=== PATIENT | female | born 1940 | race Caucasian/White ===

== ENCOUNTER → 2016-09-01 | Outpatient (CLI) | payer BC ==
[~2016-09-01] MED LIST: ASCA500 PO; ASPEC81 PO; BUPR-79 PO; CHOL1000 PO; CITA20TA4 PO; DRGTP75 TD; LEVO75TA PO; NRN600 PO; OMEG10007 PO; OXYB10TA13 PO; POTA-335 PO; PROBCAP2 PO; PROP80CA PO
[2016-09-01 10:04] LABS: BASO % 0.3 %; BASO ABS # 0.02 K/uL (0-0.2); COMPLETE YES; EOS % 2.7 %; HEMATOCRIT 41.5 % (37-47); IG% 0.1 %; LYMPH % 38.6 %; LYMPH ABS # 2.86 K/uL (1.2-3.4); MEAN CELL VOLUME 90.4 fL (80-100); MEAN CORPUSCULAR HEMOGLOBIN 29.2 pg (25-34); MEAN CORPUSCULAR HGB CONC 32.3 g/dl (32-36); MEAN PLATELET VOLUME 9.2 fL (7.4-10.4); MONO % 4.2 %; NEUT % 54.1 %; PLATELET COUNT 256 K/uL (130-400); RED BLOOD COUNT 4.59 M/uL (4.2-5.4)
[2016-09-01 10:39] LABS: ALT/SGPT 26 U/L (12-78); AST/SGOT 24 U/L (15-37); BLOOD UREA NITROGEN 8 mg/dl (7-18); BUN/CREATININE RATIO 9.5 (10-20); CALCIUM 8.9 mg/dl (8.5-10.1); CARBON DIOXIDE 35 mmol/L (21-32); CHLORIDE 105 mmol/L (98-107); CHOLESTEROL 228 mg/dl (0-200); CREATININE 0.82 mg/dl (0.60-1.20); GLUCOSE 98 mg/dl (70-99); POTASSIUM 4.2 mmol/L (3.5-5.1); SODIUM 143 mmol/L (136-145)
[2016-09-01 10:50] LABS: CHOLESTEROL/HDL RATIO 2.9; HDL CHOLESTEROL 78 mg/dl; LDL CHOLESTEROL CALCULATED 126 mg/dl; TRIGLYCERIDES 119 mg/dl (0-150); VERY LOW DENSITY LIPOPROT CALC 24 mg/dl
== END | disposition home or self-care (01) ==
LOC: C.LAB 09:17
DX: I10 Essential (primary) hypertension (principal); M19.90 Unspecified osteoarthritis, unspecified site; E03.9 Hypothyroidism, unspecified; Z13.220 Encounter for screening for lipoid disorders

== ENCOUNTER → 2017-01-03 | Outpatient (CLI) | payer BC ==
--- NOTE | 2017-01-03 15:13 | DIAGNOSTIC IMAGING REPORT ---
RIGHT HAND MIN 3 VIEWS ROUTINE CLINICAL HISTORY: Right hand pain status post trauma COMPARISON: None. DISCUSSION: The bones are markedly osteopenic. Arthritic changes are present with narrowing of the metacarpal phalangeal joints. There is benign-appearing sclerosis involving the distal phalanx of the fifth finger. Arthritic changes are present the level of the navicular trapezium articulation. No acute fractures are visualized. IMPRESSION: Osteopenia and arthritic change. No acute fractures identified. Electronically signed by: Merritt David M.D. 01/03/2017 3:12 PM Dictated Date/Time: 01/03/2017 3:10 PM
--- NOTE | 2017-01-03 15:14 | DIAGNOSTIC IMAGING REPORT ---
RIGHT ELBOW MIN 3 VIEWS ROUTINE CLINICAL HISTORY: Right elbow pain status post trauma COMPARISON: None. DISCUSSION: The fat pads are not displaced. No acute fractures or dislocations are visualized. IMPRESSION: No fractures identified. Electronically signed by: Merritt David M.D. 01/03/2017 3:13 PM Dictated Date/Time: 01/03/2017 3:12 PM
--- NOTE | 2017-01-03 15:14 | DIAGNOSTIC IMAGING REPORT ---
RIGHT SHOULDER MIN 2 VIEWS ROUTINE, RIGHT CLAVICLE HISTORY: 76 years-old Female acute right shoulder and clavicle pain status post fall. COMPARISON: Portable chest radiograph 02/20/2016. TECHNIQUE: 3 views of the right shoulder with 2 views of the right clavicle. 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 Prominent marginal spurring involves the inferomedial humeral head. There is no acute fracture or dislocation identified. Suture material is noted within the right upper lung. CLAVICLE: Moderate acromioclavicular osteoarthritis is noted with marginal spurring. The clavicle appears intact without acute fracture or dislocation. Negative for opaque foreign body. IMPRESSION: 1. No acute fracture or dislocation identified involving the right shoulder or clavicle. 2. 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 The above report was generated using voice recognition software. It may contain grammatical, syntax or spelling errors. Electronically signed by: Manan Orantes M.D. 01/03/2017 3:12 PM Dictated Date/Time: 01/03/2017 3:09 PM
--- NOTE | 2017-01-03 15:14 | DIAGNOSTIC IMAGING REPORT ---
LEFT KNEE 1 OR 2 VIEWS ROUTINE CLINICAL HISTORY: Left knee pain status post trauma COMPARISON: None. DISCUSSION: No fractures or dislocations are visualized. IMPRESSION: No fractures or dislocations identified. Electronically signed by: Merritt David M.D. 01/03/2017 3:13 PM Dictated Date/Time: 01/03/2017 3:13 PM
--- NOTE | 2017-01-03 15:19 | DIAGNOSTIC IMAGING REPORT ---
RIGHT FOREARM 2 VIEWS ROUTINE, RIGHT HUMERUS MIN 2 VIEWS ROUTINE, RIGHT WRIST MIN 3 VIEWS ROUTINE HISTORY: 76 years-old Female acute right upper extremity pain status post fall. COMPARISON: Right elbow radiographs of same day TECHNIQUE: 2 views of the right forearm, 2 views of the right humerus and 4 views of the right wrist. FINDINGS: HUMERUS: No acute fracture or dislocation. Degenerative changes about the shoulder redemonstrated. Negative for opaque foreign body. FOREARM: Bones are moderately demineralized. Degenerative changes are noted about the wrist and radiocarpal joint. Radius and ulna appear intact without acute fracture or dislocation. No elbow joint effusion identified. WRIST: Moderate bone demineralization noted. There is moderate radiocarpal, triscaphe and first carpometacarpal osteoarthritis. There is 3 mm positive ulnar variance. Distal radius and ulna appear intact. The scaphoid appears intact. IMPRESSION: 1. No acute fracture or dislocation identified involving the right humerus, forearm or wrist. 2. Moderate bone demineralization with multifocal degenerative changes. The above report was generated using voice recognition software. It may contain grammatical, syntax or spelling errors. Electronically signed by: Manan Orantes M.D. 01/03/2017 3:18 PM Dictated Date/Time: 01/03/2017 3:13 PM
--- NOTE | 2017-01-03 15:20 | DIAGNOSTIC IMAGING REPORT ---
LEFT TIBIA/FIBULA 2 VIEWS ROUTINE HISTORY: 76 years-old Female acute left leg pain status post fall. COMPARISON: Left knee radiographs of same day TECHNIQUE: Frontal and lateral views of the left tibia/fibula. FINDINGS: Mild medial lateral compartment osteoarthritis is noted. The bones are mildly demineralized. No acute fracture or dislocation. IMPRESSION: No acute fracture or dislocation. The above report was generated using voice recognition software. It may contain grammatical, syntax or spelling errors. Electronically signed by: Manan Orantes M.D. 01/03/2017 3:19 PM Dictated Date/Time: 01/03/2017 3:18 PM
== END | disposition home or self-care (01) ==
LOC: C.RAD 14:05
DX: M79.601 Pain in right arm (principal); M79.605 Pain in left leg; W19.XXXA Unspecified fall, initial encounter; M19.011 Primary osteoarthritis, right shoulder; M85.841 Other specified disorders of bone density and structure, right hand; M81.0 Age-related osteoporosis without current pathological fracture

== ENCOUNTER 2017-05-24 14:19 | Observation (INO) | payer BC ==
[~2017-05-24] VITALS: Ht 160 cm; Wt 80.0 kg
[2017-05-24 15:45] LABS: BASO % 0.3 %; BASO ABS # 0.02 K/uL (0-0.2); EOS % 1.8 %; EOS ABS # 0.13 K/uL (0-0.5); HEMATOCRIT 40.7 % (37-47); HEMOGLOBIN 13.8 g/dL (12.0-16.0); IG# 0.01 K/uL (0.00-0.02); LYMPH % 19.3 %; MEAN CELL VOLUME 90.2 fL (80-100); MEAN CORPUSCULAR HEMOGLOBIN 30.6 pg (25-34); MEAN CORPUSCULAR HGB CONC 33.9 g/dl (32-36); MEAN PLATELET VOLUME 9.5 fL (7.4-10.4); MONO % 6.9 %; NEUT % 71.6 %; PLATELET COUNT 219 K/uL (130-400); RED CELL DISTRIBUTION WIDTH SD 42.8 fL (36.4-46.3); WHITE BLOOD COUNT 7.26 K/uL (4.8-10.8)
[2017-05-24 16:03] LABS: ALBUMIN 3.6 gm/dl (3.4-5.0); CREATININE 0.9 mg/dl (0.60-1.20); POTASSIUM 4.4 mmol/L (3.5-5.1)
[2017-05-24] MEDS ORDERED: OXYB5TAB PO (16:13)
[2017-05-24] MEDS ORDERED: GABA1CAP5 PO (16:13)
[2017-05-24] MEDS ORDERED: PROP80TA2 PO (16:13)
[2017-05-24] MEDS ORDERED: PRLSR20 PO (16:13)
[2017-05-24] MEDS ORDERED: POTA20TA16 PO (16:13)
[2017-05-24] MEDS ORDERED: FENT75DI2 (16:13)
[2017-05-24] MEDS ORDERED: CITA20TA4 PO (16:13)
[2017-05-24] MEDS ORDERED: LEVO100T7 PO (16:13)
[2017-05-24] MEDS ORDERED: BUPR150T47 PO (16:13)
--- NOTE | 2017-05-24 16:53 | DIAGNOSTIC IMAGING REPORT ---
HEAD CT NONCONTRAST CT DOSE: 1231.54 mGy.cm HISTORY: lethargic. prior CVA TECHNIQUE: Multiaxial CT images of the head were performed without the use of intravenous contrast. Automated exposure control was utilized for this study. A dose lowering technique was utilized adhering to the principles of ALARA. Comparison: Head CT 03/01/2016. Findings: The paranasal sinuses and mastoid air cells are clear. The calvarium and skull base are intact. There is no mass, hematoma, midline shift, acute infarct. White matter hypodensity is nonspecific but suggestive of microvascular ischemic change. The ventricles and sulci demonstrate mild age-related involutional changes. Old left basal ganglia and external capsule infarct with compensatory dilatation of the left lateral ventricle. This remains unchanged. Impression: No significant change compared to the prior study. No acute intracranial abnormality. Electronically signed by: Brando Naylor M.D. 05/24/2017 4:52 PM Dictated Date/Time: 05/24/2017 4:49 PM
[2017-05-24] MEDS ORDERED: CEFTRIAXONE SOD INJ 1 GM ADDVIAL IV STA (17:02)
--- NOTE | 2017-05-24 17:06 | DIAGNOSTIC IMAGING REPORT ---
CT SCAN OF THE ABDOMEN AND PELVIS WITHOUT IV CONTRAST CLINICAL HISTORY: Left lower quadrant abdominal pain. COMPARISON STUDY: Abdominal CT dated 11/11/2015. TECHNIQUE: CT scan of the abdomen and pelvis is performed from the lung bases to the proximal femora. Images are reviewed in the axial, sagittal, and coronal planes. IV contrast was not administered for this examination as per the referring clinician. Note that the examination was performed in suboptimal fashion without oral and IV contrast. The examination is also degraded by streak artifact from the right arm which could not be elevated above the abdomen. A dose lowering technique was utilized adhering to the principles of ALARA. FINDINGS: Lung bases: The heart is normal in size and without pericardial effusion. The coronary arteries are densely calcified. A tiny fat-containing Bochdalek hernia is seen at the left lung base. The lung bases are otherwise clear. There is a small hiatal hernia. Liver: The unenhanced liver is normal in size, contour, and attenuation. There is no intrahepatic biliary ductal dilatation. Gallbladder: Unremarkable. Spleen: Normal in size and attenuation. Pancreas: The unenhanced pancreas is atrophic and grossly unremarkable. Adrenal glands: Unremarkable. Kidneys: The unenhanced kidneys are atrophic and without hydronephrosis. There are no renal calculi identified. There is no evidence of contour deforming renal mass lesion. Abdominal vasculature: The abdominal aorta is normal in course and caliber noting moderate atherosclerotic calcification. Bowel: There are scattered colonic diverticula without CT evidence of acute diverticulitis. Mild to moderate colonic fecal retention is observed. No bowel obstruction is identified. The appendix is not identified. Peritoneum: There is no intraperitoneal free air or abdominal ascites. Lymphadenopathy: None. Pelvic viscera: The bladder, uterus, and adnexa are normal as visualized. There are small bilateral small fat-containing inguinal hernias. Skeletal structures: The skeletal structures are osteopenic. There is moderate lumbosacral spondylosis. There are healed right-sided rib fractures. No lytic or blastic lesions are seen. IMPRESSION: 1. Suboptimal examination without oral and IV contrast. 2. There are no acute infectious or inflammatory findings in the abdomen or pelvis. Electronically signed by: Andreas Bush M.D. 05/24/2017 5:05 PM Dictated Date/Time: 05/24/2017 5:00 PM
[2017-05-24] MEDS ORDERED: ACETAMINOPHEN 325 MG TAB PO PRN (19:30)
--- NOTE | 2017-05-24 19:32 | History and Physical ---
History & Physical Date & Time of Service: May 24, 2017 at 19:07 Chief Complaint: Abominal Pain Primary Care Physician: Sher Chu Jr,D.O. History of Present Illness Source: patient Ms. Harris presents today for change in mental status per her . She is at baseline non verbal and non ambulatory, able to be pivoted from wheelchair to chair or bed due to stroke 16 years ago. 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 She is able to communicate via head nods normally however she has been staring off into space and not responding to her . Upon presentation to the ED she was found to have bacteria and leukocytes in her urine and was febrile. Her denies any blood in her urine but does say she was indicating lower abdominal pain. 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 Social History Smoking Status: Never Smoker Drug Use: none Marital Status: Housing status: lives with family Occupational Status: retired Immunizations History of Influenza Vaccine: Yes Influenza Vaccine Date: Feb 12, 2011 History of Tetanus Vaccine?: Unknown History of Pneumococcal: Yes Pneumococcal Date: Feb 12, 2010 History of Hepatitis B Vaccine: No Multi-Drug Resistant Organisms History of MDRO: No Allergies Coded Allergies: Penicillins (Verified Allergy, Intermediate, HIVES, 05/24/17) Sulfa Antibiotics (Verified Adverse Reaction, Unknown, MOUTH ULCERS, ) Home Medications Scheduled Citalopram Hydrobromide (Citalopram Hydrobromide), 1 TAB PO DAILY Fentanyl (Fentanyl), q72hrs Gabapentin (Neurontin), 600 MG PO TID Levothyroxine Sodium (Levothyroxine Sodium), 1 TAB PO DAILY Omeprazole (Prilosec), 20 MG PO BID Oxybutynin Chloride (Oxybutynin Chloride Er), 10 MG PO BID Potassium Ext Rel (Klor-Con), 20 MEQ PO DAILY Propranolol (Inderal), 80 MG PO BID Miscellaneous Medications Bupropion (Zyban), 150 MG PO Physical Exam Vital Signs Date Time Temp Pulse Resp B/P (MAP) Pulse Ox O2 Delivery O2 Flow Rate FiO2 05/24/17 17:56 73 16 144/85 95 Room Air 05/24/17 17:30 70 16 144/81 100 Room Air 05/24/17 16:53 67 144/81 94 Room Air 05/24/17 14:33 71 05/24/17 14:30 38.5 64 16 132/67 92 Room Air General: no distress Eyes: normal inspection, eyes non reactive to light bilaterally Respiratory: chest non tender, clear to auscultation, normal breath sounds, no respiratory distress, no accessory muscle use Cardiac: regular rate and rhythm, no rub or gallop, no murmur, no edema, no jvd GI/: active bowel sounds, no abd pain or tenderness, soft, non distended Extremities: unable to test due to patient baseline Neuro/Psych: non verbal, unable to follow commands Skin: normal color, dry Diagnostics Laboratory Results Results Past 24 Hours Test 05/24/17 14:40 05/24/17 15:25 Range/Units Urine Color YELLOW Urine Appearance CLOUDY CLEAR Urine pH 7.5 4.5-7.5 Urine Specific [place] 1.012 1.000-1.030 Urine Protein NEG NEG Urine Glucose (UA) NEG NEG Urine Ketones NEG NEG Urine Occult Blood NEG NEG Urine Nitrite NEG NEG Urine Bilirubin NEG NEG Urine Urobilinogen NEG NEG Urine Leukocyte Esterase LARGE NEG Urine WBC (Auto) 5-10 0-5 /hpf Urine RBC (Auto) 0-4 0-4 /hpf Urine Hyaline Casts (Auto) 0 0-5 /lpf Urine Epithelial Cells (Auto) 5-10 0-5 /lpf Urine Bacteria (Auto) 4+ NEG Urine Yeast (Auto) NONE PRSENT White Blood Count 7.26 4.8-10.8 K/uL Red Blood Count 4.51 4.2-5.4 M/uL Hemoglobin 13.8 12.0-16.0 g/dL Hematocrit 40.7 37-47 % Mean Corpuscular Volume 90.2 80-100 fL Mean Corpuscular Hemoglobin 30.6 25-34 pg Mean Corpuscular Hemoglobin Concent 33.9 32-36 g/dl Platelet Count 219 130-400 K/uL Mean Platelet Volume 9.5 7.4-10.4 fL Neutrophils (%) (Auto) 71.6 % Lymphocytes (%) (Auto) 19.3 % Monocytes (%) (Auto) 6.9 % Eosinophils (%) (Auto) 1.8 % Basophils (%) (Auto) 0.3 % Neutrophils # (Auto) 5.20 1.4-6.5 K/uL Lymphocytes # (Auto) 1.40 1.2-3.4 K/uL Monocytes # (Auto) 0.50 0.11-0.59 K/uL Eosinophils # (Auto) 0.13 0-0.5 K/uL Basophils # (Auto) 0.02 0-0.2 K/uL RDW Standard Deviation 42.8 36.4-46.3 fL RDW Coefficient of Variation 13.0 11.5-14.5 % Immature Granulocyte % (Auto) 0.1 % Immature Granulocyte # (Auto) 0.01 0.00-0.02 K/uL Sodium Level 136 136-145 mmol/L Potassium Level 4.4 3.5-5.1 mmol/L Chloride Level 99 98-107 mmol/L Carbon Dioxide Level 33 21-32 mmol/L Anion Gap 4.0 3-11 mmol/L Blood Urea Nitrogen 7 7-18 mg/dl Creatinine 0.90 0.60-1.20 mg/dl Est Creatinine Clear Calc Drug Dose 53.2 ml/min Estimated GFR () 72.0 Estimated GFR (Non- 62.1 BUN/Creatinine Ratio 7.4 10-20 Random Glucose 90 70-99 mg/dl Calcium Level 9.0 8.5-10.1 mg/dl Total Bilirubin 0.5 0.2-1 mg/dl Direct Bilirubin 0.1 0-0.2 mg/dl Aspartate Amino Transf (AST/SGOT) 19 15-37 U/L Alanine Aminotransferase (ALT/SGPT) 21 12-78 U/L Alkaline Phosphatase 91 45-117 U/L Total Protein 7.0 6.4-8.2 gm/dl Albumin 3.6 3.4-5.0 gm/dl Lipase 68 73-393 U/L Microbiology Results 05/24/17 Urine Culture, Received Pending Diagnostic Radiology CT SCAN OF THE ABDOMEN AND PELVIS WITHOUT IV CONTRAST CLINICAL HISTORY: Left lower quadrant abdominal pain. COMPARISON STUDY: Abdominal CT dated 11/11/2015. TECHNIQUE: CT scan of the abdomen and pelvis is performed from the lung bases to the proximal femora. Images are reviewed in the axial, sagittal, and coronal planes. IV contrast was not administered for this examination as per the referring clinician. Note that the examination was performed in suboptimal fashion without oral and IV contrast. The examination is also degraded by streak artifact from the right arm which could not be elevated above the abdomen. A dose lowering technique was utilized adhering to the principles of ALARA. FINDINGS: Lung bases: The heart is normal in size and without pericardial effusion. The coronary arteries are densely calcified. A tiny fat-containing Bochdalek hernia is seen at the left lung base. The lung bases are otherwise clear. There is a small hiatal hernia. Liver: The unenhanced liver is normal in size, contour, and attenuation. There is no intrahepatic biliary ductal dilatation. Gallbladder: Unremarkable. Spleen: Normal in size and attenuation. Pancreas: The unenhanced pancreas is atrophic and grossly unremarkable. Adrenal glands: Unremarkable. Kidneys: The unenhanced kidneys are atrophic and without hydronephrosis. There are no renal calculi identified. There is no evidence of contour deforming renal mass lesion. Abdominal vasculature: The abdominal aorta is normal in course and caliber noting moderate atherosclerotic calcification. Bowel: There are scattered colonic diverticula without CT evidence of acute diverticulitis. Mild to moderate colonic fecal retention is observed. No bowel obstruction is identified. The appendix is not identified. Peritoneum: There is no intraperitoneal free air or abdominal ascites. Lymphadenopathy: None. Pelvic viscera: The bladder, uterus, and adnexa are normal as visualized. There are small bilateral small fat-containing inguinal hernias. Skeletal structures: The skeletal structures are osteopenic. There is moderate lumbosacral spondylosis. There are healed right-sided rib fractures. No lytic or blastic lesions are seen. IMPRESSION: 1. Suboptimal examination without oral and IV contrast. 2. There are no acute infectious or inflammatory findings in the abdomen or pelvis. HEAD CT NONCONTRAST CT DOSE: 1231.54 mGy.cm HISTORY: lethargic. prior CVA TECHNIQUE: Multiaxial CT images of the head were performed without the use of intravenous contrast. Automated exposure control was utilized for this study. A dose lowering technique was utilized adhering to the principles of ALARA. Comparison: Head CT 03/01/2016. Findings: The paranasal sinuses and mastoid air cells are clear. The calvarium and skull base are intact. There is no mass, hematoma, midline shift, acute infarct. White matter hypodensity is nonspecific but suggestive of microvascular ischemic change. The ventricles and sulci demonstrate mild age-related involutional changes. Old left basal ganglia and external capsule infarct with compensatory dilatation of the left lateral ventricle. This remains unchanged. Impression: No significant change compared to the prior study. No acute intracranial abnormality. EKG Poor data quality, interpretation may be adversely affected Normal sinus rhythm Right bundle branch block Abnormal ECG When compared with ECG of 03-MAR-2016 06:35, No significant change was found Confirmed by Luis Antonio Douglas ([id number]) on 05/24/2017 5:04:31 PM Impression Assessment and Plan Mrs. Harris is a 76 year old woman here for AMS secondary to UTI AMS secondary to UTI - admit med/surg obs - UC pending - Rocephin daily - Patient's reports patient cannot tolerate physical therapy so I won't order it - CT head negative for acute process - CT abd negative for acute process History of depression/fibromyalgia - continue home doses bupropion, citalopram, gabapentin, fentanyl patch Hypothyroidism - continue levothyroxine Hx CVA - turn and reposition q2h Advanced Directives Existing Advance Directive: Yes Existing Living Will: Yes Existing Power of Executive Vice President And Chief Financial Officer: No ( and son) Resuscitation Status FULL RESUSCITATION
[2017-05-24] MEDS ORDERED: IV FLUIDS COMPLETED PRN (20:30)
[2017-05-24] MEDS: GABAPENTIN 600 MG TAB PO SCH (22:05)
[2017-05-24] MEDS: PROPRANOLOL HCL 80 MG TAB PO SCH (22:05)
[2017-05-24] MEDS: PANTOprazole SOD 40 MG TAB PO SCH (22:05)
[2017-05-24] MEDS: OXYBUTYNIN CHLORIDE 5 MG TABCR PO SCH (22:06)
[2017-05-24 22:17] VITALS: O2SAT 94; Ht 160 cm; Wt 80.0 kg
--- NOTE | 2017-05-24 22:34 | EMERGENCY ROOM VISIT NOTE ---
History Report prepared by Sharri: Reggie Santos Under the Supervision of: Dr. Waldemar Vargas M.D. 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 The patient is a 76 year old female who presents to the Emergency Room with concerns of worsening lethargy that the patient's noticed this morning, several hours prior to arrival. The patient's states that he noticed the patient was very lethargic this morning while at breakfast. He claims that she is aphasic at baseline, but it is worse today. He also notes that her urine has been cloudy with a very strong odor for the past three days. Her right side was also effected from the stroke. She has chronic fibromyalgia and it is not unusual for her to be very tender to palpation globally. 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 Social History Smoking Status: Former Smoker Alcohol Use: none Drug Use: none Marital Status: Housing Status: lives with family Occupation Status: retired Current/Historical Medications Scheduled Citalopram Hydrobromide (Citalopram Hydrobromide), 1 TAB PO DAILY Fentanyl (Fentanyl), q72hrs Gabapentin (Neurontin), 600 MG PO TID Levothyroxine Sodium (Levothyroxine Sodium), 1 TAB PO DAILY Omeprazole (Prilosec), 20 MG PO BID Oxybutynin Chloride (Oxybutynin Chloride Er), 10 MG PO BID Potassium Ext Rel (Klor-Con), 20 MEQ PO DAILY Propranolol (Inderal), 80 MG PO BID Miscellaneous Medications Bupropion (Zyban), 150 MG PO Allergies Coded Allergies: Penicillins (Verified Allergy, Intermediate, HIVES, 05/24/17) Sulfa Antibiotics (Verified Adverse Reaction, Unknown, MOUTH ULCERS, ) Physical Exam Vital Signs Date Time Temp Pulse Resp B/P (MAP) Pulse Ox O2 Delivery O2 Flow Rate FiO2 05/24/17 19:02 73 18 119/77 92 Room Air 05/24/17 17:56 73 16 144/85 95 Room Air 05/24/17 17:30 70 16 144/81 100 Room Air 05/24/17 16:53 67 144/81 94 Room Air 05/24/17 14:33 71 05/24/17 14:30 38.5 64 16 132/67 92 Room Air Physical Exam GENERAL: Awake, alert, well-appearing, in no distress HENT: Normocephalic, atraumatic. Oropharynx unremarkable. EYES: Normal conjunctiva. Sclera non-icteric. NECK: Supple. No nuchal rigidity. FROM. No JVD. RESPIRATORY: Clear to auscultation. CARDIAC: There is some diffuse tenderness over the chest. Regular rate, normal rhythm. Extremities warm and well perfused. Pulses equal. ABDOMEN: Soft, non-distended. There is LLQ tenderness to palpation. No rebound or guarding. No masses. RECTAL: Deferred. MUSCULOSKELETAL: Chest examination reveals no tenderness. The back is symmetrical on inspection without obvious abnormality. There is no CVA tenderness to palpation. No joint edema. LOWER EXTREMITIES: Calves are equal size bilaterally and non-tender. No edema. No discoloration. NEURO: Normal sensorium. No sensory or motor deficits noted. SKIN: No rash or jaundice noted. Medical Decision & Procedures ER Provider Diagnostic Interpretation: Radiology results as stated below per my review and radiologist interpretation: CT SCAN OF THE ABDOMEN AND PELVIS WITHOUT IV CONTRAST CLINICAL HISTORY: Left lower quadrant abdominal pain. COMPARISON STUDY: Abdominal CT dated 11/11/2015. TECHNIQUE: CT scan of the abdomen and pelvis is performed from the lung bases to the proximal femora. Images are reviewed in the axial, sagittal, and coronal planes. IV contrast was not administered for this examination as per the referring clinician. Note that the examination was performed in suboptimal fashion without oral and IV contrast. The examination is also degraded by streak artifact from the right arm which could not be elevated above the abdomen. A dose lowering technique was utilized adhering to the principles of ALARA. FINDINGS: Lung bases: The heart is normal in size and without pericardial effusion. The coronary arteries are densely calcified. A tiny fat-containing Bochdalek hernia is seen at the left lung base. The lung bases are otherwise clear. There is a small hiatal hernia. Liver: The unenhanced liver is normal in size, contour, and attenuation. There is no intrahepatic biliary ductal dilatation. Gallbladder: Unremarkable. Spleen: Normal in size and attenuation. Pancreas: The unenhanced pancreas is atrophic and grossly unremarkable. Adrenal glands: Unremarkable. Kidneys: The unenhanced kidneys are atrophic and without hydronephrosis. There are no renal calculi identified. There is no evidence of contour deforming renal mass lesion. Abdominal vasculature: The abdominal aorta is normal in course and caliber noting moderate atherosclerotic calcification. Bowel: There are scattered colonic diverticula without CT evidence of acute diverticulitis. Mild to moderate colonic fecal retention is observed. No bowel obstruction is identified. The appendix is not identified. Peritoneum: There is no intraperitoneal free air or abdominal ascites. Lymphadenopathy: None. Pelvic viscera: The bladder, uterus, and adnexa are normal as visualized. There are small bilateral small fat-containing inguinal hernias. Skeletal structures: The skeletal structures are osteopenic. There is moderate lumbosacral spondylosis. There are healed right-sided rib fractures. No lytic or blastic lesions are seen. IMPRESSION: 1. Suboptimal examination without oral and IV contrast. 2. There are no acute infectious or inflammatory findings in the abdomen or pelvis. Electronically signed by: Andreas Bush M.D. 05/24/2017 5:05 PM Dictated Date/Time: 05/24/2017 5:[address] NON[address]AST CT DOSE: 1231.54 mGy.cm HISTORY: lethargic. prior CVA TECHNIQUE: Multiaxial CT images of the head were performed without the use of intravenous contrast. Automated exposure control was utilized for this study. A dose lowering technique was utilized adhering to the principles of ALARA. Comparison: Head CT 03/01/2016. Findings: The paranasal sinuses and mastoid air cells are clear. The calvarium and skull base are intact. There is no mass, hematoma, midline shift, acute infarct. White matter hypodensity is nonspecific but suggestive of microvascular ischemic change. The ventricles and sulci demonstrate mild age-related involutional changes. Old left basal ganglia and external capsule infarct with compensatory dilatation of the left lateral ventricle. This remains unchanged. Impression: No significant change compared to the prior study. No acute intracranial abnormality. Electronically signed by: Brando Naylor M.D. 05/24/2017 4:52 PM Dictated Date/Time: 05/24/2017 4:49 PM Laboratory Results 05/24/17 15:25 Red Blood Count 4.51, Mean Corpuscular Volume 90.2, Mean Corpuscular Hemoglobin 30.6, Mean Corpuscular Hemoglobin Concent 33.9, Mean Platelet Volume 9.5, Neutrophils (%) (Auto) 71.6, Lymphocytes (%) (Auto) 19.3, Monocytes (%) (Auto) 6.9, Eosinophils (%) (Auto) 1.8, Basophils (%) (Auto) 0.3, Neutrophils # (Auto) 5.20, Lymphocytes # (Auto) 1.40, Monocytes # (Auto) 0.50, Eosinophils # (Auto) 0.13, Basophils # (Auto) 0.02 05/24/17 15:25 Test 05/24/17 14:40 05/24/17 15:25 Urine Color YELLOW Urine Appearance CLOUDY (CLEAR) Urine pH 7.5 (4.5-7.5) Urine Specific [place] 1.012 (1.000-1.030) Urine Protein NEG (NEG) Urine Glucose (UA) NEG (NEG) Urine Ketones NEG (NEG) Urine Occult Blood NEG (NEG) Urine Nitrite NEG (NEG) Urine Bilirubin NEG (NEG) Urine Urobilinogen NEG (NEG) Urine Leukocyte Esterase LARGE (NEG) Urine WBC (Auto) 5-10 /hpf (0-5) Urine RBC (Auto) 0-4 /hpf (0-4) Urine Hyaline Casts (Auto) 0 /lpf (0-5) Urine Epithelial Cells (Auto) 5-10 /lpf (0-5) Urine Bacteria (Auto) 4+ (NEG) Urine Yeast (Auto) (NONE PRSENT) White Blood Count 7.26 K/uL (4.8-10.8) Red Blood Count 4.51 M/uL (4.2-5.4) Hemoglobin 13.8 g/dL (12.0-16.0) Hematocrit 40.7 % (37-47) Mean Corpuscular Volume 90.2 fL (80-100) Mean Corpuscular Hemoglobin 30.6 pg (25-34) Mean Corpuscular Hemoglobin Concent 33.9 g/dl (32-36) Platelet Count 219 K/uL (130-400) Mean Platelet Volume 9.5 fL (7.4-10.4) Neutrophils (%) (Auto) 71.6 % Lymphocytes (%) (Auto) 19.3 % Monocytes (%) (Auto) 6.9 % Eosinophils (%) (Auto) 1.8 % Basophils (%) (Auto) 0.3 % Neutrophils # (Auto) 5.20 K/uL (1.4-6.5) Lymphocytes # (Auto) 1.40 K/uL (1.2-3.4) Monocytes # (Auto) 0.50 K/uL (0.11-0.59) Eosinophils # (Auto) 0.13 K/uL (0-0.5) Basophils # (Auto) 0.02 K/uL (0-0.2) RDW Standard Deviation 42.8 fL (36.4-46.3) RDW Coefficient of Variation 13.0 % (11.5-14.5) Immature Granulocyte % (Auto) 0.1 % Immature Granulocyte # (Auto) 0.01 K/uL (0.00-0.02) Anion Gap 4.0 mmol/L (3-11) Est Creatinine Clear Calc Drug Dose 53.2 ml/min Estimated GFR () 72.0 Estimated GFR (Non- 62.1 BUN/Creatinine Ratio 7.4 (10-20) Calcium Level 9.0 mg/dl (8.5-10.1) Total Bilirubin 0.5 mg/dl (0.2-1) Direct Bilirubin 0.1 mg/dl (0-0.2) Aspartate Amino Transf (AST/SGOT) 19 U/L (15-37) Alanine Aminotransferase (ALT/SGPT) 21 U/L (12-78) Alkaline Phosphatase 91 U/L (45-117) Total Protein 7.0 gm/dl (6.4-8.2) Albumin 3.6 gm/dl (3.4-5.0) Lipase 68 U/L (73-393) Laboratory results reviewed by me Medications Administered Medications (Trade) Dose Ordered Sig/[place] Route Start Time Stop Time Status Last Admin Dose Admin Ceftriaxone Sodium (Rocephin Inj) 1 gm NOW STAT IV 05/24/17 17:02 05/24/17 17:03 DC 05/24/17 17:29 1 GM ECG Indication: abdominal pain, other (Lethargy) Rate (beats per minute): 76 Rhythm: normal sinus Findings: RBBB, no acute ischemic change, no ectopy Change: Patient's electrocardiogram per my interpretation. ED Course 1448: The patient was evaluated in room C11. A complete history and physical exam was performed. 1655: I checked on the patient at this time. She is doing okay. 1701: Ordered Rocephin 1 gm IV. 1808: I reevaluated the patient. she is stable. 1834: I discussed the case with Dr. Gus GARCIA Hospitalist. He will evaluate the patient for further treatment. Medical Decision Prior records/ancillary studies reviewed and summarized above. Nursing notes reviewed and agree them. Additional history obtained from patient who is primary caregiver. The patient's history was concerning for weakness and urinary symptoms. Differential diagnosis: Etiologies such as metabolic, infection, hypo/hyperglycemia, electrolyte abnormalities, cardiac sources, intracerebral event, toxicologic, neurologic, as well as others were entertained. Physical examination: As above. ER treatment provided: IV Lock IV Rocephin On reassessment the patient felt better. Diagnostics interpretation by me: ECG: As above The labs revealed an unremarkable CBC and chemistry panel. Urinalysis very concerning for infection. Imaging studies: CT scans as above. Consultation: A consultation was placed with the hospitalist. The case was discussed and diagnostics were reviewed. The patient was evaluated in the ER for further treatment. Consults Time Called: 1829 Consulting Physician: Dr. Gus GARCIA Hospitalist Returned Call: 1834 I discussed the case with Dr. Gus GARCIA Hospitalist. He will evaluate the patient for further treatment. Impression Primary Impression: UTI (urinary tract infection) Additional Impression: Weakness Scribe Attestation The scribe's documentation has been prepared under my direction and personally reviewed by me in its entirety. I confirm that the note above accurately reflects all work, treatment, procedures, and medical decision making performed by me. Departure Information Dispostion Being Evaluated By Hospitalist Referrals Sher Chu Jr,D.O. (PCP) Patient Instructions My [facility] Problem Qualifiers
[2017-05-24 23:58] VITALS: BP 122/67; PULSE 65; TEMP 36.8; O2SAT 91
[2017-05-25] MEDS: CHECK FENTANYL PATCH PLACEMENT SCH ×3 (00:15→15:06)
[2017-05-25] MEDS: LEVOTHYROXINE 100 MCG TAB PO SCH (06:35)
[2017-05-25 08:00] VITALS: O2SAT 94
[2017-05-25] MEDS ORDERED: POTASSIUM CHLORIDE 20 MEQ TABCR PO SCH (08:00)
[2017-05-25 08:05] VITALS: BP 113/74; PULSE 59; TEMP 37.5; O2SAT 91
[2017-05-25] MEDS: PROPRANOLOL HCL 80 MG TAB PO SCH ×2 (08:18→22:13)
[2017-05-25] MEDS: GABAPENTIN 600 MG TAB PO SCH ×3 (08:18→21:14)
[2017-05-25] MEDS: OXYBUTYNIN CHLORIDE 5 MG TABCR PO SCH ×2 (08:18→22:10)
[2017-05-25] MEDS: BuPROPion SR 150 MG TABCR PO SCH (08:19)
[2017-05-25] MEDS: CITALOPRAM 20 MG TAB PO SCH (08:19)
[2017-05-25] MEDS: PANTOprazole SOD 40 MG TAB PO SCH ×2 (08:19→21:13)
[2017-05-25 09:00] LABS: HEMATOCRIT 36.3 % (37-47); HEMOGLOBIN 12.3 g/dL (12.0-16.0); MEAN CELL VOLUME 88.5 fL (80-100); MEAN CORPUSCULAR HGB CONC 33.9 g/dl (32-36); MEAN PLATELET VOLUME 9.5 fL (7.4-10.4); PLATELET COUNT 200 K/uL (130-400); RED CELL DISTRIBUTION WIDTH CV 12.9 % (11.5-14.5); RED CELL DISTRIBUTION WIDTH SD 41.7 fL (36.4-46.3); WHITE BLOOD COUNT 4.58 K/uL (4.8-10.8)
[2017-05-25 09:32] LABS: CALCIUM 8.5 mg/dl (8.5-10.1); CREATININE 0.62 mg/dl (0.60-1.20); POTASSIUM 3.4 mmol/L (3.5-5.1)
[2017-05-25] MEDS ORDERED: POTASSIUM CHLORIDE 10 MEQ TABCR PO ONE (10:00)
[2017-05-25] MEDS: POTASSIUM CHLORIDE 20 MEQ/15 ML UDC PO SCH (10:30)
[2017-05-25 14:37] VITALS: BP 87/59; PULSE 58; TEMP 36.8; O2SAT 92
--- NOTE | 2017-05-25 16:41 | Hospitalist Progress Note ---
Hospitalist Progress Note Date of Service May 25, 2017. Subjective Pt evaluation today including: conversation w/ patient, physical exam, chart review, lab review, review of inpatient medication list Voiding: no voiding problems Ms. Harris is improved today, able to verbalize a bit. No fevers overnight. VSS ROS Constitutional: no chills, aches, sweats or fever Respiratory: no sob,cough, sputum, or wheezing Cardiac: no chest pain, palpitations, edema, orthopnea or lightheadedness GI: no abdominal pain, nausea, vomiting, diarrhea or constipation : no dysuria or hesitancy Extremities: no joint pain or weakness Skin: no rash All other systems reviewed and negative Medications Medications Administered Medications (Trade) Dose Ordered Sig/[place] Route Start Time Stop Time Status Last Admin Dose Admin Ceftriaxone Sodium (Rocephin Inj) 1 gm NOW STAT IV 05/24/17 17:02 05/24/17 17:03 DC 05/24/17 17:29 1 GM Bupropion HCl (Wellbutrin-Sr Tab) 150 mg DAILY PO 05/25/17 08:00 06/24/17 08:59 05/25/17 08:19 150 MG Citalopram Hydrobromide (celeXA TAB) 20 mg DAILY PO 05/25/17 08:00 06/24/17 08:59 05/25/17 08:19 20 MG Gabapentin (Neurontin Tab) 600 mg TID PO 05/24/17 20:55 06/23/17 20:59 05/25/17 13:51 600 MG Levothyroxine Sodium (Synthroid Tab) 100 mcg DAILYBB PO 05/25/17 06:30 06/24/17 06:29 05/25/17 06:35 100 MCG Oxybutynin Chloride (Ditropan-Xl Tab) 10 mg BID PO 05/24/17 20:55 06/23/17 20:59 05/25/17 08:18 10 MG Potassium Chloride (Klor-Con Tab) 20 meq DAILY PO 05/25/17 08:00 05/25/17 10:16 DC 05/25/17 08:19 20 MEQ Propranolol HCl (Inderal Tab) 80 mg BID PO 05/24/17 20:55 06/23/17 20:59 05/25/17 08:18 80 MG Pantoprazole Sodium (Protonix Tab) 40 mg BID PO 05/24/17 20:55 06/23/17 20:59 05/25/17 08:19 40 MG Acetaminophen (Tylenol Tab) 650 mg Q4H PRN PO 05/24/17 19:30 06/23/17 19:29 05/25/17 06:36 650 MG Miscellaneous Information (Check Fentanyl Patch Placement) 1 ea QS N/A 05/25/17 00:00 06/24/17 00:00 05/25/17 15:06 1 EA Objective Vital Signs Date Time Temp Pulse Resp B/P (MAP) Pulse Ox O2 Delivery O2 Flow Rate FiO2 05/25/17 14:37 36.8 58 18 87/59 (68) 92 05/25/17 08:05 37.5 59 20 113/74 (87) 91 05/25/17 08:00 94 Room Air 05/25/17 00:30 Room Air 05/24/17 23:58 36.8 65 20 122/67 (85) 91 Room Air 05/24/17 22:17 94 Room Air 05/24/17 20:36 37.1 74 20 135/86 94 05/24/17 19:02 73 18 119/77 92 Room Air 05/24/17 17:56 73 16 144/85 95 Room Air 05/24/17 17:30 70 16 144/81 100 Room Air 05/24/17 16:53 67 144/81 94 Room Air Physical Exam Notes: General: no distress Eyes: normal inspection, PERLL Respiratory: chest non tender, clear to auscultation, normal breath sounds, no respiratory distress, no accessory muscle use Cardiac: regular rate and rhythm, no rub or gallop, no murmur, no edema, no jvd GI/: active bowel sounds, no abd pain or tenderness, soft, non distended Extremities: normal range of motion, normal strength, non tender Neuro/Psych: alert, unable to assess orientation due to limited verbalization baseline Skin: normal color, dry Laboratory Results Last 24 Hours Test 05/25/17 08:15 White Blood Count 4.58 K/uL Red Blood Count 4.10 M/uL Hemoglobin 12.3 g/dL Hematocrit 36.3 % Mean Corpuscular Volume 88.5 fL Mean Corpuscular Hemoglobin 30.0 pg Mean Corpuscular Hemoglobin Concent 33.9 g/dl RDW Standard Deviation 41.7 fL RDW Coefficient of Variation 12.9 % Platelet Count 200 K/uL Mean Platelet Volume 9.5 fL Sodium Level 136 mmol/L Potassium Level 3.4 mmol/L Chloride Level 100 mmol/L Carbon Dioxide Level 27 mmol/L Anion Gap 8.0 mmol/L Blood Urea Nitrogen 7 mg/dl Creatinine 0.62 mg/dl Est Creatinine Clear Calc Drug Dose 77.3 ml/min Estimated GFR () 101.5 Estimated GFR (Non- 87.6 BUN/Creatinine Ratio 10.9 Random Glucose 96 mg/dl Calcium Level 8.5 mg/dl Assessment and Plan Mrs. Harris is a 76 year old woman here for AMS secondary to UTI AMS secondary to UTI - admit med/surg obs - UC pending - uc pinpoint growth, reincubating - Rocephin daily - Patient's reports patient cannot tolerate physical therapy so not ordered - CT head negative for acute process - CT abd negative for acute process History of depression/fibromyalgia - continue home doses bupropion, citalopram, gabapentin, fentanyl patch Hypothyroidism - continue levothyroxine Hx CVA - turn and reposition q2h DVT proph - heparin subq
[2017-05-25] MEDS ORDERED: CEFTRIAXONE SOD INJ 1 GM in DEXTROSE 5% ADD-VANTAGE 50ML 50 ML IV SCH (17:00)
[2017-05-25 17:43] LABS: PTT PATIENT 27.5 SECONDS (21.0-31.0)
[2017-05-25 22:10] VITALS: BP 131/84; PULSE 77
[2017-05-25] MEDS: HEPARIN SOD 5000 UNIT/0.5 ML CARP SQ SCH (22:15)
[2017-05-26] MEDS: LEVOTHYROXINE 100 MCG TAB PO SCH (06:43)
[2017-05-26 07:17] VITALS: BP 127/79; PULSE 59; TEMP 37; O2SAT 91
[2017-05-26] MEDS: CHECK FENTANYL PATCH PLACEMENT SCH ×2 (07:43)
[2017-05-26] MEDS: POTASSIUM CHLORIDE 20 MEQ/15 ML UDC PO SCH (07:44)
[2017-05-26] MEDS: PANTOprazole SOD 40 MG TAB PO SCH (07:44)
[2017-05-26] MEDS: OXYBUTYNIN CHLORIDE 5 MG TABCR PO SCH (07:45)
[2017-05-26] MEDS: PROPRANOLOL HCL 80 MG TAB PO SCH (07:46)
[2017-05-26 07:56] LABS: HEMATOCRIT 37.6 % (37-47); HEMOGLOBIN 12.8 g/dL (12.0-16.0); MEAN CELL VOLUME 89.5 fL (80-100); MEAN CORPUSCULAR HEMOGLOBIN 30.5 pg (25-34); MEAN PLATELET VOLUME 9.3 fL (7.4-10.4); PLATELET COUNT 184 K/uL (130-400); RED CELL DISTRIBUTION WIDTH CV 13.1 % (11.5-14.5); RED CELL DISTRIBUTION WIDTH SD 43.1 fL (36.4-46.3); WHITE BLOOD COUNT 5.25 K/uL (4.8-10.8)
[2017-05-26 08:05] VITALS: O2SAT 91
[2017-05-26 08:23] LABS: CALCIUM 8.6 mg/dl (8.5-10.1); CREATININE 0.69 mg/dl (0.60-1.20); POTASSIUM 3.8 mmol/L (3.5-5.1)
[2017-05-26] MEDS ORDERED: CEPH500C2 PO (08:27)
--- NOTE | 2017-05-26 08:30 | Discharge Instructions ---
Discharge Instructions Date of Service May 26, 2017. Admission Reason for Admission: Altered Mental Status, Uti Discharge Discharge Diagnosis / Problem: Altered Mental Status, Uti Discharge Goals Goal(s): Decrease discomfort, Improve function, Increase independence, Improve disease control, Improve nutritional status, Learn about illness, Diagnostic testing, Therapeutic intervention, Prevent Disease Progression, Specific goals Activity Recommendations Activity Limitations: resume your previous activity . Instructions / Follow-Up Instructions / Follow-Up you have mental status changes like secondary to UTI have been treated Rocephin daily , will discharge you home with Keflex orally for 5 days please call to Dr. Teresa's office to get final urine culture sensitivity report to make sure Keflex is right antibiotics - you need to follow up with your primary care physician in 1 week, - take medication as instructed, never overdose or any misuse, or take with alcohol, because misuse of medicine may cause organ damage or , call your primary care physician if have questions of medicaitons. - call your primary care physician OR go to local emergency room if has any fever/chill, chest pain, shortness of breathing, nausea/vomiting/abdominal pain , facial droop/slurry speech/local weakness, or if has any questions. - fall precaution - diet as instructed Current Hospital Diet Patient's current hospital diet: Regular Diet Discharge Diet Recommended Diet: Regular Diet, AHA Diet (Heart Healthy) Pending Studies Studies pending at discharge: yes List of pending studies: final urine culture results Medical Emergencies . Who to Call and When: Medical Emergencies: If at any time you feel your situation is an emergency, please call 911 immediately. . Non-Emergent Contact Non-Emergency issues call your: Primary Care Provider Call Non-Emergent contact if: you have a fever . . "Provider Documentation" section prepared by Alf Donahue. . VTE Core Measure Inpt VTE Proph given/why not?: Unfractionated heparin SQ
[2017-05-26] MEDS: HEPARIN SOD 5000 UNIT/0.5 ML CARP SQ SCH (09:00)
[2017-05-26] MEDS: CITALOPRAM 20 MG TAB PO SCH (09:16)
[2017-05-26] MEDS: BuPROPion SR 150 MG TABCR PO SCH (09:17)
[2017-05-26] MEDS: GABAPENTIN 600 MG TAB PO SCH (09:17)
--- NOTE | 2017-05-26 09:20 | Discharge Summary ---
Discharge Summary Date of Service May 26, 2017. Discharge Summary Admission Date: May 24, 2017 at 19:25 Discharge Date: May 26, 2017 Discharge Disposition: Home Principal Diagnosis: UTI Problems/Secondary Diagnoses: AMS secondary to UTI History of depression/fibromyalgia Hypothyroidism Hx CVA with right side paralyzed, Immunizations: Have You Had Influenza Vaccine: Yes Influenza Vaccine Date: Feb 12, 2011 History of Tetanus Vaccine?: Unknown History of Pneumococcal: Yes Pneumococcal Date: Feb 12, 2010 History of Hepatitis B Vaccine: No Procedures: no Consultations: no Medication Reconciliation New Medications: Cephalexin Monohydrate (Keflex) 500 Mg Cap 500 MG PO QID for 5 Days, CAP Continued Medications: Bupropion (Zyban) 150 Mg Tabcr 150 MG PO, TAB Citalopram Hydrobromide (Citalopram Hydrobromide) 20 Mg Tab 1 TAB PO DAILY for 30 Days, #30 TAB 5 Refills Fentanyl (Fentanyl) 75 Mcg/Hr Dis q72hrs Gabapentin (Neurontin) 400 Mg Cap 600 MG PO TID, CAP Levothyroxine Sodium (Levothyroxine Sodium) 100 Mcg Tab 1 TAB PO DAILY for 30 Days, #30 TAB 5 Refills Omeprazole (Prilosec) 20 Mg Capcr 20 MG PO BID, CAP Oxybutynin Chloride (Oxybutynin Chloride Er) 5 Mg Tab 10 MG PO BID for 30 Days, #120 TAB 5 Refills Potassium Ext Rel (Klor-Con) 20 Meq Tabcr 20 MEQ PO DAILY, TAB Propranolol (Inderal) 80 Mg Tab 80 MG PO BID, TAB Discharge Exam Has been report significant better this morning, even better Yesterday, Patient is a pleasant awake and alert, somehow cooperate in the conversation, no complaint Review of Systems: Constitutional: + problem reported (otherwise limited because patient baseline nonverbal), No chills, No sweats Integumentary: + problem reported (no open wound) Physical Exam: General Appearance: WD/WN, no apparent distress Eyes: normal inspection, PERRL ENT: normal ENT inspection, hearing grossly normal Neck: supple, no adenopathy Respiratory/Chest: chest non-tender, no respiratory distress, no accessory muscle use, + decreased breath sounds Cardiovascular: regular rate, rhythm, no edema, no gallop, no JVD, no murmur , normal peripheral pulses Abdomen / GI: normal bowel sounds, non tender, soft, no organomegaly Extremities: normal inspection, no calf tenderness, normal capillary refill , no pedal edema, normal range of motion Neurologic/Psychiatric: + pertinent finding (right arm paralyzed muscle strength 0 out of 5, which is not new, right lower extremity is able to moving toes) Hospital Course 76 year old woman here for AMS secondary to UTI AMS secondary to UTI, continue significant improving UTI , has been treated by Rocephin , UC pending - uc pinpoint growth, reincubating , continue Rocephin daily , CT head negative for acute process, CT abd negative for acute process History of depression/fibromyalgia Hypothyroidism Hx CVA with right side paralyzed, in baseline, no open wound in the body , turn and reposition q2h Above condition stable continue current care DVT proph - heparin subq, have been treated Rocephin daily , will discharge home with Keflex orally for 5 days more Has a device to call to Dr. Teresa's office on Sunday to get final urine culture sensitivity report, to make sure Keflex is right antibiotics Discussed with about the risk of cross reactions because patient is allergic to penicillin, and Keflex may have 5% cross reaction risk when on Keflex, understands and agreed to taking the risks Instructions / Follow-Up you have mental status changes like secondary to UTI have been treated Rocephin daily , will discharge you home with Keflex orally for 5 days please call to Dr. Teresa's office to get final urine culture sensitivity report to make sure Keflex is right antibiotics - you need to follow up with your primary care physician in 1 week, - take medication as instructed, never overdose or any misuse, or take with alcohol, because misuse of medicine may cause organ damage or , call your primary care physician if have questions of medicaitons. - call your primary care physician OR go to local emergency room if has any fever/chill, chest pain, shortness of breathing, nausea/vomiting/abdominal pain , facial droop/slurry speech/local weakness, or if has any questions. - fall precaution - diet as instructed Total Time Spent: Less than 30 minutes This includes examination of the patient, discharge planning, medication reconciliation, and communication with other providers. Discharge Instructions Please refer to the electronic Patient Visit Report (Discharge Instructions) for additional information. Additional Copies To Sher Chu Jr,JuliocesarO.
[2017-05-26 09:26] VITALS: BP 127/79; PULSE 59; TEMP 37; O2SAT 91
[2017-05-27] MEDS ORDERED: FENTANYL PATCH REMOVE & WASTE SCH (08:59)
[2017-05-27] MEDS ORDERED: FENTANYL 75 MCG/HR TDSY TD SCH (09:00)
== END 2017-05-26 10:00 | disposition home or self-care (01) ==
LOC: EDBD 14:19 → C.EDC 14:20 → C.MS4W 19:25 → ENRESERV 19:51
PROVIDERS: ADMIT Internal Medicine; ATTEND Hospitalist
DX: N39.0 Urinary tract infection, site not specified (principal); R41.82 Altered mental status, unspecified; F32.9 Major depressive disorder, single episode, unspecified; M79.7 Fibromyalgia; E03.9 Hypothyroidism, unspecified; Z86.73 Personal history of transient ischemic attack (TIA), and cerebral infarction without residual deficits; Z79.899 Other long term (current) drug therapy; Z88.0 Allergy status to penicillin; Z88.2 Allergy status to sulfonamides

== ENCOUNTER 2017-06-07 10:24 | Inpatient (IN) | payer BC, OTHER ==
[~2017-06-07] VITALS: Ht 160 cm; Wt 68.5 kg
[~2017-06-07 10:24] MED LIST changes: -ASCA500 PO; -ASPEC81 PO; -BUPR-79 PO; +BUPR150T47 PO; -CHOL1000 PO; -DRGTP75 TD; +FENT75DI2 TOP; +GABA1CAP5 PO; +LEVO100T7 PO; -LEVO75TA PO; -NRN600 PO; -OMEG10007 PO; -OXYB10TA13 PO; +OXYB5TAB PO; -POTA-335 PO; +POTA20TA16 PO; +PRLSR20 PO; -PROBCAP2 PO; -PROP80CA PO; +PROP80TA2 PO
[2017-06-07] MEDS ORDERED: SODIUM CHLORIDE 0.9% 1000ML 1,000 ML IV STA (11:10)
[2017-06-07 11:19] LABS: BASO % 0.2 %; BASO ABS # 0.02 K/uL (0-0.2); EOS % 0.9 %; HEMATOCRIT 42.1 % (37-47); HEMOGLOBIN 14.5 g/dL (12.0-16.0); IG# 0.02 K/uL (0.00-0.02); LYMPH % 20.1 %; LYMPH ABS # 2.14 K/uL (1.2-3.4); MEAN CELL VOLUME 87.9 fL (80-100); MEAN CORPUSCULAR HEMOGLOBIN 30.3 pg (25-34); MEAN CORPUSCULAR HGB CONC 34.4 g/dl (32-36); MEAN PLATELET VOLUME 9.4 fL (7.4-10.4); MONO % 5.2 %; MONO ABS # 0.55 K/uL (0.11-0.59); NEUT % 73.4 %; NEUT ABS # 7.81 K/uL (1.4-6.5); PLATELET COUNT 375 K/uL (130-400); RED CELL DISTRIBUTION WIDTH CV 13.1 % (11.5-14.5); RED CELL DISTRIBUTION WIDTH SD 41.8 fL (36.4-46.3); WHITE BLOOD COUNT 10.64 K/uL (4.8-10.8)
[2017-06-07 11:26] LABS: PTT PATIENT 23.7 SECONDS (21.0-31.0)
[2017-06-07 11:27] LABS: ALBUMIN 3.5 gm/dl (3.4-5.0); ALT/SGPT 22 U/L (12-78); AST/SGOT 18 U/L (15-37); BLOOD UREA NITROGEN 7 mg/dl (7-18); CARBON DIOXIDE 27 mmol/L (21-32); CREATININE 0.81 mg/dl (0.60-1.20); GLUCOSE 134 mg/dl (70-99); LIPASE 107 U/L (73-393); POTASSIUM 3.9 mmol/L (3.5-5.1); SODIUM 134 mmol/L (136-145)
--- NOTE | 2017-06-07 11:38 | DIAGNOSTIC IMAGING REPORT ---
CHEST ONE VIEW PORTABLE CLINICAL HISTORY: Weakness COMPARISON STUDY: 03/01/2016 FINDINGS: The cardiac and mediastinal contours are normal. There is no evidence of focal pulmonary consolidation. There is no evidence of failure. No pleural effusions are visualized.[ IMPRESSION: No active disease in the chest. Electronically signed by: Merritt David M.D. 06/07/2017 11:37 AM Dictated Date/Time: 06/07/2017 11:37 AM
[2017-06-07 11:39] LABS: ALKALINE PHOSPHATASE 78 U/L (45-117); TOTAL PROTEIN 6.7 gm/dl (6.4-8.2)
[2017-06-07] MEDS ORDERED: ACETAMINOPHEN 500 MG TAB PO STA (11:53)
--- NOTE | 2017-06-07 12:21 | DIAGNOSTIC IMAGING REPORT ---
CT SCAN OF THE BRAIN WITHOUT IV CONTRAST CLINICAL HISTORY: Change in mental status. COMPARISON STUDY: CT of the brain dated 05/24/2017. TECHNIQUE: Unenhanced axial CT scan of the brain is performed from the vertex to the skull base. A dose lowering technique was utilized adhering to the principles of ALARA. CT DOSE: 614.27 mGy.cm FINDINGS: Brain parenchyma: There are age-related involutional changes noting advanced confluent subcortical and periventricular microangiopathic change. Chronic lacunar infarcts identified in the left basal ganglia and the left caudate head. There is Wallerian degeneration seen within the left aspect of the poonam. There is no hemorrhage, mass effect, or evidence of acute territorial ischemia by CT criteria. Bryant-white matter is preserved. No extra-axial fluid collection is seen. Ventricles, sulci, cisterns: Prominent secondary to involutional change. Intracranial vasculature: There is atherosclerotic calcification of the cavernous carotid and vertebral arteries. Calvarium: Unremarkable. Sinuses and mastoids: The visualized paranasal sinuses are clear. The mastoid air cells are well pneumatized. Orbits: The bony orbits are grossly intact. IMPRESSION: Senescent changes as above with no hemorrhage, mass effect, or evidence of acute territorial ischemia by CT criteria. There has been no significant change from 05/24/2017. Electronically signed by: Andreas Bush M.D. 06/07/2017 12:20 PM Dictated Date/Time: 06/07/2017 12:18 PM
--- NOTE | 2017-06-07 12:27 | DIAGNOSTIC IMAGING REPORT ---
CT SCAN OF THE ABDOMEN AND PELVIS WITHOUT IV CONTRAST CLINICAL HISTORY: Change in mental status. Left lower quadrant abdominal pain. COMPARISON STUDY: Abdominal CT dated 05/24/2017. TECHNIQUE: CT scan of the abdomen and pelvis is performed from the lung bases to the proximal femora. Images are reviewed in the axial, sagittal, and coronal planes. IV contrast was not administered for this examination as per the referring clinician. Note that the examination was performed in suboptimal fashion without oral and IV contrast. The examination is also degraded by streak artifact from the arms which could not be elevated above the abdomen as well as motion artifact. A dose lowering technique was utilized adhering to the principles of ALARA. FINDINGS: Lung bases: The heart is top normal in size and without pericardial effusion. The coronary arteries are densely calcified. A tiny fat-containing Bochdalek hernia is seen at the left lung base. The lung bases are otherwise clear noting dependent atelectasis. There is a small hiatal hernia. Liver: The unenhanced liver is normal in size, contour, and attenuation. There is no intrahepatic biliary ductal dilatation. Gallbladder: Unremarkable. Spleen: Normal in size and attenuation. Pancreas: The unenhanced pancreas is atrophic and grossly unremarkable. Adrenal glands: Unremarkable. Kidneys: The unenhanced kidneys are atrophic and without hydronephrosis. There is mild. The left renal collecting system. There are no renal calculi identified. There is no evidence of contour deforming renal mass lesion. Abdominal vasculature: The abdominal aorta is normal in course and caliber noting moderate atherosclerotic calcification. Bowel: There are scattered colonic diverticula without CT evidence of acute diverticulitis. There is moderate colonic fecal retention.. No bowel obstruction is identified. The appendix is not identified. Peritoneum: There is no intraperitoneal free air or abdominal ascites. Lymphadenopathy: None. Pelvic viscera: The bladder, uterus, and adnexa are normal as visualized. There are small bilateral small fat-containing inguinal hernias. Skeletal structures: The skeletal structures are osteopenic. There is moderate lumbosacral spondylosis. There are healed right-sided rib fractures. No lytic or blastic lesions are seen. IMPRESSION: 1. Suboptimal examination without oral and IV contrast. The examination is also degraded by streak and motion artifact. 2. No acute infectious or inflammatory findings are identified in the abdomen or pelvis and there has been no significant change from 05/24/2017. 3. Moderate colonic fecal retention. Electronically signed by: Andreas Bush M.D. 06/07/2017 12:26 PM Dictated Date/Time: 06/07/2017 12:20 PM
[2017-06-07 12:35] LABS: INFLUENZA B ANTIGEN Neg for Influ B (NEG)
[2017-06-07] MEDS ORDERED: CEPH500C2 PO (12:40)
[2017-06-07] MEDS ORDERED: IBUP-1459 PO (12:41)
[2017-06-07] MEDS ORDERED: CEFTRIAXONE SOD INJ 1 GM ADDVIAL IV STA (13:33)
[2017-06-07] MEDS ORDERED: ONDANSETRON INJ 2 MG/ML 2 ML VIAL IV PRN (15:00)
[2017-06-07] MEDS ORDERED: IBUPROFEN 200 MG TAB PO PRN (15:00)
[2017-06-07] MEDS ORDERED: ALUMINUM/MAGNESIUM/SIMETH (MAALOX MAX) 30 ML UDC PO PRN (15:00)
[2017-06-07] MEDS ORDERED: HydrALAZINE HCL 20 MG/ML VIAL IV. PRN (15:00)
[2017-06-07] MEDS ORDERED: MAGNESIUM HYDROXIDE SUSP 30 ML UDC PO PRN (15:00)
[2017-06-07] MEDS ORDERED: MoRPHine SULFATE 2 MG/ML CARP IV PRN (15:00)
[2017-06-07] MEDS: POLYETHYLENE (MIRALAX) 17 GM PACK PO SCH (15:00)
[2017-06-07] MEDS ORDERED: NITROGLYCERIN 0.4 MG SL PER TAB CHARGE SL PRN (15:00)
--- NOTE | 2017-06-07 15:26 | History and Physical ---
History & Physical Date & Time of Service: Jun 07, 2017 at 15:09 Chief Complaint: AMS Primary Care Physician: Sher Chu Jr,D.O. History of Present Illness Source: patient, family, clinic records, hospital records Patient is a 75 y/o female, with PMHx of CVA, HTN, fibromyalgia, depression, hypothyroidism, and GERD, who presented to the ED because of lethargy. History came for daughter/father due to patient being nonverbal at baseline. Patient was recently admitted to [facility] 05/24-05/26 due to similar symptoms caused by UTI. She was discharged on Keflex- completed entire course with no interruptions. On 06/01 she started to experience malodorous urine and lethargy. Patient called PCP who called in another script for Keflex- started on 06/02. Yesterday, she was extremely lethargic and slept all day, which is unlikely for her. decided to bring her to ED today because of continued lethargy and malodorous urine. In ED, UA negative, CXR/head CT/abdominal CT unremarkable, influenza negative, CBC and PRP unremarkable. She did have a temperature of 38.2 in ED and treated w/ Tylenol. She has a 4 episodes of diarrhea since Sunday. ROS cannot be completed due to patient being nonverbal. Past Medical/Surgical History Medical Problems: CVA fibromyalgia depression hypothyroidism GERD HTN Family History Patient reports no known family medical history. Social History Smoking Status: Former Smoker Drug Use: none Marital Status: Housing status: lives with family Occupational Status: retired Immunizations History of Influenza Vaccine: Yes Influenza Vaccine Date: Feb 12, 2011 History of Tetanus Vaccine?: Unknown History of Pneumococcal: Yes Pneumococcal Date: Feb 12, 2010 History of Hepatitis B Vaccine: No Multi-Drug Resistant Organisms History of MDRO: No Allergies Coded Allergies: Penicillins (Verified Allergy, Intermediate, HIVES, 06/07/17) Sulfa Antibiotics (Verified Adverse Reaction, Unknown, MOUTH ULCERS, ) Home Medications Scheduled Bupropion (Zyban), 150 MG PO QAM Cephalexin Monohydrate (Keflex), 500 MG PO QID Citalopram Hydrobromide (Citalopram Hydrobromide), 1 TAB PO QAM Fentanyl (Fentanyl), 75 MCG TOP q72hrs Gabapentin (Neurontin), 600 MG PO TID Levothyroxine Sodium (Levothyroxine Sodium), 1 TAB PO QAM Omeprazole (Prilosec), 20 MG PO BID Oxybutynin Chloride (Oxybutynin Chloride Er), 10 MG PO BID Potassium Ext Rel (Klor-Con), 20 MEQ PO BID Propranolol (Inderal), 80 MG PO BID Scheduled PRN Ibuprofen (Motrin), 400 MG PO UD PRN for Pain Physical Exam Vital Signs Date Time Temp Pulse Resp B/P (MAP) Pulse Ox O2 Delivery O2 Flow Rate FiO2 06/07/17 13:25 37.4 53 17 169/70 96 Room Air 06/07/17 12:25 54 18 190/87 95 Room Air 06/07/17 12:23 56 06/07/17 11:31 97 Room Air 06/07/17 10:27 38.2 64 17 186/89 96 Room Air General Appearance: no apparent distress Head: normocephalic, atraumatic Eyes: PERRL ENT: hearing grossly normal Neck: supple Respiratory/Chest: lungs clear, no respiratory distress, no accessory muscle use Cardiovascular: regular rate, rhythm Abdomen/GI: normal bowel sounds, non tender, soft Extremities/Musculoskelatal: no calf tenderness, no pedal edema Neurologic/Psych: alert Skin: normal color, warm/dry, no rash Diagnostics Laboratory Results Results Past 24 Hours Test 06/07/17 10:40 06/07/17 11:10 06/07/17 12:00 Range/Units White Blood Count 10.64 4.8-10.8 K/uL Red Blood Count 4.79 4.2-5.4 M/uL Hemoglobin 14.5 12.0-16.0 g/dL Hematocrit 42.1 37-47 % Mean Corpuscular Volume 87.9 80-100 fL Mean Corpuscular Hemoglobin 30.3 25-34 pg Mean Corpuscular Hemoglobin Concent 34.4 32-36 g/dl Platelet Count 375 130-400 K/uL Mean Platelet Volume 9.4 7.4-10.4 fL Neutrophils (%) (Auto) 73.4 % Lymphocytes (%) (Auto) 20.1 % Monocytes (%) (Auto) 5.2 % Eosinophils (%) (Auto) 0.9 % Basophils (%) (Auto) 0.2 % Neutrophils # (Auto) 7.81 1.4-6.5 K/uL Lymphocytes # (Auto) 2.14 1.2-3.4 K/uL Monocytes # (Auto) 0.55 0.11-0.59 K/uL Eosinophils # (Auto) 0.10 0-0.5 K/uL Basophils # (Auto) 0.02 0-0.2 K/uL RDW Standard Deviation 41.8 36.4-46.3 fL RDW Coefficient of Variation 13.1 11.5-14.5 % Immature Granulocyte % (Auto) 0.2 % Immature Granulocyte # (Auto) 0.02 0.00-0.02 K/uL Prothrombin Time 10.1 9.0-12.0 SECONDS Prothromb Time International Ratio 1.0 0.9-1.1 Activated Partial Thromboplast Time 23.7 21.0-31.0 SECONDS Partial Thromboplastin Ratio 0.9 Sodium Level 134 136-145 mmol/L Potassium Level 3.9 3.5-5.1 mmol/L Chloride Level 101 98-107 mmol/L Carbon Dioxide Level 27 21-32 mmol/L Anion Gap 6.0 3-11 mmol/L Blood Urea Nitrogen 7 7-18 mg/dl Creatinine 0.81 0.60-1.20 mg/dl Est Creatinine Clear Calc Drug Dose 56.4 ml/min Estimated GFR () 81.8 Estimated GFR (Non- 70.5 BUN/Creatinine Ratio 8.6 10-20 Random Glucose 134 70-99 mg/dl Calcium Level 9.0 8.5-10.1 mg/dl Magnesium Level 1.9 1.8-2.4 mg/dl Total Bilirubin 0.4 0.2-1 mg/dl Direct Bilirubin < 0.1 0-0.2 mg/dl Aspartate Amino Transf (AST/SGOT) 18 15-37 U/L Alanine Aminotransferase (ALT/SGPT) 22 12-78 U/L Alkaline Phosphatase 78 45-117 U/L Troponin I < 0.015 0-0.045 ng/ml Total Protein 6.7 6.4-8.2 gm/dl Albumin 3.5 3.4-5.0 gm/dl Lipase 107 73-393 U/L Thyroid Stimulating Hormone (TSH) 2.090 0.300-4.500 uIu/ml Urine Color YELLOW Urine Appearance CLEAR CLEAR Urine pH 6.0 4.5-7.5 Urine Specific [place] 1.012 1.000-1.030 Urine Protein NEG NEG Urine Glucose (UA) NEG NEG Urine Ketones NEG NEG Urine Occult Blood NEG NEG Urine Nitrite NEG NEG Urine Bilirubin NEG NEG Urine Urobilinogen NEG NEG Urine Leukocyte Esterase NEG NEG Urine WBC (Auto) 0 0-5 /hpf Urine RBC (Auto) 0-4 0-4 /hpf Urine Hyaline Casts (Auto) 1-5 0-5 /lpf Urine Epithelial Cells (Auto) 10-20 0-5 /lpf Urine Bacteria (Auto) NEG NEG Influenza Type A Antigen Neg for Influ A NEG Influenza Type B Antigen Neg for Influ B NEG Microbiology Results 06/07/17 Blood Culture, Received Pending 06/07/17 Blood Culture, Received Pending Diagnostic Radiology CT SCAN OF THE ABDOMEN AND PELVIS WITHOUT IV CONTRAST CLINICAL HISTORY: Change in mental status. Left lower quadrant abdominal pain. COMPARISON STUDY: Abdominal CT dated 05/24/2017. TECHNIQUE: CT scan of the abdomen and pelvis is performed from the lung bases to the proximal femora. Images are reviewed in the axial, sagittal, and coronal planes. IV contrast was not administered for this examination as per the referring clinician. Note that the examination was performed in suboptimal fashion without oral and IV contrast. The examination is also degraded by streak artifact from the arms which could not be elevated above the abdomen as well as motion artifact. A dose lowering technique was utilized adhering to the principles of ALARA. FINDINGS: Lung bases: The heart is top normal in size and without pericardial effusion. The coronary arteries are densely calcified. A tiny fat-containing Bochdalek hernia is seen at the left lung base. The lung bases are otherwise clear noting dependent atelectasis. There is a small hiatal hernia. Liver: The unenhanced liver is normal in size, contour, and attenuation. There is no intrahepatic biliary ductal dilatation. Gallbladder: Unremarkable. Spleen: Normal in size and attenuation. Pancreas: The unenhanced pancreas is atrophic and grossly unremarkable. Adrenal glands: Unremarkable. Kidneys: The unenhanced kidneys are atrophic and without hydronephrosis. There is mild. The left renal collecting system. There are no renal calculi identified. There is no evidence of contour deforming renal mass lesion. Abdominal vasculature: The abdominal aorta is normal in course and caliber noting moderate atherosclerotic calcification. Bowel: There are scattered colonic diverticula without CT evidence of acute diverticulitis. There is moderate colonic fecal retention.. No bowel obstruction is identified. The appendix is not identified. Peritoneum: There is no intraperitoneal free air or abdominal ascites. Lymphadenopathy: None. Pelvic viscera: The bladder, uterus, and adnexa are normal as visualized. There are small bilateral small fat-containing inguinal hernias. Skeletal structures: The skeletal structures are osteopenic. There is moderate lumbosacral spondylosis. There are healed right-sided rib fractures. No lytic or blastic lesions are seen. IMPRESSION: 1. Suboptimal examination without oral and IV contrast. The examination is also degraded by streak and motion artifact. 2. No acute infectious or inflammatory findings are identified in the abdomen or pelvis and there has been no significant change from 05/24/2017. 3. Moderate colonic fecal retention. Electronically signed by: Andreas Bush M.D. 06/07/2017 12:26 PM Dictated Date/Time: 06/07/2017 12:20 PM The status of this report is Signed. Draft = Not yet reviewed or approved by Radiologist. Signed = Reviewed and approved by Radiologist. CT SCAN OF THE BRAIN WITHOUT IV CONTRAST CLINICAL HISTORY: Change in mental status. COMPARISON STUDY: CT of the brain dated 05/24/2017. TECHNIQUE: Unenhanced axial CT scan of the brain is performed from the vertex to the skull base. A dose lowering technique was utilized adhering to the principles of ALARA. CT DOSE: 614.27 mGy.cm FINDINGS: Brain parenchyma: There are age-related involutional changes noting advanced confluent subcortical and periventricular microangiopathic change. Chronic lacunar infarcts identified in the left basal ganglia and the left caudate head. There is Wallerian degeneration seen within the left aspect of the poonam. There is no hemorrhage, mass effect, or evidence of acute territorial ischemia by CT criteria. Bryant-white matter is preserved. No extra-axial fluid collection is seen. Ventricles, sulci, cisterns: Prominent secondary to involutional change. Intracranial vasculature: There is atherosclerotic calcification of the cavernous carotid and vertebral arteries. Calvarium: Unremarkable. Sinuses and mastoids: The visualized paranasal sinuses are clear. The mastoid air cells are well pneumatized. Orbits: The bony orbits are grossly intact. IMPRESSION: Senescent changes as above with no hemorrhage, mass effect, or evidence of acute territorial ischemia by CT criteria. There has been no significant change from 05/24/2017. Electronically signed by: Andreas Bush M.D. 06/07/2017 12:20 PM Dictated Date/Time: 06/07/2017 12:18 PM The status of this report is Signed. Draft = Not yet reviewed or approved by Radiologist. Signed = Reviewed and approved by Radiologist. CHEST ONE VIEW PORTABLE CLINICAL HISTORY: Weakness COMPARISON STUDY: 03/01/2016 FINDINGS: The cardiac and mediastinal contours are normal. There is no evidence of focal pulmonary consolidation. There is no evidence of failure. No pleural effusions are visualized.[ IMPRESSION: No active disease in the chest. Electronically signed by: Merritt David M.D. 06/07/2017 11:37 AM Dictated Date/Time: 06/07/2017 11:37 AM The status of this report is Signed. Draft = Not yet reviewed or approved by Radiologist. Signed = Reviewed and approved by Radiologist. EKG MCKENZIE DU ID:[id number] 07-JUN-2017 11:24:31 [facility] Sinus bradycardia Right bundle branch block Abnormal ECG When compared with ECG of 24-MAY-2017 14:43, No significant change was found 25mm/s 10mm/mV 150Hz 8.0 SP2 12SL 241 DORON: 3 Referred by: ED Unconfirmed Vent. rate 56 BPM CO interval 176 ms QRS duration 130 ms QT/QTc 454/438 ms P-R-T axes 65 54 55 1940 (76 yr) Female 77in 1lb Room:[facility] Loc:15 Account Resolution Analyst:Jose E Teague Test ind: Impression Assessment and Plan Patient is a 75 y/o female, with PMHx of CVA, HTN, fibromyalgia, depression, hypothyroidism, and GERD, who presented to the ED because of lethargy. Fever of unknown source, altered mental status: - Admit to tele for cardiac monitoring - Trend cardiac enzymes - UA negative- continue course of Keflex, resume tomorrow as received IV Rocephin x1 dose in ED - BCx pending - Influenza swab negative; PCR pending - Head CT and CXR unremarkable; abdominal CT unremarkable- did have moderated fecal retention, MiraLAX daily - Check bilateral venous Dopplers- nonambulatory, refused DVT prophylaxis last admission - Tylenol PRN for pain/fever h/o CVA- nonverbal, nonambulatory: Aspiration/fall precautions HTN: - Continue Propranolol - IV Hydralazine PRN Fibromyalgia, depression: Continue Bupropion, Citalopram, Gabapentin, Fentanyl patch Hypothyroidism: Continue Synthroid GERD: Protonix daily DVT prophylaxis: Heparin SQ BID Code status: LEVEL I, FULL Dispo: From home, lives w/ - CM consulted Level of Care Telemetry Resuscitation Status FULL RESUSCITATION VTE Prophylaxis VTE Risk Assessment Done? Y/N: Yes Risk Level: Moderate Given or contraindicated: Unfractionated heparin SQ, T.E.D. Stockings, SCD's Note Attending Admission Note & Attestation: Pt seen/examined, chart reviewed, care plan d/w ANGEL Frey. I agree w/ the claros components of her admission documentation. 76yo female with expressive aphasia due to prior stroke, recent hospital stay for strep UTI, and HTN presenting from home with lethargy and altered MS. Found to have low-grade fever of 38.2 in the ER. Family had shown concerns about ongoing UTI despite recent adequate Rx. PMH, PSH, allergies, meds, sochx, famhx, ros - reviewed Tm 38.2, other VSS gen - expressive aphasia, nontoxic, follows commands mouth - MM slightly dry heart - RRR, s1, s2 lungs - scant end-exp wheeze, otherwise good airation abd - soft, mildly distended, BS+, NT ext - no edema neuro - right sided hemiparesis A/P: 1. fever, lethargy, altered MS - 2nd to flu A infection. Rapid flu test was false negative; PCR was ultimately POSITIVE for Flu A. Tamiflu x 5 days. Droplet precautions. Supportive care. PT, OT evals. 2. metabolic encephalopathy 2nd to flu A infection - Rx the flu. 3. ?UTI - u/a not suspicious for such; culture pending. Received rocephin in ER but would not continue such since the source for her fever is likely the flu. if culture negative stop all antibiotics. 4. hypothyroidism - TSH is nl. 5. urinary retention - after arriving to medical floor patient hadn't voided; bladder scan for 1 liter; park placed; suspect 2nd to altered MS. family updated Michael TEJEDA MD
[2017-06-07 15:45] VITALS: BMI 26.1
--- NOTE | 2017-06-07 16:36 | DIAGNOSTIC IMAGING REPORT ---
BILATERAL LOWER EXTREMITY VENOUS DOPPLER HISTORY: Bilateral leg pain. non-ambulatory, fever COMPARISON STUDY: None. FINDINGS: There is normal compressibility, flow, and augmentation within the bilateral lower extremity deep venous systems. IMPRESSION: No DVT within the right or left lower extremity. Electronically signed by: Brando Naylor M.D. 06/07/2017 4:35 PM Dictated Date/Time: 06/07/2017 4:33 PM
[2017-06-07] MEDS: ACETAMINOPHEN 325 MG TAB PO PRN (17:02)
[2017-06-07 17:20] VITALS: BP 161/94; PULSE 52; TEMP 37.1; Ht 160 cm; Wt 68.5 kg
--- NOTE | 2017-06-07 18:08 | EMERGENCY ROOM VISIT NOTE ---
History Report prepared by Sharri: Jose Alfredo March Under the Supervision of: Dr. Waldemar Vargas M.D. First contact with patient: 11:10 Chief Complaint: ABDOMINAL PAIN Stated Complaint: AMS Nursing Triage Summary: Pt d/c from [facility] on 05/26/17 with UTI. Prescribed Keflex. Pt not improving. History of stroke. Right side affected. States she does have abd pain. reports she gets frequent UTIs but this one is different due to vomiting. History of Present Illness The patient is a 76 year old female who presents to the Emergency Room with complaints of altered mental status that began today. This HPI is limited secondary to the patient's altered mental status. She has a past medical history of a UTI causing altered mental status that occurred two weeks ago. The patient's family believe that her current symptoms are nearly the same as the past episode associated with her UTI. Two days ago, they noticed that the patient's urine became cloudy and malodorous. She also had an episode of diarrhea at that time. She then began to get increasing weak and was recorded to have a fever. She is also having some dry heaving whenever she attempts to eat food and is having some LLQ abdominal pain which is the only difference between this episode and two weeks ago. She is still on Keflex. Pt denies LOC, headache, chills, diaphoresis, visual changes, neck pain, chest pain, breathing difficulties, nausea,back pain, melena, hematochezia, numbness, lymphadenopathy , rash, or other complaints. Source of History: patient, family History Limited By: AMS Onset: yesterday Position: other (Global) Symptom Intensity: moderate Quality: other (AMS) Timing: constant Associated Symptoms: + fevers, + abdominal pain, + diarrhea, + urinary symptoms (cloudy and malodorous) Review of Systems ROS is limited secondary to the patient's AMS. 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 Social History Smoking Status: Former Smoker Alcohol Use: none Drug Use: none Marital Status: Housing Status: lives with family Occupation Status: retired Current/Historical Medications Scheduled Bupropion (Zyban), 150 MG PO QAM Cephalexin Monohydrate (Keflex), 500 MG PO QID Citalopram Hydrobromide (Citalopram Hydrobromide), 1 TAB PO QAM Fentanyl (Fentanyl), 75 MCG TOP q72hrs Gabapentin (Neurontin), 600 MG PO TID Levothyroxine Sodium (Levothyroxine Sodium), 1 TAB PO QAM Omeprazole (Prilosec), 20 MG PO BID Oxybutynin Chloride (Oxybutynin Chloride Er), 10 MG PO BID Potassium Ext Rel (Klor-Con), 20 MEQ PO BID Propranolol (Inderal), 80 MG PO BID Scheduled PRN Ibuprofen (Motrin), 400 MG PO UD PRN for Pain Allergies Coded Allergies: Penicillins (Verified Allergy, Intermediate, HIVES, 06/07/17) Sulfa Antibiotics (Verified Adverse Reaction, Unknown, MOUTH ULCERS, ) Physical Exam Vital Signs Date Time Temp Pulse Resp B/P (MAP) Pulse Ox O2 Delivery O2 Flow Rate FiO2 06/07/17 13:25 37.4 53 17 169/70 96 Room Air 06/07/17 12:25 54 18 190/87 95 Room Air 06/07/17 12:23 56 06/07/17 11:31 97 Room Air 06/07/17 10:27 38.2 64 17 186/89 96 Room Air Physical Exam GENERAL: Awake, alert, well-appearing, in no distress HENT: Normocephalic, atraumatic. Oropharynx unremarkable. EYES: Normal conjunctiva. Sclera non-icteric. NECK: Supple. No nuchal rigidity. FROM. No JVD. RESPIRATORY: Clear to auscultation. CARDIAC: Regular rate, normal rhythm. Extremities warm and well perfused. Pulses equal. ABDOMEN: Soft, non-distended. LLQ tenderness to palpation. No rebound or guarding. No masses. RECTAL: Deferred. MUSCULOSKELETAL: Chest examination reveals no tenderness. The back is symmetrical on inspection without obvious abnormality. There is bilateral CVA tenderness to palpation. No joint edema. LOWER EXTREMITIES: Calves are equal size bilaterally and non-tender. No edema. No discoloration. NEURO: Altered sensorium. Slurred speech. No sensory or motor deficits noted. SKIN: No rash or jaundice noted. Medical Decision & Procedures ER Provider Diagnostic Interpretation: Radiology results as stated below per my review and radiologist interpretation: CHEST ONE VIEW PORTABLE CLINICAL HISTORY: Weakness COMPARISON STUDY: 03/01/2016 FINDINGS: The cardiac and mediastinal contours are normal. There is no evidence of focal pulmonary consolidation. There is no evidence of failure. No pleural effusions are visualized.[ IMPRESSION: No active disease in the chest. Electronically signed by: Merritt David M.D. 06/07/2017 11:37 AM Dictated Date/Time: 06/07/2017 11:[address] SCAN OF THE BRAIN WITHOUT IV CONTRAST CLINICAL HISTORY: Change in mental status. COMPARISON STUDY: CT of the brain dated 05/24/2017. TECHNIQUE: Unenhanced axial CT scan of the brain is performed from the vertex to the skull base. A dose lowering technique was utilized adhering to the principles of ALARA. CT DOSE: 614.27 mGy.cm FINDINGS: Brain parenchyma: There are age-related involutional changes noting advanced confluent subcortical and periventricular microangiopathic change. Chronic lacunar infarcts identified in the left basal ganglia and the left caudate head. There is Wallerian degeneration seen within the left aspect of the poonam. There is no hemorrhage, mass effect, or evidence of acute territorial ischemia by CT criteria. Bryant-white matter is preserved. No extra-axial fluid collection is seen. Ventricles, sulci, cisterns: Prominent secondary to involutional change. Intracranial vasculature: There is atherosclerotic calcification of the cavernous carotid and vertebral arteries. Calvarium: Unremarkable. Sinuses and mastoids: The visualized paranasal sinuses are clear. The mastoid air cells are well pneumatized. Orbits: The bony orbits are grossly intact. IMPRESSION: Senescent changes as above with no hemorrhage, mass effect, or evidence of acute territorial ischemia by CT criteria. There has been no significant change from 05/24/2017. Electronically signed by: Andreas Bush M.D. 06/07/2017 12:20 PM Dictated Date/Time: 06/07/2017 12:[address] SCAN OF THE ABDOMEN AND PELVIS WITHOUT IV CONTRAST CLINICAL HISTORY: Change in mental status. Left lower quadrant abdominal pain. COMPARISON STUDY: Abdominal CT dated 05/24/2017. TECHNIQUE: CT scan of the abdomen and pelvis is performed from the lung bases to the proximal femora. Images are reviewed in the axial, sagittal, and coronal planes. IV contrast was not administered for this examination as per the referring clinician. Note that the examination was performed in suboptimal fashion without oral and IV contrast. The examination is also degraded by streak artifact from the arms which could not be elevated above the abdomen as well as motion artifact. A dose lowering technique was utilized adhering to the principles of ALARA. FINDINGS: Lung bases: The heart is top normal in size and without pericardial effusion. The coronary arteries are densely calcified. A tiny fat-containing Bochdalek hernia is seen at the left lung base. The lung bases are otherwise clear noting dependent atelectasis. There is a small hiatal hernia. Liver: The unenhanced liver is normal in size, contour, and attenuation. There is no intrahepatic biliary ductal dilatation. Gallbladder: Unremarkable. Spleen: Normal in size and attenuation. Pancreas: The unenhanced pancreas is atrophic and grossly unremarkable. Adrenal glands: Unremarkable. Kidneys: The unenhanced kidneys are atrophic and without hydronephrosis. There is mild. The left renal collecting system. There are no renal calculi identified. There is no evidence of contour deforming renal mass lesion. Abdominal vasculature: The abdominal aorta is normal in course and caliber noting moderate atherosclerotic calcification. Bowel: There are scattered colonic diverticula without CT evidence of acute diverticulitis. There is moderate colonic fecal retention.. No bowel obstruction is identified. The appendix is not identified. Peritoneum: There is no intraperitoneal free air or abdominal ascites. Lymphadenopathy: None. Pelvic viscera: The bladder, uterus, and adnexa are normal as visualized. There are small bilateral small fat-containing inguinal hernias. Skeletal structures: The skeletal structures are osteopenic. There is moderate lumbosacral spondylosis. There are healed right-sided rib fractures. No lytic or blastic lesions are seen. IMPRESSION: 1. Suboptimal examination without oral and IV contrast. The examination is also degraded by streak and motion artifact. 2. No acute infectious or inflammatory findings are identified in the abdomen or pelvis and there has been no significant change from 05/24/2017. 3. Moderate colonic fecal retention. Electronically signed by: Andreas Bush M.D. 06/07/2017 12:26 PM Dictated Date/Time: 06/07/2017 12:20 PM Laboratory Results 06/07/17 10:40 Red Blood Count 4.79, Mean Corpuscular Volume 87.9, Mean Corpuscular Hemoglobin 30.3, Mean Corpuscular Hemoglobin Concent 34.4, Mean Platelet Volume 9.4, Neutrophils (%) (Auto) 73.4, Lymphocytes (%) (Auto) 20.1, Monocytes (%) (Auto) 5.2, Eosinophils (%) (Auto) 0.9, Basophils (%) (Auto) 0.2, Neutrophils # (Auto) 7.81, Lymphocytes # (Auto) 2.14, Monocytes # (Auto) 0.55, Eosinophils # (Auto) 0.10, Basophils # (Auto) 0.02 06/07/17 10:40 Test 06/07/17 10:40 06/07/17 11:10 06/07/17 12:00 White Blood Count 10.64 K/uL (4.8-10.8) Red Blood Count 4.79 M/uL (4.2-5.4) Hemoglobin 14.5 g/dL (12.0-16.0) Hematocrit 42.1 % (37-47) Mean Corpuscular Volume 87.9 fL (80-100) Mean Corpuscular Hemoglobin 30.3 pg (25-34) Mean Corpuscular Hemoglobin Concent 34.4 g/dl (32-36) Platelet Count 375 K/uL (130-400) Mean Platelet Volume 9.4 fL (7.4-10.4) Neutrophils (%) (Auto) 73.4 % Lymphocytes (%) (Auto) 20.1 % Monocytes (%) (Auto) 5.2 % Eosinophils (%) (Auto) 0.9 % Basophils (%) (Auto) 0.2 % Neutrophils # (Auto) 7.81 K/uL (1.4-6.5) Lymphocytes # (Auto) 2.14 K/uL (1.2-3.4) Monocytes # (Auto) 0.55 K/uL (0.11-0.59) Eosinophils # (Auto) 0.10 K/uL (0-0.5) Basophils # (Auto) 0.02 K/uL (0-0.2) RDW Standard Deviation 41.8 fL (36.4-46.3) RDW Coefficient of Variation 13.1 % (11.5-14.5) Immature Granulocyte % (Auto) 0.2 % Immature Granulocyte # (Auto) 0.02 K/uL (0.00-0.02) Prothrombin Time 10.1 SECONDS (9.0-12.0) Prothromb Time International Ratio 1.0 (0.9-1.1) Activated Partial Thromboplast Time 23.7 SECONDS (21.0-31.0) Partial Thromboplastin Ratio 0.9 Anion Gap 6.0 mmol/L (3-11) Est Creatinine Clear Calc Drug Dose 56.4 ml/min Estimated GFR () 81.8 Estimated GFR (Non- 70.5 BUN/Creatinine Ratio 8.6 (10-20) Calcium Level 9.0 mg/dl (8.5-10.1) Magnesium Level 1.9 mg/dl (1.8-2.4) Total Bilirubin 0.4 mg/dl (0.2-1) Direct Bilirubin < 0.1 mg/dl (0-0.2) Aspartate Amino Transf (AST/SGOT) 18 U/L (15-37) Alanine Aminotransferase (ALT/SGPT) 22 U/L (12-78) Alkaline Phosphatase 78 U/L (45-117) Troponin I < 0.015 ng/ml (0-0.045) Total Protein 6.7 gm/dl (6.4-8.2) Albumin 3.5 gm/dl (3.4-5.0) Lipase 107 U/L (73-393) Thyroid Stimulating Hormone (TSH) 2.090 uIu/ml (0.300-4.500) Urine Color YELLOW Urine Appearance CLEAR (CLEAR) Urine pH 6.0 (4.5-7.5) Urine Specific [place] 1.012 (1.000-1.030) Urine Protein NEG (NEG) Urine Glucose (UA) NEG (NEG) Urine Ketones NEG (NEG) Urine Occult Blood NEG (NEG) Urine Nitrite NEG (NEG) Urine Bilirubin NEG (NEG) Urine Urobilinogen NEG (NEG) Urine Leukocyte Esterase NEG (NEG) Urine WBC (Auto) 0 /hpf (0-5) Urine RBC (Auto) 0-4 /hpf (0-4) Urine Hyaline Casts (Auto) 1-5 /lpf (0-5) Urine Epithelial Cells (Auto) 10-20 /lpf (0-5) Urine Bacteria (Auto) NEG (NEG) Influenza Type A Antigen Neg for Influ A (NEG) Influenza Type B Antigen Neg for Influ B (NEG) Laboratory results reviewed by me Medications Administered Medications (Trade) Dose Ordered Sig/Florence Route Start Time Stop Time Status Last Admin Dose Admin Sodium Chloride 1,000 ml @ 125 mls/hr Q8H STAT IV 06/07/17 11:10 06/07/17 17:27 DC 06/07/17 12:18 125 MLS/HR Acetaminophen (Tylenol Tab) 1,000 mg NOW STAT PO 06/07/17 11:53 06/07/17 11:54 DC 06/07/17 12:21 1,000 MG Ceftriaxone Sodium (Rocephin Inj) 1 gm NOW STAT IV 06/07/17 13:33 06/07/17 13:35 DC 06/07/17 13:48 1 GM Acetaminophen (Tylenol Tab) 650 mg Q4H PRN PO 06/07/17 15:00 07/07/17 14:59 06/07/17 17:02 650 MG ED Course 1110: The patient was evaluated in room A11B. A complete history and physical exam was performed. Ordered Sodium Chloride 1000 ml @ 125 mls/hr IV 1153: Ordered Tylenol Tab 1000 mg PO Medical Decision Prior records/ancillary studies reviewed and summarized above. Nursing notes reviewed and agree them. Additional history obtained from family.. The patient's history was concerning for altered mental status. Differential diagnosis: Etiologies such as infection, hypoglycemia, electrolyte abnormalities, cardiac sources, intracerebral event, toxicologic, neurologic, as well as others were entertained. Physical examination: As above. The patient was febrile. ER treatment provided: IV Lock Normal saline hydration Tylenol On reassessment the patient felt better. Dose of IV Rocephin pending urine and blood culture Diagnostics interpretation by me: ECG: Normal] The labs revealed unremarkable CBC and chemistry panel. Cath urinalysis specimen was negative. Flu testing negative. Imaging studies: Chest, head and abdominal CTs as above. The patient has a fever. She is altered. This simona happened before with her urinary infections although it is not clear on urinalysis today. The did note cloudy urine yesterday. Urine culture is pending. Her cannot take care of her gave her at home due to her weakness. Consultation: A consultation was placed with the hospitalist. The case was discussed and diagnostics were reviewed. The patient was evaluated in the ER for further treatment. Medication Reconcilliation Current Medication List: was personally reviewed by me Blood Pressure Screening Patient's blood pressure: Elevated blood pressure Impression Primary Impression: Fever Additional Impression: Altered mental status Scribe Attestation The scribe's documentation has been prepared under my direction and personally reviewed by me in its entirety. I confirm that the note above accurately reflects all work, treatment, procedures, and medical decision making performed by me. Departure Information Dispostion Being Evaluated By Hospitalist Referrals Sher Chu Jr,D.O. (PCP) Patient Instructions My [facility] Problem Qualifiers
[2017-06-07 18:55] VITALS: BP 174/93; PULSE 59; TEMP 37.1; O2SAT 96
[2017-06-07 19:38] LABS: CKMB 1.4 ng/ml (0.5-3.6)
[2017-06-07 20:03] LABS: INFLUENZA B PCR Neg for Influ B (NEG)
[2017-06-07 20:05] LABS: INFLUENZA A PCR POS for Influ A (NEG)
[2017-06-07] MEDS ORDERED: FENTANYL PATCH REMOVE & WASTE SCH (20:59)
[2017-06-07] MEDS ORDERED: FENTANYL 75 MCG/HR TDSY TD SCH ×2 (21:00)
[2017-06-07] MEDS: HEPARIN SOD 5000 UNIT/0.5 ML CARP SQ SCH (21:54)
[2017-06-07] MEDS: GABAPENTIN 600 MG TAB PO SCH (21:56)
[2017-06-07] MEDS: PROPRANOLOL HCL 80 MG TAB PO SCH (21:56)
[2017-06-07] MEDS: OXYBUTYNIN CHLORIDE 5 MG TABCR PO SCH (21:56)
[2017-06-07] MEDS: OSELTAMIVIR PHOSPHATE 75 MG CAP PO SCH (21:56)
[2017-06-07] MEDS: POTASSIUM CHLORIDE 20 MEQ TABCR PO SCH (21:57)
[2017-06-07 23:54] VITALS: BP 137/82; PULSE 54; TEMP 36.4; O2SAT 98
[2017-06-08] MEDS: CHECK FENTANYL PATCH PLACEMENT SCH ×4 (00:01→23:29)
[2017-06-08 03:12] LABS: CALCIUM 8.5 mg/dl (8.5-10.1); CKMB 0.9 ng/ml (0.5-3.6); CREATININE 0.84 mg/dl (0.60-1.20); POTASSIUM 4.6 mmol/L (3.5-5.1)
[2017-06-08 03:47] VITALS: BP 131/83; PULSE 53; TEMP 36.8; O2SAT 98
[2017-06-08] MEDS: LEVOTHYROXINE 100 MCG TAB PO SCH (06:48)
--- NOTE | 2017-06-08 07:10 | Family Medicine Progress Note ---
Progress Note Date of Service Jun 08, 2017. Subjective Pt evaluation today including: conversation w/ patient, physical exam, chart review, lab review History obtained from ; He reports that the patient is less agitated and generally seems to be doing better. She ate her entire breakfast. He does report that she was currently taking a course of Keflex for UTI prior to admission. Additional Comments: unable to obtain ROS due to patients expressive aphasia Medications Current Inpatient Medications Medications (Trade) Dose Ordered Sig/Florence Route Start Time Stop Time Status Last Admin Dose Admin Heparin Sodium (Porcine) (Heparin Sq 5000 Unit/0.5ml) 5,000 unit Q12 SQ 06/07/17 21:00 07/07/17 20:59 06/08/17 09:41 5,000 UNIT Acetaminophen (Tylenol Tab) 650 mg Q4H PRN PO 06/07/17 15:00 07/07/17 14:59 06/07/17 17:02 650 MG Al Hydrox/Mg Hydrox/Simethicone (Maalox Max Susp) 15 ml Q4H PRN PO 06/07/17 15:00 07/07/17 14:59 Magnesium Hydroxide (Milk Of Magnesia Susp) 30 ml Q12H PRN PO 06/07/17 15:00 07/07/17 14:59 Ondansetron HCl (Zofran Inj) 4 mg Q6H PRN IV 06/07/17 15:00 07/07/17 14:59 Nitroglycerin (Nitrostat Tab) 0.4 mg UD PRN SL 06/07/17 15:00 07/07/17 14:59 Morphine Sulfate (MoRPHine SULFATE INJ) 2 mg Q30M PRN IV 06/07/17 15:00 06/21/17 14:59 Polyethylene (Miralax Powder Packet) 17 gm DAILY PO 06/07/17 15:00 07/07/17 14:59 Hydralazine HCl (HydrALAZINE INJ) 10 mg Q6H PRN IV. 06/07/17 15:00 07/07/17 14:59 Bupropion HCl (Wellbutrin-Sr Tab) 150 mg QAM PO 06/08/17 09:00 07/08/17 08:59 06/08/17 09:35 150 MG Cephalexin Monohydrate (Keflex Cap) 500 mg QID PO 06/08/17 09:00 06/12/17 08:59 06/08/17 14:11 500 MG Citalopram Hydrobromide (celeXA TAB) 20 mg QAM PO 06/08/17 09:00 07/08/17 08:59 06/08/17 09:36 20 MG Gabapentin (Neurontin Tab) 600 mg TID PO 06/07/17 21:00 07/07/17 20:59 06/08/17 14:11 600 MG Ibuprofen (Advil Tab) 400 mg DAILY PRN PO 06/07/17 15:00 07/07/17 14:59 Levothyroxine Sodium (Synthroid Tab) 100 mcg DAILYBB PO 06/08/17 06:00 07/08/17 06:59 06/08/17 06:48 100 MCG Oxybutynin Chloride (Ditropan-Xl Tab) 10 mg BID PO 06/07/17 21:00 07/07/17 20:59 06/08/17 09:36 10 MG Potassium Chloride (Klor-Con Tab) 20 meq BID PO 06/07/17 21:00 07/07/17 20:59 06/08/17 09:36 20 MEQ Propranolol HCl (Inderal Tab) 80 mg BID PO 06/07/17 21:00 07/07/17 20:59 06/07/17 21:56 80 MG Pantoprazole Sodium (Protonix Tab) 40 mg QAM PO 06/08/17 09:00 07/07/17 09:01 06/08/17 09:36 40 MG Miscellaneous (Fentanyl Patch Remove & Waste) 1 ea Q3D@2059 N/A 06/07/17 20:59 07/07/17 20:58 06/07/17 21:53 1 EA Miscellaneous Information (Check Fentanyl Patch Placement) 1 ea QS N/A 06/08/17 00:00 07/08/17 00:00 06/08/17 16:04 1 EA Fentanyl (Duragesic Patch) 75 mcg Q3D@2100 TD 06/07/17 21:00 06/21/17 20:59 06/07/17 21:56 75 MCG Oseltamivir Phosphate (Tamiflu Cap) 75 mg BID PO 06/07/17 21:00 06/12/17 20:59 06/08/17 09:36 75 MG Objective Vital Signs Date Time Temp Pulse Resp B/P (MAP) Pulse Ox O2 Delivery O2 Flow Rate FiO2 06/08/17 16:00 Room Air 06/08/17 15:44 36.7 55 18 113/78 (90) 95 Room Air 06/08/17 12:00 Room Air 06/08/17 11:32 36.8 61 18 118/68 (85) 96 06/08/17 08:00 Room Air 06/08/17 07:40 36.8 50 20 128/74 (92) 96 06/08/17 04:00 Nasal Cannula 2.0 06/08/17 03:47 36.8 53 19 131/83 (99) 98 Nasal Cannula 1.0 06/08/17 00:00 Nasal Cannula 2.0 06/07/17 23:54 36.4 54 18 137/82 (100) 98 Nasal Cannula 2.0 06/07/17 18:55 37.1 59 19 174/93 (120) 96 Room Air Physical Exam General Appearance: WD/WN, no apparent distress Respiratory/Chest: chest non-tender, lungs clear, normal breath sounds, + decreased breath sounds Cardiovascular: regular rate, rhythm, no edema, no murmur Abdomen: normal bowel sounds, non tender, soft Neurologic/Psychiatric: alert, normal mood/affect, oriented x 3 Skin: normal color, warm/dry, no rash Laboratory Results 06/08/17 02:27 Test 06/07/17 18:30 06/07/17 18:35 06/08/17 02:27 06/08/17 16:17 Influenza Type A (RT-PCR) POS for Influ A (NEG) Influenza Type B (RT-PCR) Neg for Influ B (NEG) Urine Color YELLOW Urine Appearance CLEAR (CLEAR) Urine pH 6.5 (4.5-7.5) Urine Specific [place] 1.011 (1.000-1.030) Urine Protein NEG (NEG) Urine Glucose (UA) NEG (NEG) Urine Ketones NEG (NEG) Urine Occult Blood NEG (NEG) Urine Nitrite NEG (NEG) Urine Bilirubin NEG (NEG) Urine Urobilinogen NEG (NEG) Urine Leukocyte Esterase TRACE (NEG) Urine WBC (Auto) 1-5 /hpf (0-5) Urine RBC (Auto) 0-4 /hpf (0-4) Urine Hyaline Casts (Auto) 0 /lpf (0-5) Urine Epithelial Cells (Auto) 5-10 /lpf (0-5) Urine Bacteria (Auto) NEG (NEG) Anion Gap 4.0 mmol/L (3-11) Est Creatinine Clear Calc Drug Dose 54.0 ml/min Estimated GFR () 78.2 Estimated GFR (Non- 67.5 BUN/Creatinine Ratio 10.1 (10-20) Calcium Level 8.5 mg/dl (8.5-10.1) Creatine Kinase MB 0.9 ng/ml (0.5-3.6) Creatine Kinase MB Ratio (0-3.0) Troponin I < 0.015 ng/ml (0-0.045) Bedside Glucose 156 mg/dl (70-90) Assessment and Plan 76 yo female PMH of CVA with secondary expressive aphasia comes in after concerns for increased agitation, weakness and fever. Patient tested positive for the flu and Tamiflu ppx was initiated. 2/2--Patient appears to be generally well. On attending rounds, the patient was alert and sitting in her chair. reports finishing her breakfast. The plan today is to DC the park catheter and to see if she can void on her own. Will continue previous course of Keflex. Fever 2/2 Influenza -Tamiflu 75mg BID -BCx pending -Influenza positive via PCR -Head CT, CXR, abdominal CT unremarkable -Doppler negative for DVT -Tylenol PRN for pain/fever UTI -UA negative -Received 1 gram Rocephin in the ED -continue Keflex 500 mg QID h/o CVA -Aspiration/fall precautions HTN -Continue Propranolol -IV Hydralazine PRN Fibromyalgia, depression -Bupropion, Citalopram, Gabapentin, Fentanyl patch Hypothyroidism -Synthroid GERD -Protonix daily DVT prophylaxis -Heparin SQ BID Code status: LEVEL I, FULL Resident Physician Supervision Note: I was present with Dr. Nicole during the history and exam. I discussed the case with the resident and agree with the findings and plan as documented in the note. Any exceptions or clarifications are listed here: Per the , who is the primary caregiver, the patient is nearing her baseline. Recommend decreasing Keflex to 500 mg BID. Documented By: Fortino Sol
[2017-06-08 07:40] VITALS: BP 128/74; PULSE 50; TEMP 36.8; O2SAT 96
[2017-06-08] MEDS: POLYETHYLENE (MIRALAX) 17 GM PACK PO SCH (09:00)
[2017-06-08] MEDS: PROPRANOLOL HCL 80 MG TAB PO SCH ×2 (09:00→20:52)
[2017-06-08] MEDS: CEPHALEXIN MONOHYDRATE 500 MG CAP PO SCH ×3 (09:35→20:39)
[2017-06-08] MEDS: GABAPENTIN 600 MG TAB PO SCH ×3 (09:35→20:39)
[2017-06-08] MEDS: BuPROPion SR 150 MG TABCR PO SCH (09:35)
[2017-06-08] MEDS: POTASSIUM CHLORIDE 20 MEQ TABCR PO SCH ×2 (09:36→20:39)
[2017-06-08] MEDS: OSELTAMIVIR PHOSPHATE 75 MG CAP PO SCH ×2 (09:36→20:39)
[2017-06-08] MEDS: CITALOPRAM 20 MG TAB PO SCH (09:36)
[2017-06-08] MEDS: PANTOprazole SOD 40 MG TAB PO SCH (09:36)
[2017-06-08] MEDS: OXYBUTYNIN CHLORIDE 5 MG TABCR PO SCH ×2 (09:36→20:36)
[2017-06-08] MEDS: HEPARIN SOD 5000 UNIT/0.5 ML CARP SQ SCH ×2 (09:41→20:40)
[2017-06-08 11:32] VITALS: BP 118/68; PULSE 61; TEMP 36.8; O2SAT 96
[2017-06-08 15:44] VITALS: BP 113/78; PULSE 55; TEMP 36.7; O2SAT 95
[2017-06-08] MEDS: SODIUM CHLORIDE 0.9% 1000ML 1,000 ML IV SCH (19:44)
[2017-06-08 19:51] VITALS: BP 110/75; PULSE 54; TEMP 36.8; O2SAT 95
[2017-06-09] VITALS (10 sets, daily range): BP systolic 106–140; BP diastolic 63–77; PULSE 56–65; TEMP 36.7–37.1; O2SAT 93–96
[2017-06-09] MEDS: SODIUM CHLORIDE 0.9% 1000ML 1,000 ML IV SCH ×3 (03:55→21:56)
[2017-06-09] MEDS: LEVOTHYROXINE 100 MCG TAB PO SCH (05:28)
[2017-06-09 06:47] LABS: HEMATOCRIT 37.1 % (37-47); HEMOGLOBIN 12.6 g/dL (12.0-16.0); MEAN CORPUSCULAR HEMOGLOBIN 30.2 pg (25-34); MEAN PLATELET VOLUME 9.3 fL (7.4-10.4); PLATELET COUNT 326 K/uL (130-400); RED CELL DISTRIBUTION WIDTH CV 13.4 % (11.5-14.5); RED CELL DISTRIBUTION WIDTH SD 43.9 fL (36.4-46.3); WHITE BLOOD COUNT 10.19 K/uL (4.8-10.8)
[2017-06-09 07:19] LABS: CALCIUM 8.7 mg/dl (8.5-10.1); CREATININE 0.75 mg/dl (0.60-1.20)
[2017-06-09] MEDS: CHECK FENTANYL PATCH PLACEMENT SCH ×2 (08:00→16:16)
[2017-06-09] MEDS: CITALOPRAM 20 MG TAB PO SCH (08:31)
[2017-06-09] MEDS: BuPROPion SR 150 MG TABCR PO SCH (08:31)
[2017-06-09] MEDS: ACETAMINOPHEN 325 MG TAB PO PRN (08:31)
[2017-06-09] MEDS: OXYBUTYNIN CHLORIDE 5 MG TABCR PO SCH ×2 (08:32→20:35)
[2017-06-09] MEDS: GABAPENTIN 600 MG TAB PO SCH ×3 (08:32→20:34)
[2017-06-09] MEDS: OSELTAMIVIR PHOSPHATE 75 MG CAP PO SCH ×2 (08:32→20:34)
[2017-06-09] MEDS: PROPRANOLOL HCL 80 MG TAB PO SCH ×2 (08:32→20:27)
[2017-06-09] MEDS: PANTOprazole SOD 40 MG TAB PO SCH (08:32)
[2017-06-09] MEDS: CEPHALEXIN MONOHYDRATE 500 MG CAP PO SCH ×2 (08:33→20:34)
[2017-06-09] MEDS: POTASSIUM CHLORIDE 20 MEQ TABCR PO SCH ×2 (08:33→20:34)
[2017-06-09] MEDS: HEPARIN SOD 5000 UNIT/0.5 ML CARP SQ SCH ×2 (08:42→20:34)
[2017-06-09] MEDS: POLYETHYLENE (MIRALAX) 17 GM PACK PO SCH (08:43)
--- NOTE | 2017-06-09 19:14 | Family Medicine Progress Note ---
Progress Note Date of Service Jun 09, 2017. Subjective Pt evaluation today including: conversation w/ patient, physical exam, chart review, lab review, review of inpatient medication list Pain: no pain reported PO Intake: tolerating well Voiding: voiding difficulty Per , patient grossly back to her normal baseline Constitutional: + weakness Abdomen: + constipation Female : + problem reported (urinary retention) Neurologic: + weakness All Other Systems: Reviewed and Negative Medications Current Inpatient Medications Medications (Trade) Dose Ordered Sig/[place] Route Start Time Stop Time Status Last Admin Dose Admin Heparin Sodium (Porcine) (Heparin Sq 5000 Unit/0.5ml) 5,000 unit Q12 SQ 06/07/17 21:00 07/07/17 20:59 06/09/17 08:42 5,000 UNIT Acetaminophen (Tylenol Tab) 650 mg Q4H PRN PO 06/07/17 15:00 07/07/17 14:59 06/09/17 08:31 650 MG Al Hydrox/Mg Hydrox/Simethicone (Maalox Max Susp) 15 ml Q4H PRN PO 06/07/17 15:00 07/07/17 14:59 Magnesium Hydroxide (Milk Of Magnesia Susp) 30 ml Q12H PRN PO 06/07/17 15:00 07/07/17 14:59 06/09/17 08:43 30 ML Ondansetron HCl (Zofran Inj) 4 mg Q6H PRN IV 06/07/17 15:00 07/07/17 14:59 Nitroglycerin (Nitrostat Tab) 0.4 mg UD PRN SL 06/07/17 15:00 07/07/17 14:59 Morphine Sulfate (MoRPHine SULFATE INJ) 2 mg Q30M PRN IV 06/07/17 15:00 06/21/17 14:59 Polyethylene (Miralax Powder Packet) 17 gm DAILY PO 06/07/17 15:00 07/07/17 14:59 06/09/17 08:43 17 GM Hydralazine HCl (HydrALAZINE INJ) 10 mg Q6H PRN IV. 06/07/17 15:00 07/07/17 14:59 Bupropion HCl (Wellbutrin-Sr Tab) 150 mg QAM PO 06/08/17 09:00 07/08/17 08:59 2/3/18 08:31 150 MG Citalopram Hydrobromide (celeXA TAB) 20 mg QAM PO 06/08/17 09:00 07/08/17 08:59 06/09/17 08:31 20 MG Gabapentin (Neurontin Tab) 600 mg TID PO 06/07/17 21:00 07/07/17 20:59 06/09/17 14:02 600 MG Ibuprofen (Advil Tab) 400 mg DAILY PRN PO 06/07/17 15:00 07/07/17 14:59 Levothyroxine Sodium (Synthroid Tab) 100 mcg DAILYBB PO 06/08/17 06:00 07/08/17 06:59 06/09/17 05:28 100 MCG Oxybutynin Chloride (Ditropan-Xl Tab) 10 mg BID PO 06/07/17 21:00 07/07/17 20:59 06/09/17 08:32 10 MG Potassium Chloride (Klor-Con Tab) 20 meq BID PO 06/07/17 21:00 07/07/17 20:59 06/09/17 08:33 20 MEQ Propranolol HCl (Inderal Tab) 80 mg BID PO 06/07/17 21:00 07/07/17 20:59 06/09/17 08:32 80 MG Pantoprazole Sodium (Protonix Tab) 40 mg QAM PO 06/08/17 09:00 07/07/17 09:01 06/09/17 08:32 40 MG Miscellaneous (Fentanyl Patch Remove & Waste) 1 ea Q3D@2059 N/A 06/07/17 20:59 07/07/17 20:58 06/07/17 21:53 1 EA Miscellaneous Information (Check Fentanyl Patch Placement) 1 ea QS N/A 06/08/17 00:00 07/08/17 00:00 06/09/17 16:16 1 EA Fentanyl (Duragesic Patch) 75 mcg Q3D@2100 TD 06/07/17 21:00 06/21/17 20:59 06/07/17 21:56 75 MCG Oseltamivir Phosphate (Tamiflu Cap) 75 mg BID PO 06/07/17 21:00 06/12/17 20:59 06/09/17 08:32 75 MG Cephalexin Monohydrate (Keflex Cap) 500 mg BID PO 06/08/17 21:00 06/12/17 08:59 06/09/17 08:33 500 MG Sodium Chloride 1,000 ml @ 110 mls/hr Q9H6M IV 06/08/17 19:30 07/08/17 19:29 06/09/17 14:02 110 MLS/HR Objective Vital Signs Date Time Temp Pulse Resp B/P (MAP) Pulse Ox O2 Delivery O2 Flow Rate FiO2 06/09/17 19:11 36.8 60 18 123/73 (90) 94 Room Air 06/09/17 16:37 36.7 59 18 110/63 (79) 96 06/09/17 16:00 96 Room Air 06/09/17 12:00 95 Room Air 06/09/17 11:38 36.8 56 16 106/68 (81) 93 Room Air 06/09/17 08:00 96 Room Air 06/09/17 07:57 37.1 65 16 134/69 (90) 96 06/09/17 04:00 Room Air 06/09/17 03:41 37.0 64 16 129/77 (94) 95 Room Air 06/09/17 00:02 36.9 62 16 128/76 (93) 95 06/08/17 23:59 Room Air 06/08/17 20:00 Room Air 06/08/17 19:51 36.8 54 20 110/75 (87) 95 Physical Exam General Appearance: WD/WN, no apparent distress Eyes: normal inspection, PERRL, EOMI ENT: normal ENT inspection, hearing grossly normal Neck: supple, no adenopathy, no carotid bruits, trachea midline Respiratory/Chest: chest non-tender, lungs clear, no respiratory distress, no accessory muscle use, + decreased breath sounds Cardiovascular: regular rate, rhythm, no edema, no gallop, no JVD, no murmur Abdomen: normal bowel sounds, non tender, soft, no organomegaly Extremities: non-tender, normal inspection, no pedal edema, no calf tenderness Neurologic/Psychiatric: alert, + aphasia (expressive) Skin: warm/dry, no rash Laboratory Results Last Resulted 06/09/17 05:42 Last Resulted 06/09/17 05:42 Assessment and Plan 76 yo female PMH of CVA with secondary expressive aphasia comes in after concerns for increased agitation, weakness and fever. Patient tested positive for the flu and Tamiflu was initiated. 2/--Patient appears to be generally well. On attending rounds, the patient was alert and sitting in her chair. reports finishing her breakfast. The plan today is to DC the park catheter and to see if she can void on her own. Will continue previous course of Keflex. 06/09--Patient continues to improve. Issues for patient today include urinary retention, for which a park was inserted overnight, and constipation (no BM for 5 days). MOM and miralax given today, Park DCd with voiding trials. Patient finally voided of her own volition this evening. Fever 2/ Influenza -Tamiflu 75mg BID -BCx pending -Influenza positive via PCR -Head CT, CXR, abdominal CT unremarkable -Doppler negative for DVT -Tylenol PRN for pain/fever UTI -UA negative -Received 1 gram Rocephin in the ED -continue Keflex 500 mg BID x 7 days total h/o CVA -Aspiration/fall precautions HTN -Continue Propranolol -IV Hydralazine PRN Fibromyalgia, depression -Bupropion, Citalopram, Gabapentin, Fentanyl patch Hypothyroidism -Synthroid GERD -Protonix daily DVT prophylaxis -Heparin SQ BID Code status: LEVEL I, FULL Dispo: likely home tomorrow Resident Physician Supervision Note: I was present with the resident during the history and exam. I discussed the case with the resident and agree with the findings and plan as documented in the note. Improved from a respiratory standpoint but difficulty voiding at present. PLAN 1) remove park and repeat void trial. 2) Timed voiding, bladder scan if no result, straigh cath PRN but no park today or tonight. 3) If she voids, should be clear for discharge. 4) Complete course of Tamiflu 5) Keflex for seven days total antibiotics for suspect UTI (was partially treated upon admission). Documented By: Fortino Sol Resident Tracking Resident Involvement: Resident Care Provided Care Provided: Adult Hospital Medicine
[2017-06-10] MEDS: CHECK FENTANYL PATCH PLACEMENT SCH ×2 (00:12→08:10)
[2017-06-10 04:11] VITALS: BP 142/83; PULSE 55; TEMP 36.9; O2SAT 97
[2017-06-10] MEDS: LEVOTHYROXINE 100 MCG TAB PO SCH (05:33)
[2017-06-10 05:51] LABS: HEMOGLOBIN 12.1 g/dL (12.0-16.0); MEAN CELL VOLUME 89.5 fL (80-100); MEAN CORPUSCULAR HEMOGLOBIN 30.9 pg (25-34); MEAN CORPUSCULAR HGB CONC 34.6 g/dl (32-36); MEAN PLATELET VOLUME 9.1 fL (7.4-10.4); PLATELET COUNT 294 K/uL (130-400); RED CELL DISTRIBUTION WIDTH CV 13.6 % (11.5-14.5); RED CELL DISTRIBUTION WIDTH SD 44.4 fL (36.4-46.3); WHITE BLOOD COUNT 8.56 K/uL (4.8-10.8)
[2017-06-10 06:28] LABS: CALCIUM 8.3 mg/dl (8.5-10.1); CREATININE 0.75 mg/dl (0.60-1.20); POTASSIUM 4.4 mmol/L (3.5-5.1)
[2017-06-10 08:00] VITALS: BP 141/69; PULSE 50; TEMP 36.8; O2SAT 95; O2SAT 96
[2017-06-10] MEDS: SODIUM CHLORIDE 0.9% 1000ML 1,000 ML IV SCH (08:10)
[2017-06-10] MEDS: GABAPENTIN 600 MG TAB PO SCH (08:10)
[2017-06-10] MEDS: POTASSIUM CHLORIDE 20 MEQ TABCR PO SCH (08:11)
[2017-06-10] MEDS: PANTOprazole SOD 40 MG TAB PO SCH (08:11)
[2017-06-10] MEDS: BuPROPion SR 150 MG TABCR PO SCH (08:11)
[2017-06-10] MEDS: CITALOPRAM 20 MG TAB PO SCH (08:11)
[2017-06-10] MEDS: OXYBUTYNIN CHLORIDE 5 MG TABCR PO SCH (08:11)
[2017-06-10] MEDS: OSELTAMIVIR PHOSPHATE 75 MG CAP PO SCH (08:12)
[2017-06-10] MEDS: CEPHALEXIN MONOHYDRATE 500 MG CAP PO SCH (08:12)
[2017-06-10] MEDS: PROPRANOLOL HCL 80 MG TAB PO SCH (08:12)
[2017-06-10] MEDS: HEPARIN SOD 5000 UNIT/0.5 ML CARP SQ SCH (08:13)
[2017-06-10] MEDS: POLYETHYLENE (MIRALAX) 17 GM PACK PO SCH (08:18)
[2017-06-10] MEDS: ACETAMINOPHEN 325 MG TAB PO PRN (08:19)
[2017-06-10] MEDS ORDERED: KFL500 PO (09:29)
[2017-06-10] MEDS ORDERED: TMF75 PO (09:29)
[2017-06-10] MEDS ORDERED: OSELTAMIVIR PHOSPHATE 75 MG CAP PO SCH (09:30)
[2017-06-10] MEDS ORDERED: CEPHALEXIN MONOHYDRATE 500 MG CAP PO SCH (09:45)
--- NOTE | 2017-06-10 10:06 | Discharge Instructions ---
Discharge Instructions Date of Service Jun 10, 2017. Admission Reason for Admission: Altered Mental Status Discharge Discharge Diagnosis / Problem: Influenza A, UTI Discharge Goals Goal(s): Decrease discomfort, Improve disease control, Therapeutic intervention Activity Recommendations Activity Limitations: per Instructions/Follow-up section . Instructions / Follow-Up Instructions / Follow-Up During this admission you were evaluated for increased agitation, weakness, and fever. You were tested and found positive for influenza A, for which you were given tamiflu. Please take a total of 4 more tablets of tamiflu. One will be given to you for this evening until you can go to your pharmacy tomorrow morning and slate picker the remaining pills. (take one tonight, one Sunday AM and PM and one on Sunday AM). There was also a concern for urinary tract infection, since you had been treated for one recently. You will need to take 3 more days of keflex, twice daily. One tablet will be given to you for this evening until you can slate picker the remaining meds tomorrow from your pharmacy. Continue your home medications as previously prescribed. It would not be uncommon to have some urinary incontinence for the next few days. One method to help with this is to take scheduled bathroom breaks every 3- 4 hours, or sooner if there is incontinence in between bathroom breaks. Please follow up with your primary care physician in the next week to discuss this visit. If the urinary incontinence persists, please discuss this with your physician. Current Hospital Diet Patient's current hospital diet: AHA Diet (Heart Healthy) Discharge Diet Recommended Diet: AHA Diet (Heart Healthy) Pending Studies Studies pending at discharge: no Medical Emergencies . Who to Call and When: Medical Emergencies: If at any time you feel your situation is an emergency, please call 911 immediately. . Non-Emergent Contact Non-Emergency issues call your: Primary Care Provider . . "Provider Documentation" section prepared by Gabrielle Durant. . VTE Core Measure Inpt VTE Proph given/why not?: Unfractionated heparin TAQUERIA, Jesus Alberto Cuevas, SCD 's
[2017-06-10 10:42] VITALS: BP 141/69; PULSE 50; TEMP 36.8; O2SAT 96
[2017-06-10 11:33] VITALS: BP 138/82; PULSE 56; TEMP 37; O2SAT 95
--- NOTE | 2017-06-10 18:07 | Discharge Summary ---
Discharge Summary Date of Service Jun 10, 2017. Discharge Summary Admission Date: Jun 07, 2017 at 15:09 Discharge Date: Jun 10, 2017 Discharge Disposition: Home Principal Diagnosis: Influenza A Problems/Secondary Diagnoses: recent UTI h/o CVA HTN Fibromyalgia, depression Hypothyroidism GERD Immunizations: Have You Had Influenza Vaccine: Yes Influenza Vaccine Date: Feb 12, 2011 History of Tetanus Vaccine?: Unknown History of Pneumococcal: Yes Pneumococcal Date: Feb 12, 2010 History of Hepatitis B Vaccine: No Medication Reconciliation New Medications: Cephalexin Monohydrate (Cephalexin) 500 Mg Cap 500 MG PO BID for 3 Days, #6 CAP Oseltamivir Phosphate (Tamiflu) 75 Mg Cap 75 MG PO BID for 2 Days, #3 CAP Continued Medications: Bupropion (Zyban) 150 Mg Tabcr 150 MG PO QAM Citalopram Hydrobromide (Citalopram Hydrobromide) 20 Mg Tab 1 TAB PO QAM Fentanyl (Fentanyl) 75 Mcg/Hr Dis 75 MCG TOP q72hrs Gabapentin (Neurontin) 400 Mg Cap 600 MG PO TID Ibuprofen (Motrin) 400 Mg Tab 400 MG PO UD PRN for Pain Levothyroxine Sodium (Levothyroxine Sodium) 100 Mcg Tab 1 TAB PO QAM Omeprazole (Prilosec) 20 Mg Capcr 20 MG PO BID Oxybutynin Chloride (Oxybutynin Chloride Er) 5 Mg Tab 10 MG PO BID Potassium Ext Rel (Klor-Con) 20 Meq Tabcr 20 MEQ PO BID Propranolol (Inderal) 80 Mg Tab 80 MG PO BID Discontinued Medications: Cephalexin Monohydrate (Keflex) 500 Mg Cap 500 MG PO QID Discharge Exam ROS Constitutional: + weakness Abdomen: + constipation Female : + problem reported (urinary retention) Neurologic: + weakness All Other Systems: Reviewed and Negative PE General Appearance: WD/WN, no apparent distress Eyes: normal inspection, PERRL, EOMI ENT: normal ENT inspection, hearing grossly normal Neck: supple, no adenopathy, no carotid bruits, trachea midline Respiratory/Chest: chest non-tender, lungs clear, no respiratory distress, no accessory muscle use, + decreased breath sounds Cardiovascular: regular rate, rhythm, no edema, no gallop, no JVD, no murmur Abdomen: normal bowel sounds, non tender, soft, no organomegaly Extremities: non-tender, normal inspection, no pedal edema, no calf tenderness Neurologic/Psychiatric: alert, + aphasia (expressive) Skin: warm/dry, no rash Hospital Course 76 yo female PMH of CVA with secondary expressive aphasia presented after concerns for increased agitation, weakness and fever. Patient tested positive for the flu and Tamiflu was initiated. 2/2--Patient appeared to be generally well. On attending rounds, the patient was alert and sitting in her chair. reports finishing her breakfast. The plan today is to DC the park catheter and to see if she can void on her own. Will continue previous course of Keflex. 2/3--Patient continues to improve. Issues for patient today include urinary retention, for which a park was inserted overnight, and constipation (no BM for 5 days). MOM and miralax given today, Park DCd with voiding trials. Patient finally voided of her own volition this evening. Discussed this may be from a bit of "lazy bladder" from park, and expect this to improve. Fever 2/2 Influenza -Tamiflu 75mg BID, patient has 2 days remaining -BCx pending, NGTD -Head CT, CXR, abdominal CT unremarkable -Doppler negative for DVT Recent UTI -UA negative, although was on an antibiotic at presentation (from PCP). -Received 1 gram Rocephin in the ED -continue Keflex 500 mg BID x 7 days total, Will finish on 06/12. HTN -Continue Propranolol Fibromyalgia, depression -Bupropion, Citalopram, Gabapentin, Fentanyl patch Hypothyroidism -Synthroid GERD -home regimen Resident Physician Supervision Note: I interviewed and examined the patient. Discussed with the resident and agree with findings and plan as documented in the note. Documented By: Fortino Sol Total Time Spent: Less than 30 minutes This includes examination of the patient, discharge planning, medication reconciliation, and communication with other providers. Discharge Instructions Please refer to the electronic Patient Visit Report (Discharge Instructions) for additional information. Additional Copies To Sher Chu Jr,JuliocesarO. Resident Tracking Resident Involvement: Resident Care Provided Care Provided: Adult Hospital Medicine
== END 2017-06-10 12:20 | disposition home or self-care (01) | DRG 152 ==
LOC: EDBD 10:24 → C.EDA 10:26 → C.2T 15:09 → ENRESERV 15:45 → C.2T 20:18
PROVIDERS: ADMIT Internal Medicine; ATTEND Family Medicine
DX: J11.1 Influenza due to unidentified influenza virus with other respiratory manifestations (principal); G93.41 Metabolic encephalopathy; Z86.73 Personal history of transient ischemic attack (TIA), and cerebral infarction without residual deficits; I10 Essential (primary) hypertension; M79.7 Fibromyalgia; E03.9 Hypothyroidism, unspecified; K21.9 Gastro-esophageal reflux disease without esophagitis; R33.9 Retention of urine, unspecified

== ENCOUNTER 2019-01-22 22:14 | Inpatient (IN) ==
[2019-01-22] MEDS ORDERED: DIAZEPAM 5 MG/ML INJ 10ML VIAL IV STA (22:33)
[2019-01-22] MEDS ORDERED: GLUCAGON 1 MG in SYRINGE 0 ML IV STA (22:33)
[2019-01-22] MEDS ORDERED: METOCLOPRAMIDE HCL INJ 5 MG/ML 2 ML VIAL IV STA (22:33)
[2019-01-22] MEDS ORDERED: SODIUM CHLORIDE 0.9% 500 ML IV SCH (22:45)
[2019-01-23] MEDS ORDERED: LORazepam 2 MG/ML VIAL (IM USE) IM STA ×2 (00:07→00:58)
[2019-01-23] MEDS ORDERED: HALOPERIDOL LACTATE 5 MG/ML 1 ML VIAL IM STA (00:07)
[2019-01-23] MEDS ORDERED: BENZTROPINE MESYLATE 1 MG/ML 2 ML AMP IM STA (01:25)
[2019-01-23] MEDS ORDERED: fentaNYL 75 MCG/HR TDSY TD STA (01:50)
[2019-01-23] MEDS ORDERED: RAPID SEQUENCE INDUCTION BAG ONE (03:16)
[2019-01-23] MEDS ORDERED: KETAMINE HCL INJ 50 MG/ML 10 ML VIAL IV STA (03:18)
[2019-01-23] MEDS ORDERED: SUCCINYLCHOLINE CHLORIDE 20 MG/ML 10 ML VIAL IV STA (03:18)
[2019-01-23] MEDS ORDERED: VECURONIUM BROMIDE 10 MG VIAL IV STA (03:18)
[2019-01-23] MEDS ORDERED: propofoL 1,000 MG/100 ML VIAL IV SCH (03:30)
[2019-01-23] MEDS ORDERED: PROPOFOL IV EMULSION 10 MG/ML 100 ML VIAL IV ONE (03:33)
[2019-01-23] MEDS ORDERED: GLUCAGON FOR INJ 1 MG VIAL ONE (03:47)
[2019-01-23] MEDS ORDERED: METOCLOPRAMIDE HCL INJ 5 MG/ML 2 ML VIAL ONE (03:47)
[2019-01-23] MEDS: NITROGLYCERIN 2% OINTMENT 30GM TUBE EXT SCH ×3 (03:54→14:09)
[2019-01-23] MEDS ORDERED: DIAZEPAM 5 MG/ML INJ 10ML VIAL ONE (03:55)
[2019-01-23 04:16] LABS: Basophils # (auto) 0.03 K/uL (0-0.2); Basophils % (auto) 0.4 %; Eosinophils # (auto) 0.06 K/uL (0-0.5); Eosinophils % (auto) 0.7 %; Hematocrit (blood only) 39.6 % (37-47); Hemoglobin 13.4 g/dL (12.0-16.0); Immature Granulocytes # (auto) 0.02 K/uL (0.00-0.02); Immature Granulocytes % (auto) 0.2 %; Lymphocytes # (auto) 1.72 K/uL (1.2-3.4); Lymphocytes % (auto) 20.4 %; Mean Corpuscular Hemoglobin 29.1 pg (25-34); Mean Corpuscular Hgb Conc 33.8 g/dL (32-36); Mean Corpuscular Volume 86.1 fL (80-100); Mean Platelet Volume 9.8 fL (7.4-10.4); Monocytes # (auto) 0.52 K/uL (0.11-0.59); Monocytes % (auto) 6.2 %; Neutrophils # (auto) 6.09 K/uL (1.4-6.5); Neutrophils % (auto) 72.1 %; Platelet Count 258 K/uL (130-400); RDW Standard Deviation 43.5 fL (36.4-46.3); White Blood Count 8.44 K/uL (4.8-10.8)
[2019-01-23] MEDS ORDERED: IOVERSOL 100ml IV PRN (04:25)
[2019-01-23 04:37] LABS: Appearance Urine Clear (Clear); Bacteria Urine Automated Negative (Negative); Bilirubin Urine Negative (Negative); Blood Urine Negative (Negative); Color Urine Yellow; Glucose Urine UA Negative (Negative); Ketones Urine 1+ (Negative); Leukocyte Esterase Urine Trace (Negative); Nitrite Urine Negative (Negative); Protein Urine Negative (Negative); RBC Urine Automated 0-4 /hpf (0-4); Specific Gravity Urine 1.011 (1.000-1.030); Urobilinogen Urine Negative (Negative)
[2019-01-23 04:40] LABS: Alanine Aminotransferase 19 U/L (12-78); Albumin Level 2.9 gm/dl (3.4-5.0); Aspartate Aminotransferase 27 U/L (15-37); BUN Creatinine Ratio 6.5 (10-20); Blood Urea Nitrogen 5 mg/dl (7-18); Calcium 8.7 mg/dl (8.5-10.1); Carbon Dioxide 26 mmol/L (21-32); Chloride 105 mmol/L (98-107); Est GFR (Non-African American) 80.2; Glucose 160 mg/dl (70-99); Potassium 3.4 mmol/L (3.5-5.1); Sodium 141 mmol/L (136-145)
[2019-01-23 04:51] LABS: Alkaline Phosphatase 80 U/L (45-117); Bilirubin,Total 0.5 mg/dl (0.2-1); Globulin 2.9 gm/dl (2.5-4.0); Thyroid Stimulating Hormone 0.113 uIu/ml (0.300-4.500); Total Protein 5.8 gm/dl (6.4-8.2)
[2019-01-23 05:03] LABS: T4 Free Thyroxine 2.01 ng/dl (0.8-1.6)
[2019-01-23] MEDS: propofoL 1,000 MG/100 ML VIAL IV SCH ×3 (05:10→21:41)
--- NOTE | 2019-01-23 05:11 | History & Physical Report ---
Date of Service January 23, 2019 Assessment & Plan (1) Admitted to intensive care unit: Patient is being admitted to the ICU, intubated in the ED for airway protection, due to airway obstruction secondary to food bolus. Hospital Secretary Dr. Bradshaw and team has been consulted. Continue ventilator current settings. Serial ABGs ordered. Propofol for sedation. Present on Admission?: Yes (2) Airway obstruction due to foreign body: Patient had a similar occurrence of food bolus on May 13, 2018, that required endoscopic removal. GI has been consulted. 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 Monitor for signs of infection. Present on Admission?: Yes (5) Depression: On bupropion 150 mg every morning, and citalopram 20 mg p.o. every morning in the outpatient setting Present on Admission?: Yes (6) Peptic ulcer: On famotidine 20 mg IV every 12 hours Present on Admission?: Yes (7) Hypothyroidism (acquired): On levothyroxine 100 m[address] every morning. Place on 50 mcg IV daily Present on Admission?: Yes (8) GERD (gastroesophageal reflux disease): On omeprazole [address] twice daily. Place on famotidine 20 mg IV every 12 hours. NSS + KCl 20 mEq at 100 mils per hour. Present on Admission?: Yes (9) Peripheral neuropathy: Hold off on gabapentin 600 mg p.o. 3 times daily Present on Admission?: Yes (10) Chronic pain syndrome: Continue fentanyl patch 75 mcg changing every 72 hours. Monitor for its effect on blood pressure Present on Admission?: Yes (11) Bladder spasms: Continue Almanzar catheter. Oral medications will be held including oxybutynin chloride 10 mg p.o. twice daily Present on Admission?: Yes (12) History of stroke with residual deficit: Patient with residual expressive language disorder and swallowing dysfunction Present on Admission?: Yes History of Present Illness Chief Complaint: The patient presented to the emergency department in acute respiratory distress that began prior to arrival Primary Care Provider: Sher Chu Jr, DO The patient is a 78-year-old female with past medical history including Arnold's granulomatosis, peptic ulcer disease, expressive language disorder, swallowing dysfunction and previous stroke, who presented to the emergency department with acute shortness of breath. ED staff felt that she may have a food bolus stuck, and decided to intubate the patient for airway protection. My examination, the patient was intubated and on propofol drip for sedation. Allergies Allergy/AdvReac Type Severity Reaction Status Date / Time Penicillins Allergy Intermediate HIVES Verified 01/23/19 00:46 Sulfa (Sulfonamide AdvReac Intermediate MOUTH Verified 01/23/19 00:46 Antibiotics) ULCERS Home Medications Home Medications Medication Instructions Recorded Confirmed Type aspirin [Aspir-Low] 81 mg PO HS 01/17/18 01/23/19 History bupropion HCl 150 mg PO QAM 01/17/18 01/23/19 History citalopram 20 mg PO QAM 01/17/18 01/23/19 History fentanyl 75 mcg TRANSDERMAL Q72H 01/17/18 01/23/19 History gabapentin 600 mg PO TID 01/17/18 01/23/19 History levothyroxine 100 mcg PO QAM 01/17/18 01/23/19 History omeprazole 20 mg PO BID 01/17/18 01/23/19 History propranolol 80 mg PO DAILY 01/17/18 01/23/19 History oxybutynin chloride 10 mg PO BID 10/05/18 01/23/19 History potassium chloride 20 meq PO BID 10/05/18 01/23/19 History Past Med/Surg History Social History Preferred Language: Polish Communication Ability: Impaired Creative Project Manager Required: No Beliefs That Will Affect Care: None marital status: Current Living Situation: Spouse Feels Safe at Home: Yes Smoking Status: Never smoker Hx Alcohol Use: No Hx Substance Use: No Review of Systems Review of Systems: Unobtainable due to endotracheal tube Physical Exam Physical Exam: the patient is intubated, sedated, normocephalic and atraumatic, lying in bed on the ventilator. HEENT--PERRL, EOMI, mucous membranes and oropharynx dry. Neck--No JVD. No bruits. Thyroid normal, trachea midline, no adenopathy. Heart--normal S1 and S2. No murmurs, rubs or gallops. Lungs--few coarse breath sounds Abdomen--decreased bowel sounds and soft. Mildly distended. Extremities--no cyanosis or clubbing. trace edema. There are good distal pulses b/l. Dermatologic--normal skin turgor, normal color, no abnormal lymph nodes, no rash. Neurologic--deferred Rheumatologic--deferred Psychiatric--deferred Results & Data Vital Signs (Past 12 Hours) Vital Signs Temp Pulse Pulse Resp BP BP Pulse Ox 01/23/19 04:56 86 12 100 01/23/19 04:52 86 172/134 H 100 01/23/19 04:50 85 181/108 H 100 01/23/19 04:24 83 154/104 H 100 01/23/19 04:21 80 100 01/23/19 04:20 75 100 01/23/19 04:10 75 121/70 99 01/23/19 04:00 78 106/79 99 01/23/19 03:50 77 101/72 99 01/23/19 03:42 80 12 99 01/23/19 03:40 83 126/85 99 01/23/19 03:38 87 127/83 99 01/23/19 03:30 85 98 01/23/19 03:20 87 96 01/23/19 03:10 101 H 97 01/23/19 03:00 82 96 01/23/19 02:50 98 H 98 01/23/19 02:40 94 H 93 01/23/19 02:36 93 H 97 01/23/19 02:34 92 H 130/95 95 01/23/19 02:20 85 20 97 01/23/19 02:15 91 H 16 154/97 H 96 01/23/19 02:10 83 14 96 01/23/19 02:00 95 H 17 98 01/23/19 01:50 93 H 21 97 01/23/19 01:40 79 15 97 01/23/19 01:32 77 16 154/97 H 97 01/23/19 01:30 74 18 96 01/23/19 01:20 80 21 97 01/23/19 01:10 75 20 100 01/23/19 01:01 73 14 177/96 H 99 01/23/19 01:00 67 18 96 01/23/19 00:50 72 15 97 01/23/19 00:40 73 16 98 01/23/19 00:31 72 19 167/104 H 99 01/23/19 00:30 70 18 99 01/23/19 00:26 99.1 F 71 16 171/109 H 96 01/23/19 00:24 72 11 L 171/109 H 99 01/23/19 00:20 68 14 01/23/19 00:10 69 14 01/23/19 00:00 72 20 98 01/22/19 23:50 69 14 01/22/19 23:40 61 21 96 01/22/19 23:30 67 16 97 01/22/19 23:20 65 17 97 01/22/19 23:10 66 15 98 01/22/19 23:00 67 18 97 01/22/19 22:58 67 14 97 01/22/19 22:51 67 16 96 01/22/19 22:17 99.9 F H 72 20 144/94 H 96 Laboratory Results Laboratory Results WBC 8.44 K/uL (4.8-10.8) 01/23/19 04:05 RBC 4.60 M/uL (4.2-5.4) 01/23/19 04:05 Hgb 13.4 g/dL (12.0-16.0) 01/23/19 04:05 Hct 39.6 % (37-47) 01/23/19 04:05 MCV 86.1 fL (80-100) 01/23/19 04:05 MCH 29.1 pg (25-34) 01/23/19 04:05 MCHC 33.8 g/dL (32-36) 01/23/19 04:05 RDW Std Deviation 43.5 fL (36.4-46.3) 01/23/19 04:05 RDW Coeff of Stella 14.0 % (11.5-14.5) 01/23/19 04:05 Plt Count 258 K/uL (130-400) 01/23/19 04:05 MPV 9.8 fL (7.4-10.4) 01/23/19 04:05 Immature Gran % (Auto) 0.2 % 01/23/19 04:05 Neut % (Auto) 72.1 % 01/23/19 04:05 Lymph % (Auto) 20.4 % 01/23/19 04:05 [place] % (Auto) 6.2 % 01/23/19 04:05 Eos % (Auto) 0.7 % 01/23/19 04:05 Baso % (Auto) 0.4 % 01/23/19 04:05 Immature Gran # (Auto) 0.02 K/uL (0.00-0.02) 01/23/19 04:05 Neut # (Auto) 6.09 K/uL (1.4-6.5) 01/23/19 04:05 Lymph # (Auto) 1.72 K/uL (1.2-3.4) 01/23/19 04:05 [place] # (Auto) 0.52 K/uL (0.11-0.59) 01/23/19 04:05 Eos # (Auto) 0.06 K/uL (0-0.5) 01/23/19 04:05 Baso # (Auto) 0.03 K/uL (0-0.2) 01/23/19 04:05 Sodium 141 mmol/L (136-145) 01/23/19 04:05 Potassium 3.4 mmol/L (3.5-5.1) L 01/23/19 04:05 Chloride 105 mmol/L (98-107) 01/23/19 04:05 Carbon Dioxide 26 mmol/L (21-32) 01/23/19 04:05 Anion Gap 10.0 (3-11) 01/23/19 04:05 BUN 5 mg/dl (7-18) L 01/23/19 04:05 Creatinine 0.72 mg/dl (0.6-1.2) 01/23/19 04:05 Est Cr Clr Drug Dosing Not Reportable 01/23/19 04:05 Est GFR ( Amer) 93.0 01/23/19 04:05 Est GFR (Non-Af Amer) 80.2 01/23/19 04:05 BUN/Creatinine Ratio 6.5 (10-20) L 01/23/19 04:05 Glucose 160 mg/dl (70-99) H 01/23/19 04:05 Calcium 8.7 mg/dl (8.5-10.1) 01/23/19 04:05 Total Bilirubin 0.5 mg/dl (0.2-1) 01/23/19 04:05 AST 27 U/L (15-37) 01/23/19 04:05 ALT 19 U/L (12-78) 01/23/19 04:05 Alkaline Phosphatase 80 U/L (45-117) 01/23/19 04:05 Total Protein 5.8 gm/dl (6.4-8.2) L 01/23/19 04:05 Albumin 2.9 gm/dl (3.4-5.0) L 01/23/19 04:05 Globulin 2.9 gm/dl (2.5-4.0) 01/23/19 04:05 Albumin/Globulin Ratio 1.0 (0.9-2) 01/23/19 04:05 TSH 0.113 uIu/ml (0.300-4.500) L 01/23/19 04:05 Free T4 2.01 ng/dl (0.8-1.6) H 01/23/19 04:05 Urine Color Yellow 01/23/19 04:25 Urine Appearance Clear (Clear) 01/23/19 04:25 Urine pH 8.0 (4.5-7.5) H 01/23/19 04:25 Ur Specific [place] 1.011 (1.000-1.030) 01/23/19 04:25 Urine Protein Negative (Negative) 01/23/19 04:25 Urine Glucose (UA) Negative (Negative) 01/23/19 04:25 Urine Ketones 1+ (Negative) H 01/23/19 04:25 Urine Blood Negative (Negative) 01/23/19 04:25 Urine Nitrite Negative (Negative) 01/23/19 04:25 Urine Bilirubin Negative (Negative) 01/23/19 04:25 Urine Urobilinogen Negative (Negative) 01/23/19 04:25 Ur Leukocyte Esterase Trace (Negative) H 01/23/19 04:25 Urine WBC (Auto) 5-10 /hpf (0-5) H 01/23/19 04:25 Urine RBC (Auto) 0-4 /hpf (0-4) 01/23/19 04:25 U Hyaline Cast (Auto) 1-5 /lpf (0-5) 01/23/19 04:25 U Epithel Cells (Auto) 10-20 /lpf (0-5) H 01/23/19 04:25 Urine Bacteria (Auto) Negative (Negative) 09/19/19 04:25 Code Status & VTE Plan Code Status full code VTE Prophylaxis Plan VTE Prophylaxis will be ordered: Yes Critical Care Time Critical Care Time: Yes Total Critical Care Time: 40 Total critical care time was 40 minutes PG Care Time/CCT Total # of Minutes Spent Total Time Spent with Patient: Total time spent is greater than 50% in coordination of care (as documented) at patient's floor/unit and/or counseling patient: Critical Care Time: Yes Total Critical Care Time: 40
[2019-01-23] MEDS ORDERED: ICU PROTOCOL FOR HYPERGLYCEMIA PRN (05:28)
[2019-01-23] MEDS ORDERED: ALBUT/IPRATROP 3MG/0.5MG NEB 3 ML VIAL INH PRN (05:28)
[2019-01-23] MEDS ORDERED: HydrALAZINE HCL 20 MG/ML VIAL IV ONE (05:31)
[2019-01-23] MEDS ORDERED: MAGNESIUM SULFATE / D5W 1 GM/100 ML BAG IV ONE (05:34)
--- NOTE | 2019-01-23 05:39 | Critical Care Consultation ---
Date of Consultation January 23, 2019 Assessment & Plan (1) Admitted to intensive care unit: Reason Critically Ill: 78-year-old female with past medical history CVA and food bolus, presented to the emergency department with shortness of breath and was found to have recurrent food bolus. Neuro - [facility] ICU: Unable to assess Sedation: Propofol History of strokecontinue aspirin when appropriate Cardiac - Normal sinus rhythm and hemodynamically stable without need for vasopressors at this time. Respiratory - Respiratory insufficiencypatient required ventilation after experiencing shortness of breath -Was intubated in the emergency department to secure her airway after suspected food bolus -AC VC 12/500/5/40 percent, ETT 7.0, ABG pending, will wean vent as needed -No evidence of aspiration observed on CT or chest x-ray imaging -Need continuous oxygen monitoring GI - Esophageal motility disorderpatient reportedly is on strict diet and force by a caregiver who was recently hospitalized, she has history of developing food bolus -CT chest confirmed that the patient had dilated esophagus that was completely full of recent digestive food -GI consulted for esophageal evacuation of food bolus, will follow up recommendations -N.p.o. for now RENAL/LYTES - Creatinine stable, monitor with routine BMPs Replete electrolytes as indicated - Foleystrict I's and O's ENDO - Hypothyroidismcontinue Synthroid No history diabetes, ICU hyperglycemic protocol HEME - H&H stable, monitor with routine CBCs ID - No indication for infectious process at this time LINES/IV ACCESS - CVL, Almanzar, ETT DVT PROPHYLAXIS - SCDs I have personally spent 40 minutes of critical care time in the direct management of this patient. This is a life/limb threatening event. This includes time spent evaluating patient, direct bedside care, chart review, placing orders, interpretation of diagnostic studies, discussion with consultants, patient, and family members, as well as other required patient management activities. This time is exclusive of all separately billable procedures, and teaching time and separate from and in addition to any other critical care service time. Thank you for allowing us to participate in the care of this patient. Please refer to my attending physician's documentation for any further recommendations. (2) History of stroke with residual deficit: (3) GERD (gastroesophageal reflux disease): (4) Airway obstruction due to foreign body: History of Present Illness Attending Physician: Samy Boone MD History of Present Illness Patient is a 78-year-old female with past medical history of Arnold's granulomatosis, peptic ulcer disease, CVA with residual expressive aphasia and swallowing dysfunction who presented to the emergency department for shortness of breath. She has had a history of food bolus and her who is her primary caregiver was recently admitted to the hospital. ED physician felt that recurrent food bolus may be the case. She was intubated in the ED to secure her airway. She was taken for a CT of the chest which confirmed that her esophagus was entire full of recently digested food. Dr. Alves was contacted by the emergency department and plan to evacuate esophagus today. She remains hemodynamically stable, is sedated with propofol. Will remain in ICU for now for ventilator management. Allergies Allergy/AdvReac Type Severity Reaction Status Date / Time Penicillins Allergy Intermediate HIVES Verified 01/23/19 00:46 Sulfa (Sulfonamide AdvReac Intermediate MOUTH Verified 01/23/19 00:46 Antibiotics) ULCERS Home Medications Home Medications Medication Instructions Recorded Confirmed Type aspirin [Aspir-Low] 81 mg PO HS 01/17/18 01/23/19 History bupropion HCl 150 mg PO QAM 01/17/18 01/23/19 History citalopram 20 mg PO QAM 01/17/18 01/23/19 History fentanyl 75 mcg TRANSDERMAL Q72H 01/17/18 01/23/19 History gabapentin 600 mg PO TID 01/17/18 01/23/19 History levothyroxine 100 mcg PO QAM 01/17/18 01/23/19 History omeprazole 20 mg PO BID 01/17/18 01/23/19 History propranolol 80 mg PO DAILY 01/17/18 01/23/19 History oxybutynin chloride 10 mg PO BID 10/05/18 01/23/19 History potassium chloride 20 meq PO BID 10/05/18 01/23/19 History Patient History Social History Preferred Language: Japanese Communication Ability: Effective 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: No Beliefs That Will Affect Care: None marital status: Current Living Situation: Spouse Feels Safe at Home: Yes Smoking Status: Never smoker Second Hand Exposure: No ; Hx Alcohol Use: No Hx Substance Use: No Review of Systems Review of Systems: Unobtainable due to cognitive status, Unobtainable due to endotracheal tube and Unobtainable due to reduced consciousness Physical Exam Eyes: PERRL, conjunctivae normal, anicteric sclerae ENMT: external ear and nose normal, oropharynx normal Neck: trachea midline, no thyromegaly Respiratory: normal respiratory effort, lungs clear to auscultation Intubated Cardiovascular: RRR, no murmur, no edema Heart Sounds: normal S1 and normal S2 Vessels: no JVD Extremities: no edema Gastrointestinal (Abdomen): normal bowel sounds, soft, nontender, no hepatosplenomegaly Neurologic: Exam limited due to sedation and endotracheal tube, cough gag and corneals intact Psychiatric: Unable to assess Results & Data Vital Signs (Past 12 Hours) Vital Signs Temp Pulse Pulse Resp BP BP Pulse Ox 01/23/19 04:56 86 12 100 01/23/19 04:52 86 172/134 H 100 01/23/19 04:50 85 181/108 H 100 01/23/19 04:24 83 154/104 H 100 01/23/19 04:21 80 100 01/23/19 04:20 75 100 01/23/19 04:10 75 121/70 99 01/23/19 04:00 78 106/79 99 01/23/19 03:50 77 101/72 99 01/23/19 03:42 80 12 99 01/23/19 03:40 83 126/85 99 01/23/19 03:38 87 127/83 99 01/23/19 03:30 85 98 01/23/19 03:20 87 96 01/23/19 03:10 101 H 97 01/23/19 03:00 82 96 01/23/19 02:50 98 H 98 01/23/19 02:40 94 H 93 01/23/19 02:36 93 H 97 01/23/19 02:34 92 H 130/95 95 01/23/19 02:20 85 20 97 01/23/19 02:15 91 H 16 154/97 H 96 01/23/19 02:10 83 14 96 01/23/19 02:00 95 H 17 98 01/23/19 01:50 93 H 21 97 01/23/19 01:40 79 15 97 01/23/19 01:32 77 16 154/97 H 97 01/23/19 01:30 74 18 96 01/23/19 01:20 80 21 97 01/23/19 01:10 75 20 100 01/23/19 01:01 73 14 177/96 H 99 01/23/19 01:00 67 18 96 01/23/19 00:50 72 15 97 01/23/19 00:40 73 16 98 01/23/19 00:31 72 19 167/104 H 99 01/23/19 00:30 70 18 99 01/23/19 00:26 37.3 C 71 16 171/109 H 96 01/23/19 00:24 72 11 L 171/109 H 99 01/23/19 00:20 68 14 01/23/19 00:10 69 14 01/23/19 00:00 72 20 98 01/22/19 23:50 69 14 01/22/19 23:40 61 21 96 01/22/19 23:30 67 16 97 01/22/19 23:20 65 17 97 01/22/19 23:10 66 15 98 01/22/19 23:00 67 18 97 01/22/19 22:58 67 14 97 01/22/19 22:51 67 16 96 01/22/19 22:17 37.7 C H 72 20 144/94 H 96 Laboratory Results Laboratory Results - last 24 hr 01/23/19 01/23/19 01/23/19 04:05 04:05 04:25 WBC 8.44 RBC 4.60 Hgb 13.4 Hct 39.6 MCV 86.1 MCH 29.1 MCHC 33.8 RDW Std Deviation 43.5 RDW Coeff of Stella 14.0 Plt Count 258 MPV 9.8 Immature Gran % (Auto) 0.2 Neut % (Auto) 72.1 Lymph % (Auto) 20.4 [place] % (Auto) 6.2 Eos % (Auto) 0.7 Baso % (Auto) 0.4 Immature Gran # (Auto) 0.02 Neut # (Auto) 6.09 Lymph # (Auto) 1.72 [place] # (Auto) 0.52 Eos # (Auto) 0.06 Baso # (Auto) 0.03 Sodium 141 Potassium 3.4 L Chloride 105 Carbon Dioxide 26 Anion Gap 10.0 BUN 5 L Creatinine 0.72 Est Cr Clr Drug Dosing Not Reportable Est GFR ( Amer) 93.0 Est GFR (Non-Af Amer) 80.2 BUN/Creatinine Ratio 6.5 L Glucose 160 H POC Glucose Calcium 8.7 Total Bilirubin 0.5 AST 27 ALT 19 Alkaline Phosphatase 80 Total Protein 5.8 L Albumin 2.9 L Globulin 2.9 Albumin/Globulin Ratio 1.0 TSH 0.113 L Free T4 2.01 H Urine Color Yellow Urine Appearance Clear Urine pH 8.0 H Ur Specific Martha 1.011 Urine Protein Negative Urine Glucose (UA) Negative Urine Ketones 1+ H Urine Blood Negative Urine Nitrite Negative Urine Bilirubin Negative Urine Urobilinogen Negative Ur Leukocyte Esterase Trace H Urine WBC (Auto) 5-10 H Urine RBC (Auto) 0-4 U Hyaline Cast (Auto) 1-5 U Epithel Cells (Auto) 10-20 H Urine Bacteria (Auto) Negative Nasal Screen MRSA (PCR) 01/23/19 01/23/19 05:20 05:33 WBC RBC Hgb Hct MCV MCH MCHC RDW Std Deviation RDW Coeff of Stella Plt Count MPV Immature Gran % (Auto) Neut % (Auto) Lymph % (Auto) [place] % (Auto) Eos % (Auto) Baso % (Auto) Immature Gran # (Auto) Neut # (Auto) Lymph # (Auto) [place] # (Auto) Eos # (Auto) Baso # (Auto) Sodium Potassium Chloride Carbon Dioxide Anion Gap BUN Creatinine Est Cr Clr Drug Dosing Est GFR ( Amer) Est GFR (Non-Af Amer) BUN/Creatinine Ratio Glucose POC Glucose 160 H Calcium Total Bilirubin AST ALT Alkaline Phosphatase Total Protein Albumin Globulin Albumin/Globulin Ratio TSH Free T4 Urine Color Urine Appearance Urine pH Ur Specific Martha Urine Protein Urine Glucose (UA) Urine Ketones Urine Blood Urine Nitrite Urine Bilirubin Urine Urobilinogen Ur Leukocyte Esterase Urine WBC (Auto) Urine RBC (Auto) U Hyaline Cast (Auto) U Epithel Cells (Auto) Urine Bacteria (Auto) Nasal Screen MRSA (PCR) Pending Medications Administered Home Medications aspirin [Aspir-Low] 81 mg PO HS 01/17/18 [History Confirmed 01/23/19] bupropion HCl 150 mg PO QAM 01/17/18 [History Confirmed 01/23/19] citalopram 20 mg PO QAM 01/17/18 [History Confirmed 01/23/19] fentanyl 75 mcg TRANSDERMAL Q72H 01/17/18 [History Confirmed 01/23/19] gabapentin 600 mg PO TID 01/17/18 [History Confirmed 01/23/19] levothyroxine 100 mcg PO QAM 01/17/18 [History Confirmed 01/23/19] omeprazole 20 mg PO BID 01/17/18 [History Confirmed 01/23/19] propranolol 80 mg PO DAILY 01/17/18 [History Confirmed 01/23/19] oxybutynin chloride 10 mg PO BID 10/05/18 [History Confirmed 01/23/19] potassium chloride 20 meq PO BID 10/05/18 [History Confirmed 01/23/19] Active Medications Albuterol (Duoneb) 3 ml INH Q4H PRN PRN Reason: Dyspnea Stop: 02/22/19 05:27 Heparin Sodium (Beef Lung) (Heparin Sod 10 Unit/Ml Flush) 5 ml FLUSH PRN PRN PRN Reason: Flush Stop: 02/22/19 04:14 Heparin Sodium (Porcine) (Heparin Sodium (Porcine)) 5,000 units SQ Q12 F[facility]RICIO Stop: 02/22/19 08:59 Famotidine 20 mg/ Syringe 5 mls @ 2.5 mls/min IV Q12H [facility]RICIO Stop: 02/22/19 05:59 Last Admin: 01/23/19 05:44 Dose: 2.5 mls/min Documented by: Propofol (Diprivan) 1,000 mg in 100 mls @ 0 mls/hr IV .Q0M FABRICIO; Protocol Stop: 01/26/19 05:27 Levothyroxine Sodium 50 mcg/ (Syringe) 2.5 mls @ 2 mls/min IV DAILY@0900 [facility] [place] Stop: 02/22/19 08:59 Potassium Chloride (K Honorio / Wtr) 20 meq in 100 mls @ 50 mls/hr IV Q2H [facility]RICIO Stop: 01/23/19 09:33 Last Admin: 01/23/19 05:41 Dose: 50 mls/hr Documented by: Magnesium Sulfate/Dextrose (Magnesium Sulfate / D5w) 1 gm in 100 mls @ 100 mls/hr IV ONE ONE Stop: 01/23/19 06:33 Last Admin: 01/23/19 05:41 Dose: 100 mls/hr Documented by: Potassium Chloride/Sodium Chloride (Normal Saline W/20 Meq Kcl) 20 meq in 1,000 mls @ 100 mls/hr IV .Q10H [facility] [place] Stop: 02/22/19 05:44 Ioversol (Optiray 320 100ml) 100 ml IV ONCE PRN PRN Reason: Interaction Checking Stop: 01/27/19 04:24 Last Admin: 01/23/19 04:25 Dose: 92 ml Documented by: Miscellaneous (Fentanyl Patch Check Placement) 1 ea N/A QS [facility] [place] Stop: 02/22/19 07:59 Miscellaneous (Fentanyl Patch Remove & Waste) 1 ea N/A Q3D [facility] Stop: 02/25/19 01:49 Last Admin: 01/23/19 02:20 Dose: 1 ea Documented by: Miscellaneous (Icu Protocol For Hyperglycemia) 1 ea N/A PRN PRN; Protocol PRN Reason: Hyperglycemia Protocol Stop: 01/25/19 05:27 Nitroglycerin (Nitro-Bid 2%) 1 inch EXT Q6H [facility] [place] Stop: 02/21/19 22:44 Last Admin: 01/23/19 05:36 Dose: Not Given Documented by: PG Care Time/CCT Total # of Minutes Spent Total Time Spent with Patient: Total time spent is greater than 50% in coordination of care (as documented) at patient's floor/unit and/or counseling patient: Critical Care Time: Yes Total Critical Care Time: 40
[2019-01-23] MEDS: POTASSIUM CHLORIDE / WTR 20 MEQ/100 ML PLCT IV SCH ×2 (05:41→07:54)
[2019-01-23] MEDS: FAMOTIDINE 20 MG in SYRINGE 3 ML IV SCH ×2 (05:44→18:28)
[2019-01-23] MEDS: NSS + 20MEQ KCL 20 MEQ/1,000 ML BAG IV SCH ×2 (06:07→15:57)
--- NOTE | 2019-01-23 06:31 | CT Scan Report ---
CT abd pelvis IV con only CT DOSE: HISTORY: Pain Pt c/o esophagus TECHNIQUE: Multiaxial CT images of the abdomen and pelvis were performed following the use of intrave nous contrast. A dose lowering technique was utilized adhering to the principles of ALARA. COMPARISON STUDY: 12/05/2018 FINDINGS: Debris within the distal esophagus. Possible luminal narrowing at the gastroesophageal junc tion. Liver spleen and pancreas are unremarkable. Kidneys enhance uniformly. Nonobstructive bowel pattern. Almanzar catheter within the bladder. No free fluid within the pelvic cul-de-sac. IMPRESSION: 1. Debris filled esophagus with potential narrowing of the gastroesophageal junction. 2. Study is otherwise unremarkable. The above report was generated using voice recognition software. It may contain grammatical, syntax or spelling errors. Electronically signed by: Parish Hernández M.D. 01/23/2019 6:30 AM
[2019-01-23 06:39] LABS: iSTAT Allen Test Pass; iSTAT Art Bld Gas pCO2 Correct 29 mmHg (35-46); iSTAT Arterial Blood Gas HCO3 21 meg/L (19-24); iSTAT Arterial Blood Gas pCO2 29 mmHg (35-46); iSTAT Arterial Blood Gas pH 7.46 (7.35-7.45); iSTAT Arterial Blood Gas pO2 100 mmHg (80-95); iSTAT Arterial Blood Gas pO2 C 101; iSTAT Carbon Dioxide 22 mEq/l (24-31); iSTAT FiO2 40 %; iSTAT Site L Radial
--- NOTE | 2019-01-23 06:39 | XRay Report ---
XR chest 1V portable CLINICAL HISTORY: weakness COMPARISON STUDY: 10/05/2018 FINDINGS: The cardiac and mediastinal contours are normal. There is no evidence of focal pulmonary co nsolidation. There is no evidence of failure. No pleural effusions are visualized.[There is minor lef t basilar atelectasis/scarring IMPRESSION: No active disease in the chest. Electronically signed by: Merritt David M.D. 01/23/2019 6:37 AM
--- NOTE | 2019-01-23 06:41 | XRay Report ---
XR chest 1V portable CLINICAL HISTORY: Respiratory failure COMPARISON STUDY: 01/22/2019 FINDINGS: There is an endotracheal tube 3.6 cm above the moi. The patient appears mildly hyperinfl ated. There is no failure. There is no focal pulmonary consolidation. There is minimal left basilar a telectasis/scarring.[ IMPRESSION: Interval placement of an endotracheal tube 36 mm above the moi. No evidence of focal p ulmonary consolidation. Electronically signed by: Merritt David M.D. 01/23/2019 6:40 AM
--- NOTE | 2019-01-23 07:12 | CT Scan Report ---
CT chest w con CLINICAL HISTORY: 78 years-old Female presenting with suspect impacted food esophagus. TECHNIQUE: Multidetector CT imaging of the chest was performed after the administration of intravenou s contrast. IV contrast: 92 mL of Optiray 320. One or more dose lowering techniques were used consist ent with the principles of ALARA (as low as reasonably achievable), including automatic exposure cont rol, mA or kV adjustment to individual patient size, and/or use of iterative reconstruction. COMPARISON: 12/05/2018. CT DOSE (mGy.cm): The estimated cumulative dose is 750.75 mGy.cm. FINDINGS: Composite Laminator topogram: Unremarkable. Soft tissues: Thyroid only partially visualized. No axillary, supraclavicular, mediastinal, or hilar lymphadenopathy. Atherosclerosis of the aorta. Normal heart size. Coronary artery calcification. No p ericardial or pleural effusion. The esophagus is moderately dilated throughout with ingested solid ma terial resulting in multifocal sites of distention. Mild mucosal hyperemia. No foreign esophageal wall discontinuity. No pneumomediastinum or paraesophageal inflammatory change. Lungs and airways: No pneumothorax. Endotracheal tube terminates in the mid to lower thoracic trachea . Central airways patent. Pulmonary arteries are not significantly enlarged relative to adjacent bron chi. No interlobular septal thickening. Minimal dependent changes likely atelectasis. Suture margin f rom prior wedge resection noted in the posterior segment of the right upper lobe. Mild mosaic attenua tion. Musculoskeletal: Degenerative changes of the spine and glenohumeral joints. Few old rib fractures not ed. IMPRESSION: 1. Moderately distended esophagus with multifocal sites of impacted ingested material. Resultant muc osal inflammatory change without evidence of perforation. Disimpaction recommended. 2. Appropriately positioned endotracheal tube. 3. No evidence of aspiration. 4. Minimal bibasilar atelectasis. Electronically signed by: Ac Bowser M.D. 01/23/2019 7:10 AM
[2019-01-23] MEDS: HEPARIN SOD 5,000 UNIT/0.5 ML VIAL SQ SCH ×2 (08:00→21:41)
[2019-01-23] MEDS: CHECK FENTANYL PATCH PLACEMENT SCH ×2 (08:01→16:02)
--- NOTE | 2019-01-23 08:11 | Gastrointestinal Consultation ---
Date of Consultation January 23, 2019 Assessment & Plan (1) Food impaction of esophagus: Plan for EGD today in the ICU. Verbal consent obtained from her son Brandt Grimaldo but formal consent will be obtained prior to endoscopy by Dr. Tirso Durand DO. Present on Admission?: Yes Supervising Physician Co-Signing Physician Notes I saw and evaluated the patient. She had a stroke many years ago and has had several food impactions in the past. She presented early this morning with distress and had intubation performed in the emergency room earlier this morning. Physical examination Intubated No crepitus noted Impression: Patient with suspected food impaction likely related to her prior neurologic history. We have obtained consent for an upper endoscopy from the patient's family who is here with her father today. We have discussed the risks of the procedure to include bleeding, infection, perforation and need for follow-up examinations. History of Present Illness Reason for Consultation: Food Bolus Requesting Physician: RENEE Ng ([facility] Backend Java Developer) Attending Physician: Timi Mijares MD History of Present Illness Ms. Rosa Grimaldo is a 78 yr old female pt of Dr. Chu with a hx of Arnold's granulomatosis, PUD, CVA (17 yrs ago), frequent UTIs, dysphagia and expressive language disorder. her son tells me that he was trying to feed her supper last evening when he suspected esophageal food bolus because she was coughing and regurgitating foamy liquid after trying to small amts of peas and other food. Because she has a hx of food bolus he suspected a recurance of this problem. He explains that she does not have good judgement on how to eat and needs close supervision. She had been left with care givers earlier that day because her who typically cares for her was admitted for CP. She was brought to the ED by her son last evening for SOB and difficulty swallowing. In the ED, she was intubated for airway protection. She is currently in the ICU, ventilated, sedated. GI is consulted for food bolus. She is known to our group as she underwent EGD by Dr. Weaver in May 2018 for food bolus during which a large amt of food was removed. . On arrival, CT with a debris filled esophagus with potential narrowing of the gastroesophageal junction. CBC,CMP with k 3.4, and BS 160, otherwise no significant abnormalities. She is seen and examined in the ED where she remains ventilated and sedated. VS are normal. She appears comfortable. Allergies Allergy/AdvReac Type Severity Reaction Status Date / Time Penicillins Allergy Intermediate HIVES Verified 01/23/19 00:46 Sulfa (Sulfonamide AdvReac Intermediate MOUTH Verified 01/23/19 00:46 Antibiotics) ULCERS Home Medications Home Medications Medication Instructions Recorded Confirmed Type aspirin [Aspir-Low] 81 mg PO HS 01/17/18 01/23/19 History bupropion HCl 150 mg PO QAM 01/17/18 01/23/19 History citalopram 20 mg PO QAM 01/17/18 01/23/19 History fentanyl 75 mcg TRANSDERMAL Q72H 01/17/18 01/23/19 History gabapentin 600 mg PO TID 01/17/18 01/23/19 History levothyroxine 100 mcg PO QAM 01/17/18 01/23/19 History omeprazole 20 mg PO BID 01/17/18 01/23/19 History propranolol 80 mg PO DAILY 01/17/18 01/23/19 History oxybutynin chloride 10 mg PO BID 10/05/18 01/23/19 History potassium chloride 20 meq PO BID 10/05/18 01/23/19 History Patient History Social History Preferred Language: Paraguayan Communication Ability: Effective Globe Changer Required: No Beliefs That Will Affect Care: None marital status: Current Living Situation: Spouse Feels Safe at Home: Yes Smoking Status: Never smoker Second Hand Exposure: No ; Hx Alcohol Use: No Hx Substance Use: No Review of Systems Review of Systems: Pt unable to provide ROS. Family reports: Frequent UTIs, recent yeast vaginitis. Prior to yesterday evening no recent difficulty swallowing. Physical Exam Constitutional: WD/WN, vitals as above appropriate weight Eyes: PERRL, conjunctivae normal, anicteric sclerae ENMT: intubated, no external ear nose or mouth abnormalities Neck: trachea midline, no thyromegaly Respiratory: Decreased sounds at the bases, no adventatious sounds. Cardiovascular: RRR, no murmur, no edema Gastrointestinal (Abdomen): normal bowel sounds, soft, nontender, no hepatosplenomegaly Skin: no rashes, warm and dry Neurologic: sedated, unable to assess strengths ect Psychiatric: sedated, unable to assess Lymphatic: no cervical or axillary lymphadenopathy Results & Data Vital Signs (Past 12 Hours) Vital Signs Temp Pulse Pulse Pulse Resp BP BP 01/23/19 06:31 15 01/23/19 06:01 80 93/66 L 01/23/19 05:41 86 15 01/23/19 05:32 80 160/98 H 01/23/19 05:19 37.1 C 88 180/109 H 01/23/19 05:10 37.1 C 83 12 180/109 H 01/23/19 05:01 87 178/102 H 01/23/19 05:00 86 01/23/19 04:56 86 12 01/23/19 04:52 86 172/134 H 01/23/19 04:50 85 181/108 H 01/23/19 04:24 83 154/104 H 01/23/19 04:21 80 01/23/19 04:20 75 01/23/19 04:10 75 121/70 01/23/19 04:00 78 106/79 01/23/19 03:50 77 101/72 01/23/19 03:42 80 12 01/23/19 03:40 83 126/85 01/23/19 03:38 87 127/83 01/23/19 03:30 85 01/23/19 03:20 87 01/23/19 03:10 101 H 01/23/19 03:00 82 01/23/19 02:50 98 H 01/23/19 02:40 94 H 01/23/19 02:36 93 H 01/23/19 02:34 92 H 130/95 01/23/19 02:20 85 20 01/23/19 02:15 91 H 16 154/97 H 01/23/19 02:10 83 14 01/23/19 02:00 95 H 17 01/23/19 01:50 93 H 21 01/23/19 01:40 79 15 01/23/19 01:32 77 16 154/97 H 01/23/19 01:30 74 18 01/23/19 01:20 80 21 01/23/19 01:10 75 20 01/23/19 01:01 73 14 177/96 H 01/23/19 01:00 67 18 01/23/19 00:50 72 15 01/23/19 00:40 73 16 01/23/19 00:31 72 19 167/104 H 01/23/19 00:30 70 18 01/23/19 00:26 37.3 C 71 16 171/109 H 01/23/19 00:24 72 11 L 171/109 H 01/23/19 00:20 68 14 01/23/19 00:10 69 14 01/23/19 00:00 72 20 01/22/19 23:50 69 14 01/22/19 23:40 61 21 01/22/19 23:30 67 16 01/22/19 23:20 65 17 01/22/19 23:10 66 15 01/22/19 23:00 67 18 01/22/19 22:58 67 14 01/22/19 22:51 67 16 01/22/19 22:17 37.7 C H 72 20 144/94 H Pulse Ox 01/23/19 06:31 100 01/23/19 06:01 100 01/23/19 05:41 100 01/23/19 05:32 100 01/23/19 05:19 100 01/23/19 05:10 95 01/23/19 05:01 100 01/23/19 05:00 100 01/23/19 04:56 100 01/23/19 04:52 100 01/23/19 04:50 100 01/23/19 04:24 100 01/23/19 04:21 100 01/23/19 04:20 100 01/23/19 04:10 99 01/23/19 04:00 99 01/23/19 03:50 99 01/23/19 03:42 99 01/23/19 03:40 99 01/23/19 03:38 99 01/23/19 03:30 98 01/23/19 03:20 96 01/23/19 03:10 97 01/23/19 03:00 96 01/23/19 02:50 98 01/23/19 02:40 93 01/23/19 02:36 97 01/23/19 02:34 95 01/23/19 02:20 97 01/23/19 02:15 96 01/23/19 02:10 96 01/23/19 02:00 98 01/23/19 01:50 97 01/23/19 01:40 97 01/23/19 01:32 97 01/23/19 01:30 96 01/23/19 01:20 97 01/23/19 01:10 100 01/23/19 01:01 99 01/23/19 01:00 96 01/23/19 00:50 97 01/23/19 00:40 98 01/23/19 00:31 99 01/23/19 00:30 99 01/23/19 00:26 96 01/23/19 00:24 99 01/23/19 00:20 01/23/19 00:10 01/23/19 00:00 98 01/22/19 23:50 01/22/19 23:40 96 01/22/19 23:30 97 01/22/19 23:20 97 01/22/19 23:10 98 01/22/19 23:00 97 01/22/19 22:58 97 01/22/19 22:51 96 01/22/19 22:17 96 Laboratory Results CBC,CMP with k 3.4, and BS 160, otherwise no significant abnormalities. Diagnostic Findings CT abd/pelvis with IV, no oral on 01/22/19: 1. Debris filled esophagus with potential narrowing of the gastroesophageal junction. 2. Study is otherwise unremarkable.
[2019-01-23] MEDS: LEVOTHYROXINE SODIUM 50 MCG in SYRINGE 0 ML IV SCH ×2 (09:48→13:54)
--- NOTE | 2019-01-23 13:03 | Communication Note ---
Date of Service: January 23, 2019 Patient underwent upper endoscopy this morning in the ICU. She was sedated with propofol via the ICU service. She was also intubated early this morning prior to our evaluation. Findings Large amount of food debris in the patient's esophagus. This was removed with numerous passes taking over 1 hour to complete. Recommendations Pathology consultation Omeprazole or Protonix 40 mg/day Full liquid diet Upper endoscopy for esophageal dilation in 2 to 4 weeks Please call with any questions or concerns, GI to sign off
--- NOTE | 2019-01-23 13:09 | GI REPORT ---
Patient Name: Rosa Grimaldo Procedure Date: 01/23/2019 11:53 AM Date of : 1940 Admit Type: Inpatient Age: 78 Gender: Female Attending MD: Tirso Durand DO Procedure: Upper GI endoscopy Providers: Tirso Durand DO Referring MD: Sher Hurd Indications: Foreign body in the esophagus Medicines: General Anesthesia (ICU service) Complications: No immediate complications. Estimated blood loss: Minimal. Estimated Blood Loss: Estimated blood loss was minimal. Procedure: Pre-Anesthesia Assessment: - Prior to the procedure, a History and Physical was performed, and patient medications, allergies and sensitivities were reviewed. The patient's tolerance of previous anesthesia was reviewed. - The patient is unable to give consent secondary to the patient's altered mental status. The alternatives, risks and benefits of the procedure were discussed at length with the patient's son. The patient's proxy verbalized understanding of the risks as well as the alternatives and wished to proceed with the procedure. - Pre-procedure physical examination revealed no contraindications to sedation. - ASA Grade Assessment: IV - A patient with severe systemic disease that is a constant threat to life. - After reviewing the risks and benefits, the patient was deemed in satisfactory condition to undergo the procedure. - The anesthesia plan was to use general anesthesia. - Immediately prior to administration of medications, the patient was re-assessed for adequacy to receive sedatives. - The heart rate, respiratory rate, oxygen saturations, blood pressure, adequacy of pulmonary ventilation, and response to care were monitored throughout the procedure. - The physical status of the patient was re-assessed after the procedure. After obtaining informed consent, the endoscope was passed under direct vision. Throughout the procedure, the patient's blood pressure, pulse, and oxygen saturations were monitored continuously. The Endoscope was introduced through the mouth, and advanced to the third part of duodenum. The upper GI endoscopy was unusually difficult due to presence of food. Successful completion of the procedure was aided by performing the maneuvers documented (below) in this report. The patient tolerated the procedure well. Findings: Food was found in the entire esophagus. There was a solid column of food extending from just below the cricopharyngeus to the gastroesophageal junction.. Removal of food was accomplished with a combination of breath nets and suction using a over the scope. This required numerous intubations esophagus lasting over 1 hour to remove the boluses completely. The entire examined stomach was normal. The examined duodenum was normal. Impression: - Food in the esophagus. Removal was successful. - Normal stomach. - Normal examined duodenum. Recommendation: - Full liquid diet. - Use Prilosec (omeprazole) 40 mg PO daily. - Repeat upper endoscopy for empiric dilation in 2 weeks. -Consider a speech pathology consultation -Please call with any questions or concerns during the remainder of the hospital admission Tirso Durand D.O. Tirso Durand, 01/23/2019 1:08:24 PM This report has been signed electronically. Note Initiated On: 01/23/2019 11:53 AM Number of Addenda: 0 I attest to the content of the Intraoperative Record and orders documented therein, exceptions below {[id number]}
[2019-01-23] MEDS ORDERED: PROPOFOL IV EMULSION 10 MG/ML 20 ML VIAL IV STA (13:58)
[2019-01-23] MEDS ORDERED: MIDAZOLAM HCL 5 MG/ML VIAL IV ONE (15:49)
[2019-01-23] MEDS ORDERED: fentaNYL citrate 100 MCG/2 ML VIAL IV ONE (15:49)
[2019-01-23] MEDS ORDERED: KETAMINE HCL INJ 50 MG/ML 10 ML VIAL IV ONE (15:49)
[2019-01-23] MEDS ORDERED: VECURONIUM BROMIDE 10 MG VIAL IV ONE (15:49)
[2019-01-23] MEDS ORDERED: SUCCINYLCHOLINE CHLORIDE 20 MG/ML 10 ML VIAL IV ONE (15:49)
--- NOTE | 2019-01-23 17:57 | Emergency Department Note ---
Entered by Priya Lloyd acting as a scribe for History of Present Illness General Chief complaint: Food Bolus Stated complaint: FOOD BOLUS Time Seen by Provider: 01/22/19 22:25 Source: family History of Present Illness Provider complaint: food bolus Onset (ago): hour(s) 9 Location: mouth (esophagus) Radiation: non-radiation Pain Consistency: + other (episode) Associated symptoms: + other (vomiting up saliva, tightness in neck and upper chest, tortuous esophagus, ate food that was outside her normal diet plan) The patient is a 78 year old female who presents to the ED with complaints of an episode of a food bolus that occurred 9 hours ago. Per daughter, the patient has tortuous esophagus and an unfamiliar caregiver gave the patient food at lunch time that was outside of her normal diet plan. Per daughter, the patient has been vomiting up saliva intermittently ever since. The patient notes that she has tightness in her neck and upper chest but the pain is non-radiating. Home Medications Home Medications Medication Instructions Recorded Confirmed Type aspirin [Aspir-Low] 81 mg PO HS 01/17/18 01/23/19 History bupropion HCl 150 mg PO QAM 01/17/18 01/23/19 History citalopram 20 mg PO QAM 01/17/18 01/23/19 History fentanyl 75 mcg TRANSDERMAL Q72H 01/17/18 01/23/19 History gabapentin 600 mg PO TID 01/17/18 01/23/19 History levothyroxine 100 mcg PO QAM 01/17/18 01/23/19 History omeprazole 20 mg PO BID 01/17/18 01/23/19 History propranolol 80 mg PO DAILY 01/17/18 01/23/19 History oxybutynin chloride 10 mg PO BID 10/05/18 01/23/19 History potassium chloride 20 meq PO BID 10/05/18 01/23/19 History Allergies Allergy/AdvReac Type Severity Reaction Status Date / Time Penicillins Allergy Intermediate HIVES Verified 01/23/19 00:46 Sulfa (Sulfonamide AdvReac Intermediate MOUTH Verified 01/23/19 00:46 Antibiotics) ULCERS Past Med/Surg History Social History Preferred Language: Polish Communication Ability: Effective Delicatessen Slicer Required: No Beliefs That Will Affect Care: None marital status: Current Living Situation: Spouse Feels Safe at Home: Yes Smoking Status: Never smoker Second Hand Exposure: No ; Hx Alcohol Use: No Hx Substance Use: No Review of Systems See HPI for pertinent positives & negatives. and A total of 10 systems reviewed and were otherwise negative Physical Exam Vital Signs Vital Signs - 24 hr 01/22/19 22:17 01/22/19 22:51 01/22/19 22:58 Temperature 37.7 C H Temperature Source Oral Sepsis Recent Fever Within 48 Hours No Sepsis New/Unexplained Change in Mental Status No Sepsis Action Taken by Nursing No Action Required End-Tidal CO2 Pulse Rate 72 67 67 Pulse Rate [Right Radial] Pulse Rate from SpO2 Sensor 68 Respiratory Rate 20 16 14 Respiratory Effort / Characteristics Non-Labored Spontaneous Respiratory Depth Normal Blood Pressure 144/94 H Blood Pressure [Right Arm] Blood Pressure Mean 110 Blood Pressure Mean [Right Arm] Blood Pressure Position Sitting Pulse Oximetry 96 96 97 Oxygen Delivery Method Room Air Room Air Fraction of Inspired Oxygen 01/22/19 23:00 01/22/19 23:10 01/22/19 23:20 Temperature Temperature Source Sepsis Recent Fever Within 48 Hours Sepsis New/Unexplained Change in Mental Status Sepsis Action Taken by Nursing End-Tidal CO2 Pulse Rate 67 66 65 Pulse Rate [Right Radial] Pulse Rate from SpO2 Sensor 68 66 65 Respiratory Rate 18 15 17 Respiratory Effort / Characteristics Respiratory Depth Blood Pressure Blood Pressure [Right Arm] Blood Pressure Mean Blood Pressure Mean [Right Arm] Blood Pressure Position Pulse Oximetry 97 98 97 Oxygen Delivery Method Fraction of Inspired Oxygen 01/22/19 23:30 01/22/19 23:40 01/22/19 23:50 Temperature Temperature Source Sepsis Recent Fever Within 48 Hours Sepsis New/Unexplained Change in Mental Status Sepsis Action Taken by Nursing End-Tidal CO2 Pulse Rate 67 61 69 Pulse Rate [Right Radial] Pulse Rate from SpO2 Sensor 67 62 Respiratory Rate 16 21 14 Respiratory Effort / Characteristics Respiratory Depth Blood Pressure Blood Pressure [Right Arm] Blood Pressure Mean Blood Pressure Mean [Right Arm] Blood Pressure Position Pulse Oximetry 97 96 Oxygen Delivery Method Fraction of Inspired Oxygen 01/23/19 00:00 01/23/19 00:10 01/23/19 00:20 Temperature Temperature Source Sepsis Recent Fever Within 48 Hours Sepsis New/Unexplained Change in Mental Status Sepsis Action Taken by Nursing End-Tidal CO2 Pulse Rate 72 69 68 Pulse Rate [Right Radial] Pulse Rate from SpO2 Sensor 72 Respiratory Rate 20 14 14 Respiratory Effort / Characteristics Respiratory Depth Blood Pressure Blood Pressure [Right Arm] Blood Pressure Mean Blood Pressure Mean [Right Arm] Blood Pressure Position Pulse Oximetry 98 Oxygen Delivery Method Fraction of Inspired Oxygen 01/23/19 00:24 01/23/19 00:26 01/23/19 00:30 Temperature 37.3 C Temperature Source Oral Sepsis Recent Fever Within 48 Hours Sepsis New/Unexplained Change in Mental Status Sepsis Action Taken by Nursing End-Tidal CO2 Pulse Rate 72 70 Pulse Rate [Right Radial] 71 Pulse Rate from SpO2 Sensor 70 71 Respiratory Rate 11 L 16 18 Respiratory Effort / Characteristics Non-Labored Spontaneous Respiratory Depth Normal Blood Pressure 171/109 H Blood Pressure [Right Arm] 171/109 H Blood Pressure Mean 129 Blood Pressure Mean [Right Arm] 129 Blood Pressure Position Pulse Oximetry 99 96 99 Oxygen Delivery Method Room Air Fraction of Inspired Oxygen 01/23/19 00:31 01/23/19 00:40 01/23/19 00:50 Temperature Temperature Source Sepsis Recent Fever Within 48 Hours Sepsis New/Unexplained Change in Mental Status Sepsis Action Taken by Nursing End-Tidal CO2 Pulse Rate 72 73 72 Pulse Rate [Right Radial] Pulse Rate from SpO2 Sensor 72 74 74 Respiratory Rate 19 16 15 Respiratory Effort / Characteristics Respiratory Depth Blood Pressure 167/104 H Blood Pressure [Right Arm] Blood Pressure Mean 125 Blood Pressure Mean [Right Arm] Blood Pressure Position Pulse Oximetry 99 98 97 Oxygen Delivery Method Fraction of Inspired Oxygen 01/23/19 01:00 01/23/19 01:01 01/23/19 01:10 Temperature Temperature Source Sepsis Recent Fever Within 48 Hours Sepsis New/Unexplained Change in Mental Status Sepsis Action Taken by Nursing End-Tidal CO2 Pulse Rate 67 73 75 Pulse Rate [Right Radial] Pulse Rate from SpO2 Sensor 68 73 75 Respiratory Rate 18 14 20 Respiratory Effort / Characteristics Respiratory Depth Blood Pressure 177/96 H Blood Pressure [Right Arm] Blood Pressure Mean 123 Blood Pressure Mean [Right Arm] Blood Pressure Position Pulse Oximetry 96 99 100 Oxygen Delivery Method Fraction of Inspired Oxygen 01/23/19 01:20 01/23/19 01:30 01/23/19 01:32 Temperature Temperature Source Sepsis Recent Fever Within 48 Hours Sepsis New/Unexplained Change in Mental Status Sepsis Action Taken by Nursing End-Tidal CO2 Pulse Rate 80 74 77 Pulse Rate [Right Radial] Pulse Rate from SpO2 Sensor 80 77 77 Respiratory Rate 21 18 16 Respiratory Effort / Characteristics Respiratory Depth Blood Pressure 154/97 H Blood Pressure [Right Arm] Blood Pressure Mean 116 Blood Pressure Mean [Right Arm] Blood Pressure Position Pulse Oximetry 97 96 97 Oxygen Delivery Method Fraction of Inspired Oxygen 01/23/19 01:40 01/23/19 01:50 01/23/19 02:00 Temperature Temperature Source Sepsis Recent Fever Within 48 Hours Sepsis New/Unexplained Change in Mental Status Sepsis Action Taken by Nursing End-Tidal CO2 Pulse Rate 79 93 H 95 H Pulse Rate [Right Radial] Pulse Rate from SpO2 Sensor 81 94 H 93 H Respiratory Rate 15 21 17 Respiratory Effort / Characteristics Respiratory Depth Blood Pressure Blood Pressure [Right Arm] Blood Pressure Mean Blood Pressure Mean [Right Arm] Blood Pressure Position Pulse Oximetry 97 97 98 Oxygen Delivery Method Fraction of Inspired Oxygen 01/23/19 02:10 01/23/19 02:15 01/23/19 02:20 Temperature Temperature Source Sepsis Recent Fever Within 48 Hours Sepsis New/Unexplained Change in Mental Status Sepsis Action Taken by Nursing End-Tidal CO2 Pulse Rate 83 85 Pulse Rate [Right Radial] 91 H Pulse Rate from SpO2 Sensor 87 86 Respiratory Rate 14 16 20 Respiratory Effort / Characteristics Non-Labored Spontaneous Respiratory Depth Normal Blood Pressure Blood Pressure [Right Arm] 154/97 H Blood Pressure Mean Blood Pressure Mean [Right Arm] 116 Blood Pressure Position Pulse Oximetry 96 96 97 Oxygen Delivery Method Room Air Fraction of Inspired Oxygen 01/23/19 02:34 01/23/19 02:36 01/23/19 02:40 Temperature Temperature Source Sepsis Recent Fever Within 48 Hours Sepsis New/Unexplained Change in Mental Status Sepsis Action Taken by Nursing End-Tidal CO2 Pulse Rate 92 H 93 H 94 H Pulse Rate [Right Radial] Pulse Rate from SpO2 Sensor 91 H 92 H 96 H Respiratory Rate Respiratory Effort / Characteristics Respiratory Depth Blood Pressure 130/95 Blood Pressure [Right Arm] Blood Pressure Mean 106 Blood Pressure Mean [Right Arm] Blood Pressure Position Pulse Oximetry 95 97 93 Oxygen Delivery Method Fraction of Inspired Oxygen 01/23/19 02:50 01/23/19 03:00 01/23/19 03:10 Temperature Temperature Source Sepsis Recent Fever Within 48 Hours Sepsis New/Unexplained Change in Mental Status Sepsis Action Taken by Nursing End-Tidal CO2 Pulse Rate 98 H 82 101 H Pulse Rate [Right Radial] Pulse Rate from SpO2 Sensor 95 H 83 99 H Respiratory Rate Respiratory Effort / Characteristics Respiratory Depth Blood Pressure Blood Pressure [Right Arm] Blood Pressure Mean Blood Pressure Mean [Right Arm] Blood Pressure Position Pulse Oximetry 98 96 97 Oxygen Delivery Method Fraction of Inspired Oxygen 01/23/19 03:20 01/23/19 03:30 01/23/19 03:38 Temperature Temperature Source Sepsis Recent Fever Within 48 Hours Sepsis New/Unexplained Change in Mental Status Sepsis Action Taken by Nursing End-Tidal CO2 Pulse Rate 87 85 87 Pulse Rate [Right Radial] Pulse Rate from SpO2 Sensor 87 85 87 Respiratory Rate Respiratory Effort / Characteristics Respiratory Depth Blood Pressure 127/83 Blood Pressure [Right Arm] Blood Pressure Mean 97 Blood Pressure Mean [Right Arm] Blood Pressure Position Pulse Oximetry 96 98 99 Oxygen Delivery Method Fraction of Inspired Oxygen 01/23/19 03:40 01/23/19 03:42 01/23/19 03:50 Temperature Temperature Source Sepsis Recent Fever Within 48 Hours Sepsis New/Unexplained Change in Mental Status Sepsis Action Taken by Nursing End-Tidal CO2 27 28 27 Pulse Rate 83 80 77 Pulse Rate [Right Radial] Pulse Rate from SpO2 Sensor 83 76 Respiratory Rate 12 Respiratory Effort / Characteristics Respiratory Depth Blood Pressure 126/85 101/72 Blood Pressure [Right Arm] Blood Pressure Mean 98 81 Blood Pressure Mean [Right Arm] Blood Pressure Position Pulse Oximetry 99 99 99 Oxygen Delivery Method Fraction of Inspired Oxygen 50 01/23/19 04:00 01/23/19 04:10 01/23/19 04:20 Temperature Temperature Source Sepsis Recent Fever Within 48 Hours Sepsis New/Unexplained Change in Mental Status Sepsis Action Taken by Nursing End-Tidal CO2 27 26 25 Pulse Rate 78 75 75 Pulse Rate [Right Radial] Pulse Rate from SpO2 Sensor 78 75 76 Respiratory Rate Respiratory Effort / Characteristics Respiratory Depth Blood Pressure 106/79 121/70 Blood Pressure [Right Arm] Blood Pressure Mean 88 87 Blood Pressure Mean [Right Arm] Blood Pressure Position Pulse Oximetry 99 99 100 Oxygen Delivery Method Fraction of Inspired Oxygen 01/23/19 04:21 01/23/19 04:24 Temperature Temperature Source Sepsis Recent Fever Within 48 Hours Sepsis New/Unexplained Change in Mental Status Sepsis Action Taken by Nursing End-Tidal CO2 26 26 Pulse Rate 80 83 Pulse Rate [Right Radial] Pulse Rate from SpO2 Sensor 79 83 Respiratory Rate Respiratory Effort / Characteristics Respiratory Depth Blood Pressure 154/104 H Blood Pressure [Right Arm] Blood Pressure Mean 120 120 Blood Pressure Mean [Right Arm] Blood Pressure Position Pulse Oximetry 100 100 Oxygen Delivery Method Fraction of Inspired Oxygen GENERAL: Patient is a confused female HEAD: Normocephalic atraumatic EYES: Ocular movements intact pupils equal and react to light OROPHARYNX mucous membranes are moist no exudates present no erythema or edema present, swallowing own saliva This is nECK: Supple no nuchal rigidity CHEST: Good equal expansion LUNGS: Clear and equal to auscultation CARDIAC: Normal S1 and S2 ABDOMEN: Soft nontender no guarding BACK: No CVA tenderness EXTREMITIES: No pain upon palpation normal muscle strength in all groups no clubbing cyanosis or edema NEURO: Patient is not following commands is answering questions appropriately. Alert and oriented x3 Cranial Nerves 2-12 grossly intact Procedures Central Line Placement Right Femoral: Time Out Performed: Yes Patient Placed on Monitor/Pulse Ox: Yes MD Prep: mask, gown and gloves Central Line Prep: Chlorhexidine scrub and sterile drapes applied Local Anesthetic: lidocaine 1% Amount of anesthesia used (mL): 4 Ultrasound Used for Placement: Yes Central Line Lumen Inserted: triple Post Procedure: sutured in place, good blood return, all ports aspirated, flushed, capped and sterile dressing applied Patient Tolerated Procedure: well and no complications Complications: none Intubation Time out performed: Yes sedative: Ketamine Mg Given: 30 paralytic: Succinylcholine Mg Given: 200 Laryngoscope: fiber optic video scope ET Tube Size: 7 ET Tube Uncuffed: No Tube Secured Depth (cm): 22 Tube Secured Location: lips Tube Placement Confirmation: visualized tube passing through cords, equal breath sounds bilaterally, no breath sounds over epigastrium and confirmation by capnometry Patient Tolerated Procedure: well and no complications Intubation Complications: none Course 2030: Past medical records reviewed. The patient was evaluated in room B3. A complete history and physical exam was performed. 2345: I updated the patient and her family on the test results. Administered Medications Heparin Sodium (Porcine) (Heparin Sodium (Porcine)) 5,000 units SQ Q12 [facility]RICIO Stop: 02/22/19 08:59 Last Admin: 01/23/19 08:00 Dose: 5,000 units Documented by: [id number] Cosigned by: [id number] Famotidine 20 mg/ Syringe 5 mls @ 2.5 mls/min IV Q12H F[facility]RICIO Stop: 02/22/19 05:59 Last Admin: 01/23/19 05:44 Dose: 2.5 mls/min Documented by: [id number] Propofol (Diprivan) 1,000 mg in 100 mls @ 9.6 mls/hr IV .[id number] FABRICIO; Protocol Stop: 01/26/19 05:27 Last Titration: 01/23/19 12:55 Dose: 25 mcg/kg/min, 9.6 mls/hr Documented by: [id number] Titration: 01/23/19 11:55 Dose: 35 mcg/kg/min, 13.4 mls/hr Documented by: [id number] Titration: 01/23/19 11:45 Dose: 30 mcg/kg/min, 11.5 mls/hr Documented by: [id number] Titration: 01/23/19 09:49 Dose: 20 mcg/kg/min, 7.7 mls/hr Documented by: [id number] Cosigned by: [id number] Admin: 01/23/19 09:49 Dose: 20 mcg/kg/min, 7.7 mls/hr Documented by: [id number] Cosigned by: [id number] Titration: 01/23/19 09:00 Dose: 20 mcg/kg/min, 7.7 mls/hr Documented by: [id number] Titration: 01/23/19 05:25 Dose: 25 mcg/kg/min, 9.6 mls/hr Documented by: [id number] Titration: 01/23/19 05:20 Dose: 20 mcg/kg/min, 7.7 mls/hr Documented by: [id number] Titration: 01/23/19 05:15 Dose: 15 mcg/kg/min, 5.8 mls/hr Documented by: [id number] Admin: 01/23/19 05:10 Dose: 10 mcg/kg/min, 3.8 mls/hr Documented by: [id number] Cosigned by: [id number] Levothyroxine Sodium 50 mcg/ (Syringe) 2.5 mls @ 2 mls/min IV DAILY@0900 [facility]RICIO Stop: 02/22/19 08:59 Last Admin: 01/23/19 13:54 Dose: Not Given Documented by: [id number] Potassium Chloride/Sodium Chloride (Normal Saline W/20 Meq Kcl) 20 meq in 1,000 mls @ 100 mls/hr IV .Q10H F[facility]RICIO Stop: 02/22/19 05:44 Last Admin: 01/23/19 15:57 Dose: 100 mls/hr Documented by: [id number] Infusion: 01/23/19 15:57 Dose: 100 mls/hr Documented by: [id number] Admin: 01/23/19 06:07 Dose: 100 mls/hr Documented by: [id number] Ioversol (Optiray 320 100ml) 100 ml IV ONCE PRN PRN Reason: Interaction Checking Stop: 01/27/19 04:24 Last Admin: 01/23/19 04:25 Dose: 92 ml Documented by: [id number] Miscellaneous (Fentanyl Patch Check Placement) 1 ea N/A QS [facility] Stop: 02/22/19 07:59 Last Admin: 01/23/19 16:02 Dose: 1 ea Documented by: [id number] Admin: 01/23/19 08:01 Dose: 1 ea Documented by: [id number] Miscellaneous (Fentanyl Patch Remove & Waste) 1 ea N/A Q3D [facility] Stop: 02/25/19 01:49 Last Admin: 01/23/19 02:20 Dose: 1 ea Documented by: [id number] Cosigned by: [id number] Discontinued Medications Benztropine Mesylate (Cogentin) 2 mg IM NOW STA Stop: 01/23/19 01:26 Last Admin: 01/23/19 01:33 Dose: 2 mg Documented by: [id number] Diazepam (Valium) 2.5 mg IV NOW STA Stop: 01/22/19 22:34 Last Admin: 01/23/19 03:57 Dose: 2.5 mg Documented by: [id number] Diazepam (Valium) Confirm Administered Dose 5 mg .ROUTE .STK-MED ONE Stop: 01/23/19 03:56 Last Admin: 01/23/19 04:00 Dose: Not Given Documented by: [id number] Fentanyl (Duragesic) 75 mcg TD NOW STA Stop: 01/23/19 01:51 Last Admin: 01/23/19 02:13 Dose: 75 mcg Documented by: [id number] Glucagon (Glucagen) Confirm Administered Dose 1 mg .ROUTE .STK-MED ONE Stop: 01/23/19 03:48 Last Admin: 01/23/19 04:00 Dose: Not Given Documented by: [id number] Haloperidol Lactate (Haldol) 5 mg IM NOW STA Stop: 01/23/19 00:08 Last Admin: 01/23/19 00:12 Dose: 5 mg Documented by: [id number] Heparin Sodium (Beef Lung) (Heparin Sod 10 Unit/Ml Flush) Confirm Administered Dose 10 ml FLUSH .STK-MED ONE Stop: 01/23/19 04:11 Last Admin: 01/23/19 04:33 Dose: 10 ml Documented by: [id number] Hydralazine HCl (Hydralazine Hcl) 5 mg IV NOW ONE Stop: 01/23/19 05:32 Last Admin: 01/23/19 05:42 Dose: 5 mg Documented by: [id number] Glucagon 1 mg/ Syringe 1 mls @ 1 mls/min IV NOW STA Stop: 01/22/19 22:34 Last Admin: 01/23/19 03:53 Dose: 1 mls/min Documented by: [id number] Sodium Chloride (Nss) 500 mls @ 999 mls/hr IV .Q31M FABRICIO Stop: 01/22/19 23:15 Last Infusion: 01/23/19 06:14 Dose: 0 mls/hr Documented by: [id number] Admin: 01/23/19 03:45 Dose: 999 mls/hr Documented by: [id number] Potassium Chloride (K Honorio / Wtr) 20 meq in 100 mls @ 50 mls/hr IV Q2H FABRICIO Stop: 01/23/19 09:33 Last Infusion: 01/23/19 10:22 Dose: 0 mls/hr Documented by: [id number] Admin: 01/23/19 07:54 Dose: 50 mls/hr Documented by: [id number] Infusion: 01/23/19 07:41 Dose: 50 mls/hr Documented by: [id number] Admin: 01/23/19 05:41 Dose: 50 mls/hr Documented by: [id number] Magnesium Sulfate/Dextrose (Magnesium Sulfate / D5w) 1 gm in 100 mls @ 100 mls/hr IV ONE ONE Stop: 01/23/19 06:33 Last Infusion: 01/23/19 06:44 Dose: 0 mls/hr Documented by: [id number] Admin: 01/23/19 05:41 Dose: 100 mls/hr Documented by: [id number] Ketamine HCl (Ketalar Steri-Vial) 25 mg IV NOW STA Stop: 01/23/19 03:19 Last Admin: 01/23/19 03:59 Dose: Not Given Documented by: [id number] Lorazepam (Ativan) 2 mg IM NOW STA Stop: 01/23/19 00:08 Last Admin: 01/23/19 00:12 Dose: 2 mg Documented by: [id number] Lorazepam (Ativan) 2 mg IM NOW STA Stop: 01/23/19 00:59 Last Admin: 01/23/19 01:01 Dose: 2 mg Documented by: [id number] Metoclopramide HCl (Reglan) 10 mg IV NOW STA Stop: 01/22/19 22:34 Last Admin: 01/23/19 03:54 Dose: 10 mg Documented by: [id number] Metoclopramide HCl (Reglan) Confirm Administered Dose 10 mg .ROUTE .STK-MED ONE Stop: 01/23/19 03:48 Last Admin: 01/23/19 04:00 Dose: Not Given Documented by: [id number] Miscellaneous () Confirm Administered Dose 1 ea .ROUTE .STK-MED ONE Stop: 01/23/19 03:17 Last Admin: 01/23/19 03:45 Dose: 1 ea Documented by: [id number] Nitroglycerin (Nitro-Bid 2%) 1 inch EXT Q6H [facility]RICIO Stop: 02/21/19 22:44 Last Admin: 01/23/19 14:09 Dose: Not Given Documented by: [id number] Admin: 01/23/19 05:36 Dose: Not Given Documented by: [id number] Admin: 01/23/19 03:54 Dose: 1 inch Documented by: [id number] Propofol (Diprivan) Confirm Administered Dose 1,000 mg IV .STK-MED ONE Stop: 01/23/19 03:34 Last Admin: 01/23/19 04:00 Dose: 1,000 mg Documented by: [id number] Cosigned by: [id number] Propofol (Diprivan) 40 mg IV NOW STA Stop: 01/23/19 13:59 Last Admin: 01/23/19 12:05 Dose: 40 mg Documented by: [id number] Cosigned by: [id number] Succinylcholine Chloride (Quelicin) 200 mg IV NOW STA Stop: 01/23/19 03:19 Last Admin: 01/23/19 03:59 Dose: Not Given Documented by: [id number] Vecuronium Hayden (Norcuron) 10 mg IV NOW STA Stop: 01/23/19 03:19 Last Admin: 01/23/19 03:59 Dose: Not Given Documented by: [id number] Medical Decision Making Differential Diagnosis Differential diagnosis: Etiologies such as biliary colic, cholecystitis, hepatitis, perihepatitis, pancreatitis, cardiac disease, pancreatitis, gastritis, peptic ulcer disease, appendicitis, ovarian cyst, ovarian torsion, ectopic , pelvic inflammatory disease, cystitis, diverticulitis, mesenteric ischemia, inflamm atory bowel disease, ileus, bowel obstruction, aortic pathology, shingles, as well as others were considered. Medical Records Attestation: I reviewed the patient's medical records. Home Medications Current Medication List: was personally reviewed by me Laboratory Data Result diagrams: 01/23/19 04:05 01/23/19 04:05 Lab Results 01/23/19 01/23/19 01/23/19 Range/Units 04:05 04:05 04:25 WBC 8.44 (4.8-10.8) K/uL RBC 4.60 (4.2-5.4) M/uL Hgb 13.4 (12.0-16.0) g/dL Hct 39.6 (37-47) % MCV 86.1 (80-100) fL MCH 29.1 (25-34) pg MCHC 33.8 (32-36) g/dL RDW Std Deviation 43.5 (36.4-46.3) fL RDW Coeff of Stella 14.0 (11.5-14.5) % Plt Count 258 (130-400) K/uL MPV 9.8 (7.4-10.4) fL Immature Gran % (Auto) 0.2 % Neut % (Auto) 72.1 % Lymph % (Auto) 20.4 % [place] % (Auto) 6.2 % Eos % (Auto) 0.7 % Baso % (Auto) 0.4 % Immature Gran # (Auto) 0.02 (0.00-0.02) K/uL Neut # (Auto) 6.09 (1.4-6.5) K/uL Lymph # (Auto) 1.72 (1.2-3.4) K/uL [place] # (Auto) 0.52 (0.11-0.59) K/uL Eos # (Auto) 0.06 (0-0.5) K/uL Baso # (Auto) 0.03 (0-0.2) K/uL Sodium 141 (136-145) mmol/L Potassium 3.4 L (3.5-5.1) mmol/L Chloride 105 (98-107) mmol/L Carbon Dioxide 26 (21-32) mmol/L Anion Gap 10.0 (3-11) BUN 5 L (7-18) mg/dl Creatinine 0.72 (0.6-1.2) mg/dl Est Cr Clr Drug Dosing Not Reportable Est GFR ( Amer) 93.0 Est GFR (Non-Af Amer) 80.2 BUN/Creatinine Ratio 6.5 L (10-20) Glucose 160 H (70-99) mg/dl Calcium 8.7 (8.5-10.1) mg/dl Total Bilirubin 0.5 (0.2-1) mg/dl AST 27 (15-37) U/L ALT 19 (12-78) U/L Alkaline Phosphatase 80 (45-117) U/L Total Protein 5.8 L (6.4-8.2) gm/dl Albumin 2.9 L (3.4-5.0) gm/dl Globulin 2.9 (2.5-4.0) gm/dl Albumin/Globulin Ratio 1.0 (0.9-2) TSH 0.113 L (0.300-4.500) uIu/ml Free T4 2.01 H (0.8-1.6) ng/dl Urine Color Yellow Urine Appearance Clear (Clear) Urine pH 8.0 H (4.5-7.5) Ur Specific [place] 1.011 (1.000-1.030) Urine Protein Negative (Negative) Urine Glucose (UA) Negative (Negative) Urine Ketones 1+ H (Negative) Urine Blood Negative (Negative) Urine Nitrite Negative (Negative) Urine Bilirubin Negative (Negative) Urine Urobilinogen Negative (Negative) Ur Leukocyte Esterase Trace H (Negative) Urine WBC (Auto) 5-10 H (0-5) /hpf Urine RBC (Auto) 0-4 (0-4) /hpf U Hyaline Cast (Auto) 1-5 (0-5) /lpf U Epithel Cells (Auto) 10-20 H (0-5) /lpf Urine Bacteria (Auto) Negative (Negative) Imaging Data Radiologist's Impression: CT chest w con CLINICAL HISTORY: 78 years-old Female presenting with suspect impacted food esophagus. TECHNIQUE: Multidetector CT imaging of the chest was performed after the administration of intravenous contrast. IV contrast: 92 mL of Optiray 320. One or more dose lowering techniques were used consistent with the principles of ALARA (as low as reasonably achievable), including automatic exposure control, mA or kV adjustment to individual patient size, and/or use of iterative reconstruction. COMPARISON: 12/05/2018. CT DOSE (mGy.cm): The estimated cumulative dose is 750.75 mGy.cm. FINDINGS: [employer] topogram: Unremarkable. Soft tissues: Thyroid only partially visualized. No axillary, supraclavicular, mediastinal, or hilar lymphadenopathy. Atherosclerosis of the aorta. Normal heart size. Coronary artery calcification. No pericardial or pleural effusion. The esophagus is moderately dilated throughout with ingested solid material resulting in multifocal sites of distention. Mild mucosal hyperemia. No foreign esophageal wall discontinuity. No pneumomediastinum or paraesophageal inflammatory change. Lungs and airways: No pneumothorax. Endotracheal tube terminates in the mid to lower thoracic trachea. Central airways patent. Pulmonary arteries are not significantly enlarged relative to adjacent bronchi. No interlobular septal thickening. Minimal dependent changes likely atelectasis. Suture margin from prior wedge resection noted in the posterior segment of the right upper lobe. Mild mosaic attenuation. Musculoskeletal: Degenerative changes of the spine and glenohumeral joints. Few old rib fractures noted. [place], [place] [phone] XRay Report Patient: MCKENZIE DU EAdmit Date: 01/23/19 MR#: [id number]: [address] [facility] Acct ID:[id number]: Date: [address] [place] [address] Zip: [place] [address] Age: 78Location: 1E Sex: F Room/Bed: [facility] Att Phy: Samy Boone M.D.Diagnosis: FOOD BOLUS, INTUBATED Za Phy: Sher Chu Jr, DOService Date: 01/23/19 Fam Phy:Interpreting Phy: Merritt David MD Admit Phy: Samy Boone M.D. Ordering Phy: Иван Quintana MD cc: ~ XR chest 1V portable CLINICAL HISTORY: Respiratory failure COMPARISON STUDY: 01/22/2019 FINDINGS: There is an endotracheal tube 3.6 cm above the moi. The patient appears mildly hyperinflated. There is no failure. There is no focal pulmonary consolidation. There is minimal left basilar atelectasis/scarring.[ IMPRESSION: Interval placement of an endotracheal tube 36 mm above the moi. No evidence of focal pulmonary consolidation. [facility], [place] [phone] XRay Report Patient: MCKENZIE DU EAdmit Date: 01/23/19 MR#: [id number]: [address] Acct ID:[id number]: Date: [address] [place] [address] Zip: [place] [address] Age: 78Location: 1E Sex: F Room/Bed: [facility] Att Phy: Samy Boone M.D.Diagnosis: FOOD BOLUS, INTUBATED Za Phy: Sher Chu Jr, DOService Date: 01/22/19 Fam Phy:Interpreting Phy: Merritt David MD Admit Phy: Samy Boone M.D. Ordering Phy: Иван Quintana MD cc: ~ XR chest 1V portable CLINICAL HISTORY: weakness COMPARISON STUDY: 10/05/2018 FINDINGS: The cardiac and mediastinal contours are normal. There is no evidence of focal pulmonary consolidation. There is no evidence of failure. No pleural effusions are visualized.[There is minor left basilar atelectasis/scarring IMPRESSION: No active disease in the chest. Electronically signed by: Merritt David M.D. 01/23/2019 6:37 AM Dictated: 01/23/19636 Transcribed: 01/23/19636 IMPRESSION: 1. Moderately distended esophagus with multifocal sites of impacted ingested material. Resultant mucosal inflammatory change without evidence of perforation. Disimpaction recommended. 2. Appropriately positioned endotracheal tube. 3. No evidence of aspiration. 4. Minimal bibasilar atelectasis. Electronically signed by: Ac Bowser M.D. 01/23/2019 7:10 AM Dictated: 01/23/19630 Transcribed: 01/23/19630 [facility], [place] [phone] CT Scan Report Patient: MCKENZIE DU EAdmit Date: 01/23/19 MR#: [id number]: [address] Acct ID:[id number]: Date: [address] Zip: [place] [address] Age: 78Location: 1E Sex: F Room/Bed: [facility] Att Phy: Samy Boone M.D.Diagnosis: FOOD BOLUS, INTUBATED Za Phy: Sher Chu Jr, DOService Date: 01/22/19 Fam Phy:Interpreting Phy: Parish Hernández MD Admit Phy: Samy Boone M.D. Ordering Phy: Иван Quintana MD cc: ~ CT abd pelvis IV con only CT DOSE: HISTORY: Pain Pt c/o esophagus TECHNIQUE: Multiaxial CT images of the abdomen and pelvis were performed following the use of intravenous contrast. A dose lowering technique was utilized adhering to the principles of ALARA. COMPARISON STUDY: 12/05/2018 FINDINGS: Debris within the distal esophagus. Possible luminal narrowing at the gastroesophageal junction. Liver spleen and pancreas are unremarkable. Kidneys enhance uniformly. Nonobstructive bowel pattern. Almanzar catheter within the bladder. No free fluid within the pelvic cul-de-sac. IMPRESSION: 1. Debris filled esophagus with potential narrowing of the gastroesophageal junction. 2. Study is otherwise unremarkable. The above report was generated using voice recognition software. It may contain grammatical, syntax or spelling errors. Electronically signed by: Parish Hernández M.D. 01/23/2019 6:30 AM Dictated: 01/23/19625 Transcribed: 01/23/19625 ECG Data Attestation: I personally reviewed and interpreted this ECG as follows: Indication: other (food bolus) Rate (beats per minute): 66 Rhythm: normal sinus Findings: + RBBB; no ST depression and no ST elevation Blood Pressure Blood Pressure Findings: Elevated blood pressure MDM Narrative This is a 78-year-old female who presents emergency department confused. The patient was left in a different guardian and is believe that she ate improper food today. Family is concerned because the patient is unable to swallow water. An extensive amount of time was spent trying to get an IV in place. The family is asking if the patient be sedated therefore she was given 5 of Haldol as well as 2 of Ativan. The patient then became agitated I was concerned she was having a Haldol paradoxical reaction therefore she was given 2 mg of Cogentin. Due to the heavy amount of sedation the patient was given the emergency department I strongly recommended to the patient based on the nature of the complaint that the patient be intubated. I met extensively with the family to discuss this with him. Family did consent to intubation. Intubation was performed as above. After intubation a central line was placed due to the fact that we were unable to place peripheral lines. She was discussed with both the ICU as well as the hospitalist who agreed to admit the patient. Patient and family were in agreement with the treatment plan. Impression & Plan Food impaction of esophagus Critical Care Time Prolonged Care Time Prolonged Care Time: Yes Total Prolonged Care Time: 180 I have personally spent greater than 180 minutes of critical care time in the direct management of this patient. This includes bedside care, interpretation of diagnostic studies, and testing, discussion with consultants, patient, and family members, and other required patient management activities. This 180 minutes is in excess of all separately billable procedures. Discharge Plan Visit Data *Final* Discharge Date/Time: 01/23/19 05:01 Chief Complaint: Food Bolus Stated Complaint: FOOD BOLUS ED Provider: Иван Quintana Discharge Problem: Food impaction of esophagus Patient Disposition: Admitted As Inpatient Discharge Instructions Interventions: ED Discharge Assessment Last Done: 01/23/19 05:01 The scribe's documentation has been prepared under my direction and personally reviewed by me in its entirety. I confirm that the note above accurately reflects all work, treatment, procedures, and medical decision making performed by me.
[2019-01-23] MEDS: ACETAMINOPHEN 1,000 MG/100 ML VIAL IV PRN (18:27)
[2019-01-24] MEDS: CHECK FENTANYL PATCH PLACEMENT SCH ×4 (00:15→23:04)
[2019-01-24] MEDS: NSS + 20MEQ KCL 20 MEQ/1,000 ML BAG IV SCH (02:20)
[2019-01-24 04:32] LABS: Basophils # (auto) 0.01 K/uL (0-0.2); Basophils % (auto) 0.1 %; Eosinophils # (auto) 0.05 K/uL (0-0.5); Eosinophils % (auto) 0.5 %; Hematocrit (blood only) 37.2 % (37-47); Hemoglobin 12.6 g/dL (12.0-16.0); Immature Granulocytes # (auto) 0.02 K/uL (0.00-0.02); Immature Granulocytes % (auto) 0.2 %; Lymphocytes # (auto) 2.29 K/uL (1.2-3.4); Lymphocytes % (auto) 22.4 %; Mean Corpuscular Hemoglobin 28.9 pg (25-34); Mean Corpuscular Hgb Conc 33.9 g/dL (32-36); Mean Corpuscular Volume 85.3 fL (80-100); Monocytes % (auto) 8.8 %; Neutrophils # (auto) 6.94 K/uL (1.4-6.5); Platelet Count 225 K/uL (130-400); RDW Coefficient of Variation 14.4 % (11.5-14.5); RDW Standard Deviation 44.4 fL (36.4-46.3); Red Blood Count 4.36 M/uL (4.2-5.4); White Blood Count 10.21 K/uL (4.8-10.8)
[2019-01-24 04:41] LABS: Partial Thromboplastin Ratio 1.1; Prothrombin Time 10.4 Seconds (9.0-12.0)
[2019-01-24 04:51] LABS: Albumin Level 2.4 gm/dl (3.4-5.0); BUN Creatinine Ratio 6.2 (10-20); Calcium 7.4 mg/dl (8.5-10.1); Creatinine Clr Calc Pharmacy 65.6 ml/min; Est GFR (African American) 100.6; Est GFR (Non-African American) 86.8; Magnesium 1.8 mg/dl (1.8-2.4); Potassium 3.3 mmol/L (3.5-5.1)
[2019-01-24 04:55] LABS: Bilirubin Direct 0.1 mg/dl (0-0.2); Bilirubin,Total 0.4 mg/dl (0.2-1); Phosphorus 2.2 mg/dl (2.5-4.9); Total Protein 5.2 gm/dl (6.4-8.2)
[2019-01-24] MEDS ORDERED: POTASSIUM PHOS 3 MMOL/1 ML INFUSION IV STA (05:11)
[2019-01-24] MEDS: POTASSIUM CHLORIDE / WTR 20 MEQ/100 ML PLCT IV SCH ×2 (05:29→07:46)
[2019-01-24] MEDS ORDERED: POTASSIUM PHOSPHATE 15 MMOL in SODIUM CHLORIDE 0.9% 250 ML IV ONE (05:30)
[2019-01-24] MEDS: FAMOTIDINE 20 MG in SYRINGE 3 ML IV SCH ×2 (05:32→17:52)
[2019-01-24 06:44] LABS: Base Excess ABG -1.6 mEq/L (-9-1.8); HCO3 ABG 20 mmol/L (19-24); Oxygen Saturation ABG 97.7 % (90-95); PCO2 ABG 27 mmHg (35-46); PO2 ABG 93 mm/Hg (80-95); pH ABG 7.49 (7.35-7.45)
[2019-01-24 06:52] LABS: Allen Test POS (Pos)
--- NOTE | 2019-01-24 07:30 | Critical Care Progress Note ---
Date of Service January 24, 2019 Assessment & Plan (1) Food impaction of esophagus: (2) History of stroke with residual deficit: (3) Acute respiratory failure: (4) Admitted to intensive care unit: Reason Critically Ill: 78-year-old female with past medical history CVA and food bolus, presented to the emergency department with shortness of breath and was found to have recurrent food bolus. Neuro - [facility] ICU: Unable to assess expressive aphasia History of strokecontinue aspirin when appropriate Cardiac - Normal sinus rhythm and hemodynamically stable Respiratory - Patient extubated this morning at 7:32 has been maintaining her airway and saturating well on room air no further concerns at present GI - Esophageal motility disorderpatient reportedly is on strict diet and force by a caregiver who was recently hospitalized, she has history of developing food bolus. CT chest confirmed that the patient had dilated esophagus that was completely full of recent digestive food. GI consulted for esophageal evacuation of food bolus, patient underwent an EGD on 01/23 lasting over an hour in which suction and other techniques were required to remove food throughout her entire esophagus. Patient tolerated the procedure well. -Gastroenterology consulted following orders -N.p.o. 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 Given that she has multiple sources for a potential infection we will treat empirically. -Blood cultures obtained -Follow-up procalcitonin -CXR this morning negative -Empiric vancomycin and cefepime narrow pending culture results LINES/IV ACCESS - Endurance catheter 22-gauge DVT PROPHYLAXIS - Heparin Thank you for allowing us to participate in the care of this patient. Please refer to my attending physician's documentation for any further recommendations. Supervising Physician Co-Signing Physician Notes Dr. Saini was the resident-physician during care of patient. I separately evaluated patient for clraos portions of the history and the exam. I was present during the critical portion of medical decision making, and I discussed the case with the resident. I generally agree with the findings and plan except for any additions/exceptions noted. Patient self extubated today while undergoing spontaneous breathing trial. She is doing well post extubation. She is smiling. She does mumble some words but says she denies any shortness of breath. We will go ahead and order for speech therapy consult. She has been spiking low-grade fevers and we will start her on vancomycin and cefepime. Urinalysis reviewed which was negative. Blood cultures have been ordered. Procalcitonin ordered. Repeat chest x-ray is negative. Will attempt to place peripheral IVs and remove the central line. She is stable to transfer to the floor. Subjective Patient extubated this morning at approximately 7:32 AM. Patient is doing well since extubation is saturating well on room air, maintaining patient has baseline expressive aphasia unable to communicate mainly moans and groans. When asked if she is feeling better she gave a positive indication. Yesterday patient underwent an EGD to remove the food bolus stuck in her throat patient tolerated this procedure well. Patient will need a video speech and swallow study prior to resumption of diet. Patient has been making urine, stooling, sleeping, no acute concerns at present. Stable for transfer out of the ICU Physical Exam Physical Exam: General: Laying in bed peacefully in no acute distress HEENT: Normocephalic atraumatic Neck: Normal to visual inspection, no longer intubated Cardiac: Regular rate and rhythm, I did not appreciate any murmurs rubs S2, negative JVD, negative calf tenderness Respiratory: Clear to auscultation bilaterally, maintaining airway status post extubation GI: Bowel sounds present, nontender to palpation MSK: Moves extremities on the left, little to no movement in the right exam extremities from a prior stroke Skin: No concerns Neuro: Alert, not oriented, expressive aphasia Psych: Uncooperative Results & Data Vital Signs (Past 12 Hours) Vital Signs Temp Pulse Resp BP Pulse Ox 01/24/19 06:03 14 01/24/19 06:00 93 H 148/100 H 100 01/24/19 05:00 88 118/94 100 01/24/19 04:01 37.2 C 88 109/72 99 01/24/19 03:00 89 114/93 100 01/24/19 02:27 18 01/24/19 02:01 86 130/75 100 01/24/19 01:00 85 111/64 99 01/24/19 00:00 37.6 C H 83 115/69 100 01/23/19 23:55 83 15 100 01/23/19 23:00 85 103/68 99 01/23/19 22:01 88 98 01/23/19 22:00 37.3 C 88 98/59 L 98 01/23/19 21:30 89 98 01/23/19 21:01 88 99 01/23/19 21:00 88 99/51 L 98 01/23/19 20:30 90 99 01/23/19 20:00 91 H 89/49 L 99 01/23/19 19:30 91 H 99 Laboratory Results 01/24/19 01/24/19 01/24/19 Range/Units 09:48 06:35 06:33 WBC (4.8-10.8) K/uL RBC (4.2-5.4) M/uL Hgb (12.0-16.0) g/dL Hct (37-47) % MCV (80-100) fL MCH (25-34) pg MCHC (32-36) g/dL RDW Std Deviation (36.4-46.3) fL RDW Coeff of Stella (11.5-14.5) % Plt Count (130-400) K/uL MPV (7.4-10.4) fL Immature Gran % (Auto) % Neut % (Auto) % Lymph % (Auto) % Gregory % (Auto) % Eos % (Auto) % Baso % (Auto) % Immature Gran # (Auto) (0.00-0.02) K/uL Neut # (Auto) (1.4-6.5) K/uL Lymph # (Auto) (1.2-3.4) K/uL Gregory # (Auto) (0.11-0.59) K/uL Eos # (Auto) (0-0.5) K/uL Baso # (Auto) (0-0.2) K/uL PT (9.0-12.0) Seconds INR (0.9-1.1) APTT (21.0-31.0) Seconds PTT Ratio ABG pH 7.49 H (7.35-7.45) ABG pCO2 27 L (35-46) mmHg ABG pO2 93 (80-95) mm/Hg ABG HCO3 20 (19-24) mmol/L ABG O2 Saturation 97.7 H (90-95) % ABG Base Excess -1.6 (-9-1.8) mEq/L Dk Test POS (Pos) Barometric Pressure 738.6 mm/Hg Oxygen Given 35% Sodium (136-145) mmol/L Potassium (3.5-5.1) mmol/L Chloride (98-107) mmol/L Carbon Dioxide (21-32) mmol/L Anion Gap (3-11) BUN (7-18) mg/dl Creatinine (0.6-1.2) mg/dl Est Cr Clr Drug Dosing ml/min Est GFR ( Amer) Est GFR (Non-Af Amer) BUN/Creatinine Ratio (10-20) Glucose (70-99) mg/dl POC Glucose 94 (70-99) Calcium (8.5-10.1) mg/dl Phosphorus (2.5-4.9) mg/dl Magnesium (1.8-2.4) mg/dl Total Bilirubin (0.2-1) mg/dl Direct Bilirubin (0-0.2) mg/dl AST (15-37) U/L ALT (12-78) U/L Alkaline Phosphatase (45-117) U/L Total Protein (6.4-8.2) gm/dl Albumin (3.4-5.0) gm/dl Lipase (73-393) U/L Procalcitonin Pending 01/24/19 01/24/19 01/24/19 Range/Units 04:14 04:14 04:14 WBC 10.21 (4.8-10.8) K/uL RBC 4.36 (4.2-5.4) M/uL Hgb 12.6 (12.0-16.0) g/dL Hct 37.2 (37-47) % MCV 85.3 (80-100) fL MCH 28.9 (25-34) pg MCHC 33.9 (32-36) g/dL RDW Std Deviation 44.4 (36.4-46.3) fL RDW Coeff of Stella 14.4 (11.5-14.5) % Plt Count 225 (130-400) K/uL MPV 10.0 (7.4-10.4) fL Immature Gran % (Auto) 0.2 % Neut % (Auto) 68.0 % Lymph % (Auto) 22.4 % Gregory % (Auto) 8.8 % Eos % (Auto) 0.5 % Baso % (Auto) 0.1 % Immature Gran # (Auto) 0.02 (0.00-0.02) K/uL Neut # (Auto) 6.94 H (1.4-6.5) K/uL Lymph # (Auto) 2.29 (1.2-3.4) K/uL Gregory # (Auto) 0.90 H (0.11-0.59) K/uL Eos # (Auto) 0.05 (0-0.5) K/uL Baso # (Auto) 0.01 (0-0.2) K/uL PT 10.4 (9.0-12.0) Seconds INR 1.0 (0.9-1.1) APTT 31.0 (21.0-31.0) Seconds PTT Ratio 1.1 ABG pH (7.35-7.45) ABG pCO2 (35-46) mmHg ABG pO2 (80-95) mm/Hg ABG HCO3 (19-24) mmol/L ABG O2 Saturation (90-95) % ABG Base Excess (-9-1.8) mEq/L Dk Test (Pos) Barometric Pressure mm/Hg Oxygen Given Sodium 140 (136-145) mmol/L Potassium 3.3 L (3.5-5.1) mmol/L Chloride 111 H (98-107) mmol/L Carbon Dioxide 25 (21-32) mmol/L Anion Gap 4.0 (3-11) BUN 4 L (7-18) mg/dl Creatinine 0.61 (0.6-1.2) mg/dl Est Cr Clr Drug Dosing 65.6 ml/min Est GFR ( Amer) 100.6 Est GFR (Non-Af Amer) 86.8 BUN/Creatinine Ratio 6.2 L (10-20) Glucose 99 (70-99) mg/dl POC Glucose (70-99) Calcium 7.4 L (8.5-10.1) mg/dl Phosphorus 2.2 L (2.5-4.9) mg/dl Magnesium 1.8 (1.8-2.4) mg/dl Total Bilirubin 0.4 (0.2-1) mg/dl Direct Bilirubin 0.1 (0-0.2) mg/dl AST 27 (15-37) U/L ALT 18 (12-78) U/L Alkaline Phosphatase 68 (45-117) U/L Total Protein 5.2 L (6.4-8.2) gm/dl Albumin 2.4 L (3.4-5.0) gm/dl Lipase 61 L (73-393) U/L Procalcitonin 01/24/19 01/23/19 01/23/19 Range/Units 01:02 20:23 13:10 WBC (4.8-10.8) K/uL RBC (4.2-5.4) M/uL Hgb (12.0-16.0) g/dL Hct (37-47) % MCV (80-100) fL MCH (25-34) pg MCHC (32-36) g/dL RDW Std Deviation (36.4-46.3) fL RDW Coeff of Stella (11.5-14.5) % Plt Count (130-400) K/uL MPV (7.4-10.4) fL Immature Gran % (Auto) % Neut % (Auto) % Lymph % (Auto) % Gregory % (Auto) % Eos % (Auto) % Baso % (Auto) % Immature Gran # (Auto) (0.00-0.02) K/uL Neut # (Auto) (1.4-6.5) K/uL Lymph # (Auto) (1.2-3.4) K/uL Gregory # (Auto) (0.11-0.59) K/uL Eos # (Auto) (0-0.5) K/uL Baso # (Auto) (0-0.2) K/uL PT (9.0-12.0) Seconds INR (0.9-1.1) APTT (21.0-31.0) Seconds PTT Ratio ABG pH (7.35-7.45) ABG pCO2 (35-46) mmHg ABG pO2 (80-95) mm/Hg ABG HCO3 (19-24) mmol/L ABG O2 Saturation (90-95) % ABG Base Excess (-9-1.8) mEq/L Dk Test (Pos) Barometric Pressure mm/Hg Oxygen Given Sodium (136-145) mmol/L Potassium (3.5-5.1) mmol/L Chloride (98-107) mmol/L Carbon Dioxide (21-32) mmol/L Anion Gap (3-11) BUN (7-18) mg/dl Creatinine (0.6-1.2) mg/dl Est Cr Clr Drug Dosing ml/min Est GFR ( Amer) Est GFR (Non-Af Amer) BUN/Creatinine Ratio (10-20) Glucose (70-99) mg/dl POC Glucose 95 98 114 H (70-99) Calcium (8.5-10.1) mg/dl Phosphorus (2.5-4.9) mg/dl Magnesium (1.8-2.4) mg/dl Total Bilirubin (0.2-1) mg/dl Direct Bilirubin (0-0.2) mg/dl AST (15-37) U/L ALT (12-78) U/L Alkaline Phosphatase (45-117) U/L Total Protein (6.4-8.2) gm/dl Albumin (3.4-5.0) gm/dl Lipase (73-393) U/L Procalcitonin Medications Administered Current Inpatient Medications Albuterol (Duoneb) 3 ml INH Q4H PRN PRN Reason: Dyspnea Stop: 02/22/19 05:27 Fentanyl (Duragesic) 75 mcg TD Q3D@[facility] Stop: 02/09/19 01:59 Heparin Sodium (Beef Lung) (Heparin Sod 10 Unit/Ml Flush) 5 ml FLUSH PRN PRN PRN Reason: Flush Stop: 02/22/19 04:14 Heparin Sodium (Porcine) (Heparin Sodium (Porcine)) 5,000 units SQ Q12 [facility] Stop: 02/22/19 08:59 Last Admin: 01/24/19 07:48 Dose: 5,000 units Documented by: Famotidine 20 mg/ Syringe 5 mls @ 2.5 mls/min IV Q12H [facility] Stop: 02/22/19 05:59 Last Admin: 01/24/19 05:32 Dose: 2.5 mls/min Documented by: Levothyroxine Sodium 50 mcg/ (Syringe) 2.5 mls @ 2 mls/min IV DAILY@0900 [facility] Stop: 02/22/19 08:59 Last Admin: 01/23/19 13:54 Dose: Not Given Documented by: Acetaminophen (Ofirmev) 1,000 mg in 100 mls @ 400 mls/hr IV Q8H PRN PRN Reason: Fever Stop: 02/22/19 16:48 Last Infusion: 01/23/19 18:45 Dose: Infused Documented by: Cefepime HCl 2,000 mg/ Syringe 20 mls @ 5.5 mls/min IV Q12H [facility]; Protocol Stop: 01/26/19 09:59 Last Admin: 01/24/19 09:47 Dose: 5.5 mls/min Documented by: Vancomycin HCl 1,000 mg/ (Sodium Chloride) 270 mls @ 125 mls/hr IV Q16H [facility]; Protocol Stop: 01/27/19 01:59 Lactated Ringer's (Lr) 1,000 mls @ 80 mls/hr IV .[id number] [facility] Stop: 02/23/19 09:29 Last Admin: 01/24/19 09:58 Dose: 80 mls/hr Documented by: Vancomycin HCl 1,500 mg/ (Sodium Chloride) 530 mls @ 200 mls/hr IV ONE ONE Stop: 01/24/19 12:08 Last Admin: 01/24/19 09:47 Dose: 200 mls/hr Documented by: Ioversol (Optiray 320 100ml) 100 ml IV ONCE PRN PRN Reason: Interaction Checking Stop: 01/27/19 04:24 Last Admin: 01/23/19 04:25 Dose: 92 ml Documented by: Miscellaneous (Fentanyl Patch Check Placement) 1 ea N/A QS [facility] Stop: 02/22/19 07:59 Last Admin: 01/24/19 07:51 Dose: 1 ea Documented by: Miscellaneous (Fentanyl Patch Remove & Waste) 1 ea N/A Q3D [facility] Stop: 02/25/19 01:49 Last Admin: 01/23/19 02:20 Dose: 1 ea Documented by: Miscellaneous (Icu Protocol For Hyperglycemia) 1 ea N/A PRN PRN; Protocol PRN Reason: Hyperglycemia Protocol Stop: 01/25/19 05:27 Miscellaneous Information (Consult) 1 ea N/A UD PRN PRN Reason: Consult Stop: 02/23/19 09:17 PG Care Time/CCT Total # of Minutes Spent Total Time Spent with Patient: Total time spent is greater than 50% in coordination of care (as documented) at patient's floor/unit and/or counseling patient: Critical Care Time: No Resident Activity Tracking Resident Involvement: Resident Care Provided Care Provided: Adult Hospital Medicine (ICU: Food bolus, intubated,) (1) Food impaction of esophagus Encounter type: initial encounter Qualified Code(s): T18.128A - Food in esophagus causing other injury, initial encounter
[2019-01-24] MEDS: propofoL 1,000 MG/100 ML VIAL IV SCH (07:47)
[2019-01-24] MEDS: HEPARIN SOD 5,000 UNIT/0.5 ML VIAL SQ SCH ×2 (07:48→20:03)
--- NOTE | 2019-01-24 07:49 | XRay Report ---
XR chest 1V portable CLINICAL HISTORY: f/u dyspnea COMPARISON STUDY: 01/23/2019 FINDINGS: Interval extubation. The lungs remain clear. Considerable degenerative change of the should ers. IMPRESSION: 1. Interval extubation. 2. The lungs remain clear. The above report was generated using voice recognition software. It may contain grammatical, syntax or spelling errors. Electronically signed by: Parish Hernández M.D. 01/24/2019 7:48 AM
[2019-01-24] MEDS ORDERED: VANCOMYCIN CONSULT ACTIVE PRN (09:18)
--- NOTE | 2019-01-24 09:22 | Hospitalist Progress Note ---
Date of Service January 24, 2019 Assessment & Plan (1) Fever: x2 fevers. Started on empiric antibiotics by ICU. Blood and urine cultures taken. No aspiration pneumonia on CT or CXR today despite vomiting with large food bolus. reports recurrent UTIs (causes her to act differently). We will continue empiric antibiotics for 48 hours pending negative blood and urine cultures. (2) Tachycardia: Suspect due to holding propranolol vs. infection. Will start on metoprolol IV overnight to replace propranolol dosing. (3) Airway obstruction due to foreign body: Similar occurrence of food bolus on May 13, 2018, that required endoscopic removal. This occasion due to non compliance with pureed diet as looked after by someone unfamiliar with dietary requirements Appreciate GI management of food bolus with EGD. Tolerating clear liquid diet and will be advanced to full liquid (4) Peptic ulcer: Home med omeprazole 20mg BID. Switch IV Pepcid to lansoprazole PO so can be given as part of liquid diet (5) GERD (gastroesophageal reflux disease): As above (6) Hypophosphatemia: K Phos 15 mmol replacement Repeat in AM (7) Hypokalemia: IV 20 meq K Cl IV ordered by ICU Will repeat in AM (8) Hypothyroidism (acquired): TSH appears to be trending down and free T4 up suggesting overtreatment; therefore will reduce dose of levothyroxine. Home dose levothyroxine 100 mcg p.o. every morning. Switch to IV 25mcg while here. Consider small reduction on discharge. (9) Depression: Will restart home medications. Switch buproprion XL to IR BID so it can be crushed. Restart citalopram in AM as long as no QTc prolongation on EKG. (10) Bladder spasms: Hold oxybutynin until more awake. Ok to restart overnight if having a lot of issues with bladder spasms. (11) Chronic pain syndrome: Fibromyalgia, prior CVA, peripheral neuropathy Continue fentanyl patch 75 mcg/hr changing every 72 hours. Restart gabapentin in liquid form 600 mg TID IV acetaminophen PRN preferential, IV toradol if pain still uncontrolled. Low dose opiates if (12) History of stroke with residual deficit: Right sided weakness, dysphagia, dysphasia at baseline. 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 Monitor for signs of infection. 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 Her was in hospital and she was looked after by her [id number] who is not aware of her strict diet restrictions and reportedly she had a hot dog. However she also has a corn and peas in her esophagus which her admits to feeding her without crushing. Patient was seen at multiple points throughout the day. She was extubated in the morning and has become increasingly agitated and awake throughout the day. She did manage a clear liquid diet by the end of the day. Family reports she reacts agitated like this when she is in pain, she has not had gabapentin since being admitted which she takes for fibromyalgia. Patient is nonverbal with right-sided weakness due to previous stroke at baseline. Discussed care with speech and language therapy and decided to start on a clear liquid diet. Recommended imaging only after second endoscopy with empiric dilatation in 2 weeks. She will be kept on a liquid diet until then. We will restart medications as able. Discussed care with and family and all questions answered. Review of Systems Review of Systems: Unobtainable due to cognitive status Physical Exam Constitutional: + ill appearing, + in distress (mildly agitated) and + malnourished Eyes: no corneal abnormality ENMT: Ears: no external ear abnormality Nose: no external nose abnormality Mouth: + dry oral mucous membranes Neck: trachea midline Respiratory: normal respiratory effort; no respiratory distress, no labored breathing and does not use accessory muscles Auscultation: lungs clear to auscultation bilaterally (Poor inspiratory efforts); no crackles and no wheezes Cardiovascular: RRR, no murmur, no edema Heart Sounds: normal S1 and normal S2 Vessels: no JVD Extremities: no edema Gastrointestinal (Abdomen): normal bowel sounds, soft, nontender, no hepatosplenomegaly Skin: no rashes, warm and dry Neurologic: + focal motor deficit (Right-sided upper and lower extremity no movement compared to left side) Speech / Cognition: + abnormal speech (Making sounds but no comprehensible words) Motor/Sensory: no tremor Psychiatric: Orientation: alert; + not oriented x 3 Lymphatic: no cervical or axillary lymphadenopathy Results & Data Vital Signs (Past 12 Hours) Vital Signs Temp Pulse Resp BP Pulse Ox 01/24/19 08:30 99.1 F 01/24/19 08:01 100.6 F H 97 H 141/58 H 96 01/24/19 07:01 93 H 158/115 H 100 01/24/19 06:11 96 H 157/96 H 100 01/24/19 06:03 14 01/24/19 06:00 93 H 148/100 H 100 01/24/19 05:00 88 118/94 100 01/24/19 04:01 99.0 F 88 109/72 99 01/24/19 03:00 89 114/93 100 01/24/19 02:27 18 01/24/19 02:01 86 130/75 100 01/24/19 01:00 85 111/64 99 01/24/19 00:00 99.7 F H 83 115/69 100 01/23/19 23:55 83 15 100 01/23/19 23:00 85 103/68 99 01/23/19 22:01 88 98 01/23/19 22:00 99.1 F 88 98/59 L 98 01/23/19 21:30 89 98 PG Care Time/CCT Total # of Minutes Spent Total Time Spent with Patient: Total time spent is greater than 50% in coordination of care (as documented) at patient's floor/unit and/or counseling patient: (1) Fever Fever type: unspecified Qualified Code(s): R50.9 - Fever, unspecified : Food impaction of esophagus Qualifiers: Encounter type: initial encounter Qualified Code(s): T18.128A - Food in esophagus causing other injury, initial encounter
[2019-01-24] MEDS ORDERED: VANCOMYCIN HCL 1,500 MG in SODIUM CHLORIDE 0.9% 500 ML IV ONE (09:30)
[2019-01-24] MEDS: CEFEPIME 2,000 MG in SYRINGE 7.5 ML IV SCH ×2 (09:47→21:30)
[2019-01-24] MEDS: LACTATED RINGER'S 1,000 ML IV SCH ×2 (09:58→21:30)
--- NOTE | 2019-01-24 10:16 | Gastroenterology Progress Note ---
Date of Service January 24, 2019 Assessment & Plan (1) Food impaction of esophagus: Underwent EGD yesterday with removal of food from entire esophagus. Present on Admission?: Yes (2) Dysphagia as late effect of cerebrovascular accident (CVA): 1. Should have speech path eval, possible video swallow do determine if pt can safely swallow foods and liquids. (Speech path eval order is in place). 2. Pantoprazole 40mg daily (po if speech path decides it is safe for this pt to take pills/foods by mouth). 3. Repeat EGD in 2 weeks for dilation. (Order entered in [employer]). 4. GI will sign off. Please notify us if new GI issues. Present on Admission?: Yes Supervising Physician Co-Signing Physician Notes I saw and evaluated the patient. She appears improved compared to yesterday. At this point we would recommend a full liquid diet and careful monitoring until she is able to have her next upper endoscopy at which time we will try esophageal dilation. I would also suggest a swallowing study as this may be helpful for definitive management in her case. Please call with any questions or concerns. GI to sign off for the present time Subjective Ms. 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 She was admitted late on 01/22 for dysphasia, which is not a new issue for her. She underwent EGD yesterday with extraction of a large amount of food particles from a long distance in the esophagus. This morning, she was extubated. She is awake, with eye contact when spoken to, though minimally communicative, indicating discomfort with painful stimuli. She did say, "ouch," once to the nurse who was working on her IV. She seems mildly agitated vs some mild upper abdominal discomfort on exam today. Review of Systems Review of Systems: Other (unable to obtain due to expressive aphagia and minimally communicative today. ) Physical Exam Constitutional: + ill appearing and + thin febrile since last evening Eyes: PERRL, conjunctivae normal, anicteric sclerae ENMT: external ear and nose normal, oropharynx normal Neck: trachea midline, no thyromegaly Respiratory: normal respiratory effort, lungs clear to auscultation Cardiovascular: RRR, no murmur, no edema Gastrointestinal (Abdomen): Hypoactive BS, soft, mild epigastric tenderness, non distended, no palpable masses. Skin: no rashes, warm and dry Neurologic: Left sided weakness - chronic Psychiatric: Seems mildly agitated vs. mildly uncomfortable but no acute distress. Unable to answer questions or carry on a conversation (chronic, since stroke). Lymphatic: no cervical or axillary lymphadenopathy Results & Data Vital Signs (Past 12 Hours) Vital Signs Temp Pulse Resp BP Pulse Ox 01/24/19 08:30 37.3 C 01/24/19 08:01 38.1 C H 97 H 141/58 H 96 01/24/19 07:01 93 H 158/115 H 100 01/24/19 06:11 96 H 157/96 H 100 01/24/19 06:03 14 01/24/19 06:00 93 H 148/100 H 100 01/24/19 05:00 88 118/94 100 01/24/19 04:01 37.2 C 88 109/72 99 01/24/19 03:00 89 114/93 100 01/24/19 02:27 18 01/24/19 02:01 86 130/75 100 01/24/19 01:00 85 111/64 99 01/24/19 00:00 37.6 C H 83 115/69 100 01/23/19 23:55 83 15 100 01/23/19 23:00 85 103/68 99 (1) Food impaction of esophagus Encounter type: initial encounter Qualified Code(s): T18.128A - Food in esophagus causing other injury, initial encounter
--- NOTE | 2019-01-24 14:07 | Pharmacy Report ---
Pharmacy Abx Dose Short Note - Date of Service January 24, 2019 - Assessment & Plan Assessment * 78 year old F to begin empiric IV abx therapy VANCOMYCIN + CEFEPIME for fever of uncertain source (pulm vs urine vs central line). Pharmacy to manage vancomycin dosing. * MRSA nasal swab negative, lessening likelihood of MRSA pneumonia * Blood and urine cx's sent today. Yesterday's UA not suggestive of infection, no UA from today however * VS stable Plan Vancomycin * Loading dose: 1500mg (~23.4mg/kg) IV x 1 * Maint dose: 1000mg (~15.6mg/kg) IV Q 16 hrs ordered * Goal trough: 15-20mcg/mL initially given uncertain source of infxn * Will check trough level if therapy to continue beyond the ordered 48 hr duration Pharmacy will continue to follow and will adjust dose/frequency as necessary. Thank you.
[2019-01-24] MEDS: ACETAMINOPHEN 1,000 MG/100 ML VIAL IV PRN (17:12)
[2019-01-24] MEDS ORDERED: KETOROLAC TROMETHAMINE 15 MG/ML VIAL IV PRN (19:34)
[2019-01-24] MEDS ORDERED: METOPROLOL TARTRATE 1 MG/ML VIAL IV SCH (20:00)
[2019-01-24] MEDS: GABAPENTIN 250 MG/5 ML 470 ML BTL PO SCH (20:03)
[2019-01-24] MEDS: buPROPion HCl 100 MG TABLET PO SCH (20:04)
[2019-01-25] MEDS: VANCOMYCIN HCL 1,000 MG in SODIUM CHLORIDE 0.9% 250 ML IV SCH ×2 (01:52→19:14)
[2019-01-25] MEDS: METOPROLOL TARTRATE 1 MG/ML VIAL IV SCH ×4 (03:19→20:49)
[2019-01-25] MEDS: LANSOPRAZOLE 30 MG SOLTAB PO SCH (08:43)
[2019-01-25] MEDS: HEPARIN SOD 5,000 UNIT/0.5 ML VIAL SQ SCH ×2 (08:44→20:07)
[2019-01-25] MEDS: buPROPion HCl 100 MG TABLET PO SCH ×2 (08:44→20:44)
[2019-01-25] MEDS: ASPIRIN 81 MG CHEW PO SCH (08:45)
[2019-01-25] MEDS: CITALOPRAM 20 MG TAB PO SCH (08:45)
[2019-01-25] MEDS: GABAPENTIN 250 MG/5 ML 470 ML BTL PO SCH ×3 (08:50→20:44)
[2019-01-25] MEDS: CHECK FENTANYL PATCH PLACEMENT SCH ×3 (08:50→23:04)
[2019-01-25] MEDS: CEFEPIME 2,000 MG in SYRINGE 7.5 ML IV SCH (09:52)
[2019-01-25] MEDS: LACTATED RINGER'S 1,000 ML IV SCH (10:27)
[2019-01-25 10:32] LABS: Basophils # (auto) 0.02 K/uL (0-0.2); Basophils % (auto) 0.2 %; Eosinophils # (auto) 0.15 K/uL (0-0.5); Eosinophils % (auto) 1.5 %; Hematocrit (blood only) 34.7 % (37-47); Hemoglobin 12.1 g/dL (12.0-16.0); Immature Granulocytes # (auto) 0.02 K/uL (0.00-0.02); Immature Granulocytes % (auto) 0.2 %; Lymphocytes # (auto) 1.76 K/uL (1.2-3.4); Lymphocytes % (auto) 17.4 %; Mean Corpuscular Hemoglobin 29.3 pg (25-34); Mean Corpuscular Hgb Conc 34.9 g/dL (32-36); Mean Platelet Volume 10.1 fL (7.4-10.4); Monocytes # (auto) 0.74 K/uL (0.11-0.59); Monocytes % (auto) 7.3 %; Neutrophils # (auto) 7.41 K/uL (1.4-6.5); Neutrophils % (auto) 73.4 %; Platelet Count 230 K/uL (130-400); RDW Standard Deviation 42.9 fL (36.4-46.3); Red Blood Count 4.13 M/uL (4.2-5.4)
[2019-01-25 11:05] LABS: Albumin Level 2.4 gm/dl (3.4-5.0); BUN Creatinine Ratio 5.5 (10-20); Bilirubin Direct 0.1 mg/dl (0-0.2); Bilirubin,Total 0.5 mg/dl (0.2-1); Calcium 7.8 mg/dl (8.5-10.1); Creatinine Clr Calc Pharmacy 67.9 ml/min; Est GFR (African American) 101.7; Est GFR (Non-African American) 87.8; Magnesium 1.7 mg/dl (1.8-2.4); Phosphorus 1.2 mg/dl (2.5-4.9); Potassium 2.4 mmol/L (3.5-5.1); Total Protein 5.3 gm/dl (6.4-8.2)
[2019-01-25] MEDS ORDERED: POTASSIUM PHOS 3 MMOL/1 ML INFUSION IV STA (11:29)
[2019-01-25] MEDS: POTASSIUM CHLORIDE / WTR 10 MEQ/100 ML PLCT IV SCH ×2 (11:56→13:16)
[2019-01-25] MEDS ORDERED: POTASSIUM PHOSPHATE 30 MMOL in SODIUM CHLORIDE 0.9% 500 ML IV ONE (12:30)
[2019-01-25 17:25] LABS: BUN Creatinine Ratio 6.4 (10-20); Calcium 7.3 mg/dl (8.5-10.1); Creatinine Clr Calc Pharmacy 64.6 ml/min; Est GFR (African American) 100.1; Est GFR (Non-African American) 86.4; Potassium 5.9 mmol/L (3.5-5.1)
--- NOTE | 2019-01-25 18:22 | Hospitalist Progress Note ---
Date of Service January 25, 2019 Assessment & Plan (1) Fever: x2 fevers. Stop antibiotics as blood cultures negative after 48 hours with no source of infection. Urine culture fungus only growing. No aspiration pneumonia on CT or CXR despite vomiting with large food bolus. (2) Fungus present in urine: Suspect asymptomatic candiduria. Will defer treatment given patient back to baseline unless further fevers or alternative fungus grown. (3) Tachycardia: Now resolved with switching propranolol (home medication) with metoprolol 2.5mg IV Q6H with hold parameters. (4) Airway obstruction due to foreign body: Resolved similar occurrence of food bolus on May 13, 2018, that required endoscopic removal. This occasion due to non compliance with pureed diet as looked after by someone unfamiliar with dietary requirements Appreciate GI management of food bolus with EGD. Advance to full liquid once electrolytes normalized, no further than this until repeat EGD with dilatation. (5) Peptic ulcer: Home med omeprazole 20mg BID switch to lansoprazole PO so can be given as part of liquid diet (6) GERD (gastroesophageal reflux disease): As above (7) Hypophosphatemia: Phos 1.2 K Phos 30 mmol replacement Concerning level for refeeding syndrome since she is now eating. Pt made NPO. Repeat in AM (8) Hypokalemia: K 2.4, give additional 20 meq K rider, (40 meq in K Phos) Repeat in afternoon (9) Hypothyroidism (acquired): TSH appears to be trending down and free T4 up suggesting overtreatment; therefore will reduce dose of levothyroxine. Home dose levothyroxine 100 mcg p.o. every morning. Switch to IV 25mcg while here. Consider small reduction on discharge. (10) Depression: Switched buproprion XL to IR BID so it can be crushed. Continue citalopram. (11) Bladder spasms: Hold oxybutynin to avoid urine retention. No current issues with bladder spasms. (12) Chronic pain syndrome: Fibromyalgia, prior CVA, peripheral neuropathy Continue fentanyl patch 75 mcg/hr changing every 72 hours. Continue gabapentin liquid form 600 mg TID IV acetaminophen PRN preferential, IV toradol if pain still uncontrolled. (13) History of stroke with residual deficit: Right sided weakness, dysphagia, dysphasia at baseline. 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 (15) DVT prophylaxis: Continue heparin 5000 units SQ twice daily Subjective Patient on full liquid diet and tolerating well. reports she is acting much more like her normal self and more awake today. Patient does not appear to be in distress. Patient saying words such as "I do" and "yes", appears to understand some directions. Mostly making incomprehensible sounds. Review of Systems Review of Systems: Unobtainable due to cognitive status Physical Exam Constitutional: + ill appearing and + malnourished; not in distress Eyes: no corneal abnormality opening eyes spontaneously ENMT: external ear and nose normal, oropharynx normal Neck: normal visual inspection and trachea midline Respiratory: normal respiratory effort; no respiratory distress, no labored breathing and does not use accessory muscles Auscultation: lungs clear to auscultation bilaterally (Poor inspiratory efforts); no crackles and no wheezes Cardiovascular: RRR, no murmur, no edema Heart Sounds: normal S1 and normal S2 Vessels: no JVD Extremities: no edema Gastrointestinal (Abdomen): normal bowel sounds, soft, nontender, no hepatosplenomegaly Skin: no rashes, warm and dry Neurologic: + focal motor deficit (not moving right side) Speech / Cognition: + abnormal speech (saying words but also incomprehensible sounds) Motor/Sensory: no tremor Psychiatric: Orientation: alert; + not oriented x 3 Lymphatic: no cervical or axillary lymphadenopathy Results & Data Vital Signs (Past 12 Hours) Vital Signs Temp Pulse Pulse Resp BP BP Pulse Ox 01/25/19 16:19 68 01/25/19 15:35 69 138/79 01/25/19 15:00 97.9 F 69 18 138/79 97 01/25/19 11:00 98.1 F 74 18 107/65 94 01/25/19 07:16 72 01/25/19 07:13 98.6 F 72 16 115/75 95 PG Care Time/CCT Total # of Minutes Spent Total Time Spent with Patient: Total time spent is greater than 50% in coordination of care (as documented) at patient's floor/unit and/or counseling patient: (1) Fever Fever type: unspecified Qualified Code(s): R50.9 - Fever, unspecified
[2019-01-25 18:54] LABS: Phosphorus 8.7 mg/dl (2.5-4.9)
[2019-01-25 21:55] LABS: BUN Creatinine Ratio 5.7 (10-20); Calcium 7.8 mg/dl (8.5-10.1); Creatinine Clr Calc Pharmacy 65.6 ml/min; Est GFR (African American) 100.6; Est GFR (Non-African American) 86.8
[2019-01-26] MEDS: fentaNYL 75 MCG/HR TDSY TD SCH (01:28)
[2019-01-26] MEDS: METOPROLOL TARTRATE 1 MG/ML VIAL IV SCH ×3 (03:08→16:25)
[2019-01-26] MEDS: LANSOPRAZOLE 30 MG SOLTAB PO SCH (08:06)
[2019-01-26] MEDS: ASPIRIN 81 MG CHEW PO SCH (08:06)
[2019-01-26] MEDS: buPROPion HCl 100 MG TABLET PO SCH ×2 (08:06→20:30)
[2019-01-26] MEDS: CITALOPRAM 20 MG TAB PO SCH (08:08)
[2019-01-26] MEDS: HEPARIN SOD 5,000 UNIT/0.5 ML VIAL SQ SCH ×2 (08:09→20:31)
[2019-01-26] MEDS: CHECK FENTANYL PATCH PLACEMENT SCH ×3 (08:09→23:49)
[2019-01-26] MEDS: GABAPENTIN 250 MG/5 ML 470 ML BTL PO SCH ×3 (08:16→20:30)
[2019-01-26 08:31] LABS: Basophils # (auto) 0.03 K/uL (0-0.2); Basophils % (auto) 0.4 %; Eosinophils # (auto) 0.31 K/uL (0-0.5); Eosinophils % (auto) 4.2 %; Hematocrit (blood only) 35.7 % (37-47); Hemoglobin 12.2 g/dL (12.0-16.0); Immature Granulocytes # (auto) 0.02 K/uL (0.00-0.02); Immature Granulocytes % (auto) 0.3 %; Lymphocytes # (auto) 2.16 K/uL (1.2-3.4); Lymphocytes % (auto) 29.2 %; Mean Corpuscular Hgb Conc 34.2 g/dL (32-36); Mean Platelet Volume 9.8 fL (7.4-10.4); Monocytes # (auto) 0.67 K/uL (0.11-0.59); Monocytes % (auto) 9.1 %; Neutrophils # (auto) 4.21 K/uL (1.4-6.5); Neutrophils % (auto) 56.8 %; Platelet Count 232 K/uL (130-400); RDW Coefficient of Variation 14.3 % (11.5-14.5); RDW Standard Deviation 44.7 fL (36.4-46.3)
[2019-01-26] MEDS ORDERED: LEVOTHYROXINE SODIUM 25 MCG in SYRINGE 0 ML IV SCH (09:00)
[2019-01-26 09:12] LABS: Albumin Level 2.2 gm/dl (3.4-5.0); BUN Creatinine Ratio 5.4 (10-20); Bilirubin Direct 0.1 mg/dl (0-0.2); Calcium 8.2 mg/dl (8.5-10.1); Creatinine Clr Calc Pharmacy 74.1 ml/min; Est GFR (African American) 104.8; Est GFR (Non-African American) 90.4; Magnesium 1.7 mg/dl (1.8-2.4); Potassium 2.8 mmol/L (3.5-5.1)
[2019-01-26 09:32] LABS: Bilirubin,Total 0.4 mg/dl (0.2-1); Phosphorus 2.2 mg/dl (2.5-4.9); Total Protein 5.1 gm/dl (6.4-8.2)
[2019-01-26] MEDS ORDERED: POTASSIUM PHOS 3 MMOL/1 ML INFUSION IV STA (12:45)
[2019-01-26] MEDS ORDERED: POTASSIUM PHOSPHATE 15 MMOL in SODIUM CHLORIDE 0.9% 250 ML IV ONE (13:15)
[2019-01-26] MEDS: POTASSIUM CHLORIDE 20 MEQ/15 ML UDC PO SCH ×2 (13:40→20:31)
[2019-01-26] MEDS: MAGNESIUM OXIDE 400 MG TAB PO SCH (13:43)
--- NOTE | 2019-01-26 20:43 | Hospitalist Progress Note ---
Date of Service January 26, 2019 Assessment & Plan (1) Airway obstruction due to foreign body: Resolved. Full liquid diet with crushed or liquid medicine, aspiration precautions. Continue on this diet until follow up with GI for outpatient EGD in 2 weeks around 02/06 for dilatation. Repeat SLT evaluation likely with barium swallow after this for further advancing diet. Similar occurrence of food bolus on May 13, 2018, that required endoscopic removal. This occasion due to non compliance with pureed diet as looked after by someone unfamiliar with dietary requirements Appreciate GI management of food bolus with EGD 01/23 (2) Hypophosphatemia: Phos 2.2 K Phos 15 mmol replacement Continue to monitor for refeeding syndrome Repeat in AM (3) Hypokalemia: Hyperkalemia due to lab test right after K rider given. K 2.8 Start home dose K Cl 20 meq BID as ellixir, (+ 20 meq in K Phos) Repeat in AM (4) Fever: Now resolved. x2 fevers. Stopped empiric antibiotics after 48 hours. At continued risk of aspiration even on full liquid diet. Amarilys in urine, appears to be asymptomatic from this. (5) Fungus present in urine: Asymptomatic candiduria. No treatment required. (6) Tachycardia: Switch IV metoprolol back to home med propranolol. Unable to use LA version due to need for liquid diet only therefore will keep on telemetry and monitor on propranolol 20mg BID. (7) Peptic ulcer: Home med omeprazole 20mg BID switched to lansoprazole PO so can be given as part of liquid diet (8) GERD (gastroesophageal reflux disease): As above (9) Hypothyroidism (acquired): TSH appears to be trending down and free T4 up suggesting overtreatment; therefore will reduce dose of levothyroxine to 88 mcg daily Repeat TSH, free T4 in 4-6 weeks (10) Depression: Switched buproprion XL to IR BID so it can be crushed. Continue citalopram. (11) Bladder spasms: Hold oxybutynin to avoid urine retention. No current issues with bladder spasms but consider restarting on discharge. (12) Chronic pain syndrome: Fibromyalgia, prior CVA, peripheral neuropathy Continue fentanyl patch 75 mcg/hr changing every 72 hours. Continue gabapentin liquid form 600 mg TID (13) History of stroke with residual deficit: Right sided weakness, dysphagia, dysphasia at baseline. 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 (15) DVT prophylaxis: Heparin 5000 units SQ twice daily (16) Discharge planning issues: Continue on telemetry while switching metoprolol IV to propranolol to monitor for jeremías/tachycardia. All over home meds switched to be crushed to fit with liquid diet. Continued stay due to significant electrolyte abnormalities and concern for refeeding syndrome if left unchecked. Subjective Patient sitting up in bed. Alert. Talking with few words. Able to shake with her left hand. at beside reports she is back to her baseline self. No cough or shortness of breath. No bladder spasms or incontinence while holding oxybutynin. Tolerating liquid diet without issues. Review of Systems Review of Systems: Unobtainable due to cognitive status Physical Exam Constitutional: + malnourished; not in distress Eyes: no conjunctival abnormality ENMT: Ears: no external ear abnormality Nose: no external nose abnormality Mouth: oral mucous membranes not dry Neck: normal visual inspection and trachea midline Respiratory: normal respiratory effort; no respiratory distress, no labored breathing and does not use accessory muscles Auscultation: + rhonchi; no crackles and no wheezes Cardiovascular: Heart Sounds: normal S1 and normal S2; no murmur Vessels: no JVD Extremities: no edema Gastrointestinal (Abdomen): normal bowel sounds, soft, nontender, no hepatosplenomegaly Skin: no rashes, warm and dry Neurologic: + focal motor deficit (Unable to move right side) Speech / Cognition: + abnormal speech (able to say a few words) Motor/Sensory: no tremor Psychiatric: Orientation: alert; + not oriented x 3 Lymphatic: no cervical or axillary lymphadenopathy Results & Data Vital Signs (Past 12 Hours) Vital Signs Temp Pulse Pulse Resp BP BP Pulse Ox 01/26/19 19:30 98.6 F 65 18 103/65 93 01/26/19 16:25 97 H 110/75 01/26/19 15:03 78 01/26/19 15:00 97.9 F 78 20 126/78 98 01/26/19 11:00 98.6 F 63 18 107/76 94 01/26/19 10:36 80 01/26/19 10:03 63 121/78 PG Care Time/CCT Total # of Minutes Spent Total Time Spent with Patient: Total time spent is greater than 50% in coordination of care (as documented) at patient's floor/unit and/or counseling patient: (1) Fever Fever type: unspecified Qualified Code(s): R50.9 - Fever, unspecified
[2019-01-26] MEDS: PROPRANOLOL HCL 20 MG TAB PO SCH (21:35)
[2019-01-27] MEDS: LEVOTHYROXINE SODIUM 88 MCG TABLET PO SCH (05:54)
[2019-01-27 06:38] LABS: BUN Creatinine Ratio 2.3 (10-20); Calcium 7.8 mg/dl (8.5-10.1); Creatinine Clr Calc Pharmacy 67.9 ml/min; Est GFR (African American) 101.7; Est GFR (Non-African American) 87.8; Magnesium 1.7 mg/dl (1.8-2.4); Phosphorus 2.3 mg/dl (2.5-4.9); Potassium 3.2 mmol/L (3.5-5.1)
[2019-01-27] MEDS: ASPIRIN 81 MG CHEW PO SCH (08:10)
[2019-01-27] MEDS: MAGNESIUM OXIDE 400 MG TAB PO SCH (08:11)
[2019-01-27] MEDS: LANSOPRAZOLE 30 MG SOLTAB PO SCH (08:11)
[2019-01-27] MEDS: PROPRANOLOL HCL 20 MG TAB PO SCH ×2 (08:11→21:09)
[2019-01-27] MEDS: CITALOPRAM 20 MG TAB PO SCH (08:12)
[2019-01-27] MEDS: buPROPion HCl 100 MG TABLET PO SCH ×2 (08:12→21:10)
[2019-01-27] MEDS: GABAPENTIN 250 MG/5 ML 470 ML BTL PO SCH ×3 (08:13→21:13)
[2019-01-27] MEDS: POTASSIUM CHLORIDE 20 MEQ/15 ML UDC PO SCH ×2 (08:13→21:10)
[2019-01-27] MEDS: HEPARIN SOD 5,000 UNIT/0.5 ML VIAL SQ SCH ×2 (08:14→21:10)
[2019-01-27] MEDS: CHECK FENTANYL PATCH PLACEMENT SCH ×3 (08:15→23:43)
[2019-01-27] MEDS: POTASSIUM CHLORIDE / WTR 10 MEQ/100 ML PLCT IV SCH ×2 (08:52→09:50)
[2019-01-27] MEDS: MAGNESIUM SULFATE / D5W 1 GM/100 ML BAG IV SCH ×2 (08:52→09:50)
[2019-01-27] MEDS: POT PHOSPHATE MONOBASIC W/ SOD TAB PO SCH ×4 (08:58→21:09)
[2019-01-27] MEDS ORDERED: SIMETHICONE 80 MG CHEW PO PRN (18:03)
--- NOTE | 2019-01-27 19:33 | Hospitalist Progress Note ---
Date of Service January 27, 2019 Assessment & Plan (1) Food impaction of esophagus: s/p emergent EGD by [facility] (Dr Durand) at admission. Entire esophagus was obstructed by impacted food. Esophageal dysfunction likely due to prior stroke. Cont full liquids. Will need repeat EGD in a couple of weeks for dilatation. Tolerating full liquids now. (2) Acute respiratory failure: intubated in the ER at presentation due to the severity of the food impaction and concern for airway compromise. intubation was elective. remained on the vent briefly in the ICU - successfully extubated 24 hours later on hospital day #2. stable in RA today. (3) Hypophosphatemia: place on oral supplementation repeat level 48 hours (4) Hypokalemia: KCL IV 20meq x 1 today Cont PO supplementation as well. Correct the low mag (5) Fever: resolved likely inflammatory in nature no infectious etiology found (6) Fungus present in urine: Asymptomatic candiduria. No Rx. (7) Peptic ulcer: History of such. Will have repeat EGD in about 2 weeks post-d/c. Cont PPI. (8) GERD (gastroesophageal reflux disease): As above in food impaction. Cont PPI. Cont full liquids diet. (9) Hypothyroidism (acquired): TSH depressed. levothyroxine dose reduced to 88 mcg daily this admission. Repeat TSH 6 weeks as outpatient. (10) Depression: Switched buproprion XL to IR BID so it can be crushed. Continue citalopram. (11) Bladder spasms: Hold oxybutynin for now. (12) Chronic pain syndrome: Continue fentanyl patch 75 mcg/hr q72 hours. Continue gabapentin liquid form 600 mg TID. (13) History of stroke with residual deficit: Right sided hemiplegia, dysphagia, expressive aphasia at baseline. is primary caregiver. Non-ambulatory at baseline. Cont asa for secondary prevention. 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 history of such. (15) DVT prophylaxis: Heparin 5000 units SQ twice daily (16) Hypomagnesemia: replace 2 grams mag sulfate x 1 repeat level am (17) Discharge planning issues: see HPI about possible need for SNF placement social work assisting w/ above updated at bedside today Subjective patient, due to significant expressive aphasia, unable to provide any ROS or history. at bedside. he confirms she is tolerating full liquids diet. no vomiting. she is nonambulatory at baseline. spoke with social work- having surgery soon and there is concern that he would not be able to take care of her because of that surgery. may need SNF placement. no new issues. Review of Systems Review of Systems: Other (aphasic ) Physical Exam Constitutional: + language barrier; no acute distress ENMT: external ear and nose normal, oropharynx normal right sided facial droop Respiratory: normal respiratory effort, lungs clear to auscultation Cardiovascular: Rate/Rhythm: regular rate and regular rhythm Heart Sounds: normal S1 and normal S2; no murmur Vessels: posterior tibial pulses present and dorsalis pedis pulses present; no JVD Gastrointestinal (Abdomen): Inspection/Auscultation: + abdomen distended (mild) and normal bowel sounds Percussion/Palpation: abdomen nontender and no hepatosplenomegaly Neurologic: right sided hemiplegia dense expressive aphasia right sided facial droop Psychiatric: Orientation: alert Results & Data Vital Signs (Past 12 Hours) Vital Signs Temp Pulse Pulse Resp BP Pulse Ox 01/27/19 17:02 58 L 01/27/19 14:44 37.2 C 58 L 20 123/77 95 01/27/19 11:37 36.7 C 62 20 94 01/27/19 09:31 61 01/27/19 07:35 36.5 C 63 17 115/72 93 PG Care Time/CCT Total # of Minutes Spent Total Time Spent with Patient: Total time spent is greater than 50% in coordination of care (as documented) at patient's floor/unit and/or counseling patient: (1) Fever Fever type: unspecified Qualified Code(s): R50.9 - Fever, unspecified (2) GERD (gastroesophageal reflux disease) Esophagitis presence: esophagitis presence not specified Qualified Code(s): K21.9 - Gastro-esophageal reflux disease without esophagitis (3) Depression Depression Type: other depression Qualified Code(s): F32.89 - Other specified depressive episodes (4) Arnold's granulomatosis Granulomatosis renal involvement: unspecified whether renal involvement Qualified Code(s): M31.30 - Arnold's granulomatosis without renal involvement (5) Food impaction of esophagus Encounter type: initial encounter Qualified Code(s): T18.128A - Food in esophagus causing other injury, initial encounter (6) Acute respiratory failure Respiratory failure complication: unspecified whether with hypoxia or hypercapnia Qualified Code(s): J96.00 - Acute respiratory failure, unspecified whether with hypoxia or hypercapnia
[2019-01-28 06:21] LABS: BUN Creatinine Ratio 2.9 (10-20); Calcium 8.1 mg/dl (8.5-10.1); Creatinine Clr Calc Pharmacy 67.9 ml/min; Est GFR (African American) 101.7; Est GFR (Non-African American) 87.8; Magnesium 2.2 mg/dl (1.8-2.4); Potassium 3.7 mmol/L (3.5-5.1)
[2019-01-28] MEDS: LEVOTHYROXINE SODIUM 88 MCG TABLET PO SCH (06:23)
[2019-01-28] MEDS: PROPRANOLOL HCL 20 MG TAB PO SCH ×2 (07:43→22:00)
[2019-01-28] MEDS: MAGNESIUM OXIDE 400 MG TAB PO SCH (07:43)
[2019-01-28] MEDS: CITALOPRAM 20 MG TAB PO SCH (07:43)
[2019-01-28] MEDS: LANSOPRAZOLE 30 MG SOLTAB PO SCH (07:44)
[2019-01-28] MEDS: buPROPion HCl 100 MG TABLET PO SCH ×2 (07:45→21:59)
[2019-01-28] MEDS: POTASSIUM CHLORIDE 20 MEQ/15 ML UDC PO SCH ×2 (07:45→21:59)
[2019-01-28] MEDS: ASPIRIN 81 MG CHEW PO SCH (07:46)
[2019-01-28] MEDS: CHECK FENTANYL PATCH PLACEMENT SCH ×2 (07:46→16:14)
[2019-01-28] MEDS: HEPARIN SOD 5,000 UNIT/0.5 ML VIAL SQ SCH ×2 (07:47→22:00)
[2019-01-28] MEDS: POT PHOSPHATE MONOBASIC W/ SOD TAB PO SCH ×4 (07:47→21:59)
[2019-01-28] MEDS: GABAPENTIN 250 MG/5 ML 470 ML BTL PO SCH (07:56)
[2019-01-28] MEDS: GABAPENTIN 600 MG TAB PO SCH ×2 (16:14→21:58)
--- NOTE | 2019-01-28 20:48 | Hospitalist Progress Note ---
Date of Service January 28, 2019 Assessment & Plan (1) Food impaction of esophagus: s/p emergent EGD by [facility] (Dr Durand) at admission. Entire esophagus was obstructed by impacted food. Esophageal dysfunction likely due to prior stroke the probable cause of this. Cont full liquids. Will need repeat EGD in a couple of weeks for dilatation. Only full liquids until then. Speech evaluated her -- following next EGD they advise barium swallow with video swallow evaluation. Tolerating full liquids at this time. (2) Abdominal pain: mainly LLQ on exam today. start with KUB x-ray -- assess stool burden. not having copious diarrhea to suggest c.diff. CT abd/pelvis at admission with food impaction in esophagus but otherwise negative. exam is otherwise benign today. follow carefully. (3) Acute respiratory failure: intubated in the ER at presentation due to the severity of the food impaction and concern for airway compromise. intubation was elective. remained on the vent briefly in the ICU - successfully extubated 24 hours later on hospital day #2. cont to be stable in room air. (4) Hypophosphatemia: place on oral supplementation repeat level AM (5) Hypomagnesemia: resolved s/p replacement (6) Hypokalemia: resolved BMP in am for stability (7) Fever: resolved likely inflammatory in nature no infectious etiology found earlier this stay is NOT on abx at this time (8) Fungus present in urine: Asymptomatic candiduria. No Rx. (9) Peptic ulcer: History of such. Will have repeat EGD in about 2 weeks post-d/c. Cont PPI bid. Add carafate QID x 7 days as well for ?esophageal irritation in the face of recent severe impaction. (10) GERD (gastroesophageal reflux disease): As above in food impaction. Cont PPI. Cont full liquids diet. Add carafate. (11) Hypothyroidism (acquired): TSH depressed. levothyroxine dose reduced to 88 mcg daily this admission. Repeat TSH 6 weeks as outpatient. (12) Depression: Switched buproprion XL to IR BID so it can be crushed. Continue citalopram. (13) Bladder spasms: Hold oxybutynin for now. bladder scans done today for PVR -- <200cc each check. would not place park for these PVRs at this time. (14) Chronic pain syndrome: Continue fentanyl patch 75 mcg/hr q72 hours. Continue gabapentin liquid form 600 mg TID. (15) History of stroke with residual deficit: Right sided hemiplegia, dysphagia, expressive aphasia at baseline. is primary caregiver. Non-ambulatory at baseline. Cont asa for secondary prevention. 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 (17) DVT prophylaxis: Heparin 5000 units SQ twice daily (18) Discharge planning issues: dispo- [facility] pending auth daughter/ updated at bedside extensively today Subjective patient resting comfortably during my rounds. awake, alert - attempting to talk despite her dense expressive aphasia. , daughter both at bedside. they report she has complained of her stomach - she points to the LLQ. they also report concerns about "poor appetite". they have not noted any pain with eating however. she also had a foul-smelling stool earlier today. no vomiting or GI intolerance however. plan is for [facility] at d/c. Review of Systems Respiratory: no dyspnea Cardiovascular: no chest pain Gastrointestinal: + abdominal pain; no belching, no heartburn, no nausea and no vomiting Genitourinary: + difficulty urinating daughter concerned she is "retaining urine" Physical Exam Constitutional: + language barrier; no acute distress ENMT: external ear and nose normal, oropharynx normal Respiratory: normal respiratory effort, lungs clear to auscultation Cardiovascular: Rate/Rhythm: regular rate and regular rhythm Heart Sounds: normal S1 and normal S2; no murmur Vessels: posterior tibial pulses present and dorsalis pedis pulses present; no JVD Gastrointestinal (Abdomen): Inspection/Auscultation: normal bowel sounds; abdomen not distended (I don't feel her bladder in the midline) Percussion/Palpation: + abdomen tender (LLQ); no hepatosplenomegaly Neurologic: expressive aphasia, right sided facial droop, right sided hemiplegia; moves left arm easily Psychiatric: Orientation: alert Results & Data Vital Signs (Past 12 Hours) Vital Signs Temp Pulse Resp BP Pulse Ox 01/28/19 20:00 37.1 C 63 20 136/84 96 01/28/19 15:33 36.6 C 60 17 140/84 94 01/28/19 11:08 37.1 C 66 17 108/74 93 Laboratory Results Laboratory Results - last 24 hr 01/28/19 05:20 Sodium 141 Potassium 3.7 D Chloride 108 H Carbon Dioxide 29 Anion Gap 4.0 BUN 2 L Creatinine 0.59 L Est Cr Clr Drug Dosing 67.9 Est GFR ( Amer) 101.7 Est GFR (Non-Af Amer) 87.8 BUN/Creatinine Ratio 2.9 L Glucose 90 Calcium 8.1 L Magnesium 2.2 PG Care Time/CCT Total # of Minutes Spent Total Time Spent with Patient: Total time spent is greater than 50% in coordination of care (as documented) at patient's floor/unit and/or counseling patient: (1) Food impaction of esophagus Encounter type: initial encounter Qualified Code(s): T18.128A - Food in esophagus causing other injury, initial encounter (2) Fever Fever type: unspecified Qualified Code(s): R50.9 - Fever, unspecified (3) Acute respiratory failure Respiratory failure complication: unspecified whether with hypoxia or hypercapnia Qualified Code(s): J96.00 - Acute respiratory failure, unspecified whether with hypoxia or hypercapnia (4) Depression Depression Type: other depression Qualified Code(s): F32.89 - Other specified depressive episodes (5) Arnold's granulomatosis Granulomatosis renal involvement: unspecified whether renal involvement Qualified Code(s): M31.30 - Arnold's granulomatosis without renal involvement (6) GERD (gastroesophageal reflux disease) Esophagitis presence: esophagitis presence not specified Qualified Code(s): K21.9 - Gastro-esophageal reflux disease without esophagitis (7) Abdominal pain Abdominal location: left lower quadrant Qualified Code(s): R10.32 - Left lower quadrant pain
--- NOTE | 2019-01-28 21:46 | XRay Report ---
KUB HISTORY: suspected constipation; please quantitate stool COMPARISON: Abdomen and pelvis CT 01/23/2019. FINDINGS: The bowel gas pattern is unremarkable. There are no dilated loops of small bowel to suggest an obstruction. No renal calculi. No ureteral calculi. Calcifications in the deep pelvis likely rep resent phleboliths. No pneumoperitoneum or pneumatosis. Small amount of well-formed stool within the colon. IMPRESSION: No evidence for bowel obstruction. Small amount of well-formed stool within the colon. Electronically signed by: Brando Naylor M.D. 01/28/2019 9:45 PM
[2019-01-28] MEDS: SUCRALFATE 1 GM/10 ML UDC PO SCH (22:06)
[2019-01-29] MEDS: CHECK FENTANYL PATCH PLACEMENT SCH ×2 (01:30→07:54)
[2019-01-29] MEDS: fentaNYL 75 MCG/HR TDSY TD SCH (01:33)
[2019-01-29] MEDS: LEVOTHYROXINE SODIUM 88 MCG TABLET PO SCH (05:34)
[2019-01-29 06:18] LABS: BUN Creatinine Ratio 4.7 (10-20); Calcium 8.5 mg/dl (8.5-10.1); Creatinine Clr Calc Pharmacy 75.5 ml/min; Est GFR (African American) 105.4; Est GFR (Non-African American) 90.9
[2019-01-29 06:21] LABS: Phosphorus 3.4 mg/dl (2.5-4.9)
[2019-01-29] MEDS: SUCRALFATE 1 GM/10 ML UDC PO SCH ×2 (07:55→13:08)
[2019-01-29] MEDS: ASPIRIN 81 MG CHEW PO SCH (07:56)
[2019-01-29] MEDS: POTASSIUM CHLORIDE 20 MEQ/15 ML UDC PO SCH ×2 (07:57→08:17)
[2019-01-29] MEDS: PROPRANOLOL HCL 20 MG TAB PO SCH (07:57)
[2019-01-29] MEDS: GABAPENTIN 600 MG TAB PO SCH ×2 (07:58→13:08)
[2019-01-29] MEDS: CITALOPRAM 20 MG TAB PO SCH (07:58)
[2019-01-29] MEDS: POT PHOSPHATE MONOBASIC W/ SOD TAB PO SCH ×2 (07:58→13:08)
[2019-01-29] MEDS: MAGNESIUM OXIDE 400 MG TAB PO SCH (07:59)
[2019-01-29] MEDS: buPROPion HCl 100 MG TABLET PO SCH (08:00)
[2019-01-29] MEDS: LANSOPRAZOLE 30 MG SOLTAB PO SCH (08:00)
[2019-01-29] MEDS: HEPARIN SOD 5,000 UNIT/0.5 ML VIAL SQ SCH (08:02)
--- NOTE | 2019-02-04 08:30 | Discharge Summary ---
Date of Service date of admission - January 23, 2019 date of discharge - January 29, 2019 Admission HPI Per Admitting Provider The patient is a 78-year-old female with past medical history including Arnold's granulomatosis, peptic ulcer disease, expressive language disorder, swallowing dysfunction and previous stroke with dense right-sided hemiplegia who presented to the emergency department with acute shortness of breath. ED staff felt that she may have a food bolus stuck and decided to intubate the patient for airway protection. She was subsequently admitted to the ICU and GI was emergently consulted for therapeutic EGD. Principal Diagnosis severe food impaction with resulting acute respiratory failure; s/p emergent disimpaction by GI Discharge Exam Constitutional + language barrier (severe expressive aphasia); no acute distress ENMT external ear and nose normal, oropharynx normal Respiratory normal respiratory effort, lungs clear to auscultation Cardiovascular Rate/Rhythm: regular rate and regular rhythm Heart Sounds: normal S1 and normal S2; no murmur Vessels: posterior tibial pulses present and dorsalis pedis pulses present; no JVD Gastrointestinal (Abdomen) normal bowel sounds, soft, nontender, no hepatosplenomegaly Inspection/Auscultation: abdomen not distended Neurologic expressive aphasia; right sided facial droop; right-sided hemiplegia Psychiatric Orientation: alert difficult to assess orientation because of expressive aphasia Discharge Data Allergies Allergy/AdvReac Type Severity Reaction Status Date / Time Penicillins Allergy Intermediate HIVES Verified 01/23/19 00:46 Sulfa (Sulfonamide AdvReac Intermediate MOUTH Verified 01/23/19 00:46 Antibiotics) ULCERS Consultations 1. critical care 2. [facility] - Tirso Durand DO 3. PT, OT 4. speech Procedures Performed Operation Date: 01/23/19 Esophagogastroduodenoscopy - Tirso Durand DO Food was found in the entire esophagus. There was a solid column of food extending from just below the cricopharyngeus to the gastroesophageal junction.. Removal of food was accomplished with a combination of breath nets and suction using a over the scope. This required numerous intubations esophagus lasting over 1 hour to remove the boluses completely. The entire examined stomach was normal. The examined duodenum was normal. Intubation/mechanical ventilation Ordered Studies 1 CT chest - IMPRESSION: 1. Moderately distended esophagus with multifocal sites of impacted ingested material. Resultant mucosal inflammatory change without evidence of perforation. Disimpaction recommended. 2. Appropriately positioned endotracheal tube. 3. No evidence of aspiration. 4. Minimal bibasilar atelectasis. 2. CT abd/pelvis - IMPRESSION: 1. Debris filled esophagus with potential narrowing of the gastroesophageal junction. 2. Study is otherwise unremarkable. Hospital Course (1) Food impaction of esophagus: s/p emergent EGD by [facility] (Dr Tirso Durand) at admission. Entire esophagus was obstructed by impacted food. Esophageal dysfunction likely due to prior stroke the probable cause of this. After extubation from the ventilator the patient was ultimately resumed on a limited diet. At this time she is tolerating full liquids without GI symptoms. She is to remain on FULL LIQUIDS until the time of a repeat EGD in ~[address] Durand plans to dilate the esophagus during the repeat EGD. Following the repeat EGD speech therapy has advised a barium swallow with video swallow evaluation. (2) Acute respiratory failure: intubated in the ER at presentation due to the severity of the food impaction and concern for airway compromise. intubation was elective. remained on the vent briefly in the ICU - successfully extubated 24 hours later on hospital day #2. after extubation she remained stable in room air until discharge. (3) Abdominal pain: CT abd/pelvis at admission with food impaction in esophagus but otherwise negative. KUB x-rays with mild constipation only. I imagine that some of her discomfort is related to esophagitis from the food impaction. She was continued on PPI and was also given carafate for 1 week. (4) Hypophosphatemia: placed on oral supplementation and level normalized prior to discharge (5) Hypomagnesemia: resolved s/p replacement (6) Hypokalemia: resolved s/p IV/PO replacement will remain on oral supplementation post-discharge (7) Fever: Patient had a transient fever early on in her hospitalization. resolved likely inflammatory in nature no infectious etiology found antibiotics were d/c after cultures were negative (8) Fungus present in urine: Asymptomatic candiduria was found on urine culture. No Rx indicated. (9) Peptic ulcer: History of such. Will have repeat EGD in about 2 weeks post-d/c. Cont PPI bid. Added carafate QID x 7 days as well for ?esophageal irritation in the face of recent severe impaction. (10) GERD (gastroesophageal reflux disease): As above in food impaction. Cont PPI. Cont full liquids diet. Cont carafate. (11) Hypothyroidism (acquired): TSH depressed. levothyroxine dose reduced to 88 mcg daily this admission. Repeat TSH 6 weeks as outpatient. (12) Depression: Switched buproprion XL to immediate release formulation BID so it can be crushed. Continue citalopram. (13) Bladder spasms: Hold oxybutynin for now. bladder scans done while admitted for PVR -- <200cc each check. would not place park for these PVRs at this time. (14) Chronic pain syndrome: Continue fentanyl patch 75 mcg/hr q72 hours. Continue gabapentin liquid form 600 mg TID. (15) History of stroke with residual deficit: Right sided hemiplegia, dysphagia, expressive aphasia at baseline. is primary caregiver. Non-ambulatory at baseline. Cont asa for secondary prevention. 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 (17) Discharge planning issues: disposition - [facility] Total Time Total Time Spent Total Time Spent (In Minutes): 40 Total Time Includes: Examination of the Patient, Discharge Planning and Medication Reconciliation Discharge Plan Discharge Items Patient Disposition: Transfer Snf Fac Reason For Visit: Esophageal impaction from FOOD BOLUS Discharge Diagnosis: 1 Acute hypoxic respiratory failure requiring intubation / ventilation - resolved 2. Large food bolus causing impaction of esophagus s/p EGD and removal of impacted food Condition on Discharge: Good Goals: 1. remove impacted food in esophagus 2. improve electrolytes Activity: Per Instructions section Non-emergency contact: Primary Care Provider, Transcription Specialist and Therapist Call non-emergency contact if: you have any medication questions, your symptoms worsen, your pain is not controlled, your pain is worsening, your pain is unusual for you, your pain is concerning for you and you have a fever Follow-up/Referrals: Tirso Durand [Physician] - (see Dr Durand in 1-2 weeks for repeat EGD) Sher Chu Jr, [Primary Care Provider] - Dietitian Info: please crush pills or give meds in liquid form until speech therapy eval Diet: Full liquid Addtl Attending Provider Instructions: 1. Patient should have repeat EGD with Dr Tirso Durand - [facility] - in 1-2 weeks. 2. Full Liquids diet until the repeat EGD has been completed. No advancement unless GI or speech therapy at [facility] advance her. 3. Once the outpatient EGD has been completed the patient should have a barium swallow test AND video swallow test by the [facility] Speech therapy department - preferably within 24-48 hours of completion of the EGD. This appointment for these 2 tests should be set up by calling central scheduling and/or the speech therapy department at [facility]. 4. please recheck CBC, BMP, and magnesium level in 3-4 days for stability. 5. repeat TSH in 4-6 weeks as outpatient. return to [facility] if - * you have difficulty swallowing liquids * any concerns of dehydration * fever > 100.5 degrees * nausea, vomiting, abdominal pain occurs * severe, recurrent episodes of diarrhea * any other concerns Pending Studies at Discharge: No Stand-Alone Forms: My [facility] Skilled Items Patient informed of condition?: Yes DNR: No Discharge Level of Care: Skilled Communicable Disease: No Discharge Prognosis: Stable Lines: None Urinary Catheter: No Medications and DC Order Prescriptions: New ipratropium-albuterol 0.5 mg-3 mg(2.5 mg base)/3 mL Solution For Nebulization 3 ml inhalation Q4H PRN (Reason: shortness of breath or wheezing) Qty: 1 RF: 1 bupropion HCl 100 mg Tablet 100 mg PO BID Qty: 60 RF: 2 propranolol 20 mg Tablet 20 mg PO BID Qty: 60 RF: 0 lansoprazole [Prevacid SoluTab] 30 mg Tablet,Disintegrat, Delay Rel 30 mg PO QAM Qty: 30 RF: 2 sucralfate 100 mg/mL suspension 10 ml PO QID 10 Days Qty: 400 RF: 0 multivitamin liquid 5 ml PO DAILY Qty: 237 RF: 2 nutritional supplements liquid 1 ea PO BID Qty: 4000 RF: 0 levothyroxine 88 mcg capsule 88 mcg PO DAILY Qty: 30 RF: 2 Continued gabapentin 600 mg tablet 600 mg PO TID RF: 0 aspirin [Aspir-Low] 81 mg Tablet,Delayed Release (Dr/Ec) 81 mg PO HS RF: 0 citalopram 20 mg tablet 20 mg PO QAM RF: 0 fentanyl 75 mcg/hr patch 72 hour 75 mcg Transdermal Q72H Qty: 10 RF: 0 potassium chloride 20 mEq tablet,ER particles/crystals 20 meq PO BID RF: 0 Discontinued bupropion HCl 150 mg tablet sustained-release 12 hr 150 mg PO QAM RF: 0 propranolol 80 mg capsule,extended release 24 hr 80 mg PO DAILY RF: 0 omeprazole 20 mg capsule,delayed release(DR/EC) 20 mg PO BID RF: 0 oxybutynin chloride 10 mg tablet extended release 24hr 10 mg PO BID RF: 0 Discharge Orders: Discharge Order (Routine); Ordered 01/29/19 Ordered By: Timi Cantrell Admission Data Admit Date/Time: 01/23/19 04:28 Attending Provider: Timi Cantrell Admit Provider: Samy Boone Primary Care Provider: Sher Chu Jr Other Providers: Kenneth Bradshaw ; Tirso Durand Other Interventions: Discharge Summary Assessment (RN) Last Done: 01/29/19 15:41 DC Date/Time DO NOT enter until pt leaves facility: 01/29/19 15:55
== END 2019-01-29 15:55 | DRG 393 ==
LOC: ED 22:14 → 1E 01-23 04:28 → SUATTDRO 01-23 04:28 → 1E 01-23 05:01 → 2N 01-24 10:23
DX: G89.4 Chronic pain syndrome; K27.9 Peptic ulcer, site unspecified, unspecified as acute or chronic, without hemorrhage or perforation; R50.9 Fever, unspecified; Z79.82 Long term (current) use of aspirin; I69.321 Dysphasia following cerebral infarction; Z79.899 Other long term (current) drug therapy; X58.XXXA Exposure to other specified factors, initial encounter; G62.9 Polyneuropathy, unspecified; I69.391 Dysphagia following cerebral infarction; I69.351 Hemiplegia and hemiparesis following cerebral infarction affecting right dominant side; R00.0 Tachycardia, unspecified; E03.9 Hypothyroidism, unspecified; N32.89 Other specified disorders of bladder; J96.00 Acute respiratory failure, unspecified whether with hypoxia or hypercapnia; E87.6 Hypokalemia; K22.4 Dyskinesia of esophagus; T18.128A Food in esophagus causing other injury, initial encounter; F32.9 Major depressive disorder, single episode, unspecified; K21.9 Gastro-esophageal reflux disease without esophagitis; E83.42 Hypomagnesemia; E83.39 Other disorders of phosphorus metabolism

== ENCOUNTER 2019-05-04 19:12 | Observation (INO) ==
[2019-05-04] MEDS ORDERED: SODIUM CHLORIDE 0.9% 1000ML 1,000 ML IV SCH (19:33)
[2019-05-04 20:09] LABS: Basophils # (auto) 0.01 K/uL (0-0.2); Basophils % (auto) 0.1 %; Eosinophils # (auto) 0.18 K/uL (0-0.5); Eosinophils % (auto) 2.1 %; Hematocrit (blood only) 40.3 % (37-47); Hemoglobin 13.6 g/dL (12.0-16.0); Immature Granulocytes # (auto) 0.01 K/uL (0.00-0.02); Immature Granulocytes % (auto) 0.1 %; Lymphocytes # (auto) 1.96 K/uL (1.2-3.4); Lymphocytes % (auto) 23.2 %; Mean Corpuscular Hemoglobin 29.8 pg (25-34); Mean Corpuscular Hgb Conc 33.7 g/dL (32-36); Mean Corpuscular Volume 88.2 fL (80-100); Mean Platelet Volume 9.6 fL (7.4-10.4); Monocytes # (auto) 0.56 K/uL (0.11-0.59); Monocytes % (auto) 6.6 %; Neutrophils # (auto) 5.72 K/uL (1.4-6.5); Neutrophils % (auto) 67.9 %; Platelet Count 288 K/uL (130-400); RDW Coefficient of Variation 14.2 % (11.5-14.5); RDW Standard Deviation 45.7 fL (36.4-46.3); Red Blood Count 4.57 M/uL (4.2-5.4); White Blood Count 8.44 K/uL (4.8-10.8)
[2019-05-04 20:28] LABS: Albumin Level 2.8 gm/dl (3.4-5.0); Blood Urea Nitrogen 5 mg/dl (7-18); Carbon Dioxide 29 mmol/L (21-32); Chloride 102 mmol/L (98-107); Est GFR (African American) 101.7; Est GFR (Non-African American) 87.8; Glucose 107 mg/dl (70-99); Lipase 47 U/L (73-393); Magnesium 1.8 mg/dl (1.8-2.4); Potassium 3.7 mmol/L (3.5-5.1); Sodium 137 mmol/L (136-145)
[2019-05-04 20:51] LABS: Alanine Aminotransferase 15 U/L (12-78); Albumin Globulin Ratio 0.8 (0.9-2); Alkaline Phosphatase 92 U/L (45-117); Aspartate Aminotransferase 22 U/L (15-37); Bilirubin,Total 0.4 mg/dl (0.2-1); Globulin 3.5 gm/dl (2.5-4.0); NT Pro B Type Natriuretic Pept 500 pg/ml (0-1800); Total Protein 6.3 gm/dl (6.4-8.2); Troponin I < 0.015 ng/ml (0-0.045)
--- NOTE | 2019-05-04 21:24 | XRay Report ---
XR abdomen 2V w PA chest HISTORY: 78 years-old Female abd pain, sob acute generalized abdominal pain with shortness of breath COMPARISON: Chest radiograph 03/02/2019 TECHNIQUE: PA view of the chest with left lateral decubitus and supine views of the abdomen FINDINGS: Cardiomediastinal and hilar silhouettes are within normal limits. Postoperative changes of the right midlung. Mild linear bibasilar opacities suggest atelectasis. No pneumothorax, or large pleural effus ion. Degenerative changes of the shoulders and spine. No pneumatosis or pneumoperitoneum. Bowel gas p attern is nonobstructive. No definite urolith identified. Mild gaseous distention of the large bowel with mild fecal retention. Degenerative changes of the spine, pelvis and hips. IMPRESSION: 1. Bibasilar linear densities suggest atelectasis. 3. Nonobstructive bowel gas pattern. ACT 112: Negative or not required by law. The above report was generated using voice recognition software. It may contain grammatical, syntax o r spelling errors. Electronically signed by: Manan Orantes M.D. 05/04/2019 9:23 PM
[2019-05-05 00:18] LABS: Appearance Urine Clear (Clear); Bilirubin Urine Negative (Negative); Blood Urine Negative (Negative); Color Urine Yellow; Glucose Urine UA Negative (Negative); Ketones Urine 1+ (Negative); Leukocyte Esterase Urine Negative (Negative); Nitrite Urine Negative (Negative); Protein Urine Negative (Negative); Specific Gravity Urine 1.007 (1.000-1.030); Urobilinogen Urine Negative (Negative); pH Urine 7.5 (4.5-7.5)
[2019-05-05] MEDS ORDERED: IOVERSOL 100ml IV PRN (00:37)
[2019-05-05] MEDS ORDERED: fentaNYL citrate 100 MCG/2 ML VIAL IV STA (00:39)
[2019-05-05] MEDS ORDERED: ACETAMINOPHEN 1,000 MG/100 ML VIAL IV STA (00:39)
--- NOTE | 2019-05-05 01:51 | Emergency Department Note ---
Entered by Shivani Power acting as a scribe for Sadie Rivas DO History of Present Illness General Chief complaint: Abdominal Pain Stated complaint: LETHARGIC, AB PAIN Time Seen by Provider: 05/04/19 19:15 Source: patient, family () and EMS Mode of arrival: EMS History of Present Illness Onset (ago): week(s) (6) Location: abdomen Radiation: back Severity: similar to prior episodes (pt states yes, states no ) Pain Consistency: + constant Relieved By: + none Exacerbated By: + movement Associated symptoms: + fever/chills (pt states yes, states no), + loss of appetite ( states pt is refusing PO today), + nausea/vomiting, + shortness of breath (this morning, favoring left eye, right eye appearing 75% closed, rubbing right eye and head) and + other (diarrhea) The patient is a 78 year old female with a history of CVA with right side affected, 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 The patient non-verbally indicated that she has abdominal pain similar to abdominal pain she has experienced in the past. She indicates that she has also been experiencing vomiting, diarrhea, and fever. Her states that she has been experiencing terrible worsening pain that begins in her back and wraps around to her abdomen for the past 6 weeks. He states that her pain is at its worst today and that she is refusing PO. However, he was able to give her some juice through a straw. The patient's pain is worsened with movement and the states that he does not recall her having anything similar in the past. He also presents concern that the patient was short of breath this morning. She is normally on 2L of O2 at home (nighttime use only). The reports that her normal O2 sats run around 95. Additionally, he noticed that she has been recently favoring her left eye and includes that she has been rubbing the right side of her head and right eye which now appears to be 75% closed. The patient has not had any recent change in meds and has had normal BM's. Of note, reports that she was out to lunch with her daughter 1 day ago but he is unsure where they ate. The patient denies fever and her and her offer no fur ther concerns at this time. HPI is limited and mostly per due to the patient's non-verbal state. Home Medications Home Medications Medication Instructions Recorded Confirmed Type aspirin [Aspir-Low] 81 mg PO HS 01/17/18 05/04/19 History citalopram 20 mg PO QAM 01/17/18 05/04/19 History gabapentin 600 mg PO TID 01/17/18 05/04/19 History lansoprazole [Prevacid SoluTab] 30 mg PO QAM #30 tab 01/29/19 05/04/19 Rx multivitamin 5 ml PO DAILY #237 ml 01/29/19 05/04/19 Rx oxybutynin chloride 5 mg PO AMHS 02/26/19 05/04/19 History potassium chloride 20 meq PO AMHS 02/26/19 05/04/19 History bupropion HCl 100 mg PO AMHS 05/04/19 05/04/19 History fentanyl 75 mcg TRANSDERMAL [id number] 05/04/19 05/04/19 History ipratropium-albuterol 3 ml INHALATION Q6H PRN 05/04/19 05/04/19 History levothyroxine 88 mcg PO QAM 05/04/19 05/04/19 History propranolol 20 mg PO AMHS 05/04/19 05/04/19 History Allergies Allergy/AdvReac Type Severity Reaction Status Date / Time Penicillins Allergy Intermediate HIVES Verified 05/04/19 19:47 Sulfa (Sulfonamide AdvReac Intermediate MOUTH Verified 05/04/19 19:47 Antibiotics) ULCERS Past Med/Surg History Medical History Chronic pain syndrome Depression Esophageal mass Expressive language disorder (05/17/11) Fibromyalgia Food impaction of esophagus GERD (gastroesophageal reflux disease) Hypertension Hypothyroid Non-verbally indicates understanding Peptic ulcer (05/17/11) Pneumonia Right-sided muscle weakness Stroke UTI (urinary tract infection) Arnold's granulomatosis (05/17/11) Surgical History History of appendectomy Family History Other No pertinent family history in first degree relatives Social History Preferred Language: Icelandic Communication Ability: Impaired Ship 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 Physical Exam Vital Signs Vital Signs - 24 hr 05/05/19 03:00 05/05/19 03:30 05/05/19 03:58 Pulse Rate 66 66 Pulse Rate [Apical] 70 Pulse Rate from SpO2 Sensor 65 68 Respiratory Rate 12 14 14 Blood Pressure [Left Arm] 131/99 Blood Pressure Mean [Left Arm] 109 Blood Pressure Position [Left Arm] Lying Pulse Oximetry 97 98 97 Oxygen Delivery Method Nasal Cannula Oxygen Flow Rate 2 GENERAL: alert, well appearing, well nourished, no distress, non-toxic, non- verbal EYE EXAM: normal conjunctiva, PERRL and EOM's grossly intact OROPHARYNX: no exudate, no erythema, lips, buccal mucosa, and tongue normal and mucous membranes are moist NECK: supple, no nuchal rigidity, no adenopathy, non-tender LUNGS: Clear to auscultation. Normal chest wall mechanics, no w/r/r HEART: no murmurs, S1 normal and S2 normal ABDOMEN: abdomen soft, non-tender, normo-active bowel sounds, no masses, no rebound or guarding. BACK: Back is symmetrical on inspection and there is no deformity, no midline tenderness, no CVA tenderness. SKIN: no rashes and no bruising UPPER EXTREMITIES: upper extremities are grossly normal. Nml pulses b/l. LOWER EXTREMITIES: No pitting edema. Nml pulses b/l. NEURO EXAM: Normal sensorium, cranial nerves II-XII grossly intact, nonverbal, will nod head. Unable to perform additional neuro testing due to prior CVA. Course Course 1916: Past medical records reviewed. The patient was evaluated in room C07. A complete history and physical exam was performed. 2345: I checked on the patient and updated her on test results. 0140: I updated the at bedside on patient results. While patient does n ot appear in any distress now as she had received pain medication, he states she still signals to him that she has pain, and she is not acting normally. I did attempt to wean her off her oxygen and her sats dropped to 86%. Patient does typically wear oxygen at night to sleep, however not during the day. Patient with no apparent increased work of breathing, and no adventitious lung sounds. Patient's states he is uncomfortable taking her home as she is still having pain and is not acting normally. Administered Medications Acetaminophen (Tylenol) 650 mg PO Q4H PRN PRN Reason: Pain or Fever Stop: 06/04/19 04:53 Last Admin: 05/05/19 23:35 Dose: 650 mg Documented by: [id number] Aspirin (Ecotrin Ectab) 81 mg PO HS [facility] Stop: 06/04/19 20:59 Last Admin: 05/05/19 21:32 Dose: 81 mg Documented by: [id number] Bupropion HCl (Wellbutrin-Sr) 100 mg PO AMHS [facility] Stop: 06/04/19 08:59 Last Admin: 05/05/19 21:30 Dose: 100 mg Documented by: [id number] Admin: 05/05/19 08:22 Dose: 100 mg Documented by: [id number] Citalopram Hydrobromide (Celexa) 20 mg PO QAM [facility] Stop: 06/04/19 08:59 Last Admin: 05/05/19 08:22 Dose: 20 mg Documented by: [id number] Fentanyl (Duragesic) 75 mcg TD Q72H [facility] Stop: 05/19/19 20:59 Last Admin: 05/05/19 21:38 Dose: 75 mcg Documented by: [id number] Gabapentin (Neurontin) 600 mg PO TID [facility] Stop: 06/04/19 08:59 Last Admin: 05/05/19 22:33 Dose: 600 mg Documented by: [id number] Admin: 05/05/19 13:44 Dose: 600 mg Documented by: [id number] Admin: 05/05/19 09:27 Dose: 600 mg Documented by: [id number] Heparin Sodium (Porcine) (Heparin Sodium (Porcine)) 5,000 units SQ Q12 [facility] Stop: 06/04/19 08:59 Last Admin: 05/05/19 21:32 Dose: 5,000 units Documented by: [id number] Cosigned by: [id number] Admin: 05/05/19 08:21 Dose: 5,000 units Documented by: [id number] Cosigned by: [id number] Potassium Chloride/Dextrose/Sod Cl (D5nss + 20meq Kcl) 20 meq in 1,000 mls @ 80 mls/hr IV .[id number] [facility] Stop: 06/04/19 05:29 Last Admin: 05/05/19 18:25 Dose: 80 mls/hr Documented by: [id number] Infusion: 05/05/19 18:25 Dose: 80 mls/hr Documented by: [id number] Admin: 05/05/19 06:09 Dose: 80 mls/hr Documented by: [id number] Lansoprazole (Prevacid) 30 mg PO QAM [facility] Stop: 06/04/19 08:59 Last Admin: 05/05/19 08:22 Dose: 30 mg Documented by: [id number] Levothyroxine Sodium (Synthroid) 88 mcg PO DAILYBB [facility] Stop: 06/04/19 06:29 Last Admin: 05/05/19 06:53 Dose: 88 mcg Documented by: [id number] Miscellaneous (Fentanyl Patch Remove & Waste) 1 ea N/A Q3D@2059 [facility] Stop: 06/04/19 20:58 Last Admin: 05/05/19 21:30 Dose: 1 ea Documented by: [id number] Cosigned by: [id number] Miscellaneous (Fentanyl Patch Check Placement) 1 ea N/A QS [facility] Stop: 06/04/19 07:59 Last Admin: 05/06/19 00:00 Dose: 1 ea Documented by: [id number] Admin: 05/05/19 17:01 Dose: 1 ea Documented by: [id number] Admin: 05/05/19 08:20 Dose: 1 ea Documented by: [id number] Oxybutynin Chloride (Ditropan Xl) 5 mg PO AMHS [facility] Stop: 06/04/19 08:59 Last Admin: 05/05/19 21:30 Dose: 5 mg Documented by: [id number] Admin: 05/05/19 08:23 Dose: 5 mg Documented by: [id number] Polyethylene Glycol (Miralax Powder Packet) 17 gm PO TID [facility] Stop: 06/04/19 08:59 Last Admin: 05/05/19 21:31 Dose: 17 gm Documented by: [id number] Admin: 05/05/19 13:44 Dose: 17 gm Documented by: [id number] Admin: 05/05/19 08:20 Dose: 17 gm Documented by: [id number] Potassium Chloride (Klor-Con Pwd) 20 meq PO [facility] Stop: 06/04/19 08:59 Last Admin: 05/05/19 21:31 Dose: 20 meq Documented by: [id number] Admin: 05/05/19 08:21 Dose: 20 meq Documented by: [id number] Propranolol HCl (Inderal) 20 mg PO [facility] Stop: 06/04/19 08:59 Last Admin: 05/05/19 23:29 Dose: 20 mg Documented by: [id number] Admin: 05/05/19 08:22 Dose: 20 mg Documented by: [id number] Senna/Docusate Sodium (Senokot S) 1 tab PO [facility] Stop: 05/07/19 08:59 Last Admin: 05/05/19 08:22 Dose: 1 tab Documented by: [id number] Discontinued Medications Fentanyl Citrate (Fentanyl Citrate) 50 mcg IV NOW STA Stop: 05/05/19 00:40 Last Admin: 05/05/19 00:45 Dose: 50 mcg Documented by: [id number] Sodium Chloride (Nss 1000ml) 1,000 mls @ 250 mls/hr IV .Q4H [facility] Stop: 05/04/19 23:32 Last Infusion: 05/05/19 00:18 Dose: 0 mls/hr Documented by: [id number] Admin: 05/04/19 20:16 Dose: 250 mls/hr Documented by: [id number] Acetaminophen (Ofirmev) 1,000 mg in 100 mls @ 400 mls/hr IV NOW STA Stop: 05/05/19 00:53 Last Infusion: 05/05/19 01:17 Dose: 0 mls/hr Documented by: [id number] Admin: 05/05/19 00:45 Dose: 400 mls/hr Documented by: [id number] Ioversol (Optiray 320 100ml) 100 ml IV ONCE PRN PRN Reason: Interaction Checking Stop: 05/09/19 00:36 Last Admin: 05/05/19 00:37 Dose: 92 ml Documented by: [id number] Medical Decision Making Differential Diagnosis Differential diagnosis includes but is not limited to Appendicitis, Diverticulitis, PUD/Gastritis,Biliary Pathology, UTI, Pyelonephritis, Renal Colic, BowelObstruction, Aortic Pathology, Acute Coronary Syndrome,amongst other pathologies entertained. Medical Records Attestation: I reviewed the patient's medical records. Home Medications Current Medication List: was personally reviewed by me Laboratory Data Attestation: I reviewed the patient's lab results. Result diagrams: 05/04/19 19:55 05/04/19 19:55 Lab Results 05/04/19 05/04/19 05/04/19 Range/Units 19:55 19:55 20:04 WBC 8.44 (4.8-10.8) K/uL RBC 4.57 (4.2-5.4) M/uL Hgb 13.6 (12.0-16.0) g/dL Hct 40.3 (37-47) % MCV 88.2 (80-100) fL MCH 29.8 (25-34) pg MCHC 33.7 (32-36) g/dL RDW Std Deviation 45.7 (36.4-46.3) fL RDW Coeff of Stella 14.2 (11.5-14.5) % Plt Count 288 (130-400) K/uL MPV 9.6 (7.4-10.4) fL Immature Gran % (Auto) 0.1 % Neut % (Auto) 67.9 % Lymph % (Auto) 23.2 % [place] % (Auto) 6.6 % Eos % (Auto) 2.1 % Baso % (Auto) 0.1 % Immature Gran # (Auto) 0.01 (0.00-0.02) K/uL Neut # (Auto) 5.72 (1.4-6.5) K/uL Lymph # (Auto) 1.96 (1.2-3.4) K/uL [place] # (Auto) 0.56 (0.11-0.59) K/uL Eos # (Auto) 0.18 (0-0.5) K/uL Baso # (Auto) 0.01 (0-0.2) K/uL Sodium 137 (136-145) mmol/L Potassium 3.7 (3.5-5.1) mmol/L Chloride 102 (98-107) mmol/L Carbon Dioxide 29 (21-32) mmol/L Anion Gap 6.0 (3-11) BUN 5 L (7-18) mg/dl Creatinine 0.59 L (0.6-1.2) mg/dl Est Cr Clr Drug Dosing Not Reportable Est GFR ( Amer) 101.7 Est GFR (Non-Af Amer) 87.8 BUN/Creatinine Ratio 8.0 L (10-20) Glucose 107 H (70-99) mg/dl POC Lactic Acid Lit 0.85 L (0.90-1.70) mmol/L Calcium 9.0 (8.5-10.1) mg/dl Magnesium 1.8 (1.8-2.4) mg/dl Total Bilirubin 0.4 (0.2-1) mg/dl AST 22 (15-37) U/L ALT 15 (12-78) U/L Alkaline Phosphatase 92 (45-117) U/L Troponin I < 0.015 (0-0.045) ng/ml NT-Pro-B Natriuret Pep 500 (0-1800) pg/ml Total Protein 6.3 L (6.4-8.2) gm/dl Albumin 2.8 L (3.4-5.0) gm/dl Globulin 3.5 (2.5-4.0) gm/dl Albumin/Globulin Ratio 0.8 L (0.9-2) Lipase 47 L (73-393) U/L Imaging Data Radiologist's Impression: Radiology results as stated below per my review and the radiologist's interpretation: XR abdomen 2V w PA chest HISTORY: 78 years-old Female abd pain, sob acute generalized abdominal pain with shortness of breath COMPARISON: Chest radiograph 03/02/2019 TECHNIQUE: PA view of the chest with left lateral decubitus and supine views of the abdomen FINDINGS: Cardiomediastinal and hilar silhouettes are within normal limits. Postoperative changes of the right midlung. Mild linear bibasilar opacities suggest atelectasis. No pneumothorax, or large pleural effusion. Degenerative changes of the shoulders and spine. No pneumatosis or pneumoperitoneum. Bowel gas pattern is nonobstructive. No definite urolith identified. Mild gaseous distention of the large bowel with mild fecal retention. Degenerative changes of the spine, pelvis and hips. IMPRESSION: 1. Bibasilar linear densities suggest atelectasis. 3. Nonobstructive bowel gas pattern. ACT 112: Negative or not required by law. The above report was generated using voice recognition software. It may contain grammatical, syntax or spelling errors. Electronically signed by: Manan Orantes M.D. 05/04/2019 9:[address] abdomen and pelvis with contrast: No acute process along the GI tract. The appendix is not visualized however there are no secondary signs of acute appendicitis. Unremarkable appearance of the liver, gallbladder, pancreas, spleen, adrenal glands, kidneys, and reproductive organs. No free fluid or fluid collection. Radiologist: Edmundo Marroquin MD ECG Data Attestation: I personally reviewed and interpreted this ECG as follows: Indication: + abdominal pain Rate (beats per minute): 70 Rhythm: + sinus rhythm ECG Intervals/blocks: + Right Bundle branch block ECG [place]: + Normal ECG Findings: + Other (no acute ischemic changes, baseline artifact ) Blood Pressure Blood Pressure Findings: Elevated blood pressure Blood Pressure Disposition: further management by hospitalist MDM Narrative Patient brought in due to concerns for abdominal pain as relayed by patient's . Patient nonverbal, can nod head to answer a few simple questions, however all history obtained from him. Patient did seem to have discomfort and pain with palpation of the abdomen, this did seem worse on the left on the right. No vomiting or diarrhea, patient afebrile. Patient was noted initially to be hypoxic, however this improved with application of nasal cannula. Patient's states she typically only wears oxygen at night. No adventitious lung sounds, or increased work of breathing. Chest x-ray unremarkable. Patient's labs reassuring, and CT of the abdomen pelvis did not reveal any other acute pathology to explain the patient's pain is perceived by the . Discussed all results with the at bedside and he stated he is uncomfortable taking her home as her primary caregiver as he feels there is something evolving and that she is not her normal self. Case discussed with hospitalist for additional evaluation. Impression & Plan Abdominal pain, AMS (altered mental status), Hypoxia, Expressive aphasia Discharge Plan Visit Data *Final* Discharge Date/Time: 05/05/19 04:45 Chief Complaint: Abdominal Pain Stated Complaint: LETHARGIC, AB PAIN ED Provider: Sadie Rivas Discharge Problem: Abdominal pain, AMS (altered mental status), Hypoxia, Expressive aphasia Patient Disposition: Admitted As Inpatient Discharge Problem: Abdominal pain Qualifiers: Abdominal location: unspecified location Qualified Code(s): R10.9 - Unspecified abdominal pain AMS (altered mental status) Qualifiers: Altered mental status type: unspecified Qualified Code(s): R41.82 - Altered mental status, unspecified The scribe's documentation has been prepared under my direction and personally reviewed by me in its entirety. I confirm that the note above accurately reflects all work, treatment, procedures, and medical decision making performed by me.
--- NOTE | 2019-05-05 03:56 | History & Physical Report ---
Date of Service May 05, 2019 Assessment & Plan (1) Abdominal pain: CBC shows no white count, no anemia, CMP shows normal electrolytes, normal creatinine and kidney function, glucose is not significantly elevated 107, [id number] lactic acid is normal. Magnesium 1.8, AST ALT 22/15, negative troponin, hypoalbuminemia 2.8, lipase is 47. TSH checked 2 days ago is within normal 0.3. Urinalysis shows 1+ ketones but is otherwise bland. CT of abdomen pelvis official read still pending, however does show some formed stool throughout the colon. -With otherwise relatively unremarkable labs and no fever I do not suspect infectious etiology, will wait for official read pending whether or not this is related to her esophagus. -Suspect long-term opioid use may be contributing to some amount of dysmotility in her gut/constipation vs hyperalgesia syndrome? -She has been seen by [facility] gastroenterology in the past, should a consult be indicated. -I have discussed with the these lab findings and CT findings--he expresses some frustration with the ongoing abdominal complaints that seem to have no clear etiology. I discussed with him we will attempt a bowel cleanout and that this may involve some loose stools over the next few days. He verbalizes understanding and agreement with this plan. -recommend bowel cleanout with MiraLAX 3 times daily x1 day as well as Colace with senna. Gentle fluid maintenance. FEN/GI: Pured diet for now while attempting bowel cleanout-- states he gives her some minced foods as well. Has esophageal dysmotility issues. IV fluids. PPI twice daily. DVT ppx: Heparin 5000 units subcu every 12. CODE STATUS: CONDITIONAL -- states that she would not want intubation of any kind--and with regards to chest compressions/defibrillation/pressors, he states he is her medical POA and would be open to a conversation with the shaun vasques to discuss long-term utility and expected outcomes, in other words "if there is hope" that he would agree to proceed with such resuscitative measures, but if not then no. DISPO: MedSurg for bowel cleanout (2) Expressive aphasia: Chronic, certainly complicates things with regards to assessing for clinical improvement or not. Her stroke is from 20 years ago, has a lot of experience with communicating her needs. (3) Hypoxia: She uses oxygen at night at her baseline. No new issues with regards to her respiratory status. (4) Dysphagia as late effect of cerebrovascular accident (CVA): With history of food bolus impaction as recently as January 2019. Follows with Dr. Durand for this. Does not appear to be an acute issue at this time. (5) Sacral ulcer: Per this is improving. Wound consult placed. (6) Left leg pain: This appears to be a very chronic issue, however given her immobility would like to rule out a DVT. She seems to be very tender so this exam will probably be difficult. -Venous Doppler of left lower extremity ordered. (7) Chronic pain syndrome: History of fibromyalgia. states she has been on fentanyl patches since at least 20 years ago. ? Hyperalgesia . states no recent increase in the dosage. May be contributing to her gut dysmotility/constipation. Otherwise as above. 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 History is provided entirely by patient's who is at the bedside. States that she has had ongoing abdominal pain issues for several months now. She has been seen several times by her PCP and been treated with antibiotics for diverticulitis as well as colitis which has not helped. She takes MiraLAX nightly and has 1 soft bowel movement every 1 to 2 days. Earlier today she refused to eat anything. She was able to drink. She is completely nonverbal and so says that she was not acting in the way she normally acts when she gets a UTI or food impaction in her esophagus. She did recently have food impaction requiring intervention 3 months ago and was hospitalized for such. Of note she has been on opioid analgesics for at least 20 years initially for her fibromyalgia. She is currently on fentanyl transdermal 75 mcg. states she points with her left hand to her lower abdomen above her bladder area when asked to point to the pain. She does have a sacral ulcer according to patient's which he has been treating with a cream. She has a nurse who comes into the house twice a week. She has not had any fevers or change in her breathing status. She is currently on oxygen but uses oxygen at night at her baseline. No cough. No loose stools or watery stools or bloody stools. Her urination has been at her baseline, no foul-smelling urine. She has had pain in her left leg he says for years and will retract her left leg when it is touched. He states that she is "touchy". Past medical history: Chronic pain syndrome, depression, dysphagia and food bolus, fibromyalgia, reflux disease, hypothyroid, hypertension, right-sided muscle weakness, stroke, Arnold's granulomatosis. Surgical history: History of appendectomy Social history: Lives with her who is her oven worker, has nursing come twice a week. No T/E/D. Allergies Allergy/AdvReac Type Severity Reaction Status Date / Time Penicillins Allergy Intermediate HIVES Verified 05/04/19 19:47 Sulfa (Sulfonamide AdvReac Intermediate MOUTH Verified 05/04/19 19:47 Antibiotics) ULCERS Home Medications Home Medications Medication Instructions Recorded Confirmed Type aspirin [Aspir-Low] 81 mg PO HS 01/17/18 05/04/19 History citalopram 20 mg PO QAM 01/17/18 05/04/19 History gabapentin 600 mg PO TID 01/17/18 05/04/19 History lansoprazole [Prevacid SoluTab] 30 mg PO QAM #30 tab 01/29/19 05/04/19 Rx multivitamin 5 ml PO DAILY #237 ml 01/29/19 05/04/19 Rx oxybutynin chloride 5 mg PO AMHS 02/26/19 05/04/19 History potassium chloride 20 meq PO AMHS 02/26/19 05/04/19 History bupropion HCl 100 mg PO AMHS 05/04/19 05/04/19 History fentanyl 75 mcg TRANSDERMAL [id number] 05/04/19 05/04/19 History ipratropium-albuterol 3 ml INHALATION Q6H PRN 05/04/19 05/04/19 History levothyroxine 88 mcg PO QAM 05/04/19 05/04/19 History propranolol 20 mg PO AMHS 05/04/19 05/04/19 History Past Med/Surg History Medical History Chronic pain syndrome Depression Esophageal mass Expressive language disorder (05/17/11) Fibromyalgia Food impaction of esophagus GERD (gastroesophageal reflux disease) Hypertension Hypothyroid Non-verbally indicates understanding Peptic ulcer (05/17/11) Pneumonia Right-sided muscle weakness Stroke UTI (urinary tract infection) Arnold's granulomatosis (05/17/11) Surgical History History of appendectomy Family History Other No pertinent family history in first degree relatives Social History Preferred Language: Marshallese Communication Ability: Impaired 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 HENT: Normocephalic, atraumatic. Nasal cannula in place. Mucus membranes appear moist. EYES: Normal conjunctiva. Sclera non-icteric. EOMI. NECK: Supple. Full range of motion. No JVD. RESPIRATORY: Clear to auscultation. Normal work of breathing. CARDIAC: Regular rate, normal rhythm. Extremities warm and well perfused, ABDOMEN: Soft, non-distended. Mild tenderness to palpation in suprapubic area and left lower quadrant. No rebound or guarding. No masses. Bowel sounds are normal. LOWER EXTREMITIES: Inspection of calves reveal equal size bilaterally. She retracts the left lower leg when I palpate the calf. No edema. No discoloration. NEURO: Right-sided weakness, expressive language disorder evident. Sensation in tact. CN II-XII grossly in tact. SKIN: Rash not present. No jaundice noted. Unable to examine sacral area due to habitus. PSYCH: Flat mood and affect. Cooperative. is present at the bedside during my examination. Exam as done by Abigail Nicole MD, Generator Man. Results & Data Vital Signs (Past 12 Hours) Vital Signs Temp Pulse Resp BP Pulse Ox 05/05/19 00:01 69 21 98 05/05/19 00:00 73 15 167/70 H 97 05/04/19 23:31 69 12 97 05/04/19 23:30 75 15 168/84 H 99 05/04/19 23:01 72 11 L 95 05/04/19 23:00 71 8 L 146/71 H 95 05/04/19 22:31 73 12 138/75 96 05/04/19 22:30 72 11 L 94 05/04/19 22:01 76 9 L 148/71 H 98 05/04/19 22:00 66 8 L 97 05/04/19 21:30 66 10 L 160/74 H 100 05/04/19 21:16 67 16 146/81 H 97 05/04/19 21:14 68 19 98 05/04/19 20:30 70 10 L 142/70 H 98 05/04/19 20:00 69 27 H 153/81 H 98 05/04/19 19:30 64 16 163/80 H 90 05/04/19 19:24 36.5 C 76 20 154/80 H 93 05/04/19 19:21 20 154/80 H 91 Laboratory Results 05/05/19 05/04/19 05/04/19 Range/Units Unknown 20:04 19:55 WBC (4.8-10.8) K/uL RBC (4.2-5.4) M/uL Hgb (12.0-16.0) g/dL Hct (37-47) % MCV (80-100) fL MCH (25-34) pg MCHC (32-36) g/dL RDW Std Deviation (36.4-46.3) fL RDW Coeff of Stella (11.5-14.5) % Plt Count (130-400) K/uL MPV (7.4-10.4) fL Immature Gran % (Auto) % Neut % (Auto) % Lymph % (Auto) % Crawford % (Auto) % Eos % (Auto) % Baso % (Auto) % Immature Gran # (Auto) (0.00-0.02) K/uL Neut # (Auto) (1.4-6.5) K/uL Lymph # (Auto) (1.2-3.4) K/uL Crawford # (Auto) (0.11-0.59) K/uL Eos # (Auto) (0-0.5) K/uL Baso # (Auto) (0-0.2) K/uL Sodium 137 (136-145) mmol/L Potassium 3.7 (3.5-5.1) mmol/L Chloride 102 (98-107) mmol/L Carbon Dioxide 29 (21-32) mmol/L Anion Gap 6.0 (3-11) BUN 5 L (7-18) mg/dl Creatinine 0.59 L (0.6-1.2) mg/dl Est Cr Clr Drug Dosing Not Reportable Est GFR ( Amer) 101.7 Est GFR (Non-Af Amer) 87.8 BUN/Creatinine Ratio 8.0 L (10-20) Glucose 107 H (70-99) mg/dl POC Lactic Acid Lit 0.85 L (0.90-1.70) mmol/L Calcium 9.0 (8.5-10.1) mg/dl Magnesium 1.8 (1.8-2.4) mg/dl Total Bilirubin 0.4 (0.2-1) mg/dl AST 22 (15-37) U/L ALT 15 (12-78) U/L Alkaline Phosphatase 92 (45-117) U/L Troponin I < 0.015 (0-0.045) ng/ml NT-Pro-B Natriuret Pep 500 (0-1800) pg/ml Total Protein 6.3 L (6.4-8.2) gm/dl Albumin 2.8 L (3.4-5.0) gm/dl Globulin 3.5 (2.5-4.0) gm/dl Albumin/Globulin Ratio 0.8 L (0.9-2) Lipase 47 L (73-393) U/L Urine Color Yellow Urine Appearance Clear (Clear) Urine pH 7.5 (4.5-7.5) Ur Specific [place] 1.007 (1.000-1.030) Urine Protein Negative (Negative) Urine Glucose (UA) Negative (Negative) Urine Ketones 1+ H (Negative) Urine Blood Negative (Negative) Urine Nitrite Negative (Negative) Urine Bilirubin Negative (Negative) Urine Urobilinogen Negative (Negative) Ur Leukocyte Esterase Negative (Negative) 05/04/19 Range/Units 19:55 WBC 8.44 (4.8-10.8) K/uL RBC 4.57 (4.2-5.4) M/uL Hgb 13.6 (12.0-16.0) g/dL Hct 40.3 (37-47) % MCV 88.2 (80-100) fL MCH 29.8 (25-34) pg MCHC 33.7 (32-36) g/dL RDW Std Deviation 45.7 (36.4-46.3) fL RDW Coeff of Stella 14.2 (11.5-14.5) % Plt Count 288 (130-400) K/uL MPV 9.6 (7.4-10.4) fL Immature Gran % (Auto) 0.1 % Neut % (Auto) 67.9 % Lymph % (Auto) 23.2 % Crawford % (Auto) 6.6 % Eos % (Auto) 2.1 % Baso % (Auto) 0.1 % Immature Gran # (Auto) 0.01 (0.00-0.02) K/uL Neut # (Auto) 5.72 (1.4-6.5) K/uL Lymph # (Auto) 1.96 (1.2-3.4) K/uL Crawford # (Auto) 0.56 (0.11-0.59) K/uL Eos # (Auto) 0.18 (0-0.5) K/uL Baso # (Auto) 0.01 (0-0.2) K/uL Sodium (136-145) mmol/L Potassium (3.5-5.1) mmol/L Chloride (98-107) mmol/L Carbon Dioxide (21-32) mmol/L Anion Gap (3-11) BUN (7-18) mg/dl Creatinine (0.6-1.2) mg/dl Est Cr Clr Drug Dosing Est GFR ( Amer) Est GFR (Non-Af Amer) BUN/Creatinine Ratio (10-20) Glucose (70-99) mg/dl POC Lactic Acid Lit (0.90-1.70) mmol/L Calcium (8.5-10.1) mg/dl Magnesium (1.8-2.4) mg/dl Total Bilirubin (0.2-1) mg/dl AST (15-37) U/L ALT (12-78) U/L Alkaline Phosphatase (45-117) U/L Troponin I (0-0.045) ng/ml NT-Pro-B Natriuret Pep (0-1800) pg/ml Total Protein (6.4-8.2) gm/dl Albumin (3.4-5.0) gm/dl Globulin (2.5-4.0) gm/dl Albumin/Globulin Ratio (0.9-2) Lipase (73-393) U/L Urine Color Urine Appearance (Clear) Urine pH (4.5-7.5) Ur Specific [place] (1.000-1.030) Urine Protein (Negative) Urine Glucose (UA) (Negative) Urine Ketones (Negative) Urine Blood (Negative) Urine Nitrite (Negative) Urine Bilirubin (Negative) Urine Urobilinogen (Negative) Ur Leukocyte Esterase (Negative) Supervising Physician Co-Signing Physician Notes Attending addendum: I have physically seen this patient, have supervised the medical residents activities, and agree with the H&P unless as otherwise noted. Assessment and Plan: Abdominal pain- CBC with differential and chemistry profile normal. CT of abdomen pelvis normal except for fecal burden and nonspecific bowel gas pattern. Suspecting patient's symptoms are likely secondary to stool retention associated with chronic narcotic use. Work on more aggressive bowel regimen with MiraLAX, Colace with senna and Dulcolax suppositories. Rehydration with IV fluids. Remainder of orders and notations as noted. Resident Activity Tracking Resident Involvement: Resident Care Provided Care Provided: Adult [facility] Medicine (1) Abdominal pain Abdominal location: unspecified location Qualified Code(s): R10.9 - Unspecified abdominal pain
[2019-05-05] MEDS ORDERED: MAGNESIUM HYDROXIDE SUSP 30 ML UDC PO PRN (04:54)
[2019-05-05] MEDS ORDERED: ALUMINUM/MAGNESIUM SUSP 30 ML UDC PO PRN (04:54)
[2019-05-05] MEDS ORDERED: ACETAMINOPHEN 1,000 MG/100 ML VIAL IV PRN (04:54)
[2019-05-05] MEDS ORDERED: ALBUT/IPRATROP 3MG/0.5MG NEB 3 ML VIAL INH PRN (04:54)
[2019-05-05] MEDS ORDERED: ACETAMINOPHEN 325 MG TAB PO PRN (04:54)
[2019-05-05] MEDS ORDERED: ONDANSETRON INJ 2 MG/ML 2 ML VIAL IV PRN (04:54)
[2019-05-05] MEDS: D5NSS + 20MEQ KCL 20 MEQ/1,000 ML BAG IV SCH ×2 (06:09→18:25)
--- NOTE | 2019-05-05 06:33 | Billing Data ---
Date of Service May 05, 2019 Coding Level of Care Code 85890 OBS Care - Level 3
[2019-05-05] MEDS: LEVOTHYROXINE SODIUM 88 MCG TABLET PO SCH (06:53)
--- NOTE | 2019-05-05 07:08 | Ultrasound Report ---
ULTRASOUND LEFT LOWER EXTREMITY VENOUS CLINICAL HISTORY: Left leg pain. COMPARISON STUDY: Bilateral lower extremity venous ultrasound dated 06/07/2017. TECHNIQUE: Real-time, grayscale, and color Doppler sonography of the deep veins of the left lower ext remity was performed from the inguinal crease to the calf. Compression and augmentation were utilized . FINDINGS: There is no sonographic evidence of deep venous thrombosis identified in the left lower ext remity. The common femoral, superficial femoral, and popliteal veins are patent and normally compress ible. The greater saphenous vein and the profunda femoris vein at the junction with the common femora l vein are clear. The visualized calf veins are patent. IMPRESSION: There is no sonographic evidence of deep venous thrombosis identified in the left lower e xtremity. ACT 112: Negative or not required by law. Electronically signed by: Andreas Bush M.D. 05/05/2019 7:07 AM
--- NOTE | 2019-05-05 07:27 | CT Scan Report ---
ABDOMEN AND PELVIS CT WITH IV CONTRAST CT DOSE: 432.50 mGy.cm HISTORY: Generalized abdominal pain. TECHNIQUE: Multiaxial CT images of the abdomen and pelvis were performed following the use of intrave nous contrast. A dose lowering technique was utilized adhering to the principles of ALARA. COMPARISON STUDY: Abdomen and pelvis CT 03/02/2019. FINDINGS: Bibasilar linear densities likely representing subsegmental atelectasis. No pneumoperitoneu m. No pneumatosis. No suspicious lytic are blastic osseous lesions. Stable subcentimeter hypodense le sions within the liver. The spleen, adrenal glands, pancreas, and kidneys are unremarkable. No hydron ephrosis. Normal gallbladder. No retroperitoneal lymphadenopathy. Calcified plaque within the normal caliber abdominal aorta. The bladder is unremarkable. The uterus and right ovary are within normal li mits. There is a 1.2 cm cyst within the left ovary, unchanged. A few colonic diverticula. No evidence for diverticulitis. Questionable thickening of the descending colon is likely due to underdistention . There is no pericolonic fat stranding to suggest an acute process at this time. Therefore, no defin ite bowel wall thickening or obstruction. The appendix is not identified with certainty. IMPRESSION: 1. No definite bowel wall thickening or obstruction. 2. No hydronephrosis. 3. Additional chronic findings as described above. ACT 112: Negative or not required by law. Electronically signed by: Brando Naylor M.D. 05/05/2019 7:26 AM
[2019-05-05] MEDS: CHECK FENTANYL PATCH PLACEMENT SCH ×2 (08:20→17:01)
[2019-05-05] MEDS: POLYETHYLENE (MIRALAX) 17 GM PACK PO SCH ×3 (08:20→21:31)
[2019-05-05] MEDS: HEPARIN SOD 5,000 UNIT/0.5 ML VIAL SQ SCH ×2 (08:21→21:32)
[2019-05-05] MEDS: POTASSIUM CHLORIDE PWD 20 MEQ PACK PO SCH ×2 (08:21→21:31)
[2019-05-05] MEDS: PROPRANOLOL HCL 20 MG TAB PO SCH ×2 (08:22→23:29)
[2019-05-05] MEDS: LANSOPRAZOLE 30 MG SOLTAB PO SCH (08:22)
[2019-05-05] MEDS: DOCUSATE SODIUM/SENNA 50/8.6MG TAB PO SCH (08:22)
[2019-05-05] MEDS: BuPROPion SR 100 MG TABCR PO SCH ×2 (08:22→21:30)
[2019-05-05] MEDS: CITALOPRAM 20 MG TAB PO SCH (08:22)
[2019-05-05] MEDS: OXYBUTYNIN CHLORIDE XL 5 MG TABCR PO SCH ×2 (08:23→21:30)
[2019-05-05] MEDS: GABAPENTIN 250 MG/5 ML 470 ML BTL PO SCH ×3 (09:27→22:33)
--- NOTE | 2019-05-05 15:46 | Hospitalist Progress Note ---
Date of Service May 05, 2019 Assessment & Plan (1) Abdominal pain: 78 yo F here for intractable abdominal pain and constipation. Abdominal pain and constipation: - workup has been negative for infectious causes, liver or pancreatic abnormalities, electrolyte abnormalities. - CT abdomen shows some stool burden however no impaction. -Suspect long-term opioid use may be contributing to some amount of dysmotility in her gut/constipation. Also expect an amount of hyperalgesia given that her tenderness is in her leg, back, abdomen, arms. - Will continue to attempt bowel cleanout with Miralax 3x daily with Colace and Senna. Continue fluid maintenance. 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 Pt is nonverbal at baseline and cares for all needs. Hypoxia: - O2 by nasal cannula at night. Dysphagia due to prior CVA: - With history of food bolus impaction as recently as January 2019. Follows with Dr. Durand for this. Does not appear to be an acute issue at this time. Sacral ulcer: - Per this is improving. - Wound consult placed and will care for stage 2 pressure ulcer. Left leg pain: - Chronic pain. Venous Doppler LLE performed which was negative. Chronic pain syndrome: - Has been on Fentanyl patches for 20 years per for fibromyalgia. Was originally started on 25 at that time and has slowly increased in dose. - Continue Fentanyl patches to control pain and to prevent withdrawal. Code Status: FULL CODE FEN/GI: minced diet, D5NSS w/ K 20meq @80mL/hr Dispo: Med/Surg DVT ppx: Heparin 5000u SQ BID (2) Chronic pain syndrome: (3) Sacral ulcer: (4) Left leg pain: Supervising Physician Co-Signing Physician Notes Patient seen and examined with PGY-1 Dr. Bergeron. Agree with history, exam findings, assessment and plan of care as outlined. In brief, Ms. Grimaldo is a 78 year old female with expressive aphasia secondary to a remote stroke and chronic hypoxia admitted with abdominal pain. She has tenderness in the lower quadrants of the abdomen as well as with palpation over the anterior shins and calves. 1. Abdominal pain. Unclear etiology, but possibly due to increased stool burden. Increased miralax to TID. CT Abd/Pelvis normal except for increased fecal burden. Hx of food bolus impaction; however, area of abdomen that she localizes her pain is not consistent with food bolus impaction. Continue IVFs. 2. Stage II Pressure Ulcer, present on admission. Wound consult. 3. Leg pain, chronic pain. Doppler neg for DVT. Uses fentanyl patch. Wonder if there is some element of hyperalgesia. Monitor. Tylenol and Motrin ok. Other chronic issues are stable. Home medications continued. Dispo: pending clinical improvement. Hopeful that she can be discharged tomorrow. Subjective Pt without acute events overnight. No BM as of yesterday. Pt still complaining of pain however pt is nonverbal and does not respond to questions in a meaningful way. Some wincing with abdominal exam. Pt's reports that she will wince when you try to feed her over the last few days. Review of Systems Review of Systems: Most questions are unable to be answered by the pt. However she localizes pain to her abdomen, but will state she has pain regardless of where you palpate. Gastrointestinal: + abdominal pain and + constipation Physical Exam Constitutional: WD/WN, vitals as above Respiratory: normal respiratory effort, lungs clear to auscultation Cardiovascular: RRR, no murmur, no edema Gastrointestinal (Abdomen): Inspection/Auscultation: normal bowel sounds Percussion/Palpation: abdomen soft Pt with TTP greatest over LLQ Skin: Pt with stage 2 pressure ulcer over R buttock. No drainage. Psychiatric: Orientation: alert Results & Data Vital Signs (Past 12 Hours) Vital Signs Temp Pulse Resp BP Pulse Ox 05/05/19 15:22 37.1 C 73 18 131/82 96 05/05/19 11:36 37.2 C 65 20 167/85 H 94 05/05/19 07:26 37.0 C 73 18 134/83 97 05/05/19 05:24 36.6 C 72 16 155/70 H 90 05/05/19 03:58 70 14 131/99 97 Laboratory Results Laboratory Results - last 24 hr 05/04/19 05/04/19 05/04/19 19:55 19:55 20:04 WBC 8.44 RBC 4.57 Hgb 13.6 Hct 40.3 MCV 88.2 MCH 29.8 MCHC 33.7 RDW Std Deviation 45.7 RDW Coeff of Stella 14.2 Plt Count 288 MPV 9.6 Immature Gran % (Auto) 0.1 Neut % (Auto) 67.9 Lymph % (Auto) 23.2 [place] % (Auto) 6.6 Eos % (Auto) 2.1 Baso % (Auto) 0.1 Immature Gran # (Auto) 0.01 Neut # (Auto) 5.72 Lymph # (Auto) 1.96 [place] # (Auto) 0.56 Eos # (Auto) 0.18 Baso # (Auto) 0.01 Sodium 137 Potassium 3.7 Chloride 102 Carbon Dioxide 29 Anion Gap 6.0 BUN 5 L Creatinine 0.59 L Est Cr Clr Drug Dosing Not Reportable Est GFR ( Amer) 101.7 Est GFR (Non-Af Amer) 87.8 BUN/Creatinine Ratio 8.0 L Glucose 107 H POC Lactic Acid Lit 0.85 L Calcium 9.0 Magnesium 1.8 Total Bilirubin 0.4 AST 22 ALT 15 Alkaline Phosphatase 92 Troponin I < 0.015 NT-Pro-B Natriuret Pep 500 Total Protein 6.3 L Albumin 2.8 L Globulin 3.5 Albumin/Globulin Ratio 0.8 L Lipase 47 L Urine Color Urine Appearance Urine pH Ur Specific Solomon Urine Protein Urine Glucose (UA) Urine Ketones Urine Blood Urine Nitrite Urine Bilirubin Urine Urobilinogen Ur Leukocyte Esterase 05/05/19 Unknown WBC RBC Hgb Hct MCV MCH MCHC RDW Std Deviation RDW Coeff of Stella Plt Count MPV Immature Gran % (Auto) Neut % (Auto) Lymph % (Auto) [place] % (Auto) Eos % (Auto) Baso % (Auto) Immature Gran # (Auto) Neut # (Auto) Lymph # (Auto) [place] # (Auto) Eos # (Auto) Baso # (Auto) Sodium Potassium Chloride Carbon Dioxide Anion Gap BUN Creatinine Est Cr Clr Drug Dosing Est GFR ( Amer) Est GFR (Non-Af Amer) BUN/Creatinine Ratio Glucose POC Lactic Acid Lit Calcium Magnesium Total Bilirubin AST ALT Alkaline Phosphatase Troponin I NT-Pro-B Natriuret Pep Total Protein Albumin Globulin Albumin/Globulin Ratio Lipase Urine Color Yellow Urine Appearance Clear Urine pH 7.5 Ur Specific Solomon 1.007 Urine Protein Negative Urine Glucose (UA) Negative Urine Ketones 1+ H Urine Blood Negative Urine Nitrite Negative Urine Bilirubin Negative Urine Urobilinogen Negative Ur Leukocyte Esterase Negative Medications Administered Current Medications Acetaminophen (Tylenol) 650 mg PO Q4H PRN PRN Reason: Pain or Fever Stop: 06/04/19 04:53 Al Hydrox/Mg Hydrox/Simethicone (Maalox) 15 ml PO Q4H PRN PRN Reason: Dyspepsia Stop: 06/04/19 04:53 Albuterol (Duoneb) 3 ml INH Q6H PRN PRN Reason: Shortness Of Breath Or Wheezing Stop: 06/04/19 04:53 Aspirin (Ecotrin Ectab) 81 mg PO HS [facility] Stop: 06/04/19 20:59 Bupropion HCl (Wellbutrin-Sr) 100 mg PO AMHS [facility] Stop: 06/04/19 08:59 Last Admin: 05/05/19 08:22 Dose: 100 mg Documented by: Citalopram Hydrobromide (Celexa) 20 mg PO QAM [facility] Stop: 06/04/19 08:59 Last Admin: 05/05/19 08:22 Dose: 20 mg Documented by: Fentanyl (Duragesic) 75 mcg TD Q72H [facility] Stop: 05/19/19 20:59 Gabapentin (Neurontin) 600 mg PO TID [facility] Stop: 06/04/19 08:59 Last Admin: 05/05/19 13:44 Dose: 600 mg Documented by: Heparin Sodium (Porcine) (Heparin Sodium (Porcine)) 5,000 units SQ Q12 [facility] Stop: 06/04/19 08:59 Last Admin: 05/05/19 08:21 Dose: 5,000 units Documented by: Potassium Chloride/Dextrose/Sod Cl (D5nss + 20meq Kcl) 20 meq in 1,000 mls @ 80 mls/hr IV .[id number] [facility] Stop: 06/04/19 05:29 Last Admin: 05/05/19 18:25 Dose: 80 mls/hr Documented by: Acetaminophen (Ofirmev) 1,000 mg in 100 mls @ 400 mls/hr IV Q8H PRN PRN Reason: Pain Stop: 05/08/19 04:53 Lansoprazole (Prevacid) 30 mg PO QAM [facility] Stop: 06/04/19 08:59 Last Admin: 05/05/19 08:22 Dose: 30 mg Documented by: Levothyroxine Sodium (Synthroid) 88 mcg PO DAILYBB [facility] Stop: 06/04/19 06:29 Last Admin: 05/05/19 06:53 Dose: 88 mcg Documented by: Magnesium Hydroxide (Milk Of Magnesia) 30 ml PO Q12H PRN PRN Reason: Constipation Stop: 06/04/19 04:53 Miscellaneous (Fentanyl Patch Remove & Waste) 1 ea N/A Q3D@2058 [facility] Stop: 06/04/19 20:58 Miscellaneous (Fentanyl Patch Check Placement) 1 ea N/A QS [facility] Stop: 06/04/19 07:59 Last Admin: 05/05/19 17:01 Dose: 1 ea Documented by: Ondansetron HCl (Zofran) 4 mg IV Q6H PRN PRN Reason: Nausea Stop: 06/04/19 04:53 Oxybutynin Chloride (Ditropan Xl) 5 mg PO [facility] Stop: 06/04/19 08:59 Last Admin: 05/05/19 08:23 Dose: 5 mg Documented by: Polyethylene Glycol (Miralax Powder Packet) 17 gm PO TID [facility] Stop: 05/06/19 08:59 Last Admin: 05/05/19 13:44 Dose: 17 gm Documented by: Potassium Chloride (Klor-Con Pwd) 20 meq PO [facility] Stop: 06/04/19 08:59 Last Admin: 05/05/19 08:21 Dose: 20 meq Documented by: Propranolol HCl (Inderal) 20 mg PO [facility] Stop: 06/04/19 08:59 Last Admin: 05/05/19 08:22 Dose: 20 mg Documented by: Senna/Docusate Sodium (Senokot S) 1 tab PO QAM [facility] Stop: 05/07/19 08:59 Last Admin: 05/05/19 08:22 Dose: 1 tab Documented by: Resident Activity Tracking Resident Involvement: Resident Care Provided Care Provided: Adult Hospital Medicine (1) Abdominal pain Abdominal location: unspecified location Qualified Code(s): R10.9 - Unspecified abdominal pain
[2019-05-05] MEDS ORDERED: ASPIRIN 81 MG ECTAB PO SCH (21:00)
[2019-05-05] MEDS ORDERED: fentaNYL 75 MCG/HR TDSY TD SCH (21:00)
[2019-05-05] MEDS ORDERED: POLYETHYLENE (MIRALAX) 17 GM PACK PO SCH (21:00)
[2019-05-06] MEDS: LEVOTHYROXINE SODIUM 88 MCG TABLET PO SCH (06:00)
[2019-05-06] MEDS: D5NSS + 20MEQ KCL 20 MEQ/1,000 ML BAG IV SCH (06:36)
[2019-05-06 07:16] LABS: Basophils # (auto) 0.01 K/uL (0-0.2); Basophils % (auto) 0.1 %; Eosinophils # (auto) 0.14 K/uL (0-0.5); Eosinophils % (auto) 1.8 %; Hematocrit (blood only) 35.8 % (37-47); Hemoglobin 11.9 g/dL (12.0-16.0); Immature Granulocytes # (auto) 0.01 K/uL (0.00-0.02); Immature Granulocytes % (auto) 0.1 %; Lymphocytes # (auto) 1.03 K/uL (1.2-3.4); Mean Corpuscular Hemoglobin 29.4 pg (25-34); Mean Corpuscular Hgb Conc 33.2 g/dL (32-36); Mean Corpuscular Volume 88.4 fL (80-100); Mean Platelet Volume 9.8 fL (7.4-10.4); Monocytes # (auto) 0.65 K/uL (0.11-0.59); Monocytes % (auto) 8.2 %; Neutrophils # (auto) 6.11 K/uL (1.4-6.5); Neutrophils % (auto) 76.8 %; Platelet Count 235 K/uL (130-400); RDW Coefficient of Variation 14.4 % (11.5-14.5); RDW Standard Deviation 46.4 fL (36.4-46.3); Red Blood Count 4.05 M/uL (4.2-5.4); White Blood Count 7.95 K/uL (4.8-10.8)
[2019-05-06 07:54] LABS: BUN Creatinine Ratio 4.5 (10-20); Calcium 7.8 mg/dl (8.5-10.1); Creatinine Clr Calc Pharmacy 64.4 ml/min; Est GFR (African American) 101.7; Est GFR (Non-African American) 87.8; Potassium 4.1 mmol/L (3.5-5.1)
--- NOTE | 2019-05-06 08:39 | Hospitalist Progress Note ---
Date of Service May 06, 2019 Results & Data Vital Signs (Past 12 Hours) Vital Signs Temp Pulse Resp BP BP Pulse Ox 05/06/19 07:54 36.9 C 63 18 121/80 100 05/05/19 23:50 36.9 C 66 20 137/82 95
[2019-05-06] MEDS: BuPROPion SR 100 MG TABCR PO SCH (09:32)
[2019-05-06] MEDS: CITALOPRAM 20 MG TAB PO SCH (09:32)
[2019-05-06] MEDS: CHECK FENTANYL PATCH PLACEMENT SCH ×2 (09:32)
[2019-05-06] MEDS: PROPRANOLOL HCL 20 MG TAB PO SCH (09:33)
[2019-05-06] MEDS: LANSOPRAZOLE 30 MG SOLTAB PO SCH (09:33)
[2019-05-06] MEDS: POTASSIUM CHLORIDE PWD 20 MEQ PACK PO SCH (09:33)
[2019-05-06] MEDS: DOCUSATE SODIUM/SENNA 50/8.6MG TAB PO SCH (09:33)
[2019-05-06] MEDS: OXYBUTYNIN CHLORIDE XL 5 MG TABCR PO SCH (09:33)
[2019-05-06] MEDS: HEPARIN SOD 5,000 UNIT/0.5 ML VIAL SQ SCH (09:35)
[2019-05-06] MEDS: GABAPENTIN 250 MG/5 ML 470 ML BTL PO SCH ×2 (09:59→14:38)
[2019-05-06] MEDS: POLYETHYLENE (MIRALAX) 17 GM PACK PO SCH (10:37)
--- NOTE | 2019-05-06 13:56 | Discharge Summary ---
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 History is provided entirely by patient's who is at the bedside. States that she has had ongoing abdominal pain issues for several months now. She has been seen several times by her PCP and been treated with antibiotics for diverticulitis as well as colitis which has not helped. She takes MiraLAX nightly and has 1 soft bowel movement every 1 to 2 days. Earlier today she refused to eat anything. She was able to drink. She is completely nonverbal and so says that she was not acting in the way she normally acts when she gets a UTI or food impaction in her esophagus. She did recently have food impaction requiring intervention 3 months ago and was hospitalized for such. Of note she has been on opioid analgesics for at least 20 years initially for her fibromyalgia. She is currently on fentanyl transdermal 75 mcg. states she points with her left hand to her lower abdomen above her bladder area when asked to point to the pain. She does have a sacral ulcer according to patient's which he has been treating with a cream. She has a nurse who comes into the house twice a week. She has not had any fevers or change in her breathing status. She is currently on oxygen but uses oxygen at night at her baseline. No cough. No loose stools or watery stools or bloody stools. Her urination has been at her baseline, no foul-smelling urine. She has had pain in her left leg he says for years and will retract her left leg when it is touched. He states that she is "touchy". Past medical history: Chronic pain syndrome, depression, dysphagia and food bolus, fibromyalgia, reflux disease, hypothyroid, hypertension, right-sided muscle weakness, stroke, Arnold's granulomatosis. Surgical history: History of appendectomy Social history: Lives with her who is her outbound supervisor, has nursing come twice a week. No T/E/D. Admission Exam Per Admitting Provider GENERAL: Awake, but is otherwise nonverbal however will nod her head and follow very basic commands occasionally, nontoxic-appearing, in no distress. HENT: Normocephalic, atraumatic. Nasal cannula in place. Mucus membranes appear moist. EYES: Normal conjunctiva. Sclera non-icteric. EOMI. NECK: Supple. Full range of motion. No JVD. RESPIRATORY: Clear to auscultation. Normal work of breathing. CARDIAC: Regular rate, normal rhythm. Extremities warm and well perfused, ABDOMEN: Soft, non-distended. Mild tenderness to palpation in suprapubic area and left lower quadrant. No rebound or guarding. No masses. Bowel sounds are normal. LOWER EXTREMITIES: Inspection of calves reveal equal size bilaterally. She retracts the left lower leg when I palpate the calf. No edema. No discoloration. NEURO: Right-sided weakness, expressive language disorder evident. Sensation in tact. CN II-XII grossly in tact. SKIN: Rash not present. No jaundice noted. Unable to examine sacral area due to habitus. PSYCH: Flat mood and affect. Cooperative. is present at the bedside during my examination. Principal Diagnosis Constipation Discharge Exam Constitutional: WD/WN, vitals as above Respiratory: normal respiratory effort, lungs clear to auscultation Cardiovascular: RRR, no murmur, no edema Gastrointestinal (Abdomen): Inspection/Auscultation: normal bowel sounds Percussion/Palpation: abdomen soft, pt with minimal abdominal pain to palpation after BM Skin: Pt with stage 2 pressure ulcer over R buttock. No drainage. Psychiatric: alert but unable to communicate verbally. Sometimes will say mumbled words however they do not correlate with the conversation Discharge Data Allergies Allergy/AdvReac Type Severity Reaction Status Date / Time Penicillins Allergy Intermediate HIVES Verified 05/04/19 19:47 Sulfa (Sulfonamide AdvReac Intermediate MOUTH Verified 05/04/19 19:47 Antibiotics) ULCERS Consultations 05/05/19 02:03 ED Decision to Admit Stat 05/05/19 04:54 Consult Case Management - Discharge Planning Routine Ordered Studies 05/04/19 23:38 CT abd pelvis IV con only Urgent 05/05/19 04:54 US venous doppler LE LT Routine Hospital Course (1) Abdominal pain: 78 yo F here for intractable abdominal pain and constipation. Abdominal pain and constipation: - Workup has been negative for infectious causes, liver or pancreatic abnormalities, electrolyte abnormalities. - CT abdomen shows some stool burden however no impaction. - Suspect long-term opioid use may be contributing to some amount of dysmotility in her gut/constipation. Also expect an amount of hyperalgesia given that her tenderness is in her leg, back, abdomen, arms. - After large BM pt with minimal symptoms; have advised pt's /outbound supervisor to increase Miralax so that she has BMs every other day at minimum. 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 Pt is nonverbal at baseline and cares for all needs. Hypoxia: - O2 by nasal cannula at night. Dysphagia due to prior CVA: - With history of food bolus impaction as recently as January 2019. Follows with Dr. Durand for this. Does not appear to be an acute issue at this time. - Will follow outpatient with GI at pt's convenience. Sacral ulcer: - Per this is improving. - Wound care by home health services. Left leg pain: - Chronic pain. Venous Doppler LLE performed which was negative. Chronic pain syndrome: - Has been on Fentanyl patches for 20 years per for fibromyalgia. Was originally started on 25 at that time and has slowly increased in dose. - Continue Fentanyl patches to control pain and to prevent withdrawal. (2) Chronic pain syndrome: (3) Sacral ulcer: (4) Left leg pain: Total Time Total Time Spent Total Time Spent (In Minutes): see attending attestation. Discharge Plan Discharge Items Patient Disposition: Home - Home Health Services Reason For Visit: ABDOMINAL PAIN Discharge Diagnosis: constipation Activity: Resume your previous activity Non-emergency contact: Primary Care Provider Call non-emergency contact if: you have any medication questions, your symptoms worsen and your temperature is above 101 Follow-up/Referrals: Sher Chu Jr, DO [Primary Care Provider] - Diet: Regular Diet Texture: Mechanical soft (ground) Addtl Attending Provider Instructions: You were admitted to the hospital for an increase in your abdominal pain. While you were here, we checked your liver and pancreas for abnormalities which were negative. We did a CT scan of your belly which showed that you had some excess stool but NOT an obstruction. This could be possibly because Fentanyl patches slow down the motion of the gut, making people more constipated. We began giving you Miralax to help you have a good bowel movement. We also gave you fluids because you were a little dehydrated when you came in. We checked for infections of the gut with bloodwork and imaging which were negative. After a large bowel movement your pain appeared to be improved, so we felt safe to discharge you home with follow up with your primary care doctor. Home health services will check your bottom to make sure that the ulcer there heals. It will be important after discharge from the hospital for you to have follow up with your primary care doctor to further talk about your chronic pain and your belly pain. Dr. Chu will talk with you more about your esophagus and seeing a GI doctor outside the hospital. Please increase your Miralax from once a day to twice a day. You should be having a bowel movement at least every other day, so you can increase the Miralax if needed. Pending Studies at Discharge: No Stand-Alone Forms: Call Back Authorization, [facility], Smoking Cessation Medications and DC Order Prescriptions: Continued gabapentin 600 mg tablet 600 mg PO TID RF: 0 aspirin [Aspir-Low] 81 mg Tablet,Delayed Release (Dr/Ec) 81 mg PO HS RF: 0 citalopram 20 mg tablet 20 mg PO QAM RF: 0 lansoprazole [Prevacid SoluTab] 30 mg Tablet,Disintegrat, Delay Rel 30 mg PO QAM Qty: 30 RF: 2 multivitamin liquid 5 ml PO DAILY Qty: 237 RF: 2 oxybutynin chloride 10 mg tablet extended release 24hr 5 mg PO AMHS RF: 0 potassium chloride 20 mEq packet 20 meq PO AMHS RF: 0 bupropion HCl 100 mg tablet sustained-release 12 hr 100 mg PO AMHS RF: 0 ipratropium-albuterol 0.5 mg-3 mg(2.5 mg base)/3 mL solution for nebulization 3 ml inhalation Q6H PRN (Reason: Shortness Of Breath Or Wheezing) RF: 0 propranolol 20 mg tablet 20 mg PO AMHS RF: 0 fentanyl 75 mcg/hr patch 72 hour 75 mcg Transdermal [id number] RF: 0 levothyroxine 88 mcg capsule 88 mcg PO QAM RF: 0 Discharge Orders: Discharge Order (Routine); Ordered 05/06/19 Ordered By: Anne Bergeron Admission Data Admit Date/Time: 05/05/19 04:00 Attending Provider: Krissy Batista Admit Provider: Abigail Nicole Primary Care Provider: Sher Chu Jr Other Providers: Samy Boone ; [facility] Other Interventions: Discharge Summary Assessment (RN) Last Done: 05/06/19 15:17 DC Date/Time DO NOT enter until pt leaves facility: 05/06/19 16:02 Supervising Physician Co-Signing Physician Notes Patient seen and examined with PGY-1 Dr. Bergeron. Agree with history, exam findings, assessment and plan of care as outlined. In brief, Ms. Grimaldo is a 78 year old female with expressive aphasia secondary to a remote stroke and chronic hypoxia admitted with abdominal pain. CT abdomen pelvis was unremarkable with the exception of a large stool burden. Miralax was increased to TID (home dose once daily) and after she was able to have a bowel movement, her abdominal pain improved. On discharge, recommend increasing miralax to twice daily and can titrate based on bowel movements. She is on chronic TD fentanyl which may be contributing to some of the stool burder. She did have a Stage II sacral pressure ulcer on admission. Other chronic issues stable and home medications continued. I personally spent 25 minutes discharge planning for this patient. Resident Activity Tracking Resident Involvement: Resident Care Provided Care Provided: Adult Hospital Medicine
== END 2019-05-06 16:02 | disposition home health service (06) ==
LOC: ED 19:12 → 2N 19:12 → SUATTDRO 05-05 04:00 → 2N 05-05 04:45

== ENCOUNTER 2019-05-10 17:24 | Observation (INO) ==
[2019-05-10] MEDS ORDERED: SODIUM CHLORIDE 0.9% 1000ML 1,000 ML IV ONE (18:09)
[2019-05-10] MEDS ORDERED: ONDANSETRON INJ 2 MG/ML 2 ML VIAL IV STA (18:09)
[2019-05-10] MEDS ORDERED: ACETAMINOPHEN 1,000 MG/100 ML VIAL IV STA (18:09)
--- NOTE | 2019-05-10 18:19 | Emergency Department Note ---
Entered by Shivani Power acting as a scribe for Sadie Rivas DO History of Present Illness General Chief complaint: Abdominal Pain Stated complaint: ABD PAIN Time Seen by Provider: 05/10/19 18:02 Source: family Mode of arrival: ambulatory Limitations: physical limitation History of Present Illness Provider complaint: Abdominal pain, fevers, refusing to eat Onset (ago): day(s) 2 Location: head and abdomen Pain Consistency: + constant Quality: + constant Relieved By: + none Exacerbated By: + none Treatments prior to arrival: none This is a 78-year-old female with a history of prior CVA and expressive aphasia who presents with her who is her primary caregiver due to concern for poor p.o. intake, abdominal pain, fevers, and headaches. Patient was seen here on 05/06/2019 for abdominal pain and was kept overnight for observation. Patient's evaluation revealed mild constipation and she was given additional medication for this. states she developed diarrhea secondary to this which finally stopped yesterday. He states that did not find any other acute pathology for her abdominal pain. He states since being discharged, she has been refusing to eat and drink, had an episode of vomiting today. She has still been getting her routine medications with the exception of this morning's meds. He states last night she felt very hot and then broke out in a cold sweat. He did not measure her temperature during that time. He states she still seems to be in pain and holds her abdomen, as well as now she is also intermittently reaching for her forehead as if she has a headache. states she does not have a history of headaches. Has been states while she does have a history of UTIs, this is not consistent with her prior presentations of UTIs. Patient did eat soup and mashed potatoes yesterday. History is limited by patient's expressive aphasia. is the primary caregiver and historian. Home Medications Home Medications Medication Instructions Recorded Confirmed Type aspirin [Aspir-Low] 81 mg PO QPM 01/17/18 05/10/19 History citalopram 20 mg PO QAM 01/17/18 05/10/19 History gabapentin 600 mg PO TID 01/17/18 05/10/19 History oxybutynin chloride 5 mg PO AMPM 02/26/19 05/10/19 History bupropion HCl 100 mg PO AMPM 05/04/19 05/10/19 History fentanyl 75 mcg TRANSDERMAL [id number] 05/04/19 05/10/19 History ipratropium-albuterol 3 ml INHALATION Q6H PRN 05/04/19 05/10/19 History levothyroxine 88 mcg PO DAILYBB 05/04/19 05/10/19 History propranolol 20 mg PO AMPM 05/04/19 05/10/19 History multivitamin 1 tab PO DAILY 05/10/19 05/10/19 History omeprazole 20 mg PO AMPM 05/10/19 05/10/19 History potassium chloride 20 meq PO AMPM 05/10/19 05/10/19 History Allergies Allergy/AdvReac Type Severity Reaction Status Date / Time Penicillins Allergy Intermediate HIVES Verified 05/10/19 18:33 Sulfa (Sulfonamide AdvReac Intermediate MOUTH Verified 05/10/19 18:33 Antibiotics) ULCERS Past Med/Surg History Medical History Chronic pain syndrome Depression Esophageal mass Expressive language disorder (05/17/11) Fibromyalgia Food impaction of esophagus GERD (gastroesophageal reflux disease) Hypertension Hypothyroid Non-verbally indicates understanding Peptic ulcer (05/17/11) Pneumonia Right-sided muscle weakness Stroke UTI (urinary tract infection) Arnold's granulomatosis (05/17/11) Surgical History History of appendectomy Family History Other No pertinent family history in first degree relatives Social History Preferred Language: Macanese Communication Ability: Impaired Communication Ability Comment: hx cva, nonverbal [employer] Required: No Beliefs That Will Affect Care: None marital status: Current Living Situation: Spouse Feels Safe at Home: Yes Smoking Status: Never smoker Second Hand Exposure: No ; Hx Alcohol Use: No Hx Substance Use: No Review of Systems See HPI for pertinent positives & negatives. ROS is limited due to the patient's expressive aphasia from prior stroke. Physical Exam Vital Signs Vital Signs - 24 hr 05/10/19 20:30 05/10/19 20:31 05/10/19 21:14 Pulse Rate 61 62 72 Pulse Rate from SpO2 Sensor 61 62 Respiratory Rate 10 L 16 18 Blood Pressure 162/76 H Blood Pressure Mean 110 Pulse Oximetry 100 100 Oxygen Delivery Method Nasal Cannula Nasal Cannula Nasal Cannula Oxygen Flow Rate 2 2 2 05/10/19 21:20 05/10/19 21:30 05/10/19 21:31 Pulse Rate 73 70 94 H Pulse Rate from SpO2 Sensor 70 73 95 H Respiratory Rate 18 19 26 H Blood Pressure 148/90 H Blood Pressure Mean 101 Pulse Oximetry 99 98 99 Oxygen Delivery Method Nasal Cannula Nasal Cannula Nasal Cannula Oxygen Flow Rate 2 2 2 05/10/19 21:40 05/10/19 21:50 05/10/19 22:00 Pulse Rate 78 82 84 Pulse Rate from SpO2 Sensor 74 81 83 Respiratory Rate 28 H 18 17 Blood Pressure Blood Pressure Mean Pulse Oximetry 99 99 97 Oxygen Delivery Method Nasal Cannula Nasal Cannula Nasal Cannula Oxygen Flow Rate 2 2 2 05/10/19 22:10 05/10/19 22:20 05/10/19 22:32 Pulse Rate 65 75 75 Pulse Rate from SpO2 Sensor 65 76 Respiratory Rate 10 L 15 24 Blood Pressure Blood Pressure Mean Pulse Oximetry 99 99 Oxygen Delivery Method Nasal Cannula Nasal Cannula Nasal Cannula Oxygen Flow Rate 2 2 2 05/10/19 22:40 05/10/19 22:50 05/10/19 23:00 Pulse Rate 72 68 69 Pulse Rate from SpO2 Sensor 72 68 69 Respiratory Rate 11 L 9 L 17 Blood Pressure 136/80 Blood Pressure Mean 92 Pulse Oximetry 76 L 98 99 Oxygen Delivery Method Room Air Nasal Cannula Nasal Cannula Oxygen Flow Rate 2 2 05/10/19 23:01 05/10/19 23:10 05/10/19 23:20 Pulse Rate 68 68 69 Pulse Rate from SpO2 Sensor 67 68 69 Respiratory Rate 14 13 16 Blood Pressure Blood Pressure Mean Pulse Oximetry 98 98 99 Oxygen Delivery Method Nasal Cannula Nasal Cannula Nasal Cannula Oxygen Flow Rate 2 2 2 05/10/19 23:30 05/10/19 23:31 05/10/19 23:40 Pulse Rate 72 70 62 Pulse Rate from SpO2 Sensor 72 71 62 Respiratory Rate 17 15 15 Blood Pressure 152/92 H Blood Pressure Mean 100 Pulse Oximetry 98 99 99 Oxygen Delivery Method Nasal Cannula Nasal Cannula Nasal Cannula Oxygen Flow Rate 2 2 2 05/10/19 23:50 05/11/19 00:00 05/11/19 00:10 Pulse Rate 69 69 71 Pulse Rate from SpO2 Sensor 70 69 71 Respiratory Rate 14 14 19 Blood Pressure 141/81 H Blood Pressure Mean 97 Pulse Oximetry 99 99 100 Oxygen Delivery Method Nasal Cannula Nasal Cannula Nasal Cannula Oxygen Flow Rate 2 2 2 05/11/19 00:20 05/11/19 00:30 Pulse Rate 72 63 Pulse Rate from SpO2 Sensor 72 63 Respiratory Rate 13 18 Blood Pressure 137/82 Blood Pressure Mean 94 Pulse Oximetry 100 100 Oxygen Delivery Method Nasal Cannula Nasal Cannula Oxygen Flow Rate 2 2 GENERAL: alert, uncomfortable appearing, well nourished, mild distress, moans during physical exam, non-toxic. EYE EXAM: normal conjunctiva, PERRL and EOM's grossly intact OROPHARYNX: no exudate, no erythema, lips, buccal mucosa, and tongue normal and mucous membranes are dry. NECK: supple, no nuchal rigidity, no adenopathy, non-tender LUNGS: Clear to auscultation. Normal chest wall mechanics. No wheezes, rhonchi, or rales. HEART: no murmurs, S1 normal and S2 normal ABDOMEN: abdomen soft, diffuse abdominal tenderness with palpation, normo-active bowel sounds, no masses, no rebound or guarding. BACK: Back is symmetrical on inspection and there is no deformity, no midline tenderness, no CVA tenderness. SKIN: no rashes and no bruising UPPER EXTREMITIES: upper extremities are grossly normal. No evidence of trauma, normal pulses bilaterally. LOWER EXTREMITIES: No pitting edema. No evidence of trauma, normal pulses bilaterally. NEURO EXAM: Awake and alert, expressive aphasia, cranial nerves II-XII grossly intact, no gross weakness of arms, no gross weakness of legs. Course Course 180: Past medical records reviewed. The patient was evaluated in room C09. A complete history and physical exam was performed. 2234: I checked on the patient. Her stayed and she still appears very uncomfortable. 2255: I spoke to Dr. Mathew, [facility] Hospitalist who will evaluate the patient for further inpatient management. Administered Medications Bupropion HCl (Wellbutrin-Sr) 100 mg PO BID [facility] Stop: 06/10/19 08:59 Last Admin: 05/11/19 09:05 Dose: 100 mg Documented by: [id number] Citalopram Hydrobromide (Celexa) 20 mg PO QAM [facility] Stop: 06/10/19 08:59 Last Admin: 05/11/19 09:02 Dose: 20 mg Documented by: [id number] Enoxaparin Sodium (Lovenox) 40 mg SQ Q24H [facility] Stop: 06/10/19 08:59 Last Admin: 05/11/19 09:04 Dose: 40 mg Documented by: [id number] Fentanyl (Duragesic) 75 mcg TD Q72H [facility] Stop: 05/25/19 08:59 Last Admin: 05/11/19 09:03 Dose: 75 mcg Documented by: [id number] Gabapentin (Neurontin) 600 mg PO TID [facility] Stop: 06/10/19 08:59 Last Admin: 05/11/19 15:46 Dose: 600 mg Documented by: [id number] Admin: 05/11/19 09:05 Dose: 600 mg Documented by: [id number] Ciprofloxacin (Cipro) 400 mg in 200 mls @ 100 mls/hr IV Q12H [facility]; Protocol Stop: 05/21/19 04:59 Last Admin: 05/11/19 18:19 Dose: 100 mls/hr Documented by: [id number] Infusion: 05/11/19 08:50 Dose: 0 mls/hr Documented by: [id number] Admin: 05/11/19 05:13 Dose: 100 mls/hr Documented by: [id number] Metronidazole (Flagyl) 500 mg in 100 mls @ 100 mls/hr IV Q8H [facility] Stop: 05/21/19 03:59 Last Infusion: 05/11/19 13:51 Dose: 0 mls/hr Documented by: [id number] Admin: 05/11/19 11:52 Dose: 100 mls/hr Documented by: [id number] Infusion: 05/11/19 06:13 Dose: 0 mls/hr Documented by: [id number] Admin: 05/11/19 05:05 Dose: 100 mls/hr Documented by: [id number] Sodium Chloride (Nss 1000ml) 1,000 mls @ 100 mls/hr IV .Q10H [facility] Stop: 06/10/19 02:13 Last Admin: 05/11/19 15:45 Dose: 100 mls/hr Documented by: [id number] Infusion: 05/11/19 15:45 Dose: 100 mls/hr Documented by: [id number] Infusion: 05/11/19 14:52 Dose: 100 mls/hr Documented by: [id number] Infusion: 05/11/19 11:55 Dose: 0 mls/hr Documented by: [id number] Infusion: 05/11/19 03:17 Dose: 100 mls/hr Documented by: [id number] Infusion: 05/11/19 02:50 Dose: 0 mls/hr Documented by: [id number] Admin: 05/11/19 02:46 Dose: 100 mls/hr Documented by: [id number] Ioversol (Optiray 320 125ml) 119 ml IV ONCE PRN PRN Reason: Interaction Checking Stop: 05/14/19 20:35 Last Admin: 05/10/19 20:37 Dose: 119 ml Documented by: [id number] Levothyroxine Sodium (Synthroid) 88 mcg PO DAILYBB [facility] Stop: 06/10/19 06:29 Last Admin: 05/11/19 05:40 Dose: 88 mcg Documented by: [id number] Miscellaneous (Fentanyl Patch Remove & Waste) 1 ea N/A Q72H [facility] Stop: 06/10/19 08:58 Last Admin: 05/11/19 08:57 Dose: 1 ea Documented by: [id number] Cosigned by: [id number] Miscellaneous (Fentanyl Patch Check Placement) 1 ea N/A QS [facility] Stop: 06/10/19 15:59 Last Admin: 05/11/19 15:45 Dose: 1 ea Documented by: [id number] Multivitamins (Multivitamin Tab) 1 tab PO DAILY [facility] Stop: 06/10/19 08:59 Last Admin: 05/11/19 09:04 Dose: 1 tab Documented by: [id number] Oxybutynin Chloride (Ditropan Xl) 5 mg PO BID [facility] Stop: 06/10/19 08:59 Last Admin: 05/11/19 09:02 Dose: 5 mg Documented by: [id number] Pantoprazole Sodium (Protonix) 40 mg PO BID [facility] Stop: 06/10/19 08:59 Last Admin: 05/11/19 09:05 Dose: 40 mg Documented by: [id number] Potassium Chloride (Klor-Con Pwd) 20 meq PO BID [facility] Stop: 06/10/19 08:59 Last Admin: 05/11/19 09:04 Dose: 20 meq Documented by: [id number] Propranolol HCl (Inderal) 20 mg PO BID [facility] Stop: 06/10/19 08:59 Last Admin: 05/11/19 09:03 Dose: 20 mg Documented by: [id number] Discontinued Medications Hydromorphone HCl (Dilaudid) 0.5 mg IV NOW STA Stop: 05/11/19 03:47 Last Admin: 05/11/19 04:06 Dose: 0.5 mg Documented by: [id number] Hydromorphone HCl (Dilaudid) 0.5 mg IV Q4H PRN PRN Reason: Severe Pain Stop: 05/25/19 08:59 Last Admin: 05/11/19 13:15 Dose: 0.5 mg Documented by: [id number] Admin: 05/11/19 09:12 Dose: 0.5 mg Documented by: [id number] Sodium Chloride (Nss 1000ml) 1,000 mls @ 999 mls/hr IV .Q1H1M ONE Stop: 05/10/19 19:09 Last Infusion: 05/10/19 20:55 Dose: 0 mls/hr Documented by: [id number] Admin: 05/10/19 19:50 Dose: 999 mls/hr Documented by: [id number] Acetaminophen (Ofirmev) 1,000 mg in 100 mls @ 400 mls/hr IV NOW STA Stop: 05/10/19 18:23 Last Infusion: 05/10/19 20:19 Dose: 0 mls/hr Documented by: [id number] Admin: 05/10/19 19:55 Dose: 400 mls/hr Documented by: [id number] Famotidine 20 mg/ Syringe 5 mls @ 2.5 mls/min IV ONE ONE Stop: 05/11/19 02:46 Last Admin: 05/11/19 03:35 Dose: 2.5 mls/min Documented by: [id number] Potassium Chloride (K Honorio / Wtr) 10 meq in 100 mls @ 100 mls/hr IV Q1H [facility] Stop: 05/11/19 11:59 Last Infusion: 05/11/19 13:56 Dose: 0 mls/hr Documented by: [id number] Admin: 05/11/19 12:19 Dose: 100 mls/hr Documented by: [id number] Infusion: 05/11/19 12:18 Dose: 0 mls/hr Documented by: [id number] Admin: 05/11/19 10:49 Dose: 100 mls/hr Documented by: [id number] Infusion: 05/11/19 10:49 Dose: 100 mls/hr Documented by: [id number] Admin: 05/11/19 09:50 Dose: 100 mls/hr Documented by: [id number] Infusion: 05/11/19 09:49 Dose: 0 mls/hr Documented by: [id number] Admin: 05/11/19 08:52 Dose: 100 mls/hr Documented by: [id number] Magnesium Sulfate/Dextrose (Magnesium Sulfate / D5w) 1 gm in 100 mls @ 100 mls/hr IV ONE ONE Stop: 05/11/19 15:24 Last Infusion: 05/11/19 18:19 Dose: 0 mls/hr Documented by: [id number] Admin: 05/11/19 15:45 Dose: 100 mls/hr Documented by: [id number] Ondansetron HCl (Zofran) 4 mg IV NOW STA Stop: 05/10/19 18:10 Last Admin: 05/10/19 19:52 Dose: 4 mg Documented by: [id number] Medical Decision Making Differential Diagnosis Differential diagnosis includes but is not limited to etiologies such as appendicitis, diverticulitis, PUD, biliary pathology, UTI, pancreatitis, obstruction, mesenteric ischemia, aortic pathology, infections, inflammatory bowel disease, renal colic, as well as others were entertained. Medical Records Attestation: I reviewed the patient's medical records. Home Medications Current Medication List: was personally reviewed by me Laboratory Data Attestation: I reviewed the patient's lab results. Result diagrams: 05/11/19 05:26 05/11/19 05:26 Lab Results 05/10/19 05/10/19 05/10/19 Range/Units 19:13 19:30 19:34 WBC 15.27 H (4.8-10.8) K/uL RBC 5.10 (4.2-5.4) M/uL Hgb 15.0 (12.0-16.0) g/dL Hct 44.2 (37-47) % MCV 86.7 (80-100) fL MCH 29.4 (25-34) pg MCHC 33.9 (32-36) g/dL RDW Std Deviation 45.2 (36.4-46.3) fL RDW Coeff of Stella 14.3 (11.5-14.5) % Plt Count 320 (130-400) K/uL MPV 9.4 (7.4-10.4) fL Immature Gran % (Auto) 0.3 % Neut % (Auto) 76.4 % Lymph % (Auto) 17.7 % Fannin % (Auto) 5.1 % Eos % (Auto) 0.4 % Baso % (Auto) 0.1 % Immature Gran # (Auto) 0.05 H (0.00-0.02) K/uL Neut # (Auto) 11.65 H (1.4-6.5) K/uL Lymph # (Auto) 2.71 (1.2-3.4) K/uL Fannin # (Auto) 0.78 H (0.11-0.59) K/uL Eos # (Auto) 0.06 (0-0.5) K/uL Baso # (Auto) 0.02 (0-0.2) K/uL Sodium 132 L (136-145) mmol/L Potassium 4.0 (3.5-5.1) mmol/L Chloride 96 L (98-107) mmol/L Carbon Dioxide 24 (21-32) mmol/L Anion Gap 12.0 H (3-11) BUN 3 L (7-18) mg/dl Creatinine 0.52 L (0.6-1.2) mg/dl Est Cr Clr Drug Dosing 83.5 ml/min Est GFR ( Amer) 106.1 Est GFR (Non-Af Amer) 91.5 BUN/Creatinine Ratio 5.4 L (10-20) Glucose 111 H (70-99) mg/dl POC Lactic Acid Lit 1.54 (0.90-1.70) mmol/L Calcium 8.8 (8.5-10.1) mg/dl Magnesium 1.8 (1.8-2.4) mg/dl Total Bilirubin 0.5 (0.2-1) mg/dl AST 28 (15-37) U/L ALT 21 (12-78) U/L Alkaline Phosphatase 100 (45-117) U/L Troponin I 0.019 (0-0.045) ng/ml Total Protein 6.6 (6.4-8.2) gm/dl Albumin 2.8 L (3.4-5.0) gm/dl Globulin 3.8 (2.5-4.0) gm/dl Albumin/Globulin Ratio 0.7 L (0.9-2) Lipase 35 L (73-393) U/L Influenza Type A (PCR) (Neg) Influenza Type B (PCR) (Neg) 05/10/19 Range/Units 19:37 WBC (4.8-10.8) K/uL RBC (4.2-5.4) M/uL Hgb (12.0-16.0) g/dL Hct (37-47) % MCV (80-100) fL MCH (25-34) pg MCHC (32-36) g/dL RDW Std Deviation (36.4-46.3) fL RDW Coeff of Stella (11.5-14.5) % Plt Count (130-400) K/uL MPV (7.4-10.4) fL Immature Gran % (Auto) % Neut % (Auto) % Lymph % (Auto) % Fannin % (Auto) % Eos % (Auto) % Baso % (Auto) % Immature Gran # (Auto) (0.00-0.02) K/uL Neut # (Auto) (1.4-6.5) K/uL Lymph # (Auto) (1.2-3.4) K/uL Fannin # (Auto) (0.11-0.59) K/uL Eos # (Auto) (0-0.5) K/uL Baso # (Auto) (0-0.2) K/uL Sodium (136-145) mmol/L Potassium (3.5-5.1) mmol/L Chloride (98-107) mmol/L Carbon Dioxide (21-32) mmol/L Anion Gap (3-11) BUN (7-18) mg/dl Creatinine (0.6-1.2) mg/dl Est Cr Clr Drug Dosing ml/min Est GFR ( Amer) Est GFR (Non-Af Amer) BUN/Creatinine Ratio (10-20) Glucose (70-99) mg/dl POC Lactic Acid Lit (0.90-1.70) mmol/L Calcium (8.5-10.1) mg/dl Magnesium (1.8-2.4) mg/dl Total Bilirubin (0.2-1) mg/dl AST (15-37) U/L ALT (12-78) U/L Alkaline Phosphatase (45-117) U/L Troponin I (0-0.045) ng/ml Total Protein (6.4-8.2) gm/dl Albumin (3.4-5.0) gm/dl Globulin (2.5-4.0) gm/dl Albumin/Globulin Ratio (0.9-2) Lipase (73-393) U/L Influenza Type A (PCR) Neg for Influ A (Neg) Influenza Type B (PCR) Neg for Influ B (Neg) Imaging Data Radiologist's Impression: Radiology results as stated below per my review and the radiologist's interpretation: CT angio abdomen pelvis w con HISTORY: persistent generalized abdominal pain TECHNIQUE: Multiaxial CT images of the abdomen and pelvis were performed following the intravenous administration of contrast to evaluate the aorta or mesenteric vessels. Maximum intensity projection images were also obtained. COMPARISON STUDY: Abdomen and pelvis CT 05/05/2019. FINDINGS: There is motion artifact throughout the examination resulting in suboptimal evaluation. A few bibasilar linear densities favor subsegmental atelectasis. No pneumoperitoneum. No pneumatosis. The bones are osteopenic. No suspicious lytic or blastic osseous lesions. Suboptimal evaluation abdominal and pelvic vessels due to the motion artifact. However, the abdominal aorta is normal in caliber with no evidence for dissection. Scattered atherosclerotic plaque seen within the abdominal vessels. The iliac and femoral arteries are patent. The celiac and inferior mesenteric arteries are widely patent. There is motion artifact obscuring the majority of the renal and superior mesenteric arteries. However, these are likely patent and show no evidence for high-grade stenosis or occlusion. The upper abdominal structures are not well visualized due to the motion artifact. Normal bladder. The upper vagina or cervix is fluid- filled and distended. This is best seen on image 336. This measures 2.5 cm in di ameter. This is new compared to the prior study. Question of mild thickening of the rectal wall. However, this could be due to underdistention. The majority of the colon is decompressed. No evidence for bowel obstruction. No retroperitoneal lymphadenopathy. No pelvic free fluid. The visualized liver, gallbladder, spleen, adrenal glands, pancreas, and kidneys appear grossly unremarkable. No hydronephrosis. IMPRESSION: 1. Suboptimal evaluation due to the extensive motion artifact. 2. No definite high-grade stenosis or occlusion within the mesenteric arteries. 3. Normal caliber abdominal aorta with no evidence for dissection. 4. Questionable mild rectal wall thickening. However, this could be due to underdistention. 5. Interval development of a distended and fluid-filled upper vagina/cervix. Pelvic exam recommended for direct visualization. ACT 112: Negative or not required by law. Electronically signed by: Brando Naylor M.D. 05/10/2019 9:[address] CT DOSE: HISTORY: headache TECHNIQUE: Multiaxial CT images of the head were performed without the use of intravenous contrast. Automated exposure control was utilized for this study. A dose lowering technique was utilized adhering to the principles of ALARA. Comparison: Head CT 12/05/2018. Findings: Extensive motion artifact. The paranasal sinuses and mastoid air cells appear clear. The calvarium and skull base are likely intact. No definite mass, hematoma, midline shift, acute infarct. Atrophy and microvascular ischemic changes are again noted. There is an old left periventricular infarct resulting in ex vacuo dilatation of the left lateral ventricle. This remains unchanged. Impression: Motion artifact. No definite acute intracranial abnormality. Old left-sided infarct is again noted. ACT 112: Negative or not required by law. Electronically signed by: Brando Naylor M.D. 05/10/2019 9:39 PM ECG Data Attestation: I personally reviewed and interpreted this ECG as follows: Indication: + abdominal pain Rate (beats per minute): 63 Rhythm: + sinus rhythm ECG Intervals/blocks: + Right Bundle branch block ECG [place]: + Normal ECG Findings: + Other (baseline artifact, no other acute ischemic changes ) Comparison ECG Date: from (05/04/19) Change: no significant change Blood Pressure Blood Pressure Findings: Elevated blood pressure Blood Pressure Disposition: further management by hospitalist [facility] Narrative Patient here appears worse than her last ER visit and inpatient stay for which had originally seen her as well. Patient hemodynamically stable and afebrile. Mild leukocytosis noted although unclear if from evolving infection versus stress to margination from vomiting earlier today. Repeat abdominal CT unremarkable. I do not suspect occult ischemia. CT of the head unremarkable. Patient continued to be uncomfortable appearing. All results discussed with family at bedside. Case discussed with hospitalist for additional inpatient evaluation. Impression & Plan Abdominal pain, Headache, Vomiting Discharge Plan Visit Data *Final* Discharge Date/Time: 05/11/19 01:31 Chief Complaint: Abdominal Pain Stated Complaint: ABD PAIN ED Provider: Sadie Rivas Discharge Problem: Abdominal pain, Headache, Vomiting Patient Disposition: Admitted As Inpatient Discharge Instructions Interventions: ED Discharge Assessment Last Done: 05/11/19 01:31 Discharge Problem: Abdominal pain Qualifiers: Abdominal location: generalized Qualified Code(s): R10.84 - Generalized abdomin al pain Headache Qualifiers: Headache type: unspecified Headache chronicity pattern: unspecified pattern Vomiting Qualifiers: Vomiting type: unspecified Vomiting Intractability: non-intractable Nausea presence: unspecified Qualified Code(s): R11.10 - Vomiting, unspecified The scribe's documentation has been prepared under my direction and personally reviewed by me in its entirety. I confirm that the note above accurately reflects all work, treatment, procedures, and medical decision making performed by me.
[2019-05-10 19:39] LABS: Basophils # (auto) 0.02 K/uL (0-0.2); Basophils % (auto) 0.1 %; Eosinophils # (auto) 0.06 K/uL (0-0.5); Eosinophils % (auto) 0.4 %; Hematocrit (blood only) 44.2 % (37-47); Immature Granulocytes # (auto) 0.05 K/uL (0.00-0.02); Immature Granulocytes % (auto) 0.3 %; Lymphocytes # (auto) 2.71 K/uL (1.2-3.4); Lymphocytes % (auto) 17.7 %; Mean Corpuscular Hemoglobin 29.4 pg (25-34); Mean Corpuscular Hgb Conc 33.9 g/dL (32-36); Mean Corpuscular Volume 86.7 fL (80-100); Mean Platelet Volume 9.4 fL (7.4-10.4); Monocytes # (auto) 0.78 K/uL (0.11-0.59); Monocytes % (auto) 5.1 %; Neutrophils # (auto) 11.65 K/uL (1.4-6.5); Neutrophils % (auto) 76.4 %; Platelet Count 320 K/uL (130-400); RDW Coefficient of Variation 14.3 % (11.5-14.5); RDW Standard Deviation 45.2 fL (36.4-46.3); White Blood Count 15.27 K/uL (4.8-10.8)
[2019-05-10 20:03] LABS: Albumin Globulin Ratio 0.7 (0.9-2); Albumin Level 2.8 gm/dl (3.4-5.0); BUN Creatinine Ratio 5.4 (10-20); Bilirubin,Total 0.5 mg/dl (0.2-1); Calcium 8.8 mg/dl (8.5-10.1); Creatinine Clr Calc Pharmacy 83.5 ml/min; Est GFR (African American) 106.1; Est GFR (Non-African American) 91.5; Globulin 3.8 gm/dl (2.5-4.0); Total Protein 6.6 gm/dl (6.4-8.2); Troponin I 0.019 ng/ml (0-0.045)
[2019-05-10 20:16] LABS: Influenza A virus by PCR Neg for Influ A (Neg); Influenza B virus by PCR Neg for Influ B (Neg)
[2019-05-10 20:26] LABS: Magnesium 1.8 mg/dl (1.8-2.4)
[2019-05-10] MEDS ORDERED: OPTIRAY 320 125ml IV PRN (20:36)
--- NOTE | 2019-05-10 21:40 | CT Scan Report ---
HEAD CT NONCONTRAST CT DOSE: HISTORY: headache TECHNIQUE: Multiaxial CT images of the head were performed without the use of intravenous contrast. A utomated exposure control was utilized for this study. A dose lowering technique was utilized adheri ng to the principles of ALARA. Comparison: Head CT 12/05/2018. Findings: Extensive motion artifact. The paranasal sinuses and mastoid air cells appear clear. The ca lvarium and skull base are likely intact. No definite mass, hematoma, midline shift, acute infarct. A trophy and microvascular ischemic changes are again noted. There is an old left periventricular infar ct resulting in ex vacuo dilatation of the left lateral ventricle. This remains unchanged. Impression: Motion artifact. No definite acute intracranial abnormality. Old left-sided infarct is again noted. ACT 112: Negative or not required by law. Electronically signed by: Brando Naylor M.D. 05/10/2019 9:39 PM
--- NOTE | 2019-05-10 21:56 | CT Scan Report ---
CT angio abdomen pelvis w con HISTORY: persistent generalized abdominal pain TECHNIQUE: Multiaxial CT images of the abdomen and pelvis were performed following the intravenous ad ministration of contrast to evaluate the aorta or mesenteric vessels. Maximum intensity projection im ages were also obtained. COMPARISON STUDY: Abdomen and pelvis CT 05/05/2019. FINDINGS: There is motion artifact throughout the examination resulting in suboptimal evaluation. A f ew bibasilar linear densities favor subsegmental atelectasis. No pneumoperitoneum. No pneumatosis. Th e bones are osteopenic. No suspicious lytic or blastic osseous lesions. Suboptimal evaluation abdomin al and pelvic vessels due to the motion artifact. However, the abdominal aorta is normal in caliber w ith no evidence for dissection. Scattered atherosclerotic plaque seen within the abdominal vessels. T he iliac and femoral arteries are patent. The celiac and inferior mesenteric arteries are widely hall nt. There is motion artifact obscuring the majority of the renal and superior mesenteric arteries. Ho wever, these are likely patent and show no evidence for high-grade stenosis or occlusion. The upper a bdominal structures are not well visualized due to the motion artifact. Normal bladder. The upper vag elroy or cervix is fluid-filled and distended. This is best seen on image 336. This measures 2.5 cm in diameter. This is new compared to the prior study. Question of mild thickening of the rectal wall. Ho wever, this could be due to underdistention. The majority of the colon is decompressed. No evidence f or bowel obstruction. No retroperitoneal lymphadenopathy. No pelvic free fluid. The visualized liver, gallbladder, spleen, adrenal glands, pancreas, and kidneys appear grossly unremarkable. No hydroneph rosis. IMPRESSION: 1. Suboptimal evaluation due to the extensive motion artifact. 2. No definite high-grade stenosis or occlusion within the mesenteric arteries. 3. Normal caliber abdominal aorta with no evidence for dissection. 4. Questionable mild rectal wall thickening. However, this could be due to underdistention. 5. Interval development of a distended and fluid-filled upper vagina/cervix. Pelvic exam recommended for direct visualization. ACT 112: Negative or not required by law. Electronically signed by: Brando Naylor M.D. 05/10/2019 9:55 PM
--- NOTE | 2019-05-11 01:09 | History & Physical Report ---
Date of Service May 11, 2019 Assessment & Plan (1) Abdominal pain: 78-year-old female with a history of CVA with residual right hemiplegia, swallow dysfunction, esophageal dysmotility/food impaction presents with intractable pain. The patient is nonverbal, but indicates that her stomach is hurting by writhing and clutching her abdomen and at times her head. notes vomiting yesterday and cold sweats. Patient was treated for diverticulitis approximately 6 weeks ago after having significant loose stools. She was hospitalized less than a week ago treated for constipation which did not resolve her pain symptoms. Intractable abdominal pain Afebrile today, white count of 15.27, questionable rectal wall thickening on CT. noted fevers and vomiting yesterday. Patient abdominal exam is benign. We will treat empirically for diverticulitis, but does not fully explain intractable abdominal pain CT scan negative for mesenteric ischemia, bowel obstruction Keep patient n.p.o., give maintenance IV fluids GI consulted, appreciate recommendations Continue to treat pain with fentanyl, Tylenol Continue omeprazole, Pepcid, Zofran as needed for vomiting Failure to thrive Progressive decline over the past couple months, refusing to eat Introduced the possibility that this decline is a progression of her cognitive impairment Would recommend discussion of goals of care History of CVA with significant impairment, expressive aphasia, right hemiplegia Fall precautions, aspiration precautions, discharge consult Keep patient n.p.o. Hypothyroidism Continue levothyroxine Depression Continue citalopram, bupropion Chronic pain Continue fentanyl, gabapentin GERD Continue omeprazole Continue other home medications including propranolol, oxybutynin CODE STATUS Full Diet N.p.o., IV fluids DVT prophylaxis Lovenox (2) Vomiting: (3) Chronic pain syndrome: (4) Sacral ulcer: (5) AMS (altered mental status): (6) Expressive aphasia: History of Present Illness Primary Care Provider: Sher Chu Jr, DO 78-year-old female with a history of CVA with residual right hemiplegia, swallow dysfunction, esophageal dysmotility/food impaction presents with intractable pain. The patient is nonverbal, but indicates that her stomach is hurting by writhing and clutching her abdomen. Her provides the history and states that she has had a progressive decline over the past few months and as the past 2 weeks has stopped eating. She was admitted to the hospital less than a week ago with a similar presentation and was treated for constipation. He noted that she had significant bowel movements, but still has had the same discomfort. She was admitted in January with food impaction of the esophagus. Family states that she had similar symptoms at that time. Allergies Allergy/AdvReac Type Severity Reaction Status Date / Time Penicillins Allergy Intermediate HIVES Verified 05/10/19 18:33 Sulfa (Sulfonamide AdvReac Intermediate MOUTH Verified 05/10/19 18:33 Antibiotics) ULCERS Home Medications Home Medications Medication Instructions Recorded Confirmed Type aspirin [Aspir-Low] 81 mg PO QPM 01/17/18 05/10/19 History citalopram 20 mg PO QAM 01/17/18 05/10/19 History gabapentin 600 mg PO TID 01/17/18 05/10/19 History oxybutynin chloride 5 mg PO AMPM 02/26/19 05/10/19 History bupropion HCl 100 mg PO AMPM 05/04/19 05/10/19 History fentanyl 75 mcg TRANSDERMAL [id number] 05/04/19 05/10/19 History ipratropium-albuterol 3 ml INHALATION Q6H PRN 05/04/19 05/10/19 History levothyroxine 88 mcg PO DAILYBB 05/04/19 05/10/19 History propranolol 20 mg PO AMPM 05/04/19 05/10/19 History multivitamin 1 tab PO DAILY 05/10/19 05/10/19 History omeprazole 20 mg PO AMPM 05/10/19 05/10/19 History potassium chloride 20 meq PO AMPM 05/10/19 05/10/19 History Past Med/Surg History Medical History Chronic pain syndrome Depression Esophageal mass Expressive language disorder (05/17/11) Fibromyalgia Food impaction of esophagus GERD (gastroesophageal reflux disease) Hypertension Hypothyroid Non-verbally indicates understanding Peptic ulcer (05/17/11) Pneumonia Right-sided muscle weakness Stroke UTI (urinary tract infection) Arnold's granulomatosis (05/17/11) Surgical History History of appendectomy Family History Other No pertinent family history in first degree relatives Social History Preferred Language: Moroccan Communication Ability: Impaired Manager Video Required: No Beliefs That Will Affect Care: None marital status: Current Living Situation: Spouse Feels Safe at Home: Yes Smoking Status: Never smoker Second Hand Exposure: No ; Hx Alcohol Use: No Hx Substance Use: No Review of Systems Review of Systems: Unobtainable due to mental health condition Physical Exam Constitutional: WD/WN, vitals as above Eyes: PERRL, conjunctivae normal, anicteric sclerae ENMT: external ear and nose normal, oropharynx normal Neck: trachea midline, no thyromegaly Respiratory: normal respiratory effort, lungs clear to auscultation Cardiovascular: RRR, no murmur, no edema Gastrointestinal (Abdomen): normal bowel sounds, soft, nontender, no hepatosplenomegaly Skin: no rashes, warm and dry Results & Data Vital Signs (Past 12 Hours) Vital Signs Temp Pulse Pulse Resp BP BP Pulse Ox 05/10/19 23:50 69 14 99 05/10/19 23:40 62 15 99 05/10/19 23:31 70 15 99 05/10/19 23:30 72 17 152/92 H 98 05/10/19 23:20 69 16 99 05/10/19 23:10 68 13 98 05/10/19 23:01 68 14 98 05/10/19 23:00 69 17 136/80 99 05/10/19 22:50 68 9 L 98 05/10/19 22:40 72 11 L 76 L 05/10/19 22:32 75 24 05/10/19 22:20 75 15 99 05/10/19 22:10 65 10 L 99 05/10/19 22:00 84 17 97 05/10/19 21:50 82 18 99 05/10/19 21:40 78 28 H 99 05/10/19 21:31 94 H 26 H 148/90 H 99 05/10/19 21:30 70 19 98 05/10/19 21:20 73 18 99 05/10/19 21:14 72 18 05/10/19 20:31 62 16 100 05/10/19 20:30 61 10 L 162/76 H 100 05/10/19 20:20 63 16 100 05/10/19 20:10 62 12 99 05/10/19 20:01 61 31 H 99 05/10/19 20:00 70 22 151/84 H 99 05/10/19 19:57 69 23 151/84 H 99 05/10/19 19:50 156 H 29 H 05/10/19 19:40 27 H 05/10/19 19:30 32 H 05/10/19 19:20 23 05/10/19 19:10 67 33 H 05/10/19 19:00 70 15 05/10/19 18:50 75 15 05/10/19 18:40 73 21 05/10/19 18:30 70 22 100 05/10/19 18:20 22 100 05/10/19 18:10 53 L 15 100 05/10/19 18:00 74 19 100 05/10/19 17:50 72 23 100 05/10/19 17:49 36.4 C L 75 20 179/130 H 100 05/10/19 17:46 71 21 100 05/10/19 17:32 65 19 179/130 H 99 Code Status & VTE Plan VTE Prophylaxis Plan VTE Prophylaxis will be ordered: Yes Resident Activity Tracking Resident Involvement: Resident Care Provided Care Provided: Adult Hospital Medicine (1) Abdominal pain Abdominal location: generalized Qualified Code(s): R10.84 - Generalized abdominal pain (2) Vomiting Nausea presence: unspecified Vomiting Intractability: non-intractable Vomiting type: unspecified Qualified Code(s): R11.10 - Vomiting, unspecified (3) AMS (altered mental status) Altered mental status type: unspecified Qualified Code(s): R41.82 - Altered mental status, unspecified
[2019-05-11] MEDS ORDERED: ONDANSETRON INJ 2 MG/ML 2 ML VIAL IV PRN (02:14)
[2019-05-11] MEDS ORDERED: FAMOTIDINE 20 MG in SYRINGE 3 ML IV ONE (02:45)
[2019-05-11] MEDS: SODIUM CHLORIDE 0.9% 1000ML 1,000 ML IV SCH ×2 (02:46→15:45)
[2019-05-11] MEDS ORDERED: HYDROmorphone INJ 0.5 MG/0.5 ML SYR IV PRN ×2 (03:45→16:22)
[2019-05-11] MEDS ORDERED: HYDROmorphone INJ 0.5 MG/0.5 ML SYR IV STA (03:46)
[2019-05-11] MEDS ORDERED: ACETAMINOPHEN 1,000 MG/100 ML VIAL IV PRN (03:47)
--- NOTE | 2019-05-11 04:40 | Billing Data ---
Date of Service May 11, 2019 Coding Level of Care Code 17225 OBS Care - Level 2
[2019-05-11] MEDS: metroNIDAZOLE 500 MG/100 ML BAG IV SCH ×3 (05:05→20:31)
[2019-05-11] MEDS: CIPROFLOXACIN 400 MG/200 ML BAG IV SCH ×2 (05:13→18:19)
[2019-05-11] MEDS: LEVOTHYROXINE SODIUM 88 MCG TABLET PO SCH (05:40)
[2019-05-11 05:46] LABS: Basophils # (auto) 0.01 K/uL (0-0.2); Basophils % (auto) 0.1 %; Eosinophils # (auto) 0.03 K/uL (0-0.5); Eosinophils % (auto) 0.2 %; Hematocrit (blood only) 41.2 % (37-47); Hemoglobin 14.3 g/dL (12.0-16.0); Immature Granulocytes # (auto) 0.04 K/uL (0.00-0.02); Immature Granulocytes % (auto) 0.3 %; Lymphocytes # (auto) 2.54 K/uL (1.2-3.4); Lymphocytes % (auto) 17.9 %; Mean Corpuscular Hemoglobin 29.2 pg (25-34); Mean Corpuscular Hgb Conc 34.7 g/dL (32-36); Mean Corpuscular Volume 84.3 fL (80-100); Mean Platelet Volume 9.2 fL (7.4-10.4); Monocytes # (auto) 1.09 K/uL (0.11-0.59); Monocytes % (auto) 7.7 %; Neutrophils # (auto) 10.49 K/uL (1.4-6.5); Neutrophils % (auto) 73.8 %; Platelet Count 318 K/uL (130-400); RDW Coefficient of Variation 14.2 % (11.5-14.5); RDW Standard Deviation 43.7 fL (36.4-46.3); Red Blood Count 4.89 M/uL (4.2-5.4)
[2019-05-11 06:03] LABS: Appearance Urine Clear (Clear); Bilirubin Urine Negative (Negative); Blood Urine Negative (Negative); Color Urine Yellow; Glucose Urine UA Negative (Negative); Ketones Urine 2+ (Negative); Leukocyte Esterase Urine Negative (Negative); Nitrite Urine Negative (Negative); Protein Urine Negative (Negative); Specific Gravity Urine 1.036 (1.000-1.030); Urobilinogen Urine Negative (Negative)
[2019-05-11 06:27] LABS: BUN Creatinine Ratio 4.5 (10-20); Calcium 8.2 mg/dl (8.5-10.1); Creatinine Clr Calc Pharmacy 71.5 ml/min; Est GFR (African American) 103.5; Est GFR (Non-African American) 89.3
[2019-05-11 07:59] LABS: Magnesium 1.7 mg/dl (1.8-2.4); Phosphorus 3.5 mg/dl (2.5-4.9)
--- NOTE | 2019-05-11 08:28 | Hospitalist Progress Note ---
Date of Service May 11, 2019 Assessment & Plan (1) Abdominal pain: 78-year-old female with a history of CVA with residual right hemiplegia, swallow dysfunction, esophageal dysmotility/food impaction presents with intractable pain. The patient is nonverbal, but indicates that her stomach is hurting by writhing and clutching her abdomen and at times her head. notes vomiting yesterday and cold sweats. Patient was treated for diverticulitis approximately 6 weeks ago after having significant loose stools. She was hospitalized less than a week ago treated for constipation which did not resolve her pain symptoms. Intractable abdominal pain Afebrile today, white count of 15.27, questionable rectal wall thickening on CT. noted fevers and vomiting yesterday. Patient abdominal exam is benign. We will treat empirically for diverticulitis, but does not fully explain intractable abdominal pain CT scan negative for mesenteric ischemia, bowel obstruction Keep patient n.p.o., give maintenance IV fluids GI consulted, appreciate recommendations Continue to treat pain with fentanyl, Tylenol and PRN Dilaudid in order to keep patient as comfortable as possible Continue omeprazole, Pepcid, Zofran as needed for vomiting -Will check US Transvaginal for free fluid in vagina to see if organ prolapse diverticular process or abscess process is seen. -Etiology could possibly be patient became dehydrated from lack of PO intake that was leading to decreased transdermal uptake of Fentanyl patch leading to a withdrawal state. Patient has been on opioids for a very long time. -Appears significantly improved per family this AM and appears comfortable. Failure to thrive Progressive decline over the past couple months, refusing to eat Introduced the possibility that this decline is a progression of her cognitive impairment Would recommend discussion of goals of care History of CVA with significant impairment, expressive aphasia, right hemiplegia Fall precautions, aspiration precautions, discharge consult Keep patient n.p.o. Hypothyroidism Continue levothyroxine Depression Continue citalopram, bupropion Chronic pain Continue fentanyl, gabapentin GERD Continue omeprazole Continue other home medications including propranolol, oxybutynin CODE STATUS Full Diet N.p.o., IV fluids DVT prophylaxis Lovenox (2) Vomiting: (3) Chronic pain syndrome: (4) Sacral ulcer: (5) AMS (altered mental status): (6) Expressive aphasia: Supervising Physician Co-Signing Physician Notes Attending attestation Pt seen and examined in concert with Dr. Morales. In agreement with the documented findings as noted in the resident documentation with any exceptions or additions as noted here. Resting comfortably in bed. Per , considerable improvement in irritation. Nonverbal, so history is unobtainable. On examination, S1/S2 nl RRR no MCG. CTAB. Abd NT/ND BS+ve Acute abdominal pain - improved. CT scan w/ distended and fluid-filled upper vagina/cervix - TV US without noted finding. Continue cipro/flagyl, PPI/H2. Pain mgmt. Else see resident documentation as noted. Subjective Caveat: History Limited by Dysphasia Son is at bedside this AM, he notes that Mom appears back to baseline this morning and appears with significantly improved comfort; is no longer writhing around in pain. Son notes that patient has had decreased PO intake for several weeks of both fluid and food. He also notes that Fentanyl patch was replaced yesterday and was questioning if this could be a component of withdrawal as well. Otherwise, he notes no other acute changes in her health except for the decreased oral intake. Physical Exam Constitutional: WD/WN, vitals as above comfortable incontinent of stool Eyes: PERRL, conjunctivae normal, anicteric sclerae Neck: normal visual inspection and trachea midline Respiratory: normal respiratory effort, lungs clear to auscultation Cardiovascular: Rate/Rhythm: regular rate and regular rhythm Gastrointestinal (Abdomen): Inspection/Auscultation: normal bowel sounds Percussion/Palpation: abdomen soft; abdomen nontender, no guarding and abdomen not rigid incontinent of stool Musculoskeletal: Head/Neck/Chest: normocephalic and head atraumatic Skin: no rashes, warm and dry Neurologic: awake tracks with eyes; can respond with yes otherwise unintelligable Psychiatric: Orientation: alert Results & Data Vital Signs (Past 12 Hours) Vital Signs Temp Pulse Pulse Resp BP BP Pulse Ox 05/11/19 07:25 37.0 C 67 18 114/76 97 05/11/19 01:45 36.7 C 73 16 131/83 99 05/11/19 01:31 68 21 05/11/19 01:30 73 22 127/76 05/11/19 01:20 75 9 L 05/11/19 01:10 81 14 05/11/19 01:00 71 13 98 05/11/19 00:50 72 13 100 05/11/19 00:40 71 14 99 05/11/19 00:30 63 18 137/82 100 05/11/19 00:20 72 13 100 05/11/19 00:10 71 19 100 05/11/19 00:00 69 14 141/81 H 99 05/10/19 23:50 69 14 99 05/10/19 23:40 62 15 99 05/10/19 23:31 70 15 99 05/10/19 23:30 72 17 152/92 H 98 05/10/19 23:20 69 16 99 05/10/19 23:10 68 13 98 05/10/19 23:01 68 14 98 05/10/19 23:00 69 17 136/80 99 05/10/19 22:50 68 9 L 98 05/10/19 22:40 72 11 L 76 L 05/10/19 22:32 75 24 05/10/19 22:20 75 15 99 05/10/19 22:10 65 10 L 99 05/10/19 22:00 84 17 97 05/10/19 21:50 82 18 99 05/10/19 21:40 78 28 H 99 05/10/19 21:31 94 H 26 H 148/90 H 99 05/10/19 21:30 70 19 98 05/10/19 21:20 73 18 99 05/10/19 21:14 72 18 05/10/19 20:31 62 16 100 05/10/19 20:30 61 10 L 162/76 H 100 Resident Activity Tracking Resident Involvement: Resident Care Provided Care Provided: Adult Hospital Medicine (1) AMS (altered mental status) Altered mental status type: unspecified Qualified Code(s): R41.82 - Altered mental status, unspecified (2) Abdominal pain Abdominal location: generalized Qualified Code(s): R10.84 - Generalized abdominal pain (3) Vomiting Nausea presence: unspecified Vomiting Intractability: non-intractable Vomiting type: unspecified Qualified Code(s): R11.10 - Vomiting, unspecified
[2019-05-11] MEDS: POTASSIUM CHLORIDE / WTR 10 MEQ/100 ML PLCT IV SCH ×4 (08:52→12:19)
[2019-05-11] MEDS ORDERED: fentaNYL 75 MCG/HR TDSY TD SCH (09:00)
[2019-05-11] MEDS: OXYBUTYNIN CHLORIDE XL 5 MG TABCR PO SCH ×2 (09:02→21:29)
[2019-05-11] MEDS: CITALOPRAM 20 MG TAB PO SCH (09:02)
[2019-05-11] MEDS: PROPRANOLOL HCL 20 MG TAB PO SCH ×2 (09:03→21:31)
[2019-05-11] MEDS: MULTIVITAMIN TAB PO SCH (09:04)
[2019-05-11] MEDS: POTASSIUM CHLORIDE PWD 20 MEQ PACK PO SCH ×2 (09:04→21:29)
[2019-05-11] MEDS: ENOXAPARIN INJ 40 MG/0.4 ML SYR SQ SCH (09:04)
[2019-05-11] MEDS: PANTOprazole 40 MG TAB PO SCH ×2 (09:05→21:30)
[2019-05-11] MEDS: BuPROPion SR 100 MG TABCR PO SCH ×2 (09:05→21:29)
[2019-05-11] MEDS: GABAPENTIN 600 MG TAB PO SCH ×3 (09:05→21:30)
[2019-05-11] MEDS: HYDROmorphone INJ 0.5 MG/0.5 ML SYR IV PRN ×2 (09:12→13:15)
--- NOTE | 2019-05-11 13:11 | Electrocardiogram Report ---
Test Reason : Blood Pressure : / mmHG Vent. Rate : 063 BPM Atrial Rate : 063 BPM P-R Int : 156 ms QRS Dur : 130 ms QT Int : 514 ms P-R-T Axes : 075 099 077 degrees QTc Int : 525 ms Normal sinus rhythm Right bundle branch block Abnormal ECG When compared with ECG of 04-MAY-2019 20:13, No significant change was found Confirmed by Matthew Judd ([id number]) on 05/11/2019 1:10:41 PM Referred By: REFERRED SELF Confirmed By:Matthew Judd
--- NOTE | 2019-05-11 13:27 | Gastrointestinal Consultation ---
Date of Consultation May 11, 2019 Assessment & Plan (1) Abdominal pain: Patient to have Transvaginal US today for further evaluation of CT findings No plans for colonoscopy, due to overall health status Continue Cipro/Flagyl therapy per primary team Continue supportive care. History of Present Illness Reason for Consultation: Intractable Abdominal pain Attending Physician: Ilya Shannon MD History of Present Illness Rosa Grimaldo is a 78 yo CF with a significant PMHx of CVA, Esophageal stenosis s/p dilation, chronic constipation, and recent episode of diverticulitis, who presented to the ER for the second time in 1 week, yesterday. As the patient is non-verbal due to her prior CVA, she was accompanied by her who informed ER staff that she was having severe abdominal pain. He noted her writhing in pain, and did note vomiting at home. Upon arrival to the ER, she underwent lab studies, which showed an elevated WBC count, but no abnormalities with her liver panel or UA. She did undergo a CT scan for the second time this week, and there was a question of some rectal wall thickening, but it was not definitive. She also had some inflammation and fluid around the vagina/cervix. She was subsequently admitted and started on Cipro/Flagyl therapy. At the time that I saw the patient, her abdominal pain had resolved. She was resting comfortably, and her stated that she was doing much better since her arrival. Her stated that she has not had a BM since her arrival. She has not had any further episodes of vomiting as well. She is not able to answer further questions at present. Allergies Allergy/AdvReac Type Severity Reaction Status Date / Time Penicillins Allergy Intermediate HIVES Verified 05/10/19 18:33 Sulfa (Sulfonamide AdvReac Intermediate MOUTH Verified 05/10/19 18:33 Antibiotics) ULCERS Home Medications Home Medications Medication Instructions Recorded Confirmed Type aspirin [Aspir-Low] 81 mg PO QPM 01/17/18 05/10/19 History citalopram 20 mg PO QAM 01/17/18 05/10/19 History gabapentin 600 mg PO TID 01/17/18 05/10/19 History oxybutynin chloride 5 mg PO AMPM 02/26/19 05/10/19 History bupropion HCl 100 mg PO AMPM 05/04/19 05/10/19 History fentanyl 75 mcg TRANSDERMAL [id number] 05/04/19 05/10/19 History ipratropium-albuterol 3 ml INHALATION Q6H PRN 05/04/19 05/10/19 History levothyroxine 88 mcg PO DAILYBB 05/04/19 05/10/19 History propranolol 20 mg PO AMPM 05/04/19 05/10/19 History multivitamin 1 tab PO DAILY 05/10/19 05/10/19 History omeprazole 20 mg PO AMPM 05/10/19 05/10/19 History potassium chloride 20 meq PO AMPM 05/10/19 05/10/19 History Patient History Medical History Chronic pain syndrome Depression Esophageal mass Expressive language disorder (05/17/11) Fibromyalgia Food impaction of esophagus GERD (gastroesophageal reflux disease) Hypertension Hypothyroid Non-verbally indicates understanding Peptic ulcer (05/17/11) Pneumonia Right-sided muscle weakness Stroke UTI (urinary tract infection) Arnold's granulomatosis (05/17/11) Surgical History History of appendectomy Family History Other No pertinent family history in first degree relatives Social History Preferred Language: Iranian Communication Ability: Impaired Communication Ability Comment: hx cva, nonverbal Beater Tender Required: No Beliefs That Will Affect Care: None marital status: Current Living Situation: Spouse Feels Safe at Home: Yes Smoking Status: Never smoker Second Hand Exposure: No ; Hx Alcohol Use: No Hx Substance Use: No Review of Systems Review of Systems: Unobtainable due to cognitive status Physical Exam Constitutional: well nourished and + ill appearing (Chronic) Eyes: no scleral abnormality ENMT: external ear and nose normal, oropharynx normal Neck: trachea midline, no thyromegaly Respiratory: normal respiratory effort, lungs clear to auscultation Cardiovascular: RRR, no murmur, no edema Gastrointestinal (Abdomen): normal bowel sounds, soft, nontender, no hepatosplenomegaly Skin: no rashes, warm and dry Results & Data Vital Signs (Past 12 Hours) Vital Signs Temp Pulse Pulse Resp BP BP Pulse Ox 05/11/19 07:25 37.0 C 67 18 114/76 97 05/11/19 01:45 36.7 C 73 16 131/83 99 05/11/19 01:31 68 21 05/11/19 01:30 73 22 127/76 PG Care Time/CCT Total # of Minutes Spent Total Time Spent with Patient: Total time spent is greater than 50% in coordination of care (as documented) at patient's floor/unit and/or counseling patient: (1) Abdominal pain Abdominal location: generalized Qualified Code(s): R10.84 - Generalized abdominal pain
--- NOTE | 2019-05-11 14:11 | Ultrasound Report ---
PELVIC ULTRASOUND CLINICAL HISTORY: Fluid filled vagina on CT; further evaluation COMPARISON STUDY: CT of the abdomen and pelvis May 10, 2019. TECHNIQUE: Transabdominal and transvaginal sonography of the pelvis was performed. FINDINGS: The uterus measures 5.7 x 2 x 2.9 cm. This exam was technically difficult but no endometria l thickening or distended endocervical canal/vagina was identified. The endometrium measured 3 mm in thickness. There is trace fluid within the endometrial canal. Neither ovary was visualized. There was no adnexal mass. IMPRESSION: 1. Technically difficult exam but no endometrial thickening or distended endocervical canal/vagina id entified by sonography. 2. Nonvisualization of the ovaries. ACT 112: Negative or not required by law. Electronically signed by: Benji Vargas M.D. 05/11/2019 2:09 PM
[2019-05-11] MEDS ORDERED: MAGNESIUM SULFATE / D5W 1 GM/100 ML BAG IV ONE (14:25)
[2019-05-11] MEDS: CHECK FENTANYL PATCH PLACEMENT SCH (15:45)
[2019-05-11] MEDS: ASPIRIN 81 MG ECTAB PO SCH (21:32)
[2019-05-12] MEDS: CHECK FENTANYL PATCH PLACEMENT SCH ×3 (00:28→17:01)
[2019-05-12] MEDS: SODIUM CHLORIDE 0.9% 1000ML 1,000 ML IV SCH ×3 (03:28→19:49)
[2019-05-12] MEDS: metroNIDAZOLE 500 MG/100 ML BAG IV SCH ×2 (03:56→12:12)
[2019-05-12] MEDS: CIPROFLOXACIN 400 MG/200 ML BAG IV SCH (05:37)
[2019-05-12] MEDS: LEVOTHYROXINE SODIUM 88 MCG TABLET PO SCH (05:57)
[2019-05-12 06:35] LABS: Basophils # (auto) 0.02 K/uL (0-0.2); Basophils % (auto) 0.2 %; Eosinophils # (auto) 0.25 K/uL (0-0.5); Eosinophils % (auto) 2.6 %; Hematocrit (blood only) 39.5 % (37-47); Immature Granulocytes # (auto) 0.01 K/uL (0.00-0.02); Immature Granulocytes % (auto) 0.1 %; Lymphocytes # (auto) 2.16 K/uL (1.2-3.4); Lymphocytes % (auto) 22.9 %; Mean Corpuscular Hemoglobin 28.6 pg (25-34); Mean Corpuscular Hgb Conc 32.9 g/dL (32-36); Mean Platelet Volume 9.3 fL (7.4-10.4); Monocytes # (auto) 0.95 K/uL (0.11-0.59); Monocytes % (auto) 10.1 %; Neutrophils # (auto) 6.06 K/uL (1.4-6.5); Neutrophils % (auto) 64.1 %; Platelet Count 300 K/uL (130-400); RDW Coefficient of Variation 14.9 % (11.5-14.5); RDW Standard Deviation 47.2 fL (36.4-46.3); Red Blood Count 4.54 M/uL (4.2-5.4); White Blood Count 9.45 K/uL (4.8-10.8)
[2019-05-12 07:23] LABS: Albumin Globulin Ratio 0.8 (0.9-2); Albumin Level 2.3 gm/dl (3.4-5.0); BUN Creatinine Ratio 2.9 (10-20); Bilirubin,Total 0.3 mg/dl (0.2-1); Calcium 8.2 mg/dl (8.5-10.1); Creatinine Clr Calc Pharmacy 54.8 ml/min; Est GFR (African American) 91.4; Est GFR (Non-African American) 78.9; Globulin 2.9 gm/dl (2.5-4.0); Phosphorus 2.8 mg/dl (2.5-4.9); Potassium 4.1 mmol/L (3.5-5.1); Total Protein 5.2 gm/dl (6.4-8.2)
[2019-05-12] MEDS: OXYBUTYNIN CHLORIDE XL 5 MG TABCR PO SCH ×2 (08:19→21:39)
[2019-05-12] MEDS: GABAPENTIN 600 MG TAB PO SCH ×3 (08:19→21:39)
[2019-05-12] MEDS: CITALOPRAM 20 MG TAB PO SCH (08:19)
[2019-05-12] MEDS: MULTIVITAMIN TAB PO SCH (08:19)
[2019-05-12] MEDS: PROPRANOLOL HCL 20 MG TAB PO SCH ×2 (08:20→21:39)
[2019-05-12] MEDS: PANTOprazole 40 MG TAB PO SCH ×2 (08:20→21:39)
[2019-05-12] MEDS: ENOXAPARIN INJ 40 MG/0.4 ML SYR SQ SCH (08:20)
[2019-05-12] MEDS: POTASSIUM CHLORIDE PWD 20 MEQ PACK PO SCH ×2 (08:20→21:39)
--- NOTE | 2019-05-12 12:06 | Hospitalist Progress Note ---
Date of Service May 12, 2019 Assessment & Plan (1) Abdominal pain: 78-year-old female with a history of CVA with residual right hemiplegia, swallow dysfunction, esophageal dysmotility/food impaction presents with intractable pain. The patient is nonverbal, but indicates that her stomach is hurting by writhing and clutching her abdomen and at times her head. notes vomiting yesterday and cold sweats. Patient was treated for diverticulitis approximately 6 weeks ago after having significant loose stools. She was hospitalized less than a week ago treated for constipation which did not resolve her pain symptoms. Intractable abdominal pain Afebrile since admission, white count peaked at 15.27, questionable rectal wall thickening on CT. noted fevers and vomiting prior to arrival. Patient abdominal exam is benign.We will treat empirically for diverticulitis, but does not fully explain intractable abdominal pain. CT scan negative for mesenteric ischemia, bowel obstruction.patient was originally n.p.o. with MIVF, diet is slowly been advanced as she is tolerated. On admission CTA demonstrated free fluid in the vagina, transvaginal US was performed and within normal limits. Clinically improving -IV Cipro Flagyl day 05/13 -Will transition to p.o. once patient demonstrates adequate p.o. intake Continue to treat pain with fentanyl, Tylenol and PRN Dilaudid in order to keep patient as comfortable as possible Continue omeprazole, Pepcid, Zofran as needed for vomiting GI consulted, following recommendations -No plans for colonoscopy -Continue Cipro Flagyl -Continue supportive care Failure to thrive Progressive decline over the past couple months, refusing to eat.Introduced the possibility that this decline is a progression of her cognitive impairment Would recommend discussion of goals of care with outpatient PCP Speech and swallow consult placed History of CVA with significant impairment, expressive aphasia, right hemiplegia Fall precautions, aspiration precautions, discharge consult Keep patient n.p.o. Hypothyroidism Continue levothyroxine Depression Continue citalopram, bupropion Chronic pain Continue fentanyl, gabapentin GERD Continue omeprazole Continue other home medications including propranolol, oxybutynin FENa: Advance diet to regular minced and moist Code Status: Full code DVT PPX: Lovenox PT/OT: Ordered Dispo: Home with home health pending clinical improvement Michael Saini MD PGY 2, FCM This chart was completed utilizing dragon dictation voice recognition software. Grammatical errors, random word insertions, pronoun errors, and in complete sentences are an occasional consequence of the system. Any questions or concerns about the content, text, or information contained within the body of this dictation should be addressed directly to the physician for clarification. (2) Vomiting: (3) Chronic pain syndrome: (4) Sacral ulcer: (5) AMS (altered mental status): (6) Expressive aphasia: Supervising Physician Co-Signing Physician Notes I personally examined the patient and verified all claros points of history and exam, discussed case, and agree with decision making with Dr Saini. Pain appears much better. Patient seems to be relating that the pain is better. notes that her pain is down to about her baseline degree of pain nowwhere she chronically has a tender abdomen. No other new complaints. Patient seems pleased with progress, family pleased with progress. In general she is awake and alertwith her aphasia is very difficult to understand what she is speaking but she does try to talk conversationally. No distress. HEENT normocephalic atraumatic mucous membranes moist. Breathing unlabored no accessory muscle use good effort. Abdomen is soft nondistended may be may be slightly minimal left lower quadrant tenderness certainly nothing like it was described beforepatient and noticed much better than beforeno guarding no rebound no rigidity and I am able to push quite hard before even eliciting any tenderness. Acute abdominal pain -initially had constipation last week, then came back with white count and a questionable appearance of wall thickening on current CT. After further ultrasound review there was nothing of pelvic organs causing problems, and I suspect that probably her constipation caused pressure across the wall of her rectum leading to a colitis type picture which was her current presentation. Improving. Transition to oral antibiotics to ensure she can swallow it given her dysphagia, then hopefully home tomorrow otherwise as above. Subjective Patient sitting upright in bed in no acute distress. Patient's at bedside was able to help with interval history, patient is baseline nonverbal for the most part and was not able to meaningfully participate in the interview. Per report there were no issues overnight, is significantly pleased wit h the improvement in his 's condition. Patient has been tolerating her diet, voiding, stooling, slept well overnight. Acute concerns relate to resolution of patient's current symptoms, all questions answered Physical Exam Physical Exam: General: Elderly female lying in bed in no acute distress with right-sided hemiplegia HEENT: Normocephalic atraumatic Neck: Normal to visual inspection Cardiac: Regular rate and rhythm, I did not appreciate any significant murmurs rubs or gallops, normal S1, normal S2, negative calf tenderness, negative pedal edema Respiratory: Clear to auscultation bilaterally with symmetrical chest expansion I did not appreciate significant wheezes, rales, rhonchi GI: Normal bowel sounds, abdomen soft, nontender, nondistended Neuro: Alert, unable to assess orientation, patient intermittently makes meaningful speech Psych: Calm and cooperative Results & Data Vital Signs (Past 12 Hours) Vital Signs Temp Pulse Resp BP Pulse Ox 05/12/19 07:00 36.7 C 70 20 102/67 93 Laboratory Results 05/12/19 05/12/19 Range/Units 06:01 06:01 WBC 9.45 (4.8-10.8) K/uL RBC 4.54 (4.2-5.4) M/uL Hgb 13.0 (12.0-16.0) g/dL Hct 39.5 (37-47) % MCV 87.0 (80-100) fL MCH 28.6 (25-34) pg MCHC 32.9 (32-36) g/dL RDW Std Deviation 47.2 H (36.4-46.3) fL RDW Coeff of Stella 14.9 H (11.5-14.5) % Plt Count 300 (130-400) K/uL MPV 9.3 (7.4-10.4) fL Immature Gran % (Auto) 0.1 % Neut % (Auto) 64.1 % Lymph % (Auto) 22.9 % [place] % (Auto) 10.1 % Eos % (Auto) 2.6 % Baso % (Auto) 0.2 % Immature Gran # (Auto) 0.01 (0.00-0.02) K/uL Neut # (Auto) 6.06 (1.4-6.5) K/uL Lymph # (Auto) 2.16 (1.2-3.4) K/uL [place] # (Auto) 0.95 H (0.11-0.59) K/uL Eos # (Auto) 0.25 (0-0.5) K/uL Baso # (Auto) 0.02 (0-0.2) K/uL Sodium 137 (136-145) mmol/L Potassium 4.1 D (3.5-5.1) mmol/L Chloride 106 (98-107) mmol/L Carbon Dioxide 26 (21-32) mmol/L Anion Gap 5.0 (3-11) BUN 2 L (7-18) mg/dl Creatinine 0.73 (0.6-1.2) mg/dl Est Cr Clr Drug Dosing 54.8 ml/min Est GFR ( Amer) 91.4 Est GFR (Non-Af Amer) 78.9 BUN/Creatinine Ratio 2.9 L (10-20) Glucose 159 H (70-99) mg/dl Calcium 8.2 L (8.5-10.1) mg/dl Phosphorus 2.8 (2.5-4.9) mg/dl Magnesium 2.0 (1.8-2.4) mg/dl Total Bilirubin 0.3 (0.2-1) mg/dl AST 30 (15-37) U/L ALT 14 (12-78) U/L Alkaline Phosphatase 80 (45-117) U/L Total Protein 5.2 L D (6.4-8.2) gm/dl Albumin 2.3 L (3.4-5.0) gm/dl Globulin 2.9 (2.5-4.0) gm/dl Albumin/Globulin Ratio 0.8 L (0.9-2) Medications Administered Current Inpatient Medications Aspirin (Ecotrin Ectab) 81 mg PO QPM [facility] Stop: 06/10/19 20:59 Last Admin: 05/11/19 21:32 Dose: 81 mg Documented by: Bupropion HCl (Wellbutrin-Sr) 100 mg PO BID [facility] Stop: 06/10/19 08:59 Last Admin: 05/11/19 21:29 Dose: 100 mg Documented by: Citalopram Hydrobromide (Celexa) 20 mg PO QAM [facility] Stop: 06/10/19 08:59 Last Admin: 05/12/19 08:19 Dose: 20 mg Documented by: Enoxaparin Sodium (Lovenox) 40 mg SQ Q24H [facility] Stop: 06/10/19 08:59 Last Admin: 05/12/19 08:20 Dose: 40 mg Documented by: Fentanyl (Duragesic) 75 mcg TD Q72H [facility] Stop: 05/25/19 08:59 Last Admin: 05/11/19 09:03 Dose: 75 mcg Documented by: Gabapentin (Neurontin) 600 mg PO TID [facility] Stop: 06/10/19 08:59 Last Admin: 05/12/19 08:19 Dose: 600 mg Documented by: Hydromorphone HCl (Dilaudid) 0.5 mg IV Q6H PRN PRN Reason: Severe Pain Stop: 05/25/19 08:59 Ciprofloxacin (Cipro) 400 mg in 200 mls @ 100 mls/hr IV Q12H [facility]; Protocol Stop: 05/21/19 04:59 Last Infusion: 05/12/19 07:40 Dose: Infused Documented by: Metronidazole (Flagyl) 500 mg in 100 mls @ 100 mls/hr IV Q8H [facility] Stop: 05/21/19 03:59 Last Infusion: 05/12/19 05:38 Dose: Infused Documented by: Sodium Chloride (Nss 1000ml) 1,000 mls @ 100 mls/hr IV .Q10H [facility] Stop: 06/10/19 02:13 Last Admin: 05/12/19 03:28 Dose: 100 mls/hr Documented by: Acetaminophen (Ofirmev) 1,000 mg in 100 mls @ 400 mls/hr IV Q8H PRN PRN Reason: Pain Stop: 05/14/19 03:46 Ioversol (Optiray 320 125ml) 119 ml IV ONCE PRN PRN Reason: Interaction Checking Stop: 05/14/19 20:35 Last Admin: 05/10/19 20:37 Dose: 119 ml Documented by: Levothyroxine Sodium (Synthroid) 88 mcg PO DAILYBB [facility] Stop: 06/10/19 06:29 Last Admin: 05/12/19 05:57 Dose: 88 mcg Documented by: Miscellaneous (Fentanyl Patch Remove & Waste) 1 ea N/A Q72H [facility] Stop: 06/10/19 08:58 Last Admin: 05/11/19 08:57 Dose: 1 ea Documented by: Miscellaneous (Fentanyl Patch Check Placement) 1 ea N/A QS [facility] Stop: 06/10/19 15:59 Last Admin: 05/12/19 08:19 Dose: 1 ea Documented by: Multivitamins (Multivitamin Tab) 1 tab PO DAILY [facility] Stop: 06/10/19 08:59 Last Admin: 05/12/19 08:19 Dose: 1 tab Documented by: Oxybutynin Chloride (Ditropan Xl) 5 mg PO BID [facility] Stop: 06/10/19 08:59 Last Admin: 05/12/19 08:19 Dose: 5 mg Documented by: Pantoprazole Sodium (Protonix) 40 mg PO BID [facility] Stop: 06/10/19 08:59 Last Admin: 05/12/19 08:20 Dose: 40 mg Documented by: Potassium Chloride (Klor-Con Pwd) 20 meq PO BID [facility] Stop: 06/10/19 08:59 Last Admin: 05/12/19 08:20 Dose: 20 meq Documented by: Propranolol HCl (Inderal) 20 mg PO BID [facility] Stop: 06/10/19 08:59 Last Admin: 05/12/19 08:20 Dose: 20 mg Documented by: Resident Activity Tracking Resident Involvement: Resident Care Provided Care Provided: Adult Hospital Medicine (1) AMS (altered mental status) Altered mental status type: unspecified Qualified Code(s): R41.82 - Altered mental status, unspecified (2) Abdominal pain Abdominal location: generalized Qualified Code(s): R10.84 - Generalized abdominal pain (3) Vomiting Nausea presence: unspecified Vomiting Intractability: non-intractable Vomiting type: unspecified Qualified Code(s): R11.10 - Vomiting, unspecified
[2019-05-12] MEDS: BuPROPion SR 100 MG TABCR PO SCH ×2 (12:12→21:39)
--- NOTE | 2019-05-12 17:56 | Billing Data ---
Date of Service May 12, 2019 Coding Level of Care Code 13331 Subseq Hosp Care Lvl 2
[2019-05-12] MEDS: CIPROFLOXACIN 500 MG TAB PO SCH (19:49)
[2019-05-12] MEDS: metroNIDAZOLE 500 MG TAB PO SCH (19:49)
[2019-05-12] MEDS: ASPIRIN 81 MG ECTAB PO SCH (21:39)
[2019-05-13] MEDS: CHECK FENTANYL PATCH PLACEMENT SCH ×2 (00:09→08:54)
[2019-05-13] MEDS: metroNIDAZOLE 500 MG TAB PO SCH ×2 (05:00→12:40)
[2019-05-13] MEDS: LEVOTHYROXINE SODIUM 88 MCG TABLET PO SCH (05:00)
[2019-05-13] MEDS: SODIUM CHLORIDE 0.9% 1000ML 1,000 ML IV SCH (05:49)
[2019-05-13 06:45] LABS: Basophils # (auto) 0.01 K/uL (0-0.2); Basophils % (auto) 0.1 %; Eosinophils # (auto) 0.17 K/uL (0-0.5); Eosinophils % (auto) 1.3 %; Hematocrit (blood only) 36.8 % (37-47); Hemoglobin 11.8 g/dL (12.0-16.0); Immature Granulocytes # (auto) 0.02 K/uL (0.00-0.02); Immature Granulocytes % (auto) 0.2 %; Lymphocytes # (auto) 2.16 K/uL (1.2-3.4); Lymphocytes % (auto) 16.7 %; Mean Corpuscular Hemoglobin 28.6 pg (25-34); Mean Corpuscular Hgb Conc 32.1 g/dL (32-36); Mean Corpuscular Volume 89.1 fL (80-100); Mean Platelet Volume 9.2 fL (7.4-10.4); Monocytes # (auto) 1.24 K/uL (0.11-0.59); Monocytes % (auto) 9.6 %; Neutrophils # (auto) 9.35 K/uL (1.4-6.5); Neutrophils % (auto) 72.1 %; Platelet Count 315 K/uL (130-400); RDW Coefficient of Variation 15.2 % (11.5-14.5); RDW Standard Deviation 49.4 fL (36.4-46.3); Red Blood Count 4.13 M/uL (4.2-5.4); White Blood Count 12.95 K/uL (4.8-10.8)
[2019-05-13 07:15] LABS: BUN Creatinine Ratio 3.1 (10-20); Calcium 7.8 mg/dl (8.5-10.1); Creatinine Clr Calc Pharmacy 66.7 ml/min; Est GFR (African American) 101.2; Est GFR (Non-African American) 87.3; Potassium 3.8 mmol/L (3.5-5.1)
--- NOTE | 2019-05-13 08:05 | Discharge Summary ---
Date of Service May 13, 2019 Admission HPI Per Admitting Provider 78-year-old female with a history of CVA with residual right hemiplegia, swallow dysfunction, esophageal dysmotility/food impaction presents with intractable pain. The patient is nonverbal, but indicates that her stomach is hurting by writhing and clutching her abdomen. Her provides the history and states that she has had a progressive decline over the past few months and as the past 2 weeks has stopped eating. She was admitted to the hospital less than a week ago with a similar presentation and was treated for constipation. He noted that she had significant bowel movements, but still has had the same discomfort. She was admitted in January with food impaction of the esophagus. Family states that she had similar symptoms at that time. Admission Exam Per Admitting Provider Constitutional: WD/WN, vitals as above Eyes: PERRL, conjunctivae normal, anicteric sclerae ENMT: external ear and nose normal, oropharynx normal Neck: trachea midline, no thyromegaly Respiratory: normal respiratory effort, lungs clear to auscultation Cardiovascular: RRR, no murmur, no edema Gastrointestinal (Abdomen): normal bowel sounds, soft, nontender, no hepatosplenomegaly Skin: no rashes, warm and dry Principal Diagnosis Intractable abdominal pain secondary to bacterial gastrointestinal infection Discharge Exam General: Elderly female lying in bed in no acute distress with right-sided hemiplegia HEENT: Normocephalic atraumatic Neck: Normal to visual inspection Cardiac: Regular rate and rhythm, I did not appreciate any significant murmurs rubs or gallops, normal S1, normal S2, negative calf tenderness, negative pedal edema Respiratory: Clear to auscultation bilaterally with symmetrical chest expansion I did not appreciate significant wheezes, rales, rhonchi GI: Normal bowel sounds, abdomen soft, nontender, nondistended Neuro: Alert, unable to assess orientation, patient intermittently makes meaningful speech Psych: Calm and cooperative Discharge Data Allergies Allergy/AdvReac Type Severity Reaction Status Date / Time Penicillins Allergy Intermediate HIVES Verified 05/10/19 18:33 Sulfa (Sulfonamide AdvReac Intermediate MOUTH Verified 05/10/19 18:33 Antibiotics) ULCERS Consultations 05/11/19 00:11 ED Decision to Admit Stat 05/11/19 02:14 Consult Case Management - Discharge Planning Routine Consult Gastroenterology Routine Ordered Studies 05/10/19 18:13 CT angio abdomen pelvis w con Stat CT head/brain wo con Stat 05/11/19 11:58 US transvaginal Urgent 05/11/19 13:39 US pelvic complete Routine Hospital Course (1) Abdominal pain: 78-year-old female with a history of CVA with residual right hemiplegia, swallow dysfunction, esophageal dysmotility/food impaction presents with intractable pain. The patient is nonverbal, but indicates that her stomach is hurting by writhing and clutching her abdomen and at times her head. notes vomiting yesterday and cold sweats. Patient was treated for diverticulitis approximately 6 weeks ago after having significant loose stools. She was hospitalized less than a week ago treated for constipation which did not resolve her pain symptoms. Intractable abdominal pain Afebrile since admission, white count peaked at 15.27, questionable rectal wall thickening on CT. noted fevers and vomiting prior to arrival. Patient abdominal exam is benign.We will treat empirically for diverticulitis, but does not fully explain intractable abdominal pain. CT scan negative for mesenteric ischemia, bowel obstruction. Patient was originally n.p.o. with MIVF, diet is slowly been advanced as she is tolerated. On admission CTA demonstrated free fluid in the vagina, transvaginal US was performed and within normal limits. Patient continued to clinically improve on Cipro and Flagyl treating for presumed diverticulitis versus colitis. She was successfully transitioned to p.o. on 05/12, and given a regular diet at that time as well. Her pain was managed with her home medications including fentanyl, Tylenol she is no longer requiring PRN Dilaudid. We continued her omeprazole and her Pepcid and Zofran while hospitalized for vomiting. Gastroenterology was consulted they had no plans for colonoscopy, recommended continuing antibiotic therapy with supportive care. Given the patient's significant clinical improvement, she was discharged on 05/13 to complete a 5-day course of p.o. Cipro and Flagyl for a total of 7 days of antibiotic therapy. Failure to thrive Progressive decline over the past couple months, refusing to eat.Introduced the possibility that this decline is a progression of her cognitive impairment. Would recommend discussion of goals of care with outpatient PCP Speech and swallow was consulted while she was admitted, she is known to have aspiration precautions, she is a severely dysfunctional esophagus which is the cause of her dysphasia and a primary contributor of her failure to thrive. Her last video swallow study was on 02/16/2019 resulted without evidence of penetration or aspiration. History of CVA with significant impairment, expressive aphasia, right hemiplegia Fall precautions, aspiration precautions Hypothyroidism Continued levothyroxine Depression Continued citalopram, bupropion Chronic pain Continued fentanyl, gabapentin GERD Continued omeprazole Continued other home medications including propranolol, oxybutynin FENa: Regular minced and moist Code Status: Full code DVT PPX: Lovenox PT/OT: Ordered Dispo: Home with home health Michael Saini MD PGY 2, FCM This chart was completed utilizing [employer] voice recognition software. Grammatical errors, random word insertions, pronoun errors, and in complete sentences are an occasional consequence of the system. Any questions or concerns about the content, text, or information contained within the body of this dictation should be addressed directly to the physician for clarification. (2) Vomiting: (3) Chronic pain syndrome: (4) Sacral ulcer: (5) AMS (altered mental status): (6) Expressive aphasia: Total Time Total Time Spent Total Time Spent (In Minutes): <30 Discharge Plan Discharge Items Patient Disposition: Home - Home Health Services Reason For Visit: ABDOMINAL PAIN,FAILURE TO THRIVE Discharge Diagnosis: Intractable abdominal pain secondary to bacterial gastrointestinal infection Activity: Resume your previous activity Non-emergency contact: Primary Care Provider Call non-emergency contact if: you have any medication questions, your symptoms worsen, your pain is worsening and your temperature is above 101 Follow-up/Referrals: Sher Chu Jr, DO [Primary Care Provider] - Diet: Regular Diet Texture: Mechanical soft (ground) Addtl Attending Provider Instructions: Care instructions: You were admitted to [facility] for treatment of Intractable abdominal pain secondary to bacterial gastrointestinal infection. While hospitalized you were evaluated with imaging that was for the most part within normal limits there is a questionable thickening on the CT scan. He received a pelvic ultrasound to rule out free fluid in the vagina based upon CT scan findings. You are also started on empiric antibiotic therapy which resulted in meaningful improvement in her condition. Your diet was resumed, and slowly advanced which he tolerated well. He was subsequently discharged to complete the remaining 5 days of a 7-day antibiotic course. Her medications have been sent to the [facility] Moving forward to prevent episodes like this from reoccurring and is of the utmost importance that the patient adhere to a bowel regimen including MiraLAX once per day. If the patient does not appear to be having bowel movements this can be increased to 2 times a day or even 3 times a day. If the patient does not have a bowel movement for greater than 2 days I would contact her primary care provider. Furthermore it is extremely important the patient remain adequately hydrated, there was some thought that potentially her hydration status had declined resulting in her not receiving her fentanyl, and subsequently withdrawing causing her current presentation. Regardless bowel regimen and hydration are of the utmost importance. A discharge summary will be sent to your primary care physician to ensure continuity of care. Please bring this discharge summary with you to your next office appointment so that your provider can review it at that time. Follow-up appointments: - Keep all your follow-up appointments as already scheduled. If you cannot make an appointment, notify your provider. - Please call to request a follow-up appointment with your primary care physician within one week of discharge. Please let us know if you are unable to obtain an appointment Medications: - Your medication list has been reviewed and reconciled upon discharge to ensure accuracy and continuity of care. - You are provided with a list of all your current medications at this time. Please review this list closely and make note of any changes. - Please take all of your medications exactly as prescribed. - Tell your primary care provider if you cannot afford your medications. - Call your primary care provider if you are having any side effects or any other problems. - Call your primary care provider before taking any over the counter medications or supplements, including herbals and vitamins, because some of these may interact with your current medications and/or make your symptoms worse. Symptoms: Please call your primary care provider for symptoms including, but not limited to: fevers (temperatures greater than 100.4), chills, intractable nausea or vomiting, diarrhea, rash, shortness of breath, bleeding, pain, or if you experience any worsening of the symptoms that brought you to the hospital. For EMERGENCY and VERY SERIOUS health-related issues, such as chest pain, shortness of breath, or sudden onset of the symptoms that brought you to the hospital, you may need to call 911 or go directly to the Emergency Room It has been our privilege to take care of you during your hospital stay. And Above All Else Feel Better! Best Wishes, Michael Saini MD PGY2 Resident, Family & Community Medicine [facility] FCM Residency at [facility] [place] [id number] [facility], [address] : [address] [place] [address] Pending Studies at Discharge: No Stand-Alone Forms: Call Back Authorization, My [facility], Smoking Cessation Medications and DC Order Prescriptions: New metronidazole 500 mg Tablet 500 mg PO Q8H 5 Days Qty: 15 RF: 0 ciprofloxacin HCl 500 mg Tablet 500 mg PO BID 5 Days Qty: 10 RF: 0 Continued gabapentin 600 mg tablet 600 mg PO TID RF: 0 aspirin [Aspir-Low] 81 mg Tablet,Delayed Release (Dr/Ec) 81 mg PO QPM RF: 0 citalopram 20 mg tablet 20 mg PO QAM RF: 0 oxybutynin chloride 10 mg tablet extended release 24hr 5 mg PO AMPM RF: 0 bupropion HCl 100 mg tablet sustained-release 12 hr 100 mg PO AMPM RF: 0 ipratropium-albuterol 0.5 mg-3 mg(2.5 mg base)/3 mL solution for nebulization 3 ml inhalation Q6H PRN (Reason: Shortness Of Breath Or Wheezing) RF: 0 propranolol 20 mg tablet 20 mg PO AMPM RF: 0 fentanyl 75 mcg/hr patch 72 hour 75 mcg Transdermal [id number] RF: 0 levothyroxine 88 mcg capsule 88 mcg PO DAILYBB RF: 0 multivitamin Tablet 1 tab PO DAILY RF: 0 potassium chloride 20 mEq packet 20 meq PO AMPM RF: 0 omeprazole 20 mg capsule,delayed release(DR/EC) 20 mg PO AMPM RF: 0 Discharge Orders: Discharge Order (Routine); Ordered 05/13/19 Ordered By: Michael Saini Admission Data Admit Date/Time: 05/11/19 00:38 Attending Provider: Claudio Alvarado Admit Provider: Ede Nicole Primary Care Provider: Sher Chu Jr Other Providers: Walker Mathew ; Tariq Bray ; [facility] ; Ilya Shannon Other Interventions: Discharge Summary Assessment (RN) Last Done: 05/13/19 12:51 DC Date/Time DO NOT enter until pt leaves facility: 05/13/19 13:20 Supervising Physician Co-Signing Physician Notes I personally examined the patient and verified all claros points of history and exam, discussed case, and agree with decision making with Dr Saini. Pain seems to be under better control. Patient doing well. pleased with progress. Feels she is okay to go home In general she is awake and alertwith her aphasia is very difficult to understand what she is speaking but she does try to talk conversationally. No distress. HEENT normocephalic atraumatic mucous membranes moist. Breathing unlabored no accessory muscle use good effort. Abdomen is soft nondistended may be very mild left lower quadrant tenderness and no guarding no rebound no rigidity Acute abdominal pain -initially had constipation last week, then came back with white count and a questionable appearance of wall thickening on current CT. After further ultrasound review there was nothing of pelvic organs causing problems, and I suspect that probably her constipation caused pressure across the wall of her rectum leading to a colitis type picture which was her current presentation. Improving. Tolerating oral antibiotics, safe for home. Outpatient follow-up. otherwise as above. Resident Activity Tracking Resident Involvement: Resident Care Provided Care Provided: Adult Hospital Medicine
[2019-05-13] MEDS: MULTIVITAMIN TAB PO SCH (08:50)
[2019-05-13] MEDS: OXYBUTYNIN CHLORIDE XL 5 MG TABCR PO SCH (08:50)
[2019-05-13] MEDS: PROPRANOLOL HCL 20 MG TAB PO SCH (08:53)
[2019-05-13] MEDS: BuPROPion SR 100 MG TABCR PO SCH (08:53)
[2019-05-13] MEDS: PANTOprazole 40 MG TAB PO SCH (08:53)
[2019-05-13] MEDS: GABAPENTIN 600 MG TAB PO SCH (08:53)
[2019-05-13] MEDS: POTASSIUM CHLORIDE PWD 20 MEQ PACK PO SCH (08:53)
[2019-05-13] MEDS: CITALOPRAM 20 MG TAB PO SCH (08:53)
[2019-05-13] MEDS: CIPROFLOXACIN 500 MG TAB PO SCH (08:53)
[2019-05-13] MEDS: ENOXAPARIN INJ 40 MG/0.4 ML SYR SQ SCH (08:54)
--- NOTE | 2019-05-13 19:00 | Billing Data ---
Date of Service May 13, 2019 Coding Level of Care Code 43746 OBS Care - Discharge
== END 2019-05-13 13:20 | disposition home health service (06) ==
LOC: 4W 17:24 → ED 17:24 → SUATTDRO 05-11 00:38 → 4W 05-11 01:31